=== PATIENT | female | born 1985 | race Hispanic/Latino ===

== ENCOUNTER 2018-11-02 03:57 | Emergency (ER) | payer MEDICAID | END 2018-11-02 04:38 | disposition home or self-care (01) | LOC: EDH 03:57 | DX: S90.511A Abrasion, right ankle, initial encounter (principal); F41.9 Anxiety disorder, unspecified; E11.9 Type 2 diabetes mellitus without complications; J45.909 Unspecified asthma, uncomplicated; I10 Essential (primary) hypertension; Z98.890 Other specified postprocedural states; W55.03XA Scratched by cat, initial encounter; Y93.89 Activity, other specified; Y92.098 Other place in other non-institutional residence as the place of occurrence of the external cause; Y99.8 Other external cause status ==

== ENCOUNTER 2019-08-01 19:34 | Emergency (ER) | payer MEDICAID ==
[2019-08-01 20:20] LABS: EOSINOPHILS % (AUTO) 2.3 % (0.0-8.0); HEMATOCRIT 38.3 % (36-48); MEAN CORPUSCULAR HGB CONC 34.4 g/dL (32.0-36.0); MEAN CORPUSCULAR VOLUME 84.5 fL (79-99); MONOCYTES % (AUTO) 5.3 % (3.0-13.0); NEUTROPHILS % (AUTO) 59.4 % (40.0-77.0); NUCLEATED RED BLOOD CELLS 0.1 % (0.0-0.19); PLATELET COUNT (AUTO) 239 K/uL (130-400); RED BLOOD CELL COUNT(AUTO) 4.53 MIL/uL (4.00-5.50); WHITE BLOOD COUNT (AUTO) 12.3 K/uL (4.8-10.8)
[2019-08-01 20:22] LABS: APPEARANCE,URINE Clear (CLEAR); BILIRUBIN,URINE Negative (NEGATIVE); COLOR,URINE Yellow (YELLOW); GLUCOSE, URINE (UA) Negative (NEGATIVE); KETONES,URINE Negative (NEGATIVE); LEUKOCYTE ESTERASE ,URINE Negative (NEGATIVE); NITRATE,URINE Negative (NEGATIVE); OCCULT BLOOD,URINE Negative (NEGATIVE); PH,URINE 5.5 (5.0-8.0); PROTEIN,URINE Negative (NEGATIVE)
[2019-08-01 20:25] LABS: CREATININE 0.8 mg/dL (0.5-1.5); POTASSIUM 3.8 mmol/L (3.5-5.1)
[2019-08-01 20:29] LABS: ALBUMIN 3.3 g/dL (3.5-5.0); BILIRUBIN,TOTAL 0.2 mg/dL (0.2-1.0); TOTAL PROTEIN, SERUM 7.5 g/dL (6.0-8.3)
[2019-08-01 20:29] LABS: AMPHET/METH SCREEN,URINE NEGATIVE (NEGATIVE); BARBITURATE SCREEN, URINE NEGATIVE (NEGATIVE); BENZODIAZEPINES SCREEN,URINE NEGATIVE (NEGATIVE); CANNABINOID SCREEN,URINE NEGATIVE (NEGATIVE); COCAINE SCREEN,URINE NEGATIVE (NEGATIVE); OPIATE SCREEN,URINE NEGATIVE (NEGATIVE); PHENCYCLIDINE SCREEN,URINE NEGATIVE (NEGATIVE)
[2019-08-01] MEDS ORDERED: AMOXICILLIN/POTASSIUM CLAV 875-125 TABLET PO ONE (21:31)
== END 2019-08-01 21:37 | disposition home or self-care (01) ==
LOC: EDH 19:34
DX: K57.32 Diverticulitis of large intestine without perforation or abscess without bleeding (principal); I10 Essential (primary) hypertension; E11.9 Type 2 diabetes mellitus without complications; J45.909 Unspecified asthma, uncomplicated; F41.9 Anxiety disorder, unspecified; Z90.89 Acquired absence of other organs
CPT/HCPCS: 36415; 74176; 80053; 80305; 81003; 81025; 83690; 85025

== ENCOUNTER 2019-11-14 14:31 | Emergency (ER) | payer MEDICAID ==
[2019-11-14 15:16] LABS: BASOPHILS % (AUTO) 0.6 % (0.0-5.0); EOSINOPHILS % (AUTO) 2.8 % (0.0-8.0); HEMATOCRIT 38.7 % (36-48); LYMPHOCYTES % (AUTO) 32.8 % (21.0-51.0); MEAN CORPUSCULAR HEMOGLOBIN 27.3 pg (27.0-33.0); MEAN CORPUSCULAR HGB CONC 32.6 g/dL (32.0-36.0); MEAN CORPUSCULAR VOLUME 83.9 fL (79-99); MONOCYTES % (AUTO) 7.1 % (3.0-13.0); NEUTROPHILS % (AUTO) 56.6 % (40.0-77.0); PLATELET COUNT (AUTO) 210 K/uL (130-400); RED BLOOD CELL COUNT(AUTO) 4.61 MIL/uL (4.00-5.50); RED CELL DISTRIBUTION WIDTH 13.7 % (11.0-15.5); WHITE BLOOD COUNT (AUTO) 8.6 K/uL (4.8-10.8)
[2019-11-14 15:25] LABS: PARTIAL THROMBOPLASTIN TIME 27.7 SEC (26.3-35.5); PROTHROMBIN TIME 10.5 SEC (9.6-11.6)
[2019-11-14 15:26] LABS: CARBON DIOXIDE 25 mmol/L (21-32); CHLORIDE 102 mmol/L (101-111); CREATININE 0.8 mg/dL (0.5-1.5); GLOMERULAR FILTR. RATE CALC 88 mL/min (>60); GLUCOSE,RANDOM 103 mg/dL (70-105); POTASSIUM 3.5 mmol/L (3.5-5.1); SODIUM SERUM 138 mmol/L (136-145); UREA NITROGEN, BLOOD 9 mg/dL (7-18)
[2019-11-14 15:30] LABS: ALANINE AMINOTRANSFERASE 31 U/L (12-78); ALBUMIN 3.3 g/dL (3.5-5.0); ASPARTATE AMINOTRANSFERASE 14 U/L (10-37); BILIRUBIN,TOTAL 0.3 mg/dL (0.2-1.0); CREATINE KINASE, TOTAL 91 U/L (21-232); TOTAL PROTEIN, SERUM 7.8 g/dL (6.0-8.3)
[2019-11-14 15:35] LABS: APPEARANCE,URINE Clear (CLEAR); BILIRUBIN,URINE Negative (NEGATIVE); COLOR,URINE Yellow (YELLOW); GLUCOSE, URINE (UA) Negative (NEGATIVE); KETONES,URINE Negative (NEGATIVE); LEUKOCYTE ESTERASE ,URINE Negative (NEGATIVE); NITRATE,URINE Negative (NEGATIVE); OCCULT BLOOD,URINE Negative (NEGATIVE); PH,URINE 5.5 (5.0-8.0); PROTEIN,URINE Negative (NEGATIVE); UROBILINOGEN,URINE 0.2 mg/dL (0.2-1.0)
[2019-11-14 15:38] LABS: ACETAMINOPHEN < 1 mcg/mL (10-30); ALCOHOL, BLOOD < 3 mg/dL (0-10); SALICYLATE < 2.8 mg/dL (2.8-20.0)
[2019-11-14 15:48] LABS: AMPHET/METH SCREEN,URINE NEGATIVE (NEGATIVE); BARBITURATE SCREEN, URINE NEGATIVE (NEGATIVE); BENZODIAZEPINES SCREEN,URINE NEGATIVE (NEGATIVE); CANNABINOID SCREEN,URINE NEGATIVE (NEGATIVE); COCAINE SCREEN,URINE NEGATIVE (NEGATIVE); HCG,QUAL RESULT NEGATIVE (NEGATIVE); OPIATE SCREEN,URINE NEGATIVE (NEGATIVE); PHENCYCLIDINE SCREEN,URINE NEGATIVE (NEGATIVE)
[2019-11-14] MEDS ORDERED: ACETAMINOPHEN 325 MG TAB ONE (15:57)
== END 2019-11-14 21:12 | disposition short-term general hospital (02) ==
LOC: EDH 14:31
DX: R45.851 Suicidal ideations (principal); F41.9 Anxiety disorder, unspecified; F32.9 Major depressive disorder, single episode, unspecified; J45.909 Unspecified asthma, uncomplicated; E11.9 Type 2 diabetes mellitus without complications; I10 Essential (primary) hypertension; Z72.0 Tobacco use
CPT/HCPCS: 36415; 80053; 80305; 81003; 81025; 82550; 84484; 85025; 85610; 85730; 93005; 99285; G0480 ×2; G0481

== ENCOUNTER 2020-02-11 20:20 | Emergency (ER) | payer MEDICAID ==
[2020-02-11 20:57] LABS: BASOPHILS % (AUTO) 0.5 % (0.0-5.0); EOSINOPHILS % (AUTO) 2.5 % (0.0-8.0); HEMATOCRIT 38.3 % (36-48); LYMPHOCYTES % (AUTO) 35.4 % (21.0-51.0); MEAN CORPUSCULAR HEMOGLOBIN 25.3 pg (27.0-33.0); MEAN CORPUSCULAR HGB CONC 31.9 g/dL (32.0-36.0); MEAN CORPUSCULAR VOLUME 79.5 fL (79-99); MONOCYTES % (AUTO) 5.8 % (3.0-13.0); NEUTROPHILS % (AUTO) 55.6 % (40.0-77.0); PLATELET COUNT (AUTO) 313 K/uL (130-400); RED BLOOD CELL COUNT(AUTO) 4.82 MIL/uL (4.00-5.50); RED CELL DISTRIBUTION WIDTH 14.7 % (11.0-15.5); WHITE BLOOD COUNT (AUTO) 9.5 K/uL (4.8-10.8)
[2020-02-11 21:14] LABS: APPEARANCE,URINE Cloudy (CLEAR); BILIRUBIN,URINE Negative (NEGATIVE); CARBON DIOXIDE 28 mmol/L (21-32); CHLORIDE 103 mmol/L (101-111); COLOR,URINE Yellow (YELLOW); GLOMERULAR FILTR. RATE CALC 68 mL/min (>60); GLUCOSE, URINE (UA) Negative (NEGATIVE); GLUCOSE,RANDOM 104 mg/dL (70-105); KETONES,URINE Negative (NEGATIVE); LEUKOCYTE ESTERASE ,URINE Negative (NEGATIVE); NITRATE,URINE Negative (NEGATIVE); OCCULT BLOOD,URINE Negative (NEGATIVE); PH,URINE 5.5 (5.0-8.0); POTASSIUM 3.4 mmol/L (3.5-5.1); PROTEIN,URINE Negative (NEGATIVE); SODIUM SERUM 139 mmol/L (136-145); UREA NITROGEN, BLOOD 18 mg/dL (7-18)
[2020-02-11 21:15] LABS: HCG,QUAL RESULT NEGATIVE (NEGATIVE)
[2020-02-11 21:18] LABS: ALANINE AMINOTRANSFERASE 29 U/L (12-78); ALBUMIN 3.5 g/dL (3.5-5.0); ALCOHOL, BLOOD < 3 mg/dL (0-10); ASPARTATE AMINOTRANSFERASE 14 U/L (10-37); BILIRUBIN,TOTAL 0.2 mg/dL (0.2-1.0); TOTAL PROTEIN, SERUM 7.7 g/dL (6.0-8.3)
[2020-02-11 21:19] LABS: AMPHET/METH SCREEN,URINE NEGATIVE (NEGATIVE); BARBITURATE SCREEN, URINE NEGATIVE (NEGATIVE); BENZODIAZEPINES SCREEN,URINE NEGATIVE (NEGATIVE); CANNABINOID SCREEN,URINE NEGATIVE (NEGATIVE); COCAINE SCREEN,URINE NEGATIVE (NEGATIVE); OPIATE SCREEN,URINE NEGATIVE (NEGATIVE); PHENCYCLIDINE SCREEN,URINE NEGATIVE (NEGATIVE)
[2020-02-11 21:21] LABS: ACETAMINOPHEN < 1 mcg/mL (10-30); SALICYLATE < 2.8 mg/dL (2.8-20.0)
[2020-02-11 21:31] LABS: BACTERIA,URINE Few /HPF (None Seen); RBC,URINE None Seen /HPF (0-1); SQUAMOUS EPITHELIAL CELL,UR 0-2 /HPF (0-2); WBC,URINE 0-1 /HPF (0-1)
== END 2020-02-11 21:46 | disposition home or self-care (01) ==
LOC: EDH 20:20
DX: F43.21 Adjustment disorder with depressed mood (principal); J45.909 Unspecified asthma, uncomplicated; E11.9 Type 2 diabetes mellitus without complications; F32.9 Major depressive disorder, single episode, unspecified; I10 Essential (primary) hypertension; F41.9 Anxiety disorder, unspecified; Z79.899 Other long term (current) drug therapy; Z72.0 Tobacco use
CPT/HCPCS: 36415; 80053; 80305; 81001; 81025; 85025; 99283; G0480 ×2; G0481

== ENCOUNTER 2020-03-03 21:02 | Emergency (ER) | payer MEDICAID ==
[2020-03-03] MEDS ORDERED: ONDANSETRON HCL 4 MG/2 ML VIAL IVP ONE (21:03)
[2020-03-03] MEDS ORDERED: SODIUM CHLORIDE 0.9% 1000ML 1,000 ML IV ONE (21:03)
[2020-03-03 21:27] LABS: BASOPHILS % (AUTO) 0.2 % (0.0-5.0); EOSINOPHILS % (AUTO) 1.9 % (0.0-8.0); HEMATOCRIT 41.7 % (36-48); LYMPHOCYTES % (AUTO) 23.6 % (21.0-51.0); MEAN CORPUSCULAR HEMOGLOBIN 25.7 pg (27.0-33.0); MEAN CORPUSCULAR HGB CONC 32.1 g/dL (32.0-36.0); MEAN CORPUSCULAR VOLUME 79.9 fL (79-99); MONOCYTES % (AUTO) 3.5 % (3.0-13.0); NEUTROPHILS % (AUTO) 70.5 % (40.0-77.0); PLATELET COUNT (AUTO) 317 K/uL (130-400); RED BLOOD CELL COUNT(AUTO) 5.22 MIL/uL (4.00-5.50); RED CELL DISTRIBUTION WIDTH 15.4 % (11.0-15.5); WHITE BLOOD COUNT (AUTO) 12.8 K/uL (4.8-10.8)
[2020-03-03 21:28] LABS: APPEARANCE,URINE Cloudy (CLEAR); BILIRUBIN,URINE Negative (NEGATIVE); COLOR,URINE Dark Yellow (YELLOW); GLUCOSE, URINE (UA) Negative (NEGATIVE); KETONES,URINE Trace mg/dL (NEGATIVE); LEUKOCYTE ESTERASE ,URINE Trace (NEGATIVE); NITRATE,URINE Negative (NEGATIVE); OCCULT BLOOD,URINE Trace (NEGATIVE); PH,URINE 5.5 (5.0-8.0); PROTEIN,URINE POS 1+ mg/dL (NEGATIVE)
[2020-03-03 21:31] LABS: HCG,QUAL RESULT NEGATIVE (NEGATIVE)
[2020-03-03 21:36] LABS: AMPHET/METH SCREEN,URINE NEGATIVE (NEGATIVE); BARBITURATE SCREEN, URINE NEGATIVE (NEGATIVE); BENZODIAZEPINES SCREEN,URINE NEGATIVE (NEGATIVE); CANNABINOID SCREEN,URINE NEGATIVE (NEGATIVE); COCAINE SCREEN,URINE NEGATIVE (NEGATIVE); OPIATE SCREEN,URINE NEGATIVE (NEGATIVE); PHENCYCLIDINE SCREEN,URINE NEGATIVE (NEGATIVE)
[2020-03-03 21:39] LABS: BACTERIA,URINE Moderate /HPF (None Seen); MUCUS,URINE Few LPF (None Seen); SQUAMOUS EPITHELIAL CELL,UR Moderate /HPF (0-2)
[2020-03-03 21:40] LABS: POTASSIUM 3.8 mmol/L (3.5-5.1)
[2020-03-03 21:44] LABS: ALBUMIN 3.7 g/dL (3.5-5.0); BILIRUBIN,DIRECT 0.1 mg/dL (0.0-0.3); BILIRUBIN,TOTAL 0.2 mg/dL (0.2-1.0); TOTAL PROTEIN, SERUM 8.2 g/dL (6.0-8.3)
== END 2020-03-03 22:58 | disposition home or self-care (01) ==
LOC: EDH 21:02
DX: K52.9 Noninfective gastroenteritis and colitis, unspecified (principal); J45.909 Unspecified asthma, uncomplicated; I10 Essential (primary) hypertension; F41.9 Anxiety disorder, unspecified; F31.9 Bipolar disorder, unspecified; Z79.899 Other long term (current) drug therapy; Z72.0 Tobacco use
CPT/HCPCS: 36415; 74176; 80048; 80076; 80305; 81001; 81025; 82550; 83690; 85025; 87077; 87088; 87186; 96361; 96374; 99284; J2405; J7030

== ENCOUNTER 2020-06-22 18:19 | Emergency (ER) | payer MEDICAID ==
[2020-06-22 19:03] LABS: BASOPHILS % (AUTO) 0.6 % (0.0-5.0); EOSINOPHILS % (AUTO) 3.3 % (0.0-8.0); HEMATOCRIT 39.3 % (36-48); LYMPHOCYTES % (AUTO) 41.6 % (21.0-51.0); MEAN CORPUSCULAR HEMOGLOBIN 26.8 pg (27.0-33.0); MEAN CORPUSCULAR HGB CONC 32.6 g/dL (32.0-36.0); MEAN CORPUSCULAR VOLUME 82.2 fL (79-99); MONOCYTES % (AUTO) 6.2 % (3.0-13.0); NEUTROPHILS % (AUTO) 48.1 % (40.0-77.0); PLATELET COUNT (AUTO) 304 K/uL (130-400); RED BLOOD CELL COUNT(AUTO) 4.78 MIL/uL (4.00-5.50); WHITE BLOOD COUNT (AUTO) 9.5 K/uL (4.8-10.8)
[2020-06-22 19:06] LABS: CARBON DIOXIDE 29 mmol/L (21-32); CHLORIDE 106 mmol/L (101-111); CREATININE 0.9 mg/dL (0.5-1.5); GLOMERULAR FILTR. RATE CALC 77 mL/min (>60); GLUCOSE,RANDOM 90 mg/dL (70-105); POTASSIUM 4.2 mmol/L (3.5-5.1); SODIUM SERUM 139 mmol/L (136-145); UREA NITROGEN, BLOOD 8 mg/dL (7-18)
[2020-06-22 19:10] LABS: ALANINE AMINOTRANSFERASE 36 U/L (12-78); ALBUMIN 3.8 g/dL (3.5-5.0); ALCOHOL, BLOOD < 3 mg/dL (0-10); ASPARTATE AMINOTRANSFERASE 19 U/L (10-37); BILIRUBIN,TOTAL 0.1 mg/dL (0.2-1.0); TOTAL PROTEIN, SERUM 8.5 g/dL (6.0-8.3)
[2020-06-22 19:11] LABS: ACETAMINOPHEN < 1 mcg/mL (10-30); SALICYLATE < 2.8 mg/dL (2.8-20.0)
[2020-06-22] MEDS ORDERED: ONDANSETRON HCL 4 MG/2 ML VIAL ONE (19:25)
[2020-06-22 19:34] LABS: APPEARANCE,URINE Clear (CLEAR); BILIRUBIN,URINE Negative (NEGATIVE); COLOR,URINE Yellow (YELLOW); GLUCOSE, URINE (UA) Negative (NEGATIVE); KETONES,URINE Negative (NEGATIVE); LEUKOCYTE ESTERASE ,URINE Negative (NEGATIVE); NITRATE,URINE Negative (NEGATIVE); OCCULT BLOOD,URINE Negative (NEGATIVE); PROTEIN,URINE Trace mg/dL (NEGATIVE)
[2020-06-22 19:35] LABS: HCG,QUAL RESULT NEGATIVE (NEGATIVE)
[2020-06-22 19:41] LABS: BACTERIA,URINE Rare /HPF (None Seen); MUCUS,URINE Few LPF (None Seen); SQUAMOUS EPITHELIAL CELL,UR Few /HPF (0-2)
[2020-06-22 19:42] LABS: AMPHET/METH SCREEN,URINE NEGATIVE (NEGATIVE); BARBITURATE SCREEN, URINE NEGATIVE (NEGATIVE); BENZODIAZEPINES SCREEN,URINE NEGATIVE (NEGATIVE); CANNABINOID SCREEN,URINE NEGATIVE (NEGATIVE); COCAINE SCREEN,URINE NEGATIVE (NEGATIVE); OPIATE SCREEN,URINE NEGATIVE (NEGATIVE); PHENCYCLIDINE SCREEN,URINE NEGATIVE (NEGATIVE)
== END 2020-06-22 20:21 | disposition home or self-care (01) ==
LOC: EDH 18:19
DX: Z02.89 Encounter for other administrative examinations (principal); F10.10 Alcohol abuse, uncomplicated; F19.10 Other psychoactive substance abuse, uncomplicated; F41.9 Anxiety disorder, unspecified; J45.909 Unspecified asthma, uncomplicated; F31.9 Bipolar disorder, unspecified; E11.9 Type 2 diabetes mellitus without complications; I10 Essential (primary) hypertension
CPT/HCPCS: 36415; 80053; 80305; 81001; 81025; 85025; 96374; 99283; G0481; J2405

== ENCOUNTER 2020-08-27 04:27 | Emergency (ER) | payer MEDICAID ==
[2020-08-27 05:08] LABS: BASOPHILS % (AUTO) 0.7 % (0.0-5.0); EOSINOPHILS % (AUTO) 3.9 % (0.0-8.0); HEMATOCRIT 40.3 % (36-48); LYMPHOCYTES % (AUTO) 36.7 % (21.0-51.0); MEAN CORPUSCULAR HEMOGLOBIN 26.9 pg (27.0-33.0); MEAN CORPUSCULAR HGB CONC 32.5 g/dL (32.0-36.0); MEAN CORPUSCULAR VOLUME 82.8 fL (79-99); MONOCYTES % (AUTO) 5.4 % (3.0-13.0); PLATELET COUNT (AUTO) 248 K/uL (130-400); RED BLOOD CELL COUNT(AUTO) 4.87 MIL/uL (4.00-5.50); RED CELL DISTRIBUTION WIDTH 14.7 % (11.0-15.5); WHITE BLOOD COUNT (AUTO) 7.5 K/uL (4.8-10.8)
[2020-08-27 05:12] LABS: APPEARANCE,URINE Clear (CLEAR); BILIRUBIN,URINE Negative (NEGATIVE); COLOR,URINE Yellow (YELLOW); GLUCOSE, URINE (UA) Negative (NEGATIVE); KETONES,URINE Negative (NEGATIVE); LEUKOCYTE ESTERASE ,URINE Negative (NEGATIVE); NITRATE,URINE Negative (NEGATIVE); OCCULT BLOOD,URINE Nonhemolyzed Trace (NEGATIVE); PROTEIN,URINE Negative (NEGATIVE)
[2020-08-27 05:16] LABS: HCG,QUAL RESULT NEGATIVE (NEGATIVE)
[2020-08-27 05:17] LABS: CREATININE 0.9 mg/dL (0.5-1.5); POTASSIUM 3.8 mmol/L (3.5-5.1)
[2020-08-27 05:18] LABS: BACTERIA,URINE None Seen /HPF (None Seen); RBC,URINE None Seen /HPF (0-1); WBC,URINE None Seen /HPF (0-1)
[2020-08-27 05:24] LABS: INR 0.93 (0.85-1.15); PROTHROMBIN TIME 10.1 SEC (9.6-11.6)
[2020-08-27 05:27] LABS: ALBUMIN 3.4 g/dL (3.5-5.0); BILIRUBIN,TOTAL 0.2 mg/dL (0.2-1.0)
[2020-08-27] MEDS ORDERED: METOCLOPRAMIDE 10 MG/2 ML VIAL ONE (05:56)
[2020-08-27] MEDS ORDERED: ONDANSETRON HCL 4 MG/2 ML VIAL ONE (05:57)
[2020-08-27] MEDS ORDERED: CEPHALEXIN 500 MG CAPSULE ONE (05:57)
[2020-08-27] MEDS ORDERED: KETOROLAC TROMETHAMINE 30MG/ML ONE (05:57)
== END 2020-08-27 06:17 | disposition home or self-care (01) ==
LOC: EDH 04:27
DX: R30.0 Dysuria (principal); R10.30 Lower abdominal pain, unspecified; R11.2 Nausea with vomiting, unspecified; J45.909 Unspecified asthma, uncomplicated; I10 Essential (primary) hypertension; F41.9 Anxiety disorder, unspecified; F31.9 Bipolar disorder, unspecified; E11.9 Type 2 diabetes mellitus without complications; E66.9 Obesity, unspecified; Z68.42 Body mass index [BMI] 45.0-49.9, adult
CPT/HCPCS: 36415; 80053; 81001; 81025; 83690; 85025; 85610; 85730; 96374; 96375; 99284; J1885; J2405; J2765

== ENCOUNTER 2020-08-29 19:26 | Emergency (ER) | payer MEDICAID ==
[2020-08-29] MEDS ORDERED: SULFAMETHOX-TMP DS 800/160 TAB ONE (19:53)
== END 2020-08-29 20:00 | disposition home or self-care (01) ==
LOC: EDH 19:26
DX: L03.115 Cellulitis of right lower limb (principal); J45.909 Unspecified asthma, uncomplicated; E11.9 Type 2 diabetes mellitus without complications; F31.9 Bipolar disorder, unspecified; F41.9 Anxiety disorder, unspecified; I10 Essential (primary) hypertension

== ENCOUNTER 2020-10-13 16:32 | Emergency (ER) | payer MEDICAID ==
[2020-10-13 18:01] LABS: APPEARANCE,URINE Clear (CLEAR); BILIRUBIN,URINE Negative (NEGATIVE); COLOR,URINE Yellow (YELLOW); GLUCOSE, URINE (UA) Negative (NEGATIVE); KETONES,URINE Trace mg/dL (NEGATIVE); LEUKOCYTE ESTERASE ,URINE Negative (NEGATIVE); NITRATE,URINE Negative (NEGATIVE); OCCULT BLOOD,URINE Negative (NEGATIVE); PH,URINE 5.5 (5.0-8.0); PROTEIN,URINE Negative (NEGATIVE); UROBILINOGEN,URINE 0.2 mg/dL (0.2-1.0)
[2020-10-13 18:05] LABS: BASOPHILS % (AUTO) 0.5 % (0.0-5.0); EOSINOPHILS % (AUTO) 3.2 % (0.0-8.0); HEMATOCRIT 34.6 % (36-48); MEAN CORPUSCULAR HEMOGLOBIN 27.6 pg (27.0-33.0); MEAN CORPUSCULAR HGB CONC 32.9 g/dL (32.0-36.0); MEAN CORPUSCULAR VOLUME 83.8 fL (79-99); MONOCYTES % (AUTO) 5.3 % (3.0-13.0); NEUTROPHILS % (AUTO) 54.8 % (40.0-77.0); PLATELET COUNT (AUTO) 265 K/uL (130-400); RED BLOOD CELL COUNT(AUTO) 4.13 MIL/uL (4.00-5.50); RED CELL DISTRIBUTION WIDTH 15.1 % (11.0-15.5); WHITE BLOOD COUNT (AUTO) 8.9 K/uL (4.8-10.8)
[2020-10-13 18:06] LABS: AMPHET/METH SCREEN,URINE NEGATIVE (NEGATIVE); BARBITURATE SCREEN, URINE NEGATIVE (NEGATIVE); BENZODIAZEPINES SCREEN,URINE NEGATIVE (NEGATIVE); CANNABINOID SCREEN,URINE NEGATIVE (NEGATIVE); COCAINE SCREEN,URINE NEGATIVE (NEGATIVE); OPIATE SCREEN,URINE NEGATIVE (NEGATIVE); PHENCYCLIDINE SCREEN,URINE NEGATIVE (NEGATIVE)
[2020-10-13 18:21] LABS: CARBON DIOXIDE 30 mmol/L (21-32); CHLORIDE 104 mmol/L (101-111); CREATININE 0.9 mg/dL (0.5-1.5); GLOMERULAR FILTR. RATE CALC 76 mL/min (>60); GLUCOSE,RANDOM 129 mg/dL (70-105); POTASSIUM 3.8 mmol/L (3.5-5.1); SODIUM SERUM 142 mmol/L (136-145); UREA NITROGEN, BLOOD 9 mg/dL (7-18)
[2020-10-13 18:31] LABS: ALANINE AMINOTRANSFERASE 33 U/L (12-78); ALBUMIN 3.3 g/dL (3.5-5.0); ALCOHOL, BLOOD < 3 mg/dL (0-10); ASPARTATE AMINOTRANSFERASE 19 U/L (10-37); BILIRUBIN,TOTAL 0.2 mg/dL (0.2-1.0); TOTAL PROTEIN, SERUM 7.4 g/dL (6.0-8.3)
[2020-10-13 18:33] LABS: ACETAMINOPHEN < 1 mcg/mL (10-30); SALICYLATE < 2.8 mg/dL (2.8-20.0)
== END 2020-10-14 00:11 | disposition home or self-care (01) ==
LOC: EDH 16:32
DX: R45.851 Suicidal ideations (principal); J45.909 Unspecified asthma, uncomplicated; F41.9 Anxiety disorder, unspecified; F31.9 Bipolar disorder, unspecified; E11.9 Type 2 diabetes mellitus without complications; I10 Essential (primary) hypertension
CPT/HCPCS: 36415; 80053; 80305; 81003; 81025; 85025; 99283; G0481

== ENCOUNTER 2020-11-04 11:25 | Emergency (ER) | payer MEDICAID ==
[2020-11-04 12:21] LABS: BASOPHILS % (AUTO) 0.6 % (0.0-5.0); HEMATOCRIT 38.8 % (36-48); LYMPHOCYTES % (AUTO) 34.8 % (21.0-51.0); MEAN CORPUSCULAR HEMOGLOBIN 27.5 pg (27.0-33.0); MEAN CORPUSCULAR VOLUME 83.4 fL (79-99); MONOCYTES % (AUTO) 5.2 % (3.0-13.0); NEUTROPHILS % (AUTO) 56.1 % (40.0-77.0); PLATELET COUNT (AUTO) 362 K/uL (130-400); RED BLOOD CELL COUNT(AUTO) 4.65 MIL/uL (4.00-5.50); RED CELL DISTRIBUTION WIDTH 14.6 % (11.0-15.5); WHITE BLOOD COUNT (AUTO) 11.1 K/uL (4.8-10.8)
[2020-11-04 12:31] LABS: ACETAMINOPHEN 4 mcg/mL (10-30); ALANINE AMINOTRANSFERASE 31 U/L (12-78); ALBUMIN 3.7 g/dL (3.5-5.0); ALCOHOL, BLOOD < 3 mg/dL (0-10); ASPARTATE AMINOTRANSFERASE 17 U/L (10-37); BILIRUBIN,TOTAL 0.2 mg/dL (0.2-1.0); CHLORIDE 103 mmol/L (101-111); CREATININE 0.8 mg/dL (0.5-1.5); GLOMERULAR FILTR. RATE CALC 87 mL/min (>60); GLUCOSE,RANDOM 112 mg/dL (70-105); POTASSIUM 4.1 mmol/L (3.5-5.1); SODIUM SERUM 140 mmol/L (136-145); TOTAL PROTEIN, SERUM 8.6 g/dL (6.0-8.3); UREA NITROGEN, BLOOD 13 mg/dL (7-18)
[2020-11-04 12:32] LABS: CARBON DIOXIDE 26 mmol/L (21-32)
[2020-11-04 12:48] LABS: SALICYLATE < 2.8 mg/dL (2.8-20.0)
[2020-11-04 13:01] LABS: HCG,QUAL RESULT NEGATIVE (NEGATIVE)
[2020-11-04 13:02] LABS: APPEARANCE,URINE Turbid (CLEAR); BILIRUBIN,URINE Negative (NEGATIVE); COLOR,URINE Yellow (YELLOW); GLUCOSE, URINE (UA) Negative (NEGATIVE); KETONES,URINE Trace mg/dL (NEGATIVE); LEUKOCYTE ESTERASE ,URINE Small (NEGATIVE); NITRATE,URINE Negative (NEGATIVE); OCCULT BLOOD,URINE Large (NEGATIVE); PH,URINE 5.5 (5.0-8.0); PROTEIN,URINE POS 1+ mg/dL (NEGATIVE)
[2020-11-04 13:09] LABS: AMPHET/METH SCREEN,URINE NEGATIVE (NEGATIVE); BARBITURATE SCREEN, URINE NEGATIVE (NEGATIVE); BENZODIAZEPINES SCREEN,URINE NEGATIVE (NEGATIVE); CANNABINOID SCREEN,URINE NEGATIVE (NEGATIVE); COCAINE SCREEN,URINE NEGATIVE (NEGATIVE); OPIATE SCREEN,URINE NEGATIVE (NEGATIVE); PHENCYCLIDINE SCREEN,URINE NEGATIVE (NEGATIVE)
[2020-11-04 13:23] LABS: BACTERIA,URINE Few /HPF (None Seen); MUCUS,URINE Few LPF (None Seen); RBC,URINE >100 /HPF (0-1)
== END 2020-11-04 19:31 | disposition home or self-care (01) ==
LOC: EDH 11:25
DX: R45.851 Suicidal ideations (principal); Z20.822 Contact with and (suspected) exposure to COVID-19; F31.9 Bipolar disorder, unspecified; E11.9 Type 2 diabetes mellitus without complications; J45.909 Unspecified asthma, uncomplicated; I10 Essential (primary) hypertension; F41.9 Anxiety disorder, unspecified; F10.10 Alcohol abuse, uncomplicated; Z90.49 Acquired absence of other specified parts of digestive tract
CPT/HCPCS: 36415; 80053; 80305; 81001; 81025; 85025; 87426; 93005; 99285; G0481; U0003

== ENCOUNTER 2020-11-08 17:57 | Emergency (ER) | payer MEDICAID ==
[2020-11-08 18:32] LABS: BASOPHILS % (AUTO) 0.6 % (0.0-5.0); EOSINOPHILS % (AUTO) 3.3 % (0.0-8.0); HEMATOCRIT 36.9 % (36-48); LYMPHOCYTES % (AUTO) 38.9 % (21.0-51.0); MEAN CORPUSCULAR HEMOGLOBIN 27.3 pg (27.0-33.0); MEAN CORPUSCULAR HGB CONC 32.5 g/dL (32.0-36.0); MEAN CORPUSCULAR VOLUME 83.9 fL (79-99); MONOCYTES % (AUTO) 4.4 % (3.0-13.0); NEUTROPHILS % (AUTO) 52.6 % (40.0-77.0); PLATELET COUNT (AUTO) 282 K/uL (130-400); RED CELL DISTRIBUTION WIDTH 14.1 % (11.0-15.5); WHITE BLOOD COUNT (AUTO) 8.8 K/uL (4.8-10.8)
[2020-11-08] MEDS ORDERED: ALPRAZOLAM 0.25 MG TABLET ONE (18:43)
[2020-11-08 18:44] LABS: CARBON DIOXIDE 28 mmol/L (21-32); CHLORIDE 102 mmol/L (101-111); GLOMERULAR FILTR. RATE CALC 67 mL/min (>60); GLUCOSE,RANDOM 122 mg/dL (70-105); SODIUM SERUM 138 mmol/L (136-145); UREA NITROGEN, BLOOD 17 mg/dL (7-18)
[2020-11-08 18:48] LABS: ALANINE AMINOTRANSFERASE 38 U/L (12-78); ALBUMIN 3.7 g/dL (3.5-5.0); ALCOHOL, BLOOD < 3 mg/dL (0-10); ASPARTATE AMINOTRANSFERASE 25 U/L (10-37); BILIRUBIN,TOTAL 0.2 mg/dL (0.2-1.0); TOTAL PROTEIN, SERUM 8.6 g/dL (6.0-8.3)
[2020-11-08 18:48] LABS: HCG,QUAL RESULT NEGATIVE (NEGATIVE)
[2020-11-08 18:53] LABS: APPEARANCE,URINE SL CLOUDY (CLEAR); BILIRUBIN,URINE NEGATIVE (NEGATIVE); COLOR,URINE OTHER (YELLOW); GLUCOSE, URINE (UA) NEGATIVE (NEGATIVE); KETONES,URINE NEGATIVE (NEGATIVE); LEUKOCYTE ESTERASE ,URINE TRACE (NEGATIVE); NITRATE,URINE NEGATIVE (NEGATIVE); OCCULT BLOOD,URINE LARGE (NEGATIVE); PROTEIN,URINE NEGATIVE (NEGATIVE); UROBILINOGEN,URINE 0.2 mg/dL (0.2-1.0)
[2020-11-08 18:54] LABS: ACETAMINOPHEN < 1 mcg/mL (10-30); SALICYLATE < 2.8 mg/dL (2.8-20.0)
[2020-11-08 18:58] LABS: AMPHET/METH SCREEN,URINE NEGATIVE (NEGATIVE); BARBITURATE SCREEN, URINE NEGATIVE (NEGATIVE); BENZODIAZEPINES SCREEN,URINE NEGATIVE (NEGATIVE); CANNABINOID SCREEN,URINE NEGATIVE (NEGATIVE); COCAINE SCREEN,URINE NEGATIVE (NEGATIVE); OPIATE SCREEN,URINE NEGATIVE (NEGATIVE); PHENCYCLIDINE SCREEN,URINE NEGATIVE (NEGATIVE)
[2020-11-08 19:23] LABS: AMORPHOUS SEDIMENT,UR Moderate /LPF (None Seen); BACTERIA,URINE Few /HPF (None Seen); MUCUS,URINE Moderate LPF (None Seen); SQUAMOUS EPITHELIAL CELL,UR Moderate /HPF (0-2)
== END 2020-11-08 22:02 | disposition home or self-care (01) ==
LOC: EDH 17:57
DX: R45.851 Suicidal ideations (principal); F41.8 Other specified anxiety disorders; F32.89 Other specified depressive episodes; I10 Essential (primary) hypertension; J45.909 Unspecified asthma, uncomplicated; Z98.890 Other specified postprocedural states; Z72.0 Tobacco use
CPT/HCPCS: 36415; 80053; 80305; 81001; 81025; 85025; 99285; G0481

== ENCOUNTER 2020-12-09 01:02 | Emergency (ER) | payer MEDICAID ==
[2020-12-09 01:43] LABS: BASOPHILS % (AUTO) 0.6 % (0.0-5.0); EOSINOPHILS % (AUTO) 2.5 % (0.0-8.0); HEMATOCRIT 36.3 % (36-48); LYMPHOCYTES % (AUTO) 38.4 % (21.0-51.0); MEAN CORPUSCULAR HEMOGLOBIN 26.5 pg (27.0-33.0); MEAN CORPUSCULAR HGB CONC 32.2 g/dL (32.0-36.0); MEAN CORPUSCULAR VOLUME 82.1 fL (79-99); MONOCYTES % (AUTO) 5.9 % (3.0-13.0); NEUTROPHILS % (AUTO) 52.4 % (40.0-77.0); PLATELET COUNT (AUTO) 299 K/uL (130-400); RED BLOOD CELL COUNT(AUTO) 4.42 MIL/uL (4.00-5.50); RED CELL DISTRIBUTION WIDTH 14.1 % (11.0-15.5); WHITE BLOOD COUNT (AUTO) 8.6 K/uL (4.8-10.8)
[2020-12-09 01:46] LABS: APPEARANCE,URINE Clear (CLEAR); BILIRUBIN,URINE Negative (NEGATIVE); COLOR,URINE Yellow (YELLOW); GLUCOSE, URINE (UA) Negative (NEGATIVE); KETONES,URINE Negative (NEGATIVE); LEUKOCYTE ESTERASE ,URINE Negative (NEGATIVE); NITRATE,URINE Negative (NEGATIVE); OCCULT BLOOD,URINE Negative (NEGATIVE); PH,URINE 5.5 (5.0-8.0); PROTEIN,URINE Negative (NEGATIVE); UROBILINOGEN,URINE 0.2 mg/dL (0.2-1.0)
[2020-12-09 01:47] LABS: HCG,QUAL RESULT NEGATIVE (NEGATIVE)
[2020-12-09 01:54] LABS: CARBON DIOXIDE 26 mmol/L (21-32); CHLORIDE 103 mmol/L (101-111); CREATININE 1.1 mg/dL (0.5-1.5); GLOMERULAR FILTR. RATE CALC 60 mL/min (>60); GLUCOSE,RANDOM 121 mg/dL (70-105); POTASSIUM 3.6 mmol/L (3.5-5.1); SODIUM SERUM 140 mmol/L (136-145); UREA NITROGEN, BLOOD 17 mg/dL (7-18)
[2020-12-09 01:58] LABS: ACETAMINOPHEN 4 mcg/mL (10-30); ALANINE AMINOTRANSFERASE 22 U/L (12-78); ALBUMIN 3.6 g/dL (3.5-5.0); ALCOHOL, BLOOD 8 mg/dL (0-10); ASPARTATE AMINOTRANSFERASE 18 U/L (10-37); BILIRUBIN,TOTAL 0.2 mg/dL (0.2-1.0)
[2020-12-09 01:59] LABS: SALICYLATE < 2.8 mg/dL (2.8-20.0)
[2020-12-09 02:18] LABS: AMPHET/METH SCREEN,URINE NEGATIVE (NEGATIVE); BARBITURATE SCREEN, URINE NEGATIVE (NEGATIVE); BENZODIAZEPINES SCREEN,URINE NEGATIVE (NEGATIVE); CANNABINOID SCREEN,URINE NEGATIVE (NEGATIVE); COCAINE SCREEN,URINE NEGATIVE (NEGATIVE); OPIATE SCREEN,URINE NEGATIVE (NEGATIVE); PHENCYCLIDINE SCREEN,URINE NEGATIVE (NEGATIVE)
== END 2020-12-09 09:48 | disposition home or self-care (01) ==
LOC: EDH 01:02
DX: F33.2 Major depressive disorder, recurrent severe without psychotic features (principal); Z20.822 Contact with and (suspected) exposure to COVID-19; J45.909 Unspecified asthma, uncomplicated; I10 Essential (primary) hypertension; F41.9 Anxiety disorder, unspecified; F10.10 Alcohol abuse, uncomplicated; Z72.0 Tobacco use
CPT/HCPCS: 36415; 71046; 80053; 80305; 81003; 81025; 85025; 87426; 99284; G0481; U0003

== ENCOUNTER 2020-12-16 06:20 | Emergency (ER) | payer MEDICAID | END 2020-12-16 06:44 | disposition home or self-care (01) | LOC: EDH 06:20 | DX: F41.1 Generalized anxiety disorder (principal); F51.05 Insomnia due to other mental disorder; J45.909 Unspecified asthma, uncomplicated; F31.9 Bipolar disorder, unspecified; I10 Essential (primary) hypertension; Z79.899 Other long term (current) drug therapy; Z72.0 Tobacco use | CPT/HCPCS: 99281 ==

== ENCOUNTER 2021-02-18 08:22 | Emergency (ER) | payer MEDICAID ==
[2021-02-18] MEDS ORDERED: HYDROXYZINE HCL 25 MG TABLET ONE (08:37)
== END 2021-02-18 09:41 | disposition home or self-care (01) ==
LOC: EDH 08:22
DX: F41.1 Generalized anxiety disorder (principal); E11.9 Type 2 diabetes mellitus without complications; I10 Essential (primary) hypertension; F31.9 Bipolar disorder, unspecified; J45.909 Unspecified asthma, uncomplicated

== ENCOUNTER 2021-03-05 03:31 | Emergency (ER) | payer MEDICAID ==
[2021-03-05] MEDS ORDERED: KETOROLAC TROMETHAMINE 30MG/ML ONE (04:13)
[2021-03-05 04:21] LABS: BASOPHILS % (AUTO) 0.6 % (0.0-5.0); EOSINOPHILS % (AUTO) 2.3 % (0.0-8.0); HEMATOCRIT 38.8 % (36-48); MEAN CORPUSCULAR HEMOGLOBIN 27.3 pg (27.0-33.0); MEAN CORPUSCULAR HGB CONC 33.5 g/dL (32.0-36.0); MEAN CORPUSCULAR VOLUME 81.3 fL (79-99); MONOCYTES % (AUTO) 5.1 % (3.0-13.0); NEUTROPHILS % (AUTO) 66.7 % (40.0-77.0); PLATELET COUNT (AUTO) 231 K/uL (130-400); RED BLOOD CELL COUNT(AUTO) 4.77 MIL/uL (4.00-5.50); RED CELL DISTRIBUTION WIDTH 16.1 % (11.0-15.5); WHITE BLOOD COUNT (AUTO) 10.8 K/uL (4.8-10.8)
[2021-03-05 04:28] LABS: CREATININE 0.9 mg/dL (0.5-1.5); POTASSIUM 4.1 mmol/L (3.5-5.1)
[2021-03-05 04:32] LABS: ALBUMIN 3.2 g/dL (3.5-5.0); BILIRUBIN,TOTAL 0.5 mg/dL (0.2-1.0); TOTAL PROTEIN, SERUM 7.8 g/dL (6.0-8.3)
[2021-03-05 04:33] LABS: APPEARANCE,URINE Clear (CLEAR); BILIRUBIN,URINE Negative (NEGATIVE); COLOR,URINE Dark Yellow (YELLOW); GLUCOSE, URINE (UA) Negative (NEGATIVE); KETONES,URINE Trace mg/dL (NEGATIVE); LEUKOCYTE ESTERASE ,URINE Trace (NEGATIVE); NITRATE,URINE Negative (NEGATIVE); OCCULT BLOOD,URINE Negative (NEGATIVE); PROTEIN,URINE POS 1+ mg/dL (NEGATIVE)
[2021-03-05 04:35] LABS: HCG,QUAL RESULT NEGATIVE (NEGATIVE)
[2021-03-05 04:45] LABS: BACTERIA,URINE Rare /HPF (None Seen); RBC,URINE None Seen /HPF (0-1); WBC,URINE 0-1 /HPF (0-1)
[2021-03-05 04:46] LABS: SQUAMOUS EPITHELIAL CELL,UR Few /HPF (0-2)
== END 2021-03-05 06:06 | disposition home or self-care (01) ==
LOC: EDH 03:31
DX: R10.31 Right lower quadrant pain (principal); J45.909 Unspecified asthma, uncomplicated; F41.9 Anxiety disorder, unspecified; E11.9 Type 2 diabetes mellitus without complications; I10 Essential (primary) hypertension; F31.9 Bipolar disorder, unspecified
CPT/HCPCS: 36415; 74176; 80053; 81001; 81025; 83690; 85025; 96374; 99284; J1885

== ENCOUNTER 2021-03-06 08:43 | Emergency (ER) | payer MEDICAID ==
[2021-03-06] MEDS ORDERED: CEFTRIAXONE 1G VIAL ONE (09:39)
[2021-03-06] MEDS ORDERED: 0.9% NACL 500ML IV.SOLN 500 ML IV ONE (09:40)
[2021-03-06 09:43] LABS: BASOPHILS % (AUTO) 0.4 % (0.0-5.0); EOSINOPHILS % (AUTO) 1.3 % (0.0-8.0); HEMATOCRIT 37.6 % (36-48); LYMPHOCYTES % (AUTO) 17.9 % (21.0-51.0); MEAN CORPUSCULAR HEMOGLOBIN 25.9 pg (27.0-33.0); MEAN CORPUSCULAR HGB CONC 31.9 g/dL (32.0-36.0); MONOCYTES % (AUTO) 4.7 % (3.0-13.0); NEUTROPHILS % (AUTO) 75.3 % (40.0-77.0); PLATELET COUNT (AUTO) 230 K/uL (130-400); RED BLOOD CELL COUNT(AUTO) 4.64 MIL/uL (4.00-5.50); RED CELL DISTRIBUTION WIDTH 16.2 % (11.0-15.5); WHITE BLOOD COUNT (AUTO) 12.2 K/uL (4.8-10.8)
[2021-03-06 10:01] LABS: ALBUMIN 3.2 g/dL (3.5-5.0); CREATININE 0.8 mg/dL (0.5-1.5); POTASSIUM 3.8 mmol/L (3.5-5.1); TOTAL PROTEIN, SERUM 7.9 g/dL (6.0-8.3)
[2021-03-06 10:08] LABS: APPEARANCE,URINE Clear (CLEAR); BILIRUBIN,URINE Negative (NEGATIVE); COLOR,URINE Yellow (YELLOW); GLUCOSE, URINE (UA) Negative (NEGATIVE); KETONES,URINE 15 mg/dL (NEGATIVE); LEUKOCYTE ESTERASE ,URINE Trace (NEGATIVE); NITRATE,URINE Negative (NEGATIVE); OCCULT BLOOD,URINE Negative (NEGATIVE); PROTEIN,URINE Trace mg/dL (NEGATIVE)
[2021-03-06 10:14] LABS: AMPHET/METH SCREEN,URINE NEGATIVE (NEGATIVE); BARBITURATE SCREEN, URINE NEGATIVE (NEGATIVE); BENZODIAZEPINES SCREEN,URINE NEGATIVE (NEGATIVE); CANNABINOID SCREEN,URINE POSITIVE (NEGATIVE); COCAINE SCREEN,URINE NEGATIVE (NEGATIVE); OPIATE SCREEN,URINE NEGATIVE (NEGATIVE); PHENCYCLIDINE SCREEN,URINE NEGATIVE (NEGATIVE)
[2021-03-06 10:15] LABS: BACTERIA,URINE Few /HPF (None Seen); RBC,URINE 0-1 /HPF (0-1); SQUAMOUS EPITHELIAL CELL,UR 0-2 /HPF (0-2); WBC,URINE 0-1 /HPF (0-1)
== END 2021-03-06 11:33 | disposition home or self-care (01) ==
LOC: EDH 08:43
DX: N39.0 Urinary tract infection, site not specified (principal); E11.9 Type 2 diabetes mellitus without complications; I10 Essential (primary) hypertension; J45.909 Unspecified asthma, uncomplicated; F31.9 Bipolar disorder, unspecified; F41.9 Anxiety disorder, unspecified; Z98.890 Other specified postprocedural states
CPT/HCPCS: 36415; 80053; 80305; 81001; 85025; 96365; 99283; J0696; J7040; 96374

== ENCOUNTER 2021-03-17 14:57 | Emergency (ER) | payer MEDICAID ==
[~2021-03-17] VITALS: Ht 180.3 cm; Wt 174.6 kg
[2021-03-17 15:08] VITALS: BP 148/82
[2021-03-17 15:10] VITALS: BP 148/82
[2021-03-17 15:16] LABS: APPEARANCE,URINE CLOUDY (CLEAR); BILIRUBIN,URINE SMALL (NEGATIVE); COLOR,URINE YELLOW (YELLOW); GLUCOSE, URINE (UA) NEGATIVE (NEGATIVE); KETONES,URINE NEGATIVE (NEGATIVE); LEUKOCYTE ESTERASE ,URINE NEGATIVE (NEGATIVE); NITRATE,URINE NEGATIVE (NEGATIVE); OCCULT BLOOD,URINE LARGE (NEGATIVE); PH,URINE 5.5 (5.0-8.0); PROTEIN,URINE 30 mg/dL (NEGATIVE); UROBILINOGEN,URINE 0.2 mg/dL (0.2-1.0)
[2021-03-17 15:25] LABS: AMPHET/METH SCREEN,URINE NEGATIVE (NEGATIVE); BARBITURATE SCREEN, URINE NEGATIVE (NEGATIVE); BENZODIAZEPINES SCREEN,URINE NEGATIVE (NEGATIVE); CANNABINOID SCREEN,URINE POSITIVE (NEGATIVE); COCAINE SCREEN,URINE NEGATIVE (NEGATIVE); OPIATE SCREEN,URINE NEGATIVE (NEGATIVE); PHENCYCLIDINE SCREEN,URINE NEGATIVE (NEGATIVE)
[2021-03-17 15:28] LABS: BACTERIA,URINE Rare /HPF (None Seen); RBC,URINE TNTC /HPF (0-1); WBC,URINE 0-1 /HPF (0-1)
[2021-03-17 15:29] LABS: SQUAMOUS EPITHELIAL CELL,UR Rare /HPF (0-2)
[2021-03-17 15:53] LABS: BASOPHILS % (AUTO) 0.4 % (0.0-5.0); EOSINOPHILS % (AUTO) 1.8 % (0.0-8.0); HEMATOCRIT 36.8 % (36-48); LYMPHOCYTES % (AUTO) 27.8 % (21.0-51.0); MEAN CORPUSCULAR HEMOGLOBIN 26.3 pg (27.0-33.0); MEAN CORPUSCULAR HGB CONC 32.1 g/dL (32.0-36.0); MONOCYTES % (AUTO) 3.3 % (3.0-13.0); NEUTROPHILS % (AUTO) 66.4 % (40.0-77.0); PLATELET COUNT (AUTO) 291 K/uL (130-400); RED BLOOD CELL COUNT(AUTO) 4.49 MIL/uL (4.00-5.50); RED CELL DISTRIBUTION WIDTH 15.9 % (11.0-15.5); WHITE BLOOD COUNT (AUTO) 9.9 K/uL (4.8-10.8)
[2021-03-17 16:06] LABS: CARBON DIOXIDE 30 mmol/L (21-32); CHLORIDE 106 mmol/L (101-111); CREATININE 0.9 mg/dL (0.5-1.5); GLOMERULAR FILTR. RATE CALC 76 mL/min (>60); GLUCOSE,RANDOM 123 mg/dL (70-105); POTASSIUM 3.7 mmol/L (3.5-5.1); SODIUM SERUM 142 mmol/L (136-145); UREA NITROGEN, BLOOD 16 mg/dL (7-18)
[2021-03-17 16:10] LABS: ALANINE AMINOTRANSFERASE 32 U/L (12-78); ALBUMIN 3.2 g/dL (3.5-5.0); ASPARTATE AMINOTRANSFERASE 16 U/L (10-37); BILIRUBIN,TOTAL 0.2 mg/dL (0.2-1.0); TOTAL PROTEIN, SERUM 7.8 g/dL (6.0-8.3)
[2021-03-17 16:11] LABS: SALICYLATE < 2.8 mg/dL (2.8-20.0)
[2021-03-17 16:16] VITALS: BP 135/80
[2021-03-17 16:16] LABS: ACETAMINOPHEN < 1 mcg/mL (10-30)
[2021-03-17] MEDS ORDERED: LORAZEPAM 1 MG TABLET PO SCH (16:30)
[2021-03-17 19:16] VITALS: BP 129/76
== END 2021-03-17 19:52 | disposition home or self-care (01) ==
LOC: EDH 14:57 → MERGE 14:57 → EDH 19:52
DX: F41.9 Anxiety disorder, unspecified (principal); R45.851 Suicidal ideations; Z20.822 Contact with and (suspected) exposure to COVID-19; E66.9 Obesity, unspecified; Z79.899 Other long term (current) drug therapy
CPT/HCPCS: 36415; 80053; 80305; 81001; 81025; 85025; 87426; 87635; 93005 ×2; 99284; C9803; G0481

== ENCOUNTER 2021-09-23 06:30 | Emergency (ER) | payer MEDICAID ==
[~2021-09-23] VITALS: Ht 177.8 cm; Wt 158.8 kg
[2021-09-23] MEDS ORDERED: ONDANSETRON ODT 4MG TAB SL SCH (09:00)
[2021-09-23] MEDS ORDERED: ONDANSETRON 4MG TABLET ONE (09:01)
[2021-09-23] MEDS ORDERED: ONDA4TAB10 PO (10:01)
[2021-09-23 10:10] VITALS: BP 112/60
== END 2021-09-23 10:11 | disposition home or self-care (01) ==
LOC: EDH 06:30
DX: R11.10 Vomiting, unspecified (principal); E11.9 Type 2 diabetes mellitus without complications; F41.9 Anxiety disorder, unspecified; I10 Essential (primary) hypertension; Z79.899 Other long term (current) drug therapy; F17.210 Nicotine dependence, cigarettes, uncomplicated
CPT/HCPCS: 99283; Q0162

== ENCOUNTER 2021-10-20 02:22 | Emergency (ER) | payer MEDICAID ==
[~2021-10-20] VITALS: Ht 180.3 cm; Wt 179.2 kg
[~2021-10-20 02:22] MED LIST: ONDA4TAB10 PO
[2021-10-20 02:33] VITALS: BP 116/78
[2021-10-20 02:55] LABS: BASOPHILS % (AUTO) 0.5 % (0.0-5.0); EOSINOPHILS % (AUTO) 3.2 % (0.0-8.0); HEMATOCRIT 40.2 % (36-48); LYMPHOCYTES % (AUTO) 33.5 % (21.0-51.0); MEAN CORPUSCULAR HEMOGLOBIN 28.4 pg (27.0-33.0); MEAN CORPUSCULAR HGB CONC 33.3 g/dL (32.0-36.0); MEAN CORPUSCULAR VOLUME 85.2 fL (79-99); NEUTROPHILS % (AUTO) 57.6 % (40.0-77.0); PLATELET COUNT (AUTO) 256 K/uL (130-400); RED BLOOD CELL COUNT(AUTO) 4.72 MIL/uL (4.00-5.50); RED CELL DISTRIBUTION WIDTH 13.7 % (11.0-15.5); WHITE BLOOD COUNT (AUTO) 9.8 K/uL (4.8-10.8)
[2021-10-20 03:14] LABS: CARBON DIOXIDE 29 mmol/L (21-32); CHLORIDE 100 mmol/L (101-111); CREATININE 0.9 mg/dL (0.5-1.5); GLOMERULAR FILTR. RATE CALC 76 mL/min (>60); GLUCOSE,RANDOM 131 mg/dL (70-105); POTASSIUM 3.8 mmol/L (3.5-5.1); SODIUM SERUM 137 mmol/L (136-145); UREA NITROGEN, BLOOD 18 mg/dL (7-18)
[2021-10-20 03:18] LABS: ACETAMINOPHEN < 1 mcg/mL (10-30); ALCOHOL, BLOOD 9 mg/dL (0-10); SALICYLATE < 2.8 mg/dL (2.8-20.0)
[2021-10-20 05:36] LABS: AMPHET/METH SCREEN,URINE NEGATIVE (NEGATIVE); BARBITURATE SCREEN, URINE NEGATIVE (NEGATIVE); BENZODIAZEPINES SCREEN,URINE NEGATIVE (NEGATIVE); CANNABINOID SCREEN,URINE NEGATIVE (NEGATIVE); COCAINE SCREEN,URINE NEGATIVE (NEGATIVE); OPIATE SCREEN,URINE NEGATIVE (NEGATIVE); PHENCYCLIDINE SCREEN,URINE NEGATIVE (NEGATIVE)
== END 2021-10-20 07:29 | disposition home or self-care (01) ==
LOC: EDH 02:22
DX: R45.851 Suicidal ideations (principal); Z20.822 Contact with and (suspected) exposure to COVID-19; J45.909 Unspecified asthma, uncomplicated; I10 Essential (primary) hypertension; E11.9 Type 2 diabetes mellitus without complications; Z79.899 Other long term (current) drug therapy
CPT/HCPCS: 36415; 80048; 80305; 82550; 85025; 87635; 99283; C9803; G0481

== ENCOUNTER 2021-10-22 07:41 | Emergency (ER) | payer MEDICAID | END 2021-10-22 09:20 | disposition left against medical advice (07) | LOC: EDH 07:41 | DX: Z53.21 Procedure and treatment not carried out due to patient leaving prior to being seen by health care provider (principal) ==

== ENCOUNTER 2021-12-09 16:38 | Emergency (ER) | payer MEDICAID ==
[~2021-12-09] VITALS: Ht 180.3 cm; Wt 175.1 kg
[2021-12-09] MEDS ORDERED: 0.9%NACL 1000ML 1,000 ML IV SCH (17:00)
[2021-12-09] MEDS ORDERED: PROMETHAZINE HCL 25 MG/ML 1ML AMPULE IM ONE (17:00)
[2021-12-09] MEDS ORDERED: MORPHINE 2 MG SYG IVP ONE (17:00)
[2021-12-09] MEDS ORDERED: MORPHINE 2 MG SYG ONE (17:03)
[2021-12-09] MEDS ORDERED: 0.9%NACL 1000ML 1,000 ML IV ONE (17:04)
[2021-12-09 17:05] LABS: BASOPHILS % (AUTO) 0.5 % (0.0-5.0); EOSINOPHILS % (AUTO) 2.8 % (0.0-8.0); HEMATOCRIT 42.4 % (36-48); LYMPHOCYTES % (AUTO) 36.3 % (21.0-51.0); MEAN CORPUSCULAR HGB CONC 32.1 g/dL (32.0-36.0); MEAN CORPUSCULAR VOLUME 87.2 fL (79-99); MONOCYTES % (AUTO) 4.7 % (3.0-13.0); NEUTROPHILS % (AUTO) 55.6 % (40.0-77.0); PLATELET COUNT (AUTO) 243 K/uL (130-400); RED BLOOD CELL COUNT(AUTO) 4.86 MIL/uL (4.00-5.50); RED CELL DISTRIBUTION WIDTH 14.1 % (11.0-15.5); WHITE BLOOD COUNT (AUTO) 7.5 K/uL (4.8-10.8)
[2021-12-09 17:07] LABS: APPEARANCE,URINE Cloudy (CLEAR); BILIRUBIN,URINE Negative (NEGATIVE); COLOR,URINE Yellow (YELLOW); GLUCOSE, URINE (UA) Negative (NEGATIVE); KETONES,URINE Negative (NEGATIVE); LEUKOCYTE ESTERASE ,URINE Trace (NEGATIVE); NITRATE,URINE Negative (NEGATIVE); OCCULT BLOOD,URINE Small (NEGATIVE); PROTEIN,URINE Negative (NEGATIVE)
[2021-12-09 17:11] LABS: HCG,QUAL RESULT NEGATIVE (NEGATIVE)
[2021-12-09 17:15] LABS: RBC,URINE 0-1 /HPF (0-1); SQUAMOUS EPITHELIAL CELL,UR Few /HPF (0-2)
[2021-12-09 17:16] LABS: CREATININE 0.8 mg/dL (0.5-1.5); POTASSIUM 3.7 mmol/L (3.5-5.1)
[2021-12-09 17:17] LABS: BACTERIA,URINE Moderate /HPF (None Seen)
[2021-12-09 17:26] LABS: ALBUMIN 3.3 g/dL (3.5-5.0); BILIRUBIN,TOTAL 0.1 mg/dL (0.2-1.0); TOTAL PROTEIN, SERUM 7.6 g/dL (6.0-8.3)
[2021-12-09] MEDS ORDERED: CEFTRIAXONE 1G VIAL IVP ONE (18:00)
[2021-12-09 18:08] VITALS: BP 113/55
[2021-12-09] MEDS ORDERED: MAGNESIUM CITRATE 296 ML SOLUTION ONE (18:44)
[2021-12-09] MEDS ORDERED: LACTULOSE 20 GM/30 ML UDCUP ONE (18:44)
[2021-12-09] MEDS ORDERED: CEPH500B PO (18:54)
[2021-12-09] MEDS ORDERED: PHEN-847 PO (18:54)
[2021-12-09] MEDS ORDERED: LACT10PA5 PO (18:54)
[2021-12-09] MEDS ORDERED: MAGNESIUM CITRATE 296 ML SOLUTION PO ONE (19:00)
[2021-12-09] MEDS ORDERED: LACTULOSE 20 GM/30 ML UDCUP PO ONE (19:00)
== END 2021-12-09 19:01 | disposition home or self-care (01) ==
LOC: EDH 16:38
DX: N39.0 Urinary tract infection, site not specified (principal); K59.00 Constipation, unspecified; I10 Essential (primary) hypertension; J45.909 Unspecified asthma, uncomplicated; E66.01 Morbid (severe) obesity due to excess calories; Z68.43 Body mass index [BMI] 50.0-59.9, adult
CPT/HCPCS: 36415; 74176; 80053; 81001; 81025; 83690; 84484; 85025; 87088; 96361; 96372; 96374; 96375; 99285; J0696; J2550; J7030

== ENCOUNTER 2022-01-21 18:54 | Emergency (ER) | payer MEDICAID ==
[~2022-01-21 18:54] MED LIST changes: +CEPH500B PO; +LACT10PA5 PO; +PHEN-847 PO
[2022-01-21 19:00] VITALS: BP 160/91
[2022-01-21 19:24] LABS: APPEARANCE,URINE Clear (CLEAR); BILIRUBIN,URINE Negative (NEGATIVE); COLOR,URINE Yellow (YELLOW); GLUCOSE, URINE (UA) Negative (NEGATIVE); KETONES,URINE Trace mg/dL (NEGATIVE); LEUKOCYTE ESTERASE ,URINE Negative (NEGATIVE); NITRATE,URINE Negative (NEGATIVE); OCCULT BLOOD,URINE Negative (NEGATIVE); PH,URINE 5.5 (5.0-8.0); PROTEIN,URINE POS 1+ mg/dL (NEGATIVE)
[2022-01-21 19:25] LABS: HCG,QUAL RESULT NEGATIVE (NEGATIVE)
[2022-01-21 19:32] LABS: AMPHET/METH SCREEN,URINE NEGATIVE (NEGATIVE); BARBITURATE SCREEN, URINE NEGATIVE (NEGATIVE); BENZODIAZEPINES SCREEN,URINE NEGATIVE (NEGATIVE); CANNABINOID SCREEN,URINE NEGATIVE (NEGATIVE); COCAINE SCREEN,URINE NEGATIVE (NEGATIVE); OPIATE SCREEN,URINE NEGATIVE (NEGATIVE); PHENCYCLIDINE SCREEN,URINE NEGATIVE (NEGATIVE)
[2022-01-21 19:33] LABS: BACTERIA,URINE Rare /HPF (None Seen); MUCUS,URINE Few LPF (None Seen); SQUAMOUS EPITHELIAL CELL,UR Few /HPF (0-2); WBC,URINE 0-1 /HPF (0-1)
[2022-01-21 19:48] LABS: BASOPHILS % (AUTO) 0.7 % (0.0-5.0); EOSINOPHILS % (AUTO) 2.4 % (0.0-8.0); HEMATOCRIT 41.1 % (36-48); LYMPHOCYTES % (AUTO) 39.5 % (21.0-51.0); MEAN CORPUSCULAR HEMOGLOBIN 28.3 pg (27.0-33.0); MEAN CORPUSCULAR HGB CONC 33.8 g/dL (32.0-36.0); MEAN CORPUSCULAR VOLUME 83.5 fL (79-99); MONOCYTES % (AUTO) 6.2 % (3.0-13.0); PLATELET COUNT (AUTO) 300 K/uL (130-400); RED BLOOD CELL COUNT(AUTO) 4.92 MIL/uL (4.00-5.50); RED CELL DISTRIBUTION WIDTH 14.4 % (11.0-15.5)
[2022-01-21 19:59] LABS: CARBON DIOXIDE 26 mmol/L (21-32); CHLORIDE 106 mmol/L (101-111); CREATININE 0.9 mg/dL (0.5-1.5); GLOMERULAR FILTR. RATE CALC 76 mL/min (>60); GLUCOSE,RANDOM 112 mg/dL (70-105); POTASSIUM 3.7 mmol/L (3.5-5.1); SODIUM SERUM 142 mmol/L (136-145); UREA NITROGEN, BLOOD 14 mg/dL (7-18)
[2022-01-21 20:04] LABS: ALANINE AMINOTRANSFERASE 40 U/L (12-78); ALBUMIN 3.7 g/dL (3.5-5.0); ALCOHOL, BLOOD 4 mg/dL (0-10); ASPARTATE AMINOTRANSFERASE 19 U/L (10-37); BILIRUBIN,TOTAL 0.3 mg/dL (0.2-1.0); TOTAL PROTEIN, SERUM 8.2 g/dL (6.0-8.3)
[2022-01-21 20:06] LABS: ACETAMINOPHEN < 1 mcg/mL (10-30); SALICYLATE < 2.8 mg/dL (2.8-20.0)
[2022-02-09] MEDS ORDERED: OMEP20CA12 PO (11:18)
== END 2022-01-21 23:01 | disposition home or self-care (01) ==
LOC: EDH 18:54
DX: R45.851 Suicidal ideations (principal); Z20.822 Contact with and (suspected) exposure to COVID-19; E66.01 Morbid (severe) obesity due to excess calories; Z68.24 Body mass index [BMI] 24.0-24.9, adult
CPT/HCPCS: 36415; 80053; 80305; 81001; 81025; 85025; 87635; 99283; C9803; G0481

== ENCOUNTER 2022-01-22 20:09 | Emergency (ER) | payer MEDICAID ==
[~2022-01-22] VITALS: Ht 180.3 cm; Wt 176.9 kg
[2022-01-22 20:53] LABS: APPEARANCE,URINE Clear (CLEAR); BILIRUBIN,URINE Negative (NEGATIVE); COLOR,URINE Yellow (YELLOW); GLUCOSE, URINE (UA) Negative (NEGATIVE); KETONES,URINE Negative (NEGATIVE); LEUKOCYTE ESTERASE ,URINE Negative (NEGATIVE); NITRATE,URINE Negative (NEGATIVE); OCCULT BLOOD,URINE Negative (NEGATIVE); PH,URINE 5.5 (5.0-8.0); PROTEIN,URINE Negative (NEGATIVE)
[2022-01-22 21:01] LABS: AMPHET/METH SCREEN,URINE NEGATIVE (NEGATIVE); BARBITURATE SCREEN, URINE NEGATIVE (NEGATIVE); BENZODIAZEPINES SCREEN,URINE NEGATIVE (NEGATIVE); CANNABINOID SCREEN,URINE NEGATIVE (NEGATIVE); COCAINE SCREEN,URINE NEGATIVE (NEGATIVE); OPIATE SCREEN,URINE NEGATIVE (NEGATIVE); PHENCYCLIDINE SCREEN,URINE NEGATIVE (NEGATIVE)
[2022-01-22 21:09] LABS: BASOPHILS % (AUTO) 0.5 % (0.0-5.0); EOSINOPHILS % (AUTO) 3.5 % (0.0-8.0); HEMATOCRIT 40.4 % (36-48); MEAN CORPUSCULAR HEMOGLOBIN 28.5 pg (27.0-33.0); MEAN CORPUSCULAR HGB CONC 33.9 g/dL (32.0-36.0); NEUTROPHILS % (AUTO) 49.9 % (40.0-77.0); PLATELET COUNT (AUTO) 274 K/uL (130-400); RED BLOOD CELL COUNT(AUTO) 4.81 MIL/uL (4.00-5.50); RED CELL DISTRIBUTION WIDTH 14.3 % (11.0-15.5); WHITE BLOOD COUNT (AUTO) 7.8 K/uL (4.8-10.8)
[2022-01-22 21:15] LABS: BACTERIA,URINE Few /HPF (None Seen); MUCUS,URINE Few LPF (None Seen); RBC,URINE 0-1 /HPF (0-1); SQUAMOUS EPITHELIAL CELL,UR Few /HPF (0-2); WBC,URINE 0-1 /HPF (0-1)
[2022-01-22 21:20] LABS: CARBON DIOXIDE 29 mmol/L (21-32); CHLORIDE 104 mmol/L (101-111); CREATININE 0.9 mg/dL (0.5-1.5); GLOMERULAR FILTR. RATE CALC 76 mL/min (>60); GLUCOSE,RANDOM 155 mg/dL (70-105); POTASSIUM 3.6 mmol/L (3.5-5.1); SODIUM SERUM 140 mmol/L (136-145); UREA NITROGEN, BLOOD 14 mg/dL (7-18)
[2022-01-22 21:27] LABS: ALANINE AMINOTRANSFERASE 45 U/L (12-78); ALBUMIN 3.5 g/dL (3.5-5.0); ASPARTATE AMINOTRANSFERASE 22 U/L (10-37); BILIRUBIN,TOTAL 0.2 mg/dL (0.2-1.0); TOTAL PROTEIN, SERUM 7.7 g/dL (6.0-8.3)
[2022-01-22 21:32] LABS: ACETAMINOPHEN < 1 mcg/mL (10-30); SALICYLATE < 2.8 mg/dL (2.8-20.0)
[2022-01-23] VITALS: BP 110/65
== END 2022-01-23 03:09 ==
LOC: EDH 20:09
DX: R45.851 Suicidal ideations (principal); Z20.822 Contact with and (suspected) exposure to COVID-19; E11.9 Type 2 diabetes mellitus without complications; F20.9 Schizophrenia, unspecified; F31.9 Bipolar disorder, unspecified; I10 Essential (primary) hypertension; E66.01 Morbid (severe) obesity due to excess calories; Z68.43 Body mass index [BMI] 50.0-59.9, adult
CPT/HCPCS: 36415; 80053; 80305; 81001; 85025; 87635; 99283; G0481

== ENCOUNTER 2022-01-29 20:26 | Emergency (ER) | payer MEDICAID ==
[~2022-01-29] VITALS: Ht 180.3 cm; Wt 180.5 kg
[2022-01-29 23:29] LABS: BASOPHILS % (AUTO) 0.6 % (0.0-5.0); EOSINOPHILS % (AUTO) 2.3 % (0.0-8.0); HEMATOCRIT 38.7 % (36-48); LYMPHOCYTES % (AUTO) 32.6 % (21.0-51.0); MEAN CORPUSCULAR HEMOGLOBIN 27.5 pg (27.0-33.0); MEAN CORPUSCULAR HGB CONC 32.6 g/dL (32.0-36.0); MEAN CORPUSCULAR VOLUME 84.5 fL (79-99); MONOCYTES % (AUTO) 5.7 % (3.0-13.0); NEUTROPHILS % (AUTO) 58.6 % (40.0-77.0); PLATELET COUNT (AUTO) 264 K/uL (130-400); RED BLOOD CELL COUNT(AUTO) 4.58 MIL/uL (4.00-5.50); RED CELL DISTRIBUTION WIDTH 14.3 % (11.0-15.5); WHITE BLOOD COUNT (AUTO) 8.7 K/uL (4.8-10.8)
[2022-01-30 01:31] VITALS: BP 134/75
== END 2022-01-30 01:51 | disposition home or self-care (01) ==
LOC: EDH 20:26
DX: K52.1 Toxic gastroenteritis and colitis (principal); T36.8X5A Adverse effect of other systemic antibiotics, initial encounter; E11.9 Type 2 diabetes mellitus without complications; I10 Essential (primary) hypertension; J45.909 Unspecified asthma, uncomplicated; F31.9 Bipolar disorder, unspecified; Y92.89 Other specified places as the place of occurrence of the external cause
CPT/HCPCS: 36415; 74176; 84703; 85025

== ENCOUNTER 2022-04-13 11:47 | Emergency (ER) | payer MEDICAID ==
[~2022-04-13] VITALS: Ht 185.4 cm; Wt 186.4 kg
[~2022-04-13 11:47] MED LIST changes: +OMEP20CA12 PO
[2022-04-13 11:49] VITALS: BP 136/83
[2022-04-13 12:12] LABS: BASOPHILS % (AUTO) 0.6 % (0.0-5.0); EOSINOPHILS % (AUTO) 3.2 % (0.0-8.0); LYMPHOCYTES % (AUTO) 31.6 % (21.0-51.0); MEAN CORPUSCULAR VOLUME 84.9 fL (79-99); NEUTROPHILS % (AUTO) 59.3 % (40.0-77.0); PLATELET COUNT (AUTO) 225 K/uL (130-400); RED BLOOD CELL COUNT(AUTO) 4.36 MIL/uL (4.00-5.50); RED CELL DISTRIBUTION WIDTH 14.5 % (11.0-15.5); WHITE BLOOD COUNT (AUTO) 7.2 K/uL (4.8-10.8)
[2022-04-13 12:28] LABS: ALBUMIN 3.3 g/dL (3.5-5.0); BILIRUBIN,TOTAL 0.3 mg/dL (0.2-1.0); CREATININE 0.7 mg/dL (0.5-1.5); POTASSIUM 3.7 mmol/L (3.5-5.1); TOTAL PROTEIN, SERUM 7.5 g/dL (6.0-8.3)
[2022-04-13 12:31] LABS: APPEARANCE,URINE CLEAR (CLEAR); BILIRUBIN,URINE NEGATIVE (NEGATIVE); COLOR,URINE YELLOW (YELLOW); GLUCOSE, URINE (UA) NEGATIVE (NEGATIVE); KETONES,URINE NEGATIVE (NEGATIVE); LEUKOCYTE ESTERASE ,URINE NEGATIVE (NEGATIVE); NITRATE,URINE NEGATIVE (NEGATIVE); OCCULT BLOOD,URINE SMALL (NEGATIVE); PROTEIN,URINE NEGATIVE (NEGATIVE); UROBILINOGEN,URINE 0.2 mg/dL (0.2-1.0)
[2022-04-13 12:39] LABS: HCG,QUAL RESULT NEGATIVE (NEGATIVE)
[2022-04-13 13:27] LABS: B-TYPE NATRIURETIC PEPTIDE 6 pg/mL (0-100)
[2022-04-13] MEDS: FUROSEMIDE 20 MG TABLET PO SCH (13:39)
[2022-04-13] MEDS ORDERED: FURO-152 PO (13:56)
== END 2022-04-13 14:02 | disposition home or self-care (01) ==
LOC: EDH 11:47
DX: R60.0 Localized edema (principal); E66.01 Morbid (severe) obesity due to excess calories; Z68.43 Body mass index [BMI] 50.0-59.9, adult; J45.909 Unspecified asthma, uncomplicated; F32.A Depression, unspecified; E11.9 Type 2 diabetes mellitus without complications; I10 Essential (primary) hypertension; Z90.89 Acquired absence of other organs; Z98.890 Other specified postprocedural states; Z79.899 Other long term (current) drug therapy
CPT/HCPCS: 36415; 71045; 80053; 81003; 81025; 83880; 84484; 85025; 93970

== ENCOUNTER 2022-04-22 22:16 | Emergency (ER) | payer MEDICAID ==
[~2022-04-22 22:16] MED LIST changes: +FURO-152 PO
[2022-04-22 22:30] VITALS: BP 121/85
[2022-04-22] MEDS ORDERED: ASPIRIN 325MG TAB PO ONE (22:30)
[2022-04-22] MEDS ORDERED: NITROGLYCERIN 1GM OINT 1 INCH/1GM TD ONE (22:30)
[2022-04-22 22:44] LABS: BASOPHILS % (AUTO) 0.5 % (0.0-5.0); EOSINOPHILS % (AUTO) 2.8 % (0.0-8.0); HEMATOCRIT 37.5 % (36-48); LYMPHOCYTES % (AUTO) 34.1 % (21.0-51.0); MEAN CORPUSCULAR HEMOGLOBIN 28.5 pg (27.0-33.0); MEAN CORPUSCULAR HGB CONC 33.3 g/dL (32.0-36.0); MEAN CORPUSCULAR VOLUME 85.6 fL (79-99); MONOCYTES % (AUTO) 5.7 % (3.0-13.0); NEUTROPHILS % (AUTO) 56.5 % (40.0-77.0); PLATELET COUNT (AUTO) 267 K/uL (130-400); RED BLOOD CELL COUNT(AUTO) 4.38 MIL/uL (4.00-5.50); RED CELL DISTRIBUTION WIDTH 14.1 % (11.0-15.5); WHITE BLOOD COUNT (AUTO) 8.5 K/uL (4.8-10.8)
[2022-04-22 22:54] LABS: CREATININE 0.9 mg/dL (0.5-1.5); POTASSIUM 3.5 mmol/L (3.5-5.1)
[2022-04-22 22:56] LABS: APPEARANCE,URINE CLEAR (CLEAR); BILIRUBIN,URINE NEGATIVE (NEGATIVE); COLOR,URINE YELLOW (YELLOW); GLUCOSE, URINE (UA) NEGATIVE (NEGATIVE); KETONES,URINE NEGATIVE (NEGATIVE); LEUKOCYTE ESTERASE ,URINE NEGATIVE (NEGATIVE); NITRATE,URINE NEGATIVE (NEGATIVE); OCCULT BLOOD,URINE NEGATIVE (NEGATIVE); PROTEIN,URINE NEGATIVE (NEGATIVE)
[2022-04-22 23:01] LABS: ALBUMIN 3.4 g/dL (3.5-5.0); BILIRUBIN,TOTAL 0.2 mg/dL (0.2-1.0); TOTAL PROTEIN, SERUM 7.7 g/dL (6.0-8.3)
[2022-04-22 23:16] LABS: B-TYPE NATRIURETIC PEPTIDE < 5 pg/mL (0-100)
== END 2022-04-22 23:37 | disposition home or self-care (01) ==
LOC: EDH 22:16
DX: R07.89 Other chest pain (principal); F41.9 Anxiety disorder, unspecified; J45.909 Unspecified asthma, uncomplicated; F32.A Depression, unspecified; E11.9 Type 2 diabetes mellitus without complications; I10 Essential (primary) hypertension; Z79.899 Other long term (current) drug therapy; Z90.89 Acquired absence of other organs; Z98.890 Other specified postprocedural states
CPT/HCPCS: 36415; 71045; 80053; 81003; 82550; 83880; 84484; 85025; 93005

== ENCOUNTER 2022-06-12 21:21 | Emergency (ER) | payer MEDICAID ==
[2022-06-12 21:23] VITALS: BP 155/86
[2022-06-12 21:53] LABS: APPEARANCE,URINE CLEAR (CLEAR); BILIRUBIN,URINE NEGATIVE (NEGATIVE); COLOR,URINE YELLOW (YELLOW); GLUCOSE, URINE (UA) NEGATIVE (NEGATIVE); KETONES,URINE 5 mg/dL (NEGATIVE); LEUKOCYTE ESTERASE ,URINE NEGATIVE (NEGATIVE); NITRATE,URINE NEGATIVE (NEGATIVE); OCCULT BLOOD,URINE TRACE-INTACT (NEGATIVE); PROTEIN,URINE NEGATIVE (NEGATIVE)
[2022-06-12 21:56] LABS: HCG,QUALITATIVE URINE NEGATIVE (NEGATIVE)
[2022-06-12] MEDS ORDERED: PHENAZOPYRIDINE HCL 200 MG TABLET PO ONE (22:00)
[2022-06-12] MEDS ORDERED: CEFTRIAXONE 1G VIAL IM ONE (22:00)
[2022-06-12 22:06] LABS: BACTERIA,URINE Few /HPF (None Seen); MUCUS,URINE Rare LPF (None Seen); SQUAMOUS EPITHELIAL CELL,UR Few /HPF (0-2); WBC,URINE 0-1 /HPF (0-1)
[2022-06-12] MEDS ORDERED: PHEN-847 PO (22:10)
[2022-06-13] MEDS ORDERED: AMOX1TAB16 PO (04:12)
== END 2022-06-12 22:32 | disposition home or self-care (01) ==
LOC: EDH 21:21
DX: R30.0 Dysuria (principal); I10 Essential (primary) hypertension; E66.01 Morbid (severe) obesity due to excess calories; E11.9 Type 2 diabetes mellitus without complications; F20.9 Schizophrenia, unspecified; F41.9 Anxiety disorder, unspecified; J45.909 Unspecified asthma, uncomplicated; Z79.899 Other long term (current) drug therapy; Z87.440 Personal history of urinary (tract) infections
CPT/HCPCS: 99283; 81001; 81025; 96372; J0696

== ENCOUNTER 2022-06-13 03:00 | Emergency (ER) | payer MEDICAID ==
[~2022-06-13] VITALS: Ht 180.3 cm; Wt 175.1 kg
[2022-06-13 03:02] VITALS: BP 127/86
[2022-06-13] MEDS ORDERED: AMOX/CLAV 875/125MG TAB PO ONE (03:30)
[2022-06-13] MEDS ORDERED: KETOROLAC 60 MG VIAL (30MG/ML) IM ONE (03:30)
[2022-06-13] MEDS ORDERED: AMOX1TAB16 PO (04:12)
== END 2022-06-13 04:21 | disposition home or self-care (01) ==
LOC: EDH 03:00
DX: K57.92 Diverticulitis of intestine, part unspecified, without perforation or abscess without bleeding (principal); E11.9 Type 2 diabetes mellitus without complications; F20.9 Schizophrenia, unspecified; I10 Essential (primary) hypertension; J45.909 Unspecified asthma, uncomplicated; Z79.1 Long term (current) use of non-steroidal anti-inflammatories (NSAID); Z79.899 Other long term (current) drug therapy; Z87.440 Personal history of urinary (tract) infections
CPT/HCPCS: 99283; 96372; J1885

== ENCOUNTER 2022-06-24 15:24 | Emergency (ER) | payer MEDICAID ==
[~2022-06-24] VITALS: Ht 180.3 cm; Wt 166.9 kg
[~2022-06-24 15:24] MED LIST changes: +AMOX1TAB16 PO
[2022-06-24 16:23] LABS: BASOPHILS % (AUTO) 0.4 % (0.0-5.0); EOSINOPHILS % (AUTO) 1.3 % (0.0-8.0); HEMATOCRIT 37.6 % (36-48); LYMPHOCYTES % (AUTO) 11.3 % (21.0-51.0); MEAN CORPUSCULAR HGB CONC 33.8 g/dL (32.0-36.0); MEAN CORPUSCULAR VOLUME 82.8 fL (79-99); MONOCYTES % (AUTO) 5.6 % (3.0-13.0); NEUTROPHILS % (AUTO) 81.1 % (40.0-77.0); PLATELET COUNT (AUTO) 223 K/uL (130-400); RED BLOOD CELL COUNT(AUTO) 4.54 MIL/uL (4.00-5.50); RED CELL DISTRIBUTION WIDTH 14.1 % (11.0-15.5)
[2022-06-24 16:27] LABS: CREATININE 1.2 mg/dL (0.5-1.5); POTASSIUM 3.7 mmol/L (3.5-5.1)
[2022-06-24 16:32] VITALS: BP 117/65
[2022-06-24 16:32] LABS: ALBUMIN 3.7 g/dL (3.5-5.0); TOTAL PROTEIN, SERUM 8.1 g/dL (6.0-8.3)
[2022-06-24 16:36] LABS: APPEARANCE,URINE CLEAR (CLEAR); BILIRUBIN,URINE NEGATIVE (NEGATIVE); COLOR,URINE LIGHT-YELLOW (YELLOW); GLUCOSE, URINE (UA) NEGATIVE (NEGATIVE); KETONES,URINE NEGATIVE (NEGATIVE); LEUKOCYTE ESTERASE ,URINE NEGATIVE Leu/uL (NEGATIVE); NITRATE,URINE NEGATIVE (NEGATIVE); PROTEIN,URINE NEGATIVE (NEGATIVE); UROBILINOGEN,URINE 0.2 mg/dL (0.2-1.0)
[2022-06-24 16:40] LABS: BACTERIA,URINE RARE /HPF (None Seen); MUCUS,URINE RARE LPF (None Seen); SQUAMOUS EPITHELIAL CELL,UR FEW /HPF (0-2); WBC,URINE 0-1 /HPF (0-1)
[2022-06-24] MEDS ORDERED: ONDANSETRON 4MG INJ IVP ONE (17:30)
[2022-06-24] MEDS ORDERED: 0.9%NACL 1000ML 1,000 ML IV ONE (17:30)
[2022-06-24] MEDS ORDERED: FAMOTIDINE 20MG VIAL IV ONE (17:30)
[2022-06-24] MEDS ORDERED: KETOROLAC 15MG/ML VIAL (15MG/ML) IV ONE (18:00)
[2022-06-24] MEDS: MORPHINE 2 MG SYG IVP ONE ×2 (18:02→18:08)
[2022-06-24] MEDS ORDERED: FAMO-136 PO (18:25)
[2022-06-24] MEDS ORDERED: BACI1CAP6 PO (18:25)
[2022-06-24] MEDS ORDERED: ONDA4TAB10 PO (18:25)
== END 2022-06-24 19:53 | disposition home or self-care (01) ==
LOC: EDH 15:24
DX: K52.9 Noninfective gastroenteritis and colitis, unspecified (principal); Z20.822 Contact with and (suspected) exposure to COVID-19; J45.909 Unspecified asthma, uncomplicated; E11.9 Type 2 diabetes mellitus without complications; I10 Essential (primary) hypertension; Z90.89 Acquired absence of other organs; Z79.899 Other long term (current) drug therapy; Z98.890 Other specified postprocedural states
CPT/HCPCS: 99284; 96374; 96375; 87635; 96361; 80053; 85025; 87040 ×2; 87880; 81001; 36415; C9803; J7030; J2405; J1885; S0028; J3490

== ENCOUNTER 2022-07-20 20:45 | Emergency (ER) | payer MEDICAID ==
[~2022-07-20] VITALS: Ht 180.3 cm; Wt 167.8 kg
[~2022-07-20 20:45] MED LIST changes: +BACI1CAP6 PO; +FAMO-136 PO
[2022-07-20] MEDS: ONDANSETRON 4MG INJ IVP ONE (21:00)
[2022-07-20] MEDS: 0.9%NACL 1000ML 1,000 ML IV ONE (21:00)
[2022-07-20 21:11] LABS: BASOPHILS % (AUTO) 0.8 % (0.0-5.0); EOSINOPHILS % (AUTO) 2.6 % (0.0-8.0); HEMATOCRIT 41.8 % (36-48); LYMPHOCYTES % (AUTO) 38.8 % (21.0-51.0); MEAN CORPUSCULAR HEMOGLOBIN 27.7 pg (27.0-33.0); MEAN CORPUSCULAR HGB CONC 33.3 g/dL (32.0-36.0); MEAN CORPUSCULAR VOLUME 83.4 fL (79-99); MONOCYTES % (AUTO) 6.4 % (3.0-13.0); NEUTROPHILS % (AUTO) 51.1 % (40.0-77.0); PLATELET COUNT (AUTO) 289 K/uL (130-400); RED BLOOD CELL COUNT(AUTO) 5.01 MIL/uL (4.00-5.50); RED CELL DISTRIBUTION WIDTH 14.6 % (11.0-15.5); WHITE BLOOD COUNT (AUTO) 9.1 K/uL (4.8-10.8)
[2022-07-20 21:15] LABS: APPEARANCE,URINE CLEAR (CLEAR); BILIRUBIN,URINE NEGATIVE (NEGATIVE); COLOR,URINE LIGHT-YELLOW (YELLOW); GLUCOSE, URINE (UA) NEGATIVE (NEGATIVE); KETONES,URINE 5 mg/dL (NEGATIVE); LEUKOCYTE ESTERASE ,URINE 25 Leu/uL (NEGATIVE); NITRATE,URINE NEGATIVE (NEGATIVE); OCCULT BLOOD,URINE NEGATIVE (NEGATIVE); PROTEIN,URINE 20 mg/dL (NEGATIVE); UROBILINOGEN,URINE 0.2 mg/dL (0.2-1.0)
[2022-07-20] MEDS: MORPHINE 4 MG SYG IVP ONE (21:17)
[2022-07-20 21:18] LABS: HCG,QUALITATIVE URINE NEGATIVE (NEGATIVE)
[2022-07-20 21:24] LABS: CREATININE 1.5 mg/dL (0.5-1.5); MUCUS,URINE RARE LPF (None Seen); POTASSIUM 4.1 mmol/L (3.5-5.1); RBC,URINE 0-1 /HPF (0-1); SQUAMOUS EPITHELIAL CELL,UR FEW /HPF (0-2)
[2022-07-20 21:26] LABS: ALBUMIN 3.7 g/dL (3.5-5.0); TOTAL PROTEIN, SERUM 8.8 g/dL (6.0-8.3)
[2022-07-20] MEDS ORDERED: CEPH500B PO (22:03)
[2022-07-20 22:08] VITALS: BP 135/69
== END 2022-07-20 22:17 | disposition home or self-care (01) ==
LOC: EDH 20:45
DX: N39.0 Urinary tract infection, site not specified (principal); J45.909 Unspecified asthma, uncomplicated; F32.A Depression, unspecified; E11.9 Type 2 diabetes mellitus without complications; I11.0 Hypertensive heart disease with heart failure; I50.9 Heart failure, unspecified; F20.9 Schizophrenia, unspecified; Z79.899 Other long term (current) drug therapy; Z90.89 Acquired absence of other organs; Z98.890 Other specified postprocedural states
CPT/HCPCS: 99284; 74176; 96374; 96361; 80053; 83690; 85025; 87077; 87088; 87186; 81001; 81025; 36415; J7030; J2405

== ENCOUNTER 2022-08-29 03:33 | Emergency (ER) | payer MEDICAID ==
[2022-08-29 03:51] VITALS: BP 115/63
[2022-08-29] MEDS ORDERED: BENZ-39 PO (04:30)
[2022-08-29] MEDS ORDERED: DOXY-469 PO (04:30)
== END 2022-08-29 04:41 | disposition home or self-care (01) ==
LOC: EDH 03:33
DX: J20.8 Acute bronchitis due to other specified organisms (principal); Z20.822 Contact with and (suspected) exposure to COVID-19; F32.A Depression, unspecified; Z79.899 Other long term (current) drug therapy; Z98.890 Other specified postprocedural states
CPT/HCPCS: 99283; 87635; 87804 ×2; C9803

== ENCOUNTER 2022-09-14 19:32 | Emergency (ER) | payer MEDICAID ==
[~2022-09-14] VITALS: Ht 180.3 cm; Wt 172.4 kg
[~2022-09-14 19:32] MED LIST changes: +BENZ-39 PO; +DICY20TA2 PO; +DOXY-469 PO; +OMEP40CA21 PO
[2022-09-14 19:55] LABS: APPEARANCE,URINE CLEAR (CLEAR); BILIRUBIN,URINE NEGATIVE (NEGATIVE); COLOR,URINE LIGHT-YELLOW (YELLOW); GLUCOSE, URINE (UA) NEGATIVE (NEGATIVE); KETONES,URINE NEGATIVE (NEGATIVE); LEUKOCYTE ESTERASE ,URINE NEGATIVE Leu/uL (NEGATIVE); NITRATE,URINE NEGATIVE (NEGATIVE); OCCULT BLOOD,URINE NEGATIVE (NEGATIVE); PH,URINE 6.5 (5.0-8.0); PROTEIN,URINE NEGATIVE (NEGATIVE); UROBILINOGEN,URINE 0.2 mg/dL (0.2-1.0)
[2022-09-14 20:00] LABS: BACTERIA,URINE RARE /HPF (None Seen); MUCUS,URINE RARE LPF (None Seen); RBC,URINE 0-1 /HPF (0-1); SQUAMOUS EPITHELIAL CELL,UR FEW /HPF (0-2)
[2022-09-14 20:01] LABS: HCG,QUALITATIVE URINE NEGATIVE (NEGATIVE)
[2022-09-14 20:03] LABS: BASOPHILS % (AUTO) 0.5 % (0.0-5.0); EOSINOPHILS % (AUTO) 3.2 % (0.0-8.0); HEMATOCRIT 40.8 % (36-48); LYMPHOCYTES % (AUTO) 41.1 % (21.0-51.0); MEAN CORPUSCULAR HEMOGLOBIN 28.5 pg (27.0-33.0); MEAN CORPUSCULAR HGB CONC 33.1 g/dL (32.0-36.0); MEAN CORPUSCULAR VOLUME 86.3 fL (79-99); MONOCYTES % (AUTO) 4.6 % (3.0-13.0); NEUTROPHILS % (AUTO) 50.4 % (40.0-77.0); PLATELET COUNT (AUTO) 262 K/uL (130-400); RED BLOOD CELL COUNT(AUTO) 4.73 MIL/uL (4.00-5.50); RED CELL DISTRIBUTION WIDTH 14.1 % (11.0-15.5); WHITE BLOOD COUNT (AUTO) 9.5 K/uL (4.8-10.8)
[2022-09-14 20:03] LABS: AMPHET/METH SCREEN,URINE NEGATIVE (NEGATIVE); BARBITURATE SCREEN, URINE NEGATIVE (NEGATIVE); BENZODIAZEPINES SCREEN,URINE NEGATIVE (NEGATIVE); CANNABINOID SCREEN,URINE NEGATIVE (NEGATIVE); COCAINE SCREEN,URINE NEGATIVE (NEGATIVE); OPIATE SCREEN,URINE NEGATIVE (NEGATIVE); PHENCYCLIDINE SCREEN,URINE NEGATIVE (NEGATIVE)
[2022-09-14 20:16] LABS: CARBON DIOXIDE 32 mmol/L (21-32); CHLORIDE 100 mmol/L (101-111); CREATININE 0.9 mg/dL (0.5-1.5); GLOMERULAR FILTR. RATE CALC 75 mL/min (>60); GLUCOSE,RANDOM 102 mg/dL (70-105); POTASSIUM 3.9 mmol/L (3.5-5.1); SODIUM SERUM 139 mmol/L (136-145); UREA NITROGEN, BLOOD 16 mg/dL (7-18)
[2022-09-14 20:21] LABS: ALANINE AMINOTRANSFERASE 43 U/L (12-78); ALBUMIN 3.6 g/dL (3.5-5.0); ASPARTATE AMINOTRANSFERASE 22 U/L (10-37); TOTAL PROTEIN, SERUM 8.4 g/dL (6.0-8.3)
[2022-09-14 20:25] LABS: ACETAMINOPHEN < 1 mcg/mL (10-30); ALCOHOL, BLOOD < 3 mg/dL (0-10); SALICYLATE < 2.8 mg/dL (2.8-20.0)
[2022-09-15 03:49] VITALS: BP 134/87
== END 2022-09-15 04:00 ==
LOC: EDH 19:32
DX: R45.851 Suicidal ideations (principal); Z20.822 Contact with and (suspected) exposure to COVID-19; I10 Essential (primary) hypertension; E11.9 Type 2 diabetes mellitus without complications; F32.A Depression, unspecified; F41.9 Anxiety disorder, unspecified
CPT/HCPCS: 99283; 87635; 80053; 80305; 85025; 81025; 36415; 81001; G0481; C9803

== ENCOUNTER 2022-09-17 18:23 | Emergency (ER) | payer MEDICAID ==
[~2022-09-17] VITALS: Ht 180.3 cm; Wt 172.4 kg
[2022-09-17 19:38] LABS: BASOPHILS % (AUTO) 0.3 % (0.0-5.0); EOSINOPHILS % (AUTO) 1.5 % (0.0-8.0); HEMATOCRIT 38.8 % (36-48); LYMPHOCYTES % (AUTO) 24.3 % (21.0-51.0); MEAN CORPUSCULAR HEMOGLOBIN 28.8 pg (27.0-33.0); MEAN CORPUSCULAR VOLUME 84.5 fL (79-99); MONOCYTES % (AUTO) 6.1 % (3.0-13.0); NEUTROPHILS % (AUTO) 67.6 % (40.0-77.0); PLATELET COUNT (AUTO) 235 K/uL (130-400); RED BLOOD CELL COUNT(AUTO) 4.59 MIL/uL (4.00-5.50); RED CELL DISTRIBUTION WIDTH 14.6 % (11.0-15.5); WHITE BLOOD COUNT (AUTO) 10.7 K/uL (4.8-10.8)
[2022-09-17 19:48] LABS: CREATININE 0.9 mg/dL (0.5-1.5); POTASSIUM 3.3 mmol/L (3.5-5.1)
[2022-09-17 19:52] LABS: ALBUMIN 3.5 g/dL (3.5-5.0); TOTAL PROTEIN, SERUM 8.4 g/dL (6.0-8.3)
[2022-09-17] MEDS ORDERED: 0.9%NACL 1000ML 1,000 ML IV ONE (21:30)
[2022-09-17 21:38] LABS: APPEARANCE,URINE CLEAR (CLEAR); BILIRUBIN,URINE NEGATIVE (NEGATIVE); COLOR,URINE YELLOW (YELLOW); GLUCOSE, URINE (UA) NEGATIVE (NEGATIVE); KETONES,URINE NEGATIVE (NEGATIVE); LEUKOCYTE ESTERASE ,URINE NEGATIVE Leu/uL (NEGATIVE); NITRATE,URINE NEGATIVE (NEGATIVE); OCCULT BLOOD,URINE NEGATIVE (NEGATIVE); PH,URINE 5.5 (5.0-8.0); PROTEIN,URINE 20 mg/dL (NEGATIVE)
[2022-09-17 21:40] LABS: HCG,QUALITATIVE URINE NEGATIVE (NEGATIVE)
[2022-09-17 21:43] LABS: MUCUS,URINE RARE LPF (None Seen); SQUAMOUS EPITHELIAL CELL,UR RARE /HPF (0-2)
[2022-09-17] MEDS ORDERED: MORPHINE 4 MG SYG IVP ONE (22:00)
[2022-09-17] MEDS ORDERED: ONDANSETRON 4MG INJ IVP ONE (22:00)
[2022-09-17] MEDS ORDERED: CIPR-278 PO (23:40)
[2022-09-17] MEDS ORDERED: ACET-66 PO (23:40)
[2022-09-17] MEDS ORDERED: METR-172 PO (23:40)
[2022-09-17 23:47] VITALS: BP 134/77
== END 2022-09-17 23:50 | disposition home or self-care (01) ==
LOC: EDH 18:23
DX: K57.92 Diverticulitis of intestine, part unspecified, without perforation or abscess without bleeding (principal); F41.9 Anxiety disorder, unspecified; E11.9 Type 2 diabetes mellitus without complications; I11.0 Hypertensive heart disease with heart failure; I50.9 Heart failure, unspecified
CPT/HCPCS: 99284; 74176; 96374; 96375; 80053; 83690; 85025; 83605; 81001; 81025; 36415; J7030; J2405; J2270

== ENCOUNTER 2022-09-29 21:11 | Emergency (ER) | payer MEDICAID ==
[~2022-09-29] VITALS: Ht 180.3 cm; Wt 175.5 kg
[~2022-09-29 21:11] MED LIST changes: +ACET-66 PO; +CIPR-278 PO; +METR-172 PO
[2022-09-29 23:45] LABS: APPEARANCE,URINE CLEAR (CLEAR); BILIRUBIN,URINE NEGATIVE (NEGATIVE); COLOR,URINE LIGHT-YELLOW (YELLOW); GLUCOSE, URINE (UA) NEGATIVE (NEGATIVE); KETONES,URINE NEGATIVE (NEGATIVE); LEUKOCYTE ESTERASE ,URINE NEGATIVE Leu/uL (NEGATIVE); NITRATE,URINE NEGATIVE (NEGATIVE); OCCULT BLOOD,URINE SMALL (NEGATIVE); PH,URINE 5.5 (5.0-8.0); PROTEIN,URINE NEGATIVE (NEGATIVE); UROBILINOGEN,URINE 0.2 mg/dL (0.2-1.0)
[2022-09-29 23:51] LABS: SQUAMOUS EPITHELIAL CELL,UR RARE /HPF (0-2)
[2022-09-29 23:59] LABS: BASOPHILS % (AUTO) 0.8 % (0.0-5.0); EOSINOPHILS % (AUTO) 2.7 % (0.0-8.0); HEMATOCRIT 41.8 % (36-48); MEAN CORPUSCULAR HEMOGLOBIN 28.7 pg (27.0-33.0); MEAN CORPUSCULAR HGB CONC 32.8 g/dL (32.0-36.0); MEAN CORPUSCULAR VOLUME 87.6 fL (79-99); MONOCYTES % (AUTO) 5.2 % (3.0-13.0); NEUTROPHILS % (AUTO) 52.1 % (40.0-77.0); PLATELET COUNT (AUTO) 349 K/uL (130-400); RED BLOOD CELL COUNT(AUTO) 4.77 MIL/uL (4.00-5.50); RED CELL DISTRIBUTION WIDTH 14.2 % (11.0-15.5); WHITE BLOOD COUNT (AUTO) 9.2 K/uL (4.8-10.8)
[2022-09-30 00:10] LABS: CARBON DIOXIDE 31 mmol/L (21-32); CHLORIDE 102 mmol/L (101-111); CREATININE 0.9 mg/dL (0.5-1.5); GLOMERULAR FILTR. RATE CALC 75 mL/min (>60); GLUCOSE,RANDOM 141 mg/dL (70-105); POTASSIUM 3.5 mmol/L (3.5-5.1); SODIUM SERUM 140 mmol/L (136-145); UREA NITROGEN, BLOOD 18 mg/dL (7-18)
[2022-09-30 00:14] LABS: ACETAMINOPHEN < 1 mcg/mL (10-30); ALANINE AMINOTRANSFERASE 33 U/L (12-78); ALBUMIN 3.5 g/dL (3.5-5.0); ALCOHOL, BLOOD < 3 mg/dL (0-10); ASPARTATE AMINOTRANSFERASE 18 U/L (10-37); CREATINE KINASE, TOTAL 68 U/L (21-232); SALICYLATE < 2.8 mg/dL (2.8-20.0); TOTAL PROTEIN, SERUM 8.4 g/dL (6.0-8.3)
[2022-09-30 01:10] LABS: AMPHET/METH SCREEN,URINE NEGATIVE (NEGATIVE); BARBITURATE SCREEN, URINE NEGATIVE (NEGATIVE); BENZODIAZEPINES SCREEN,URINE NEGATIVE (NEGATIVE); CANNABINOID SCREEN,URINE POSITIVE (NEGATIVE); COCAINE SCREEN,URINE NEGATIVE (NEGATIVE); OPIATE SCREEN,URINE NEGATIVE (NEGATIVE); PHENCYCLIDINE SCREEN,URINE NEGATIVE (NEGATIVE)
[2022-09-30 01:35] VITALS: BP 144/85
== END 2022-09-30 01:36 | disposition home or self-care (01) ==
LOC: EDH 21:11
DX: F19.10 Other psychoactive substance abuse, uncomplicated (principal); I11.0 Hypertensive heart disease with heart failure; I50.9 Heart failure, unspecified; E11.9 Type 2 diabetes mellitus without complications; E78.00 Pure hypercholesterolemia, unspecified; F31.9 Bipolar disorder, unspecified; Z79.899 Other long term (current) drug therapy
CPT/HCPCS: 99284; 82550; 80053; 80305; 84703; 85025; 36415; 93005; 81001; G0481

== ENCOUNTER 2022-11-19 10:43 | Emergency (ER) | payer MEDICAID ==
[~2022-11-19] VITALS: Ht 180.3 cm; Wt 172.4 kg
[2022-11-19 10:47] VITALS: BP 124/80
[2022-11-19 12:00] LABS: BASOPHILS % (AUTO) 0.6 % (0.0-5.0); EOSINOPHILS % (AUTO) 1.8 % (0.0-8.0); HEMATOCRIT 42.1 % (36-48); LYMPHOCYTES % (AUTO) 28.3 % (21.0-51.0); MEAN CORPUSCULAR HEMOGLOBIN 28.7 pg (27.0-33.0); MEAN CORPUSCULAR HGB CONC 34.4 g/dL (32.0-36.0); MEAN CORPUSCULAR VOLUME 83.2 fL (79-99); MONOCYTES % (AUTO) 5.6 % (3.0-13.0); NEUTROPHILS % (AUTO) 63.4 % (40.0-77.0); PLATELET COUNT (AUTO) 277 K/uL (130-400); RED BLOOD CELL COUNT(AUTO) 5.06 MIL/uL (4.00-5.50); RED CELL DISTRIBUTION WIDTH 13.6 % (11.0-15.5); WHITE BLOOD COUNT (AUTO) 9.1 K/uL (4.8-10.8)
[2022-11-19 12:16] LABS: ALBUMIN 3.7 g/dL (3.5-5.0); TOTAL PROTEIN, SERUM 8.4 g/dL (6.0-8.3)
[2022-11-20] MEDS ORDERED: CIPR-278 PO (01:32)
[2022-11-20] MEDS ORDERED: ONDA-104 PO (01:32)
[2022-11-20] MEDS ORDERED: DIPH1TAB PO (01:32)
== END 2022-11-19 13:04 | disposition left against medical advice (07) ==
LOC: EDH 10:43
DX: R11.2 Nausea with vomiting, unspecified (principal); R19.7 Diarrhea, unspecified; Z53.21 Procedure and treatment not carried out due to patient leaving prior to being seen by health care provider
CPT/HCPCS: 36415; 80053; 83690; 85025

== ENCOUNTER 2022-11-19 21:12 | Emergency (ER) | payer MEDICAID ==
[2022-11-20] MEDS ORDERED: DIPHENOXYLATE HCL/ATROPINE 2.5/0.025 MG TAB PO ONE
[2022-11-20] MEDS ORDERED: ONDANSETRON ODT 4MG TAB SL ONE
[2022-11-20] MEDS ORDERED: DIPH1TAB PO (01:32)
[2022-11-20] MEDS ORDERED: ONDA-104 PO (01:32)
[2022-11-20] MEDS ORDERED: CIPR-278 PO (01:32)
[2022-11-20 01:42] VITALS: BP 145/78
== END 2022-11-20 01:51 | disposition home or self-care (01) ==
LOC: EDH 21:12
DX: K52.9 Noninfective gastroenteritis and colitis, unspecified (principal); J45.909 Unspecified asthma, uncomplicated; E11.9 Type 2 diabetes mellitus without complications; I10 Essential (primary) hypertension; Z79.899 Other long term (current) drug therapy; Z20.822 Contact with and (suspected) exposure to COVID-19
CPT/HCPCS: 99284; 71045; 87635; 80053; 83690; 85025; 87880; 87804 ×2; 36415; C9803

== ENCOUNTER 2023-01-29 19:53 | Emergency (ER) | payer MEDICAID ==
[~2023-01-29] VITALS: Ht 180.3 cm; Wt 174.6 kg
[~2023-01-29 19:53] MED LIST changes: -ACET-66 PO; -AMOX1TAB16 PO; -BENZ-39 PO; -CEPH500B PO; +DIPH1TAB PO; -DOXY-469 PO; -METR-172 PO; +ONDA-104 PO; -PHEN-847 PO
[2023-01-30 00:03] LABS: BASOPHILS % (AUTO) 0.4 % (0.0-5.0); HEMATOCRIT 39.5 % (36-48); LYMPHOCYTES % (AUTO) 17.6 % (21.0-51.0); MEAN CORPUSCULAR HEMOGLOBIN 29.3 pg (27.0-33.0); MEAN CORPUSCULAR HGB CONC 33.7 g/dL (32.0-36.0); MONOCYTES % (AUTO) 2.9 % (3.0-13.0); NEUTROPHILS % (AUTO) 77.9 % (40.0-77.0); PLATELET COUNT (AUTO) 248 K/uL (130-400); RED BLOOD CELL COUNT(AUTO) 4.54 MIL/uL (4.00-5.50); RED CELL DISTRIBUTION WIDTH 14.1 % (11.0-15.5); WHITE BLOOD COUNT (AUTO) 9.1 K/uL (4.8-10.8)
[2023-01-30 00:35] LABS: ALBUMIN 3.6 g/dL (3.5-5.0); CREATININE 1.1 mg/dL (0.5-1.5); POTASSIUM 3.9 mmol/L (3.5-5.1); TOTAL PROTEIN, SERUM 8.4 g/dL (6.0-8.3)
[2023-01-30 01:12] VITALS: BP 129/68
[2023-01-30] MEDS ORDERED: OMEP40CA21 PO (01:18)
[2023-01-30] MEDS ORDERED: ONDA-104 PO (01:18)
== END 2023-01-30 01:48 | disposition home or self-care (01) ==
LOC: EDH 19:53
DX: K52.9 Noninfective gastroenteritis and colitis, unspecified (principal); F41.9 Anxiety disorder, unspecified; J45.909 Unspecified asthma, uncomplicated; E11.9 Type 2 diabetes mellitus without complications; E66.9 Obesity, unspecified; I10 Essential (primary) hypertension; Z79.899 Other long term (current) drug therapy
CPT/HCPCS: 36415; 80053; 83690; 85025

== ENCOUNTER 2023-02-03 17:52 | Emergency (ER) | payer BC, MEDICAID ==
[~2023-02-03] VITALS: Ht 177.8 cm; Wt 136.1 kg
[2023-02-03 18:21] VITALS: BP 148/88
[2023-02-03 19:30] LABS: APPEARANCE,URINE CLEAR (CLEAR); BILIRUBIN,URINE NEGATIVE (NEGATIVE); COLOR,URINE YELLOW (YELLOW); GLUCOSE, URINE (UA) NEGATIVE (NEGATIVE); KETONES,URINE NEGATIVE (NEGATIVE); LEUKOCYTE ESTERASE ,URINE NEGATIVE Leu/uL (NEGATIVE); NITRATE,URINE NEGATIVE (NEGATIVE); PH,URINE 5.5 (5.0-8.0); PROTEIN,URINE 10 mg/dL (NEGATIVE)
[2023-02-03] MEDS ORDERED: ONDANSETRON ODT 4MG TAB SL ONE (19:30)
[2023-02-03 19:33] LABS: MUCUS,URINE RARE LPF (None Seen); RBC,URINE 0-1 /HPF (0-1); SQUAMOUS EPITHELIAL CELL,UR RARE /HPF (0-2); WBC,URINE 0-1 /HPF (0-1)
[2023-02-03 19:36] LABS: HCG,QUALITATIVE URINE NEGATIVE (NEGATIVE)
[2023-02-03] MEDS ORDERED: FAMO40TA75 PO (19:55)
[2023-02-03] MEDS ORDERED: ONDA-104 PO (19:55)
[2023-02-03] MEDS ORDERED: DICY20TA2 PO (19:55)
[2023-02-03] MEDS ORDERED: PROMETHAZINE HCL 25 MG/ML 1ML AMPULE IM ONE (20:00)
[2023-02-03] MEDS ORDERED: FAMOTIDINE 20MG TAB PO ONE (20:00)
== END 2023-02-03 20:08 | disposition home or self-care (01) ==
LOC: EDH 17:52
DX: K52.9 Noninfective gastroenteritis and colitis, unspecified (principal); F41.9 Anxiety disorder, unspecified; J45.909 Unspecified asthma, uncomplicated; F32.A Depression, unspecified; E11.9 Type 2 diabetes mellitus without complications; I11.0 Hypertensive heart disease with heart failure; I50.9 Heart failure, unspecified; Z98.890 Other specified postprocedural states; Z79.899 Other long term (current) drug therapy
CPT/HCPCS: 99284; 81001; 81025; 96372; J2550

== ENCOUNTER 2023-02-06 17:25 | Emergency (ER) | payer BC, MEDICAID ==
[~2023-02-06] VITALS: Ht 180.3 cm; Wt 170.1 kg
[~2023-02-06 17:25] MED LIST changes: +FAMO40TA75 PO
[2023-02-06 17:28] VITALS: BP 173/91
[2023-02-06 18:08] LABS: BASOPHILS % (AUTO) 0.3 % (0.0-5.0); EOSINOPHILS % (AUTO) 2.5 % (0.0-8.0); HEMATOCRIT 44.7 % (36-48); LYMPHOCYTES % (AUTO) 27.5 % (21.0-51.0); MEAN CORPUSCULAR HEMOGLOBIN 28.8 pg (27.0-33.0); MEAN CORPUSCULAR HGB CONC 33.8 g/dL (32.0-36.0); MEAN CORPUSCULAR VOLUME 85.1 fL (79-99); MONOCYTES % (AUTO) 4.9 % (3.0-13.0); NEUTROPHILS % (AUTO) 64.5 % (40.0-77.0); PLATELET COUNT (AUTO) 291 K/uL (130-400); RED BLOOD CELL COUNT(AUTO) 5.25 MIL/uL (4.00-5.50); RED CELL DISTRIBUTION WIDTH 13.7 % (11.0-15.5); WHITE BLOOD COUNT (AUTO) 11.5 K/uL (4.8-10.8)
[2023-02-06 18:22] LABS: ALANINE AMINOTRANSFERASE 30 U/L (12-78); ALBUMIN 3.8 g/dL (3.5-5.0); ASPARTATE AMINOTRANSFERASE 13 U/L (10-37); CARBON DIOXIDE 28 mmol/L (21-32); CHLORIDE 101 mmol/L (101-111); CREATININE 0.8 mg/dL (0.5-1.5); GLOMERULAR FILTR. RATE CALC 98 mL/min (>90); GLUCOSE,RANDOM 117 mg/dL (70-105); POTASSIUM 3.8 mmol/L (3.5-5.1); SODIUM SERUM 138 mmol/L (136-145); TOTAL PROTEIN, SERUM 8.5 g/dL (6.0-8.3); UREA NITROGEN, BLOOD 11 mg/dL (7-18)
[2023-02-06 18:27] LABS: LIPASE < 50 U/L (114-286)
== END 2023-02-06 18:14 | disposition home or self-care (01) ==
LOC: EDH 17:25
DX: K29.70 Gastritis, unspecified, without bleeding (principal); F41.9 Anxiety disorder, unspecified; J45.909 Unspecified asthma, uncomplicated; E11.9 Type 2 diabetes mellitus without complications; I10 Essential (primary) hypertension; F32.A Depression, unspecified
CPT/HCPCS: 36415; 80053; 83690; 85025

== ENCOUNTER → 2023-08-19 | Emergency (ER) | payer BC, MEDICAID ==
[~2023-08-19] VITALS: Ht 177.8 cm; Wt 145.1 kg
[2023-08-19 20:15] VITALS: BP 95/40; PULSE 53; RESP 18; O2SAT 100
== END ==
LOC: EDH 20:02
DX: R53.1 Weakness (principal); Z53.21 Procedure and treatment not carried out due to patient leaving prior to being seen by health care provider

== ENCOUNTER 2023-09-02 02:25 | Emergency (ER) | payer BC, MEDICAID ==
[2023-09-02 03:16] LABS: APPEARANCE,URINE CLEAR (CLEAR); BILIRUBIN,URINE NEGATIVE (NEGATIVE); COLOR,URINE YELLOW (YELLOW); GLUCOSE, URINE (UA) 30 mg/dL (NEGATIVE); KETONES,URINE NEGATIVE (NEGATIVE); LEUKOCYTE ESTERASE ,URINE NEGATIVE Leu/uL (NEGATIVE); NITRATE,URINE NEGATIVE (NEGATIVE); OCCULT BLOOD,URINE NEGATIVE (NEGATIVE); PH,URINE 5.5 (5.0-8.0); PROTEIN,URINE NEGATIVE (NEGATIVE)
[2023-09-02 03:18] LABS: ADD UA MICROSCOPIC YES
[2023-09-02 03:25] LABS: BACTERIA,URINE RARE /HPF (None Seen); MUCUS,URINE RARE LPF (None Seen); SQUAMOUS EPITHELIAL CELL,UR RARE /HPF (0-2)
[2023-09-02 03:29] LABS: HCG,QUALITATIVE URINE NEGATIVE (NEGATIVE)
[2023-09-02 03:52] LABS: BASOPHILS # (AUTO) 0.04 K/uL (0.00-0.20); BASOPHILS % (AUTO) 0.4 % (0.0-5.0); EOSINOPHILS # (AUTO) 0.23 K/uL (0.00-0.70); EOSINOPHILS % (AUTO) 2.3 % (0.0-8.0); HEMATOCRIT 40.7 % (36-48); IMMATURE GRANULOCYTE ABSOLUTE 0.04 K/uL (0-1); LYMPHOCYTES # (AUTO) 2.6 K/uL (1.0-4.8); MEAN CORPUSCULAR HEMOGLOBIN 29.5 pg (27.0-33.0); MEAN CORPUSCULAR HGB CONC 34.2 g/dL (32.0-36.0); MEAN CORPUSCULAR VOLUME 86.4 fL (79-99); MONOCYTES # (AUTO) 0.5 K/uL (0.1-1.0); MONOCYTES % (AUTO) 5.1 % (3.0-13.0); NEUTROPHILS # (AUTO) 6.6 K/uL (1.8-7.7); NEUTROPHILS % (AUTO) 65.8 % (40.0-77.0); PLATELET COUNT (AUTO) 228 K/uL (130-400); RED BLOOD CELL COUNT(AUTO) 4.71 MIL/uL (4.00-5.50); RED CELL DISTRIBUTION WIDTH 13.3 % (11.0-15.5)
[2023-09-02] MEDS ORDERED: ACETAMINOPHEN 325 MG TAB PO ONE (04:00)
[2023-09-02 04:01] LABS: CREATININE 0.8 mg/dL (0.5-1.5); POTASSIUM 3.6 mmol/L (3.5-5.1)
[2023-09-02 04:05] LABS: ALBUMIN 3.2 g/dL (3.5-5.0); BILIRUBIN,TOTAL 0.2 mg/dL (0.2-1.0); TOTAL PROTEIN, SERUM 7.8 g/dL (6.0-8.3)
[2023-09-02] MEDS ORDERED: DICY20TA2 PO (04:25)
[2023-09-02] MEDS ORDERED: OMEP40CA21 PO (04:25)
[2023-09-02] MEDS ORDERED: DOCU-116 PO (04:26)
[2023-09-02 04:28] VITALS: BP 131/70; PULSE 80; RESP 16; O2SAT 97
== END 2023-09-02 04:56 | disposition home or self-care (01) ==
LOC: EDH 02:25
DX: R10.9 Unspecified abdominal pain (principal); I10 Essential (primary) hypertension; F41.9 Anxiety disorder, unspecified; J45.909 Unspecified asthma, uncomplicated; F20.9 Schizophrenia, unspecified; F32.A Depression, unspecified; E11.9 Type 2 diabetes mellitus without complications; Z79.899 Other long term (current) drug therapy
CPT/HCPCS: 36415; 74021; 80053; 81001; 81025; 82150; 83690; 85025

== ENCOUNTER 2023-09-07 17:35 | Emergency (ER) | payer BC, MEDICAID ==
[~2023-09-07] VITALS: Ht 180.3 cm; Wt 172.4 kg
[~2023-09-07 17:35] MED LIST changes: -BACI1CAP6 PO; -CIPR-278 PO; -DIPH1TAB PO; +DOCU-116 PO; -FAMO-136 PO; -FAMO40TA75 PO; -FURO-152 PO; -LACT10PA5 PO; -OMEP20CA12 PO; -ONDA-104 PO; -ONDA4TAB10 PO
[2023-09-07 18:34] LABS: CREATININE 0.9 mg/dL (0.5-1.5); POTASSIUM 3.3 mmol/L (3.5-5.1)
[2023-09-07 18:39] LABS: ALBUMIN 3.5 g/dL (3.5-5.0); BILIRUBIN,TOTAL 0.3 mg/dL (0.2-1.0); TOTAL PROTEIN, SERUM 7.9 g/dL (6.0-8.3)
[2023-09-07 19:51] LABS: APPEARANCE,URINE CLEAR (CLEAR); BILIRUBIN,URINE NEGATIVE (NEGATIVE); COLOR,URINE COLORLESS (YELLOW); GLUCOSE, URINE (UA) NEGATIVE (NEGATIVE); KETONES,URINE NEGATIVE (NEGATIVE); LEUKOCYTE ESTERASE ,URINE NEGATIVE Leu/uL (NEGATIVE); NITRATE,URINE NEGATIVE (NEGATIVE); OCCULT BLOOD,URINE NEGATIVE (NEGATIVE); PROTEIN,URINE NEGATIVE (NEGATIVE); UROBILINOGEN,URINE 0.2 mg/dL (0.2-1.0)
[2023-09-07 19:53] LABS: ADD UA MICROSCOPIC NO
[2023-09-07 19:54] LABS: HCG,QUALITATIVE URINE NEGATIVE (NEGATIVE)
[2023-09-07 21:31] VITALS: BP 125/76; PULSE 75; RESP 18; O2SAT 97
[2023-09-07 21:36] LABS: BASOPHILS # (AUTO) 0.04 K/uL (0.00-0.20); BASOPHILS % (AUTO) 0.3 % (0.0-5.0); EOSINOPHILS # (AUTO) 0.22 K/uL (0.00-0.70); EOSINOPHILS % (AUTO) 1.9 % (0.0-8.0); HEMATOCRIT 41.2 % (36-48); IMMATURE GRANULOCYTE ABSOLUTE 0.04 K/uL (0-1); LYMPHOCYTES # (AUTO) 2.4 K/uL (1.0-4.8); LYMPHOCYTES % (AUTO) 20.7 % (21.0-51.0); MEAN CORPUSCULAR HEMOGLOBIN 29.7 pg (27.0-33.0); MEAN CORPUSCULAR VOLUME 87.5 fL (79-99); MONOCYTES # (AUTO) 0.4 K/uL (0.1-1.0); MONOCYTES % (AUTO) 3.5 % (3.0-13.0); NEUTROPHILS # (AUTO) 8.6 K/uL (1.8-7.7); NEUTROPHILS % (AUTO) 73.3 % (40.0-77.0); PLATELET COUNT (AUTO) 268 K/uL (130-400); RED BLOOD CELL COUNT(AUTO) 4.71 MIL/uL (4.00-5.50); RED CELL DISTRIBUTION WIDTH 13.4 % (11.0-15.5); WHITE BLOOD COUNT (AUTO) 11.8 K/uL (4.8-10.8)
== END 2023-09-07 21:32 | disposition home or self-care (01) ==
LOC: EDH 17:35
DX: R10.9 Unspecified abdominal pain (principal); F41.9 Anxiety disorder, unspecified; F32.A Depression, unspecified; E11.9 Type 2 diabetes mellitus without complications; I10 Essential (primary) hypertension; Z79.899 Other long term (current) drug therapy
CPT/HCPCS: 36415; 80053; 81003; 81025; 83690; 85025

== ENCOUNTER 2023-11-09 03:16 | Emergency (ER) | payer BC, MEDICAID ==
[~2023-11-09] VITALS: Ht 180.3 cm; Wt 175.5 kg
[2023-11-09] MEDS ORDERED: IBUP-1493 PO (05:56)
[2023-11-09] MEDS ORDERED: CYCL-309 PO (05:56)
[2023-11-09 06:45] VITALS: BP 113/58; PULSE 79; RESP 18; O2SAT 95
== END 2023-11-09 07:05 | disposition home or self-care (01) ==
LOC: EDH 03:16
DX: M54.50 Low back pain, unspecified (principal); F41.9 Anxiety disorder, unspecified; J45.909 Unspecified asthma, uncomplicated; F31.9 Bipolar disorder, unspecified; E11.9 Type 2 diabetes mellitus without complications; I11.0 Hypertensive heart disease with heart failure; I50.9 Heart failure, unspecified; Z79.899 Other long term (current) drug therapy

== ENCOUNTER 2023-11-29 18:12 | Emergency (ER) | payer BC, MEDICAID ==
[~2023-11-29] VITALS: Ht 180.3 cm; Wt 175.5 kg
[~2023-11-29 18:12] MED LIST changes: +CYCL-309 PO; +IBUP-1493 PO
[2023-11-29 18:21] VITALS: BP 139/85; PULSE 91; RESP 18; O2SAT 98
[2023-11-29] MEDS ORDERED: HYDR100C2 PO (18:48)
== END 2023-11-29 19:16 | disposition home or self-care (01) ==
LOC: EDH 18:12
DX: F06.4 Anxiety disorder due to known physiological condition (principal); G47.00 Insomnia, unspecified; I11.0 Hypertensive heart disease with heart failure; I50.9 Heart failure, unspecified; E11.9 Type 2 diabetes mellitus without complications; F32.A Depression, unspecified; Z79.899 Other long term (current) drug therapy; Z90.89 Acquired absence of other organs; Z98.890 Other specified postprocedural states

== ENCOUNTER 2024-01-11 20:23 | Emergency (ER) | payer MEDICAID ==
[~2024-01-11] VITALS: Ht 180.3 cm; Wt 172.4 kg
[~2024-01-11 20:23] MED LIST changes: +HYDR100C2 PO
[2024-01-11] MEDS: PREDNISONE 20 MG TABLET PO ONE (20:45)
[2024-01-11] MEDS ORDERED: PRED10TA3 PO (21:07)
[2024-01-11 21:11] VITALS: BP 126/66; PULSE 92; RESP 18; O2SAT 94
== END 2024-01-11 21:16 | disposition home or self-care (01) ==
LOC: EDH 20:23
DX: T63.441A Toxic effect of venom of bees, accidental (unintentional), initial encounter (principal); I11.0 Hypertensive heart disease with heart failure; I50.9 Heart failure, unspecified; E11.9 Type 2 diabetes mellitus without complications; F41.9 Anxiety disorder, unspecified; J45.909 Unspecified asthma, uncomplicated; Z79.899 Other long term (current) drug therapy; Z90.89 Acquired absence of other organs; Z98.890 Other specified postprocedural states; Y92.89 Other specified places as the place of occurrence of the external cause

== ENCOUNTER 2024-01-25 20:35 | Emergency (ER) | payer BC, MEDICAID ==
[~2024-01-25] VITALS: Ht 172.7 cm; Wt 183.7 kg
[~2024-01-25 20:35] MED LIST changes: +PRED10TA3 PO
[2024-01-25 22:20] LABS: APPEARANCE,URINE CLEAR (CLEAR); BILIRUBIN,URINE NEGATIVE (NEGATIVE); COLOR,URINE YELLOW (YELLOW); GLUCOSE, URINE (UA) NEGATIVE (NEGATIVE); KETONES,URINE NEGATIVE (NEGATIVE); LEUKOCYTE ESTERASE ,URINE NEGATIVE Leu/uL (NEGATIVE); NITRATE,URINE NEGATIVE (NEGATIVE); OCCULT BLOOD,URINE LARGE (NEGATIVE); PROTEIN,URINE 10 mg/dL (NEGATIVE); UROBILINOGEN,URINE 3 mg/dL (0.2-1.0)
[2024-01-25 22:24] LABS: BASOPHILS # (AUTO) 0.05 K/uL (0.00-0.20); BASOPHILS % (AUTO) 0.5 % (0.0-5.0); EOSINOPHILS # (AUTO) 0.32 K/uL (0.00-0.70); EOSINOPHILS % (AUTO) 3.3 % (0.0-8.0); HEMATOCRIT 42.7 % (36-48); IMMATURE GRANULOCYTE ABSOLUTE 0.02 K/uL (0-1); LYMPHOCYTES # (AUTO) 3.5 K/uL (1.0-4.8); LYMPHOCYTES % (AUTO) 35.3 % (21.0-51.0); MEAN CORPUSCULAR HEMOGLOBIN 29.3 pg (27.0-33.0); MEAN CORPUSCULAR HGB CONC 34.9 g/dL (32.0-36.0); MEAN CORPUSCULAR VOLUME 84.1 fL (79-99); MONOCYTES # (AUTO) 0.5 K/uL (0.1-1.0); MONOCYTES % (AUTO) 5.5 % (3.0-13.0); NEUTROPHILS # (AUTO) 5.4 K/uL (1.8-7.7); NEUTROPHILS % (AUTO) 55.2 % (40.0-77.0); PLATELET COUNT (AUTO) 260 K/uL (130-400); RED BLOOD CELL COUNT(AUTO) 5.08 MIL/uL (4.00-5.50); RED CELL DISTRIBUTION WIDTH 13.8 % (11.0-15.5); WHITE BLOOD COUNT (AUTO) 9.8 K/uL (4.8-10.8)
[2024-01-25 22:26] LABS: HCG,QUALITATIVE URINE NEGATIVE (NEGATIVE)
[2024-01-25 22:27] LABS: ADD UA MICROSCOPIC YES
[2024-01-25 22:29] LABS: AMPHET/METH SCREEN,URINE NEGATIVE (NEGATIVE); BACTERIA,URINE FEW /HPF (None Seen); BARBITURATE SCREEN, URINE NEGATIVE (NEGATIVE); BENZODIAZEPINES SCREEN,URINE NEGATIVE (NEGATIVE); CANNABINOID SCREEN,URINE NEGATIVE (NEGATIVE); COCAINE SCREEN,URINE NEGATIVE (NEGATIVE); MUCUS,URINE RARE LPF (None Seen); OPIATE SCREEN,URINE NEGATIVE (NEGATIVE); PHENCYCLIDINE SCREEN,URINE NEGATIVE (NEGATIVE); RBC,URINE 26-50 /HPF (0-1); SQUAMOUS EPITHELIAL CELL,UR RARE /HPF (0-2)
[2024-01-25 22:33] LABS: CARBON DIOXIDE 27 mmol/L (21-32); CHLORIDE 101 mmol/L (101-111); GLOMERULAR FILTR. RATE CALC 74 mL/min (>90); GLUCOSE,RANDOM 169 mg/dL (70-105); POTASSIUM 3.2 mmol/L (3.5-5.1); SODIUM SERUM 137 mmol/L (136-145); UREA NITROGEN, BLOOD 12 mg/dL (7-18)
[2024-01-25 22:37] LABS: ALANINE AMINOTRANSFERASE 41 U/L (12-78); ALBUMIN 3.4 g/dL (3.5-5.0); ALCOHOL, BLOOD < 3 mg/dL (0-10); ASPARTATE AMINOTRANSFERASE 19 U/L (10-37); BILIRUBIN,TOTAL 0.3 mg/dL (0.2-1.0); CREATINE KINASE, TOTAL 85 U/L (21-232)
[2024-01-25 22:46] LABS: ACETAMINOPHEN < 1 mcg/mL (10-30); SALICYLATE < 2.8 mg/dL (2.8-20.0)
[2024-01-25] MEDS: POTASSIUM BICARB/CIT AC 25 MEQ TABLET.EFF PO ONE (23:49)
[2024-01-26 03:17] VITALS: BP 108/56; PULSE 90; RESP 17; O2SAT 97
== END 2024-01-26 03:23 | disposition home or self-care (01) ==
LOC: EDH 20:35
DX: R45.851 Suicidal ideations (principal); F32.A Depression, unspecified; E87.6 Hypokalemia; E11.65 Type 2 diabetes mellitus with hyperglycemia; F41.9 Anxiety disorder, unspecified; I11.0 Hypertensive heart disease with heart failure; I50.9 Heart failure, unspecified; J45.909 Unspecified asthma, uncomplicated; Z79.1 Long term (current) use of non-steroidal anti-inflammatories (NSAID); Z79.899 Other long term (current) drug therapy
CPT/HCPCS: 99283; 82550; 80053; 80305; 85025; 81025; 36415; 81001; G0481

== ENCOUNTER 2024-02-02 06:20 | Emergency (ER) | payer BC, MEDICAID ==
[~2024-02-02] VITALS: Ht 180.3 cm; Wt 176.9 kg
[2024-02-02 07:11] VITALS: BP 92/56; PULSE 80; RESP 17; O2SAT 96
[2024-02-02 08:07] LABS: BASOPHILS # (AUTO) 0.05 K/uL (0.00-0.20); BASOPHILS % (AUTO) 0.7 % (0.0-5.0); EOSINOPHILS # (AUTO) 0.24 K/uL (0.00-0.70); EOSINOPHILS % (AUTO) 3.3 % (0.0-8.0); HEMATOCRIT 45.1 % (36-48); IMMATURE GRANULOCYTE ABSOLUTE 0.02 K/uL (0-1); LYMPHOCYTES # (AUTO) 2.8 K/uL (1.0-4.8); LYMPHOCYTES % (AUTO) 37.9 % (21.0-51.0); MEAN CORPUSCULAR HEMOGLOBIN 29.5 pg (27.0-33.0); MEAN CORPUSCULAR HGB CONC 34.4 g/dL (32.0-36.0); MEAN CORPUSCULAR VOLUME 85.7 fL (79-99); MONOCYTES # (AUTO) 0.4 K/uL (0.1-1.0); MONOCYTES % (AUTO) 5.6 % (3.0-13.0); NEUTROPHILS # (AUTO) 3.8 K/uL (1.8-7.7); NEUTROPHILS % (AUTO) 52.2 % (40.0-77.0); PLATELET COUNT (AUTO) 254 K/uL (130-400); RED BLOOD CELL COUNT(AUTO) 5.26 MIL/uL (4.00-5.50); RED CELL DISTRIBUTION WIDTH 13.6 % (11.0-15.5); WHITE BLOOD COUNT (AUTO) 7.3 K/uL (4.8-10.8)
[2024-02-02] MEDS: CEFTRIAXONE 2GM VIAL IVPB ONE (08:11)
[2024-02-02] MEDS: TETANUS/DIPHTHERIA TOXOID [ADULT] 0.5 ML VIAL IM ONE (08:13)
[2024-02-02] MEDS: 0.9%NACL 1000ML 1,000 ML IV ONE (08:13)
[2024-02-02 08:18] LABS: CREATININE 0.9 mg/dL (0.5-1.0); POTASSIUM 3.8 mmol/L (3.5-5.1)
[2024-02-02] MEDS ORDERED: CEPH500T PO (08:50)
== END 2024-02-02 09:03 | disposition home or self-care (01) ==
LOC: EDH 06:20
DX: L03.116 Cellulitis of left lower limb (principal); E86.0 Dehydration; E66.01 Morbid (severe) obesity due to excess calories; Z68.43 Body mass index [BMI] 50.0-59.9, adult; I11.0 Hypertensive heart disease with heart failure; I50.9 Heart failure, unspecified; E11.9 Type 2 diabetes mellitus without complications; E78.00 Pure hypercholesterolemia, unspecified; F41.9 Anxiety disorder, unspecified; J45.909 Unspecified asthma, uncomplicated; Z79.899 Other long term (current) drug therapy; Z90.89 Acquired absence of other organs; Z98.890 Other specified postprocedural states
CPT/HCPCS: 99284; 96365; 80048; 85025; 87040 ×2; 87077; 87186; 83605; 36415; 90714; 90471; J0696

== ENCOUNTER 2024-02-06 03:37 | Emergency (ER) | payer BC, MEDICAID ==
[~2024-02-06] VITALS: Ht 180.3 cm; Wt 149.7 kg
[~2024-02-06 03:37] MED LIST changes: +CEPH500T PO
[2024-02-06 04:04] LABS: APPEARANCE,URINE CLEAR (CLEAR); BILIRUBIN,URINE NEGATIVE (NEGATIVE); COLOR,URINE LIGHT-YELLOW (YELLOW); GLUCOSE, URINE (UA) 50 mg/dL (NEGATIVE); KETONES,URINE NEGATIVE (NEGATIVE); LEUKOCYTE ESTERASE ,URINE NEGATIVE Leu/uL (NEGATIVE); NITRATE,URINE NEGATIVE (NEGATIVE); OCCULT BLOOD,URINE LARGE (NEGATIVE); PH,URINE 5.5 (5.0-8.0); PROTEIN,URINE 20 mg/dL (NEGATIVE); UROBILINOGEN,URINE 0.2 mg/dL (0.2-1.0)
[2024-02-06 04:05] LABS: ADD UA MICROSCOPIC YES
[2024-02-06 04:08] LABS: HCG,QUALITATIVE URINE NEGATIVE (NEGATIVE)
[2024-02-06 04:11] LABS: BACTERIA,URINE RARE /HPF (None Seen); MUCUS,URINE RARE LPF (None Seen); RBC,URINE 26-50 /HPF (0-1); SQUAMOUS EPITHELIAL CELL,UR FEW /HPF (0-2)
[2024-02-06 04:16] LABS: AMPHET/METH SCREEN,URINE NEGATIVE (NEGATIVE); BARBITURATE SCREEN, URINE NEGATIVE (NEGATIVE); BENZODIAZEPINES SCREEN,URINE NEGATIVE (NEGATIVE); CANNABINOID SCREEN,URINE POSITIVE (NEGATIVE); COCAINE SCREEN,URINE POSITIVE (NEGATIVE); OPIATE SCREEN,URINE NEGATIVE (NEGATIVE); PHENCYCLIDINE SCREEN,URINE NEGATIVE (NEGATIVE)
[2024-02-06 04:17] LABS: BASOPHILS # (AUTO) 0.04 K/uL (0.00-0.20); BASOPHILS % (AUTO) 0.6 % (0.0-5.0); EOSINOPHILS # (AUTO) 0.15 K/uL (0.00-0.70); EOSINOPHILS % (AUTO) 2.2 % (0.0-8.0); HEMATOCRIT 43.9 % (36-48); IMMATURE GRANULOCYTE ABSOLUTE 0.01 K/uL (0-1); LYMPHOCYTES # (AUTO) 2.2 K/uL (1.0-4.8); LYMPHOCYTES % (AUTO) 31.4 % (21.0-51.0); MEAN CORPUSCULAR HEMOGLOBIN 29.5 pg (27.0-33.0); MEAN CORPUSCULAR HGB CONC 34.6 g/dL (32.0-36.0); MEAN CORPUSCULAR VOLUME 85.2 fL (79-99); MONOCYTES # (AUTO) 0.6 K/uL (0.1-1.0); NEUTROPHILS % (AUTO) 57.7 % (40.0-77.0); PLATELET COUNT (AUTO) 250 K/uL (130-400); RED BLOOD CELL COUNT(AUTO) 5.15 MIL/uL (4.00-5.50); RED CELL DISTRIBUTION WIDTH 13.7 % (11.0-15.5); WHITE BLOOD COUNT (AUTO) 6.9 K/uL (4.8-10.8)
[2024-02-06 04:47] LABS: CARBON DIOXIDE 25 mmol/L (21-32); CHLORIDE 101 mmol/L (101-111); GLOMERULAR FILTR. RATE CALC 74 mL/min (>90); GLUCOSE,RANDOM 179 mg/dL (70-105); SODIUM SERUM 136 mmol/L (136-145); UREA NITROGEN, BLOOD 24 mg/dL (7-18)
[2024-02-06 04:54] LABS: ACETAMINOPHEN < 1 mcg/mL (10-30); ALANINE AMINOTRANSFERASE 65 U/L (12-78); ALBUMIN 3.9 g/dL (3.5-5.0); ALCOHOL, BLOOD 5 mg/dL (0-10); ASPARTATE AMINOTRANSFERASE 26 U/L (10-37); BILIRUBIN,TOTAL 0.3 mg/dL (0.2-1.0); SALICYLATE < 2.8 mg/dL (2.8-20.0); TOTAL PROTEIN, SERUM 8.7 g/dL (6.0-8.3)
[2024-02-06] MEDS: ONDANSETRON 4MG INJ IVP ONE (06:56)
[2024-02-06 10:40] VITALS: BP 126/74; PULSE 68; RESP 18; O2SAT 98
[2024-03-06] MEDS ORDERED: ONDA-243 PO (14:11)
[2024-03-12] MEDS ORDERED: ZIPR40CA24 PO (18:29)
[2024-03-12] MEDS ORDERED: LISI10TA24 PO (18:29)
[2024-03-12] MEDS ORDERED: VENL-63 PO (18:29)
[2024-03-12] MEDS ORDERED: SEMA1PEN3 SQ (18:29)
[2024-03-12] MEDS ORDERED: METF-444 PO (18:29)
== END 2024-02-06 10:50 | disposition home or self-care (01) ==
LOC: EDH 03:37
DX: R41.0 Disorientation, unspecified (principal); J45.909 Unspecified asthma, uncomplicated; E11.9 Type 2 diabetes mellitus without complications; I10 Essential (primary) hypertension; Z79.1 Long term (current) use of non-steroidal anti-inflammatories (NSAID); Z79.899 Other long term (current) drug therapy
CPT/HCPCS: 99284; 96374; 80053; 80305; 85025; 81025; 36415; 81001; G0481; J2405

== ENCOUNTER 2024-02-28 11:26 | Emergency (ER) | payer BC, MEDICAID ==
[~2024-02-28] VITALS: Ht 180.3 cm; Wt 174.6 kg
[2024-02-28] MEDS ORDERED: MORPHINE 2 MG SYG IVP ONE (12:00)
[2024-02-28] MEDS: ONDANSETRON 4MG INJ IVP ONE (12:27)
[2024-02-28] MEDS: KETOROLAC 15MG/ML VIAL (15MG/ML) IV STA (12:28)
[2024-02-28 12:34] LABS: BASOPHILS # (AUTO) 0.04 K/uL (0.00-0.20); BASOPHILS % (AUTO) 0.5 % (0.0-5.0); EOSINOPHILS % (AUTO) 2.7 % (0.0-8.0); HEMATOCRIT 45.6 % (36-48); IMMATURE GRANULOCYTE ABSOLUTE 0.02 K/uL (0-1); LYMPHOCYTES # (AUTO) 2.5 K/uL (1.0-4.8); MEAN CORPUSCULAR HEMOGLOBIN 29.8 pg (27.0-33.0); MEAN CORPUSCULAR HGB CONC 34.2 g/dL (32.0-36.0); MEAN CORPUSCULAR VOLUME 87.2 fL (79-99); MONOCYTES # (AUTO) 0.4 K/uL (0.1-1.0); MONOCYTES % (AUTO) 5.2 % (3.0-13.0); NEUTROPHILS # (AUTO) 4.2 K/uL (1.8-7.7); NEUTROPHILS % (AUTO) 57.3 % (40.0-77.0); PLATELET COUNT (AUTO) 256 K/uL (130-400); RED BLOOD CELL COUNT(AUTO) 5.23 MIL/uL (4.00-5.50); WHITE BLOOD COUNT (AUTO) 7.3 K/uL (4.8-10.8)
[2024-02-28 12:40] LABS: APPEARANCE,URINE CLOUDY (CLEAR); BILIRUBIN,URINE NEGATIVE (NEGATIVE); COLOR,URINE YELLOW (YELLOW); GLUCOSE, URINE (UA) NEGATIVE (NEGATIVE); KETONES,URINE NEGATIVE (NEGATIVE); LEUKOCYTE ESTERASE ,URINE NEGATIVE Leu/uL (NEGATIVE); NITRATE,URINE NEGATIVE (NEGATIVE); OCCULT BLOOD,URINE LARGE (NEGATIVE); PH,URINE 5.5 (5.0-8.0); PROTEIN,URINE 20 mg/dL (NEGATIVE); UROBILINOGEN,URINE 0.2 mg/dL (0.2-1.0)
[2024-02-28 12:49] LABS: ADD UA MICROSCOPIC YES
[2024-02-28 12:51] LABS: CREATININE 0.9 mg/dL (0.5-1.0); POTASSIUM 4.1 mmol/L (3.5-5.1)
[2024-02-28 13:01] LABS: ALBUMIN 3.9 g/dL (3.5-5.0); BILIRUBIN,TOTAL 0.4 mg/dL (0.2-1.0); TOTAL PROTEIN, SERUM 8.7 g/dL (6.0-8.3)
[2024-02-28 13:06] LABS: BACTERIA,URINE Moderate /HPF (None Seen)
[2024-02-28] MEDS: 0.9%NACL 1000ML 1,000 ML IV STA (13:19)
[2024-02-28] MEDS ORDERED: IOHEXOL-350 75 ML VIAL IV ONE (13:38)
[2024-02-28 14:56] VITALS: BP 147/77; PULSE 88; RESP 20; O2SAT 99
[2024-02-28] MEDS ORDERED: KETOROLAC 30MG VIAL (30MG/ML) IVP ONE (18:30)
[2024-02-28] MEDS ORDERED: ONDANSETRON 4MG INJ IVP ONE (18:30)
[2024-02-28] MEDS ORDERED: 0.9%NACL 1000ML 1,000 ML IV ONE (18:30)
== END 2024-02-28 14:58 | disposition home or self-care (01) ==
LOC: EDH 11:26
DX: R10.30 Lower abdominal pain, unspecified (principal); R30.0 Dysuria; R31.9 Hematuria, unspecified; I10 Essential (primary) hypertension; E11.9 Type 2 diabetes mellitus without complications; D69.6 Thrombocytopenia, unspecified; J45.909 Unspecified asthma, uncomplicated; Z79.899 Other long term (current) drug therapy; Z98.890 Other specified postprocedural states
CPT/HCPCS: 99284; 74177; 96374; 71045; 96375; 84484; 80053; 84702; 83690; 85025; 87088; 86140; 81001; 36415; 93005; J7030; J2405; J1885; Q9967

== ENCOUNTER 2024-02-28 17:50 | Emergency (ER) | payer BC, MEDICAID ==
[~2024-02-28] VITALS: Ht 180.3 cm; Wt 174.6 kg
[2024-02-28 18:02] VITALS: BP 164/82; PULSE 83; RESP 18
[2024-02-28] MEDS: ONDANSETRON 4MG INJ IVP ONE (19:49)
[2024-02-28] MEDS: KETOROLAC 30MG VIAL (30MG/ML) IVP ONE (19:49)
[2024-02-28] MEDS: SOLU-MEDROL 125MG VIAL IVP ONE (19:50)
[2024-02-28] MEDS: 0.9%NACL 1000ML 1,000 ML IV ONE (19:50)
[2024-02-28 19:52] LABS: BASOPHILS # (AUTO) 0.04 K/uL (0.00-0.20); BASOPHILS % (AUTO) 0.4 % (0.0-5.0); EOSINOPHILS # (AUTO) 0.12 K/uL (0.00-0.70); EOSINOPHILS % (AUTO) 1.1 % (0.0-8.0); HEMATOCRIT 44.3 % (36-48); IMMATURE GRANULOCYTE ABSOLUTE 0.03 K/uL (0-1); LYMPHOCYTES # (AUTO) 1.4 K/uL (1.0-4.8); LYMPHOCYTES % (AUTO) 12.8 % (21.0-51.0); MEAN CORPUSCULAR HEMOGLOBIN 29.6 pg (27.0-33.0); MEAN CORPUSCULAR HGB CONC 34.1 g/dL (32.0-36.0); MEAN CORPUSCULAR VOLUME 86.9 fL (79-99); MONOCYTES # (AUTO) 0.5 K/uL (0.1-1.0); MONOCYTES % (AUTO) 4.4 % (3.0-13.0); NEUTROPHILS # (AUTO) 9.1 K/uL (1.8-7.7); PLATELET COUNT (AUTO) 229 K/uL (130-400); RED CELL DISTRIBUTION WIDTH 13.9 % (11.0-15.5); WHITE BLOOD COUNT (AUTO) 11.3 K/uL (4.8-10.8)
[2024-02-28 20:08] LABS: CREATININE 0.9 mg/dL (0.5-1.0); POTASSIUM 3.8 mmol/L (3.5-5.1)
[2024-02-28 20:12] LABS: ALBUMIN 3.9 g/dL (3.5-5.0); BILIRUBIN,TOTAL 0.6 mg/dL (0.2-1.0); TOTAL PROTEIN, SERUM 8.6 g/dL (6.0-8.3)
== END 2024-02-28 21:07 | disposition home or self-care (01) ==
LOC: EDH 17:50
DX: R10.2 Pelvic and perineal pain (principal); E11.65 Type 2 diabetes mellitus with hyperglycemia; E66.9 Obesity, unspecified; I10 Essential (primary) hypertension; J45.909 Unspecified asthma, uncomplicated; Z79.899 Other long term (current) drug therapy; Z98.890 Other specified postprocedural states
CPT/HCPCS: 99284; 96374; 76857; 96375; 80053; 85025; 36415; J7030; J2919; J2405; J1885

== ENCOUNTER 2024-03-06 06:39 | Emergency (ER) | payer BC, MEDICAID ==
[~2024-03-06] VITALS: Ht 180.3 cm; Wt 172.8 kg
[2024-03-06 07:42] LABS: BASOPHILS # (AUTO) 0.04 K/uL (0.00-0.20); BASOPHILS % (AUTO) 0.3 % (0.0-5.0); EOSINOPHILS # (AUTO) 0.11 K/uL (0.00-0.70); EOSINOPHILS % (AUTO) 0.8 % (0.0-8.0); HEMATOCRIT 40.1 % (36-48); IMMATURE GRANULOCYTE ABSOLUTE 0.05 K/uL (0-1); LYMPHOCYTES # (AUTO) 1.2 K/uL (1.0-4.8); LYMPHOCYTES % (AUTO) 8.8 % (21.0-51.0); MEAN CORPUSCULAR HEMOGLOBIN 28.8 pg (27.0-33.0); MEAN CORPUSCULAR HGB CONC 33.9 g/dL (32.0-36.0); MEAN CORPUSCULAR VOLUME 84.8 fL (79-99); MONOCYTES # (AUTO) 0.9 K/uL (0.1-1.0); MONOCYTES % (AUTO) 6.1 % (3.0-13.0); NEUTROPHILS # (AUTO) 11.6 K/uL (1.8-7.7); NEUTROPHILS % (AUTO) 83.6 % (40.0-77.0); PLATELET COUNT (AUTO) 258 K/uL (130-400); RED BLOOD CELL COUNT(AUTO) 4.73 MIL/uL (4.00-5.50); RED CELL DISTRIBUTION WIDTH 13.6 % (11.0-15.5); WHITE BLOOD COUNT (AUTO) 13.8 K/uL (4.8-10.8)
[2024-03-06 07:51] LABS: CREATININE 0.9 mg/dL (0.5-1.0); POTASSIUM 3.5 mmol/L (3.5-5.1)
[2024-03-06] MEDS: ONDANSETRON 4MG INJ IVP ONE (07:55)
[2024-03-06] MEDS: 0.9%NACL 1000ML 1,000 ML IV SCH (07:55)
[2024-03-06 08:26] LABS: ALBUMIN 2.5 g/dL (3.5-5.0); BILIRUBIN,DIRECT 0.3 mg/dL (0.0-0.3); BILIRUBIN,TOTAL 0.8 mg/dL (0.2-1.0); TOTAL PROTEIN, SERUM 7.8 g/dL (6.0-8.3)
[2024-03-06 08:44] LABS: APPEARANCE,URINE TURBID (CLEAR); BILIRUBIN,URINE MODERATE mg/dL (NEGATIVE); COLOR,URINE ORANGE (YELLOW); GLUCOSE, URINE (UA) NEGATIVE (NEGATIVE); KETONES,URINE >=80 mg/dL (NEGATIVE); LEUKOCYTE ESTERASE ,URINE MODERATE Leu/uL (NEGATIVE); NITRATE,URINE POSITIVE (NEGATIVE); OCCULT BLOOD,URINE LARGE (NEGATIVE); PROTEIN,URINE 100 mg/dL (NEGATIVE)
[2024-03-06 08:46] LABS: ADD UA MICROSCOPIC YES
[2024-03-06 09:00] LABS: BACTERIA,URINE Few /HPF (None Seen); RBC,URINE >100 /HPF (0-1)
[2024-03-06] MEDS: KETOROLAC 30MG VIAL (30MG/ML) IVP ONE (09:28)
[2024-03-06] MEDS: CEFTRIAXONE 1G VIAL IVPB ONE (09:28)
[2024-03-06] MEDS ORDERED: METR375C2 PO (14:04)
[2024-03-06] MEDS ORDERED: CEPH500T PO (14:04)
[2024-03-06] MEDS ORDERED: ONDA4TAB10 PO (14:11)
[2024-03-06] MEDS: METRONIDAZOLE 500 MG TABLET PO ONE (14:20)
[2024-03-06 14:34] VITALS: BP 124/76; PULSE 80; RESP 16; O2SAT 97
== END 2024-03-06 14:37 | disposition home or self-care (01) ==
LOC: EDH 06:39
DX: N12 Tubulo-interstitial nephritis, not specified as acute or chronic (principal); K57.92 Diverticulitis of intestine, part unspecified, without perforation or abscess without bleeding; I10 Essential (primary) hypertension; E11.9 Type 2 diabetes mellitus without complications; E78.00 Pure hypercholesterolemia, unspecified; J45.909 Unspecified asthma, uncomplicated; Z79.899 Other long term (current) drug therapy; Z98.890 Other specified postprocedural states
CPT/HCPCS: 99284; 74176; 96374; 76857; 96375; 96361; 80076; 80048; 84703; 83690; 85025; 87088; 81001; 81025; 36415; J7030; J0696; J2405; J1885

== ENCOUNTER 2024-03-10 15:09 | Emergency (ER) | payer BC, MEDICAID ==
[~2024-03-10] VITALS: Ht 180.3 cm; Wt 169.6 kg
[~2024-03-10 15:09] MED LIST changes: +METR375C2 PO; +ONDA-243 PO
[2024-03-10 15:47] LABS: BASOPHILS # (AUTO) 0.05 K/uL (0.00-0.20); BASOPHILS % (AUTO) 0.3 % (0.0-5.0); EOSINOPHILS # (AUTO) 0.07 K/uL (0.00-0.70); EOSINOPHILS % (AUTO) 0.5 % (0.0-8.0); HEMATOCRIT 36.8 % (36-48); IMMATURE GRANULOCYTE ABSOLUTE 0.08 K/uL (0-1); LYMPHOCYTES # (AUTO) 2.3 K/uL (1.0-4.8); LYMPHOCYTES % (AUTO) 15.9 % (21.0-51.0); MEAN CORPUSCULAR HEMOGLOBIN 28.6 pg (27.0-33.0); MEAN CORPUSCULAR HGB CONC 33.7 g/dL (32.0-36.0); MONOCYTES # (AUTO) 0.6 K/uL (0.1-1.0); MONOCYTES % (AUTO) 4.2 % (3.0-13.0); NEUTROPHILS # (AUTO) 11.4 K/uL (1.8-7.7); NEUTROPHILS % (AUTO) 78.5 % (40.0-77.0); PLATELET COUNT (AUTO) 345 K/uL (130-400); RED BLOOD CELL COUNT(AUTO) 4.33 MIL/uL (4.00-5.50); RED CELL DISTRIBUTION WIDTH 13.8 % (11.0-15.5); WHITE BLOOD COUNT (AUTO) 14.5 K/uL (4.8-10.8)
[2024-03-10 15:55] LABS: CREATININE 0.8 mg/dL (0.5-1.0); POTASSIUM 3.2 mmol/L (3.5-5.1)
[2024-03-10] MEDS: 0.9%NACL 1000ML 1,000 ML IV ONE (16:04)
[2024-03-10 16:51] LABS: BAND NEUTROPHILS % (MANUAL) 9 % (0-2); LYMPHOCYTES % (MANUAL) 10 % (22-44); MONOCYTES % (MANUAL) 8 % (2-9); SEGMENTED NEUTROPHILS % 73 % (40-70); TOTAL CELLS COUNTED 100
[2024-03-10 16:52] LABS: MAN.DIFF COMMENT-IMPRESSION MANUAL DIFFERENTIAL; PLATELET MORPHOLOGY COMMENT ADEQUATE; WBC MORPHOLOGY CONSISTENT W/DIFF
[2024-03-10 16:56] LABS: APPEARANCE,URINE CLEAR (CLEAR); BILIRUBIN,URINE NEGATIVE (NEGATIVE); COLOR,URINE YELLOW (YELLOW); GLUCOSE, URINE (UA) NEGATIVE (NEGATIVE); KETONES,URINE 60 mg/dL (NEGATIVE); LEUKOCYTE ESTERASE ,URINE 25 Leu/uL (NEGATIVE); NITRATE,URINE NEGATIVE (NEGATIVE); OCCULT BLOOD,URINE LARGE (NEGATIVE); PH,URINE 6.5 (5.0-8.0); PROTEIN,URINE 30 mg/dL (NEGATIVE); UROBILINOGEN,URINE 3 mg/dL (0.2-1.0)
[2024-03-10 17:06] LABS: MUCUS,URINE RARE LPF (None Seen); RBC,URINE TNTC /HPF (0-1); SQUAMOUS EPITHELIAL CELL,UR FEW /HPF (0-2); WBC,URINE 26-50 /HPF (0-1)
[2024-03-10] MEDS: CEFTRIAXONE 1G VIAL IVPB ONE (17:17)
[2024-03-10 17:19] LABS: AMPHET/METH SCREEN,URINE NEGATIVE (NEGATIVE); BARBITURATE SCREEN, URINE NEGATIVE (NEGATIVE); BENZODIAZEPINES SCREEN,URINE NEGATIVE (NEGATIVE); CANNABINOID SCREEN,URINE NEGATIVE (NEGATIVE); COCAINE SCREEN,URINE NEGATIVE (NEGATIVE); OPIATE SCREEN,URINE NEGATIVE (NEGATIVE); PHENCYCLIDINE SCREEN,URINE NEGATIVE (NEGATIVE)
[2024-03-10] MEDS: LEVOFLOXACIN 500 MG/D5W 100 ML 100 ML IV STA (17:43)
[2024-03-10] MEDS ORDERED: LEVO750T68 PO (17:50)
[2024-03-10 17:52] VITALS: BP 145/81; PULSE 92; RESP 18; O2SAT 99
[2024-03-12] MEDS ORDERED: VENL-63 PO (18:29)
[2024-03-12] MEDS ORDERED: ZIPR40CA24 PO (18:29)
[2024-03-12] MEDS ORDERED: METF-444 PO (18:29)
[2024-03-12] MEDS ORDERED: LISI10TA24 PO (18:29)
[2024-03-12] MEDS ORDERED: SEMA1PEN3 SQ (18:29)
== END 2024-03-10 18:10 | disposition home or self-care (01) ==
LOC: EDH 15:09
DX: N39.0 Urinary tract infection, site not specified (principal); J45.909 Unspecified asthma, uncomplicated; E11.9 Type 2 diabetes mellitus without complications; I10 Essential (primary) hypertension; Z79.1 Long term (current) use of non-steroidal anti-inflammatories (NSAID); Z79.899 Other long term (current) drug therapy
CPT/HCPCS: 99284; 96365; 96361; 80048; 80305; 83690; 85025; 87077; 87088; 87186; 36415; 96368; 81001 ×2; J1956; J7030; J0696

== ENCOUNTER 2024-04-07 12:27 | Emergency (ER) | payer BC, MEDICAID ==
[~2024-04-07] VITALS: Ht 180.3 cm; Wt 163.3 kg
[~2024-04-07 12:27] MED LIST changes: -CEPH500T PO; -CYCL-309 PO; -DICY20TA2 PO; -DOCU-116 PO; -HYDR100C2 PO; -IBUP-1493 PO; +LISI10TA24 PO; +METF-444 PO; -METR375C2 PO; -OMEP40CA21 PO; -ONDA-243 PO; -PRED10TA3 PO; +SEMA1PEN3 SQ; +VENL-63 PO; +ZIPR40CA24 PO
[2024-04-07 14:09] VITALS: BP 137/79; PULSE 80; RESP 18; O2SAT 98
== END 2024-04-07 14:19 | disposition home or self-care (01) ==
LOC: EDH 12:27
DX: Z87.440 Personal history of urinary (tract) infections (principal); I10 Essential (primary) hypertension; E11.9 Type 2 diabetes mellitus without complications; J45.909 Unspecified asthma, uncomplicated; Z79.84 Long term (current) use of oral hypoglycemic drugs; Z79.899 Other long term (current) drug therapy; Z98.890 Other specified postprocedural states; Z88.1 Allergy status to other antibiotic agents
CPT/HCPCS: 99282

== ENCOUNTER 2024-04-20 19:34 | Emergency (ER) | payer BC, MEDICAID ==
[2024-04-20 20:20] LABS: BASOPHILS # (AUTO) 0.05 K/uL (0.00-0.20); BASOPHILS % (AUTO) 0.7 % (0.0-5.0); EOSINOPHILS # (AUTO) 0.19 K/uL (0.00-0.70); EOSINOPHILS % (AUTO) 2.5 % (0.0-8.0); HEMATOCRIT 39.4 % (36-48); IMMATURE GRANULOCYTE ABSOLUTE 0.01 K/uL (0-1); LYMPHOCYTES # (AUTO) 3.3 K/uL (1.0-4.8); LYMPHOCYTES % (AUTO) 42.3 % (21.0-51.0); MEAN CORPUSCULAR HEMOGLOBIN 29.1 pg (27.0-33.0); MEAN CORPUSCULAR HGB CONC 34.8 g/dL (32.0-36.0); MEAN CORPUSCULAR VOLUME 83.7 fL (79-99); MONOCYTES # (AUTO) 0.4 K/uL (0.1-1.0); MONOCYTES % (AUTO) 5.7 % (3.0-13.0); NEUTROPHILS # (AUTO) 3.8 K/uL (1.8-7.7); NEUTROPHILS % (AUTO) 48.7 % (40.0-77.0); PLATELET COUNT (AUTO) 244 K/uL (130-400); RED BLOOD CELL COUNT(AUTO) 4.71 MIL/uL (4.00-5.50); RED CELL DISTRIBUTION WIDTH 14.6 % (11.0-15.5); WHITE BLOOD COUNT (AUTO) 7.7 K/uL (4.8-10.8)
[2024-04-20 20:31] LABS: CARBON DIOXIDE 27 mmol/L (21-32); CHLORIDE 105 mmol/L (101-111); CREATININE 0.8 mg/dL (0.5-1.0); GLOMERULAR FILTR. RATE CALC 97 mL/min (>90); GLUCOSE,RANDOM 109 mg/dL (70-105); POTASSIUM 3.9 mmol/L (3.5-5.1); SODIUM SERUM 143 mmol/L (136-145); UREA NITROGEN, BLOOD 12 mg/dL (7-18)
[2024-04-20 20:34] LABS: ALANINE AMINOTRANSFERASE 41 U/L (12-78); ALBUMIN 3.5 g/dL (3.5-5.0); ALCOHOL, BLOOD < 3 mg/dL (0-10); ASPARTATE AMINOTRANSFERASE 19 U/L (10-37); BILIRUBIN,TOTAL 0.4 mg/dL (0.2-1.0); CREATINE KINASE, TOTAL 65 U/L (21-232); TOTAL PROTEIN, SERUM 8.1 g/dL (6.0-8.3)
[2024-04-20 20:36] LABS: ACETAMINOPHEN < 1 mcg/mL (10-30); SALICYLATE < 2.8 mg/dL (2.8-20.0)
[2024-04-20 22:10] LABS: APPEARANCE,URINE CLEAR (CLEAR); BILIRUBIN,URINE NEGATIVE (NEGATIVE); COLOR,URINE LIGHT-YELLOW (YELLOW); GLUCOSE, URINE (UA) NEGATIVE (NEGATIVE); KETONES,URINE NEGATIVE (NEGATIVE); LEUKOCYTE ESTERASE ,URINE NEGATIVE Leu/uL (NEGATIVE); NITRATE,URINE NEGATIVE (NEGATIVE); OCCULT BLOOD,URINE NEGATIVE (NEGATIVE); PH,URINE 5.5 (5.0-8.0); PROTEIN,URINE NEGATIVE (NEGATIVE); UROBILINOGEN,URINE 0.2 mg/dL (0.2-1.0)
[2024-04-20 22:15] LABS: ADD UA MICROSCOPIC NO
[2024-04-20 22:17] LABS: AMPHET/METH SCREEN,URINE NEGATIVE (NEGATIVE); BARBITURATE SCREEN, URINE NEGATIVE (NEGATIVE); BENZODIAZEPINES SCREEN,URINE NEGATIVE (NEGATIVE); CANNABINOID SCREEN,URINE NEGATIVE (NEGATIVE); COCAINE SCREEN,URINE NEGATIVE (NEGATIVE); OPIATE SCREEN,URINE NEGATIVE (NEGATIVE); PHENCYCLIDINE SCREEN,URINE NEGATIVE (NEGATIVE)
[2024-04-21 03:40] VITALS: BP 128/74; PULSE 87; RESP 16; O2SAT 99
== END 2024-04-21 03:45 | disposition home or self-care (01) ==
LOC: EDH 19:34
DX: F99 Mental disorder, not otherwise specified (principal); F06.4 Anxiety disorder due to known physiological condition; E11.9 Type 2 diabetes mellitus without complications; I10 Essential (primary) hypertension; J45.909 Unspecified asthma, uncomplicated; Z79.84 Long term (current) use of oral hypoglycemic drugs; Z79.899 Other long term (current) drug therapy; Z88.1 Allergy status to other antibiotic agents
CPT/HCPCS: 99284; 71045; 82550; 80053; 80305; 85025; 36415; 93005; 81003; G0481

== ENCOUNTER 2024-04-28 19:28 | Emergency (ER) | payer BC, MEDICAID ==
[~2024-04-28] VITALS: Ht 172.7 cm; Wt 136.1 kg
[2024-04-28 19:43] VITALS: O2SAT 98
[2024-04-28 19:48] VITALS: BP 138/84; PULSE 87; RESP 18
[2024-04-28] MEDS ORDERED: KETOROLAC 15MG/ML VIAL (15MG/ML) IV ONE (20:00)
[2024-04-28] MEDS ORDERED: MORPHINE 4 MG SYG IVP ONE (20:00)
[2024-04-28] MEDS ORDERED: 0.9%NACL 1000ML 1,000 ML IV ONE (20:00)
[2024-04-28] MEDS ORDERED: ONDANSETRON 4MG INJ IVP ONE (20:00)
[2024-04-28 20:14] LABS: BASOPHILS # (AUTO) 0.04 K/uL (0.00-0.20); BASOPHILS % (AUTO) 0.3 % (0.0-5.0); EOSINOPHILS # (AUTO) 0.06 K/uL (0.00-0.70); EOSINOPHILS % (AUTO) 0.5 % (0.0-8.0); HEMATOCRIT 37.8 % (36-48); IMMATURE GRANULOCYTE ABSOLUTE 0.06 K/uL (0-1); LYMPHOCYTES % (AUTO) 15.4 % (21.0-51.0); MEAN CORPUSCULAR HGB CONC 33.6 g/dL (32.0-36.0); MEAN CORPUSCULAR VOLUME 86.3 fL (79-99); MONOCYTES # (AUTO) 0.7 K/uL (0.1-1.0); MONOCYTES % (AUTO) 5.6 % (3.0-13.0); NEUTROPHILS # (AUTO) 10.2 K/uL (1.8-7.7); NEUTROPHILS % (AUTO) 77.7 % (40.0-77.0); PLATELET COUNT (AUTO) 196 K/uL (130-400); RED BLOOD CELL COUNT(AUTO) 4.38 MIL/uL (4.00-5.50); WHITE BLOOD COUNT (AUTO) 13.1 K/uL (4.8-10.8)
[2024-04-28 20:31] LABS: CREATININE 0.7 mg/dL (0.5-1.0); POTASSIUM 4.2 mmol/L (3.5-5.1)
[2024-04-28 20:35] LABS: ALBUMIN 3.1 g/dL (3.5-5.0); BILIRUBIN,TOTAL 1.2 mg/dL (0.2-1.0); TOTAL PROTEIN, SERUM 7.9 g/dL (6.0-8.3)
[2024-04-28] MEDS: MORPHINE 4 MG SYG IM ONE (21:30)
[2024-04-28] MEDS: ONDANSETRON ODT 4MG TAB SL ONE (21:30)
== END 2024-04-29 01:16 | disposition left against medical advice (07) ==
LOC: EDH 19:28
DX: R10.32 Left lower quadrant pain (principal); J45.909 Unspecified asthma, uncomplicated; I10 Essential (primary) hypertension; E11.9 Type 2 diabetes mellitus without complications; R10.2 Pelvic and perineal pain
CPT/HCPCS: 99285; 74176; 76857; 80053; 84702; 85025; 83605; 36415; 96372; 84145; J2270

== ENCOUNTER 2024-05-15 17:53 | Emergency (ER) | payer BC, MEDICAID ==
[~2024-05-15] VITALS: Ht 175.3 cm; Wt 149.7 kg
[2024-05-15 18:18] LABS: BASOPHILS # (AUTO) 0.08 K/uL (0.00-0.20); BASOPHILS % (AUTO) 0.9 % (0.0-5.0); EOSINOPHILS # (AUTO) 0.17 K/uL (0.00-0.70); HEMATOCRIT 44.5 % (36-48); IMMATURE GRANULOCYTE ABSOLUTE 0.01 K/uL (0-1); LYMPHOCYTES # (AUTO) 3.5 K/uL (1.0-4.8); LYMPHOCYTES % (AUTO) 41.4 % (21.0-51.0); MEAN CORPUSCULAR HEMOGLOBIN 28.8 pg (27.0-33.0); MEAN CORPUSCULAR HGB CONC 33.7 g/dL (32.0-36.0); MEAN CORPUSCULAR VOLUME 85.6 fL (79-99); MONOCYTES # (AUTO) 0.6 K/uL (0.1-1.0); MONOCYTES % (AUTO) 6.5 % (3.0-13.0); NEUTROPHILS # (AUTO) 4.2 K/uL (1.8-7.7); NEUTROPHILS % (AUTO) 49.1 % (40.0-77.0); PLATELET COUNT (AUTO) 407 K/uL (130-400); RED CELL DISTRIBUTION WIDTH 14.6 % (11.0-15.5); WHITE BLOOD COUNT (AUTO) 8.5 K/uL (4.8-10.8)
[2024-05-15 18:20] LABS: ADD UA MICROSCOPIC YES; APPEARANCE,URINE CLEAR (CLEAR); BILIRUBIN,URINE NEGATIVE (NEGATIVE); COLOR,URINE YELLOW (YELLOW); GLUCOSE, URINE (UA) NEGATIVE (NEGATIVE); KETONES,URINE NEGATIVE (NEGATIVE); LEUKOCYTE ESTERASE ,URINE NEGATIVE Leu/uL (NEGATIVE); NITRATE,URINE NEGATIVE (NEGATIVE); OCCULT BLOOD,URINE SMALL (NEGATIVE); PH,URINE 5.5 (5.0-8.0); PROTEIN,URINE 10 mg/dL (NEGATIVE); UROBILINOGEN,URINE 0.2 mg/dL (0.2-1.0)
[2024-05-15 18:22] LABS: BACTERIA,URINE RARE /HPF (None Seen); MUCUS,URINE RARE LPF (None Seen); SQUAMOUS EPITHELIAL CELL,UR RARE /HPF (0-2)
[2024-05-15 18:28] LABS: AMPHET/METH SCREEN,URINE NEGATIVE (NEGATIVE); BARBITURATE SCREEN, URINE NEGATIVE (NEGATIVE); BENZODIAZEPINES SCREEN,URINE NEGATIVE (NEGATIVE); CANNABINOID SCREEN,URINE NEGATIVE (NEGATIVE); CARBON DIOXIDE 28 mmol/L (21-32); CHLORIDE 102 mmol/L (101-111); COCAINE SCREEN,URINE NEGATIVE (NEGATIVE); GLOMERULAR FILTR. RATE CALC 74 mL/min (>90); GLUCOSE,RANDOM 128 mg/dL (70-105); OPIATE SCREEN,URINE NEGATIVE (NEGATIVE); PHENCYCLIDINE SCREEN,URINE NEGATIVE (NEGATIVE); POTASSIUM 3.8 mmol/L (3.5-5.1); SODIUM SERUM 140 mmol/L (136-145); UREA NITROGEN, BLOOD 17 mg/dL (7-18)
[2024-05-15 18:32] LABS: ALANINE AMINOTRANSFERASE 35 U/L (12-78); ALBUMIN 3.6 g/dL (3.5-5.0); ALCOHOL, BLOOD < 3 mg/dL (0-10); ASPARTATE AMINOTRANSFERASE 20 U/L (10-37); BILIRUBIN,TOTAL 0.4 mg/dL (0.2-1.0)
[2024-05-15 18:43] LABS: ACETAMINOPHEN < 1 mcg/mL (10-30); SALICYLATE < 2.8 mg/dL (2.8-20.0)
[2024-05-15 23:59] VITALS: BP 128/76; PULSE 74; RESP 20; O2SAT 96
== END 2024-05-15 23:59 ==
LOC: EDH 17:53
DX: R45.851 Suicidal ideations (principal); F41.9 Anxiety disorder, unspecified; F31.9 Bipolar disorder, unspecified; E11.9 Type 2 diabetes mellitus without complications; E78.00 Pure hypercholesterolemia, unspecified; I10 Essential (primary) hypertension; Z98.890 Other specified postprocedural states; Z79.84 Long term (current) use of oral hypoglycemic drugs; Z79.899 Other long term (current) drug therapy; Z88.1 Allergy status to other antibiotic agents
CPT/HCPCS: 99285; 80053; 80305; 85025; 36415; 81001; G0481

== ENCOUNTER 2024-06-08 19:25 | Emergency (ER) | payer BC, MEDICAID ==
[~2024-06-08] VITALS: Ht 177.8 cm; Wt 127.0 kg
[2024-06-08 20:52] LABS: BASOPHILS # (AUTO) 0.05 K/uL (0.00-0.20); BASOPHILS % (AUTO) 0.5 % (0.0-5.0); EOSINOPHILS # (AUTO) 0.14 K/uL (0.00-0.70); EOSINOPHILS % (AUTO) 1.3 % (0.0-8.0); HEMATOCRIT 40.9 % (36-48); IMMATURE GRANULOCYTE ABSOLUTE 0.03 K/uL (0-1); LYMPHOCYTES % (AUTO) 28.3 % (21.0-51.0); MEAN CORPUSCULAR HEMOGLOBIN 28.7 pg (27.0-33.0); MEAN CORPUSCULAR HGB CONC 34.5 g/dL (32.0-36.0); MEAN CORPUSCULAR VOLUME 83.1 fL (79-99); MONOCYTES # (AUTO) 0.5 K/uL (0.1-1.0); MONOCYTES % (AUTO) 4.5 % (3.0-13.0); NEUTROPHILS # (AUTO) 6.8 K/uL (1.8-7.7); NEUTROPHILS % (AUTO) 65.1 % (40.0-77.0); PLATELET COUNT (AUTO) 294 K/uL (130-400); RED BLOOD CELL COUNT(AUTO) 4.92 MIL/uL (4.00-5.50); RED CELL DISTRIBUTION WIDTH 14.4 % (11.0-15.5); WHITE BLOOD COUNT (AUTO) 10.4 K/uL (4.8-10.8)
[2024-06-08 21:16] LABS: CREATININE 1.5 mg/dL (0.5-1.0); POTASSIUM 3.5 mmol/L (3.5-5.1)
[2024-06-08 21:20] LABS: ALBUMIN 3.9 g/dL (3.5-5.0); BILIRUBIN,TOTAL 0.8 mg/dL (0.2-1.0); TOTAL PROTEIN, SERUM 8.7 g/dL (6.0-8.3)
[2024-06-08 21:30] LABS: ADD UA MICROSCOPIC YES; APPEARANCE,URINE TURBID (CLEAR); BILIRUBIN,URINE 0.5 mg/dL (NEGATIVE); COLOR,URINE YELLOW (YELLOW); GLUCOSE, URINE (UA) 50 mg/dL (NEGATIVE); KETONES,URINE 5 mg/dL (NEGATIVE); LEUKOCYTE ESTERASE ,URINE 25 Leu/uL (NEGATIVE); NITRATE,URINE NEGATIVE (NEGATIVE); OCCULT BLOOD,URINE SMALL (NEGATIVE); PH,URINE 5.5 (5.0-8.0); PROTEIN,URINE 300 mg/dL (NEGATIVE); UROBILINOGEN,URINE 3 mg/dL (0.2-1.0)
[2024-06-08 21:33] LABS: BACTERIA,URINE RARE /HPF (None Seen); MUCUS,URINE FEW LPF (None Seen); SQUAMOUS EPITHELIAL CELL,UR MANY /HPF (0-2); WBC CLUMP FEW /HPF (0-1); YEAST,URINE BUDDING RARE /HPF (None Seen)
[2024-06-08] MEDS: LACTATED RINGERS 1000ML 1,000 ML IV ONE (21:48)
[2024-06-08] MEDS: ONDANSETRON 4MG TABLET PO ONE (21:48)
[2024-06-08] MEDS: acetaMINOPHEN 325 MG TAB PO ONE (21:48)
[2024-06-08] MEDS: [UNRECOGNIZED DRUG - OTHER] IV ONE (22:03)
[2024-06-08 23:06] VITALS: BP 133/71; PULSE 80; RESP 17; O2SAT 99
== END 2024-06-08 23:06 | disposition home or self-care (01) ==
LOC: EDH 19:25
DX: T67.01XA Heatstroke and sunstroke, initial encounter (principal); E86.0 Dehydration; I10 Essential (primary) hypertension; E11.9 Type 2 diabetes mellitus without complications; E78.00 Pure hypercholesterolemia, unspecified; F31.9 Bipolar disorder, unspecified; F41.9 Anxiety disorder, unspecified; K76.0 Fatty (change of) liver, not elsewhere classified; Z79.84 Long term (current) use of oral hypoglycemic drugs; Z79.899 Other long term (current) drug therapy; Z88.1 Allergy status to other antibiotic agents
CPT/HCPCS: 99283; 96360; 82150; 82550; 80053; 83690; 85025; 87086; 81001; 36415; Q0162; J7120; J7030

== ENCOUNTER 2024-07-03 11:38 | Emergency (ER) | payer BC, MEDICAID ==
[~2024-07-03] VITALS: Ht 180.3 cm; Wt 160.6 kg
[~2024-07-03 11:38] MED LIST changes: +ZIPR40CA13 PO; -ZIPR40CA24 PO
--- NOTE | 2024-07-03 11:50 | ERN ---
ED Note History of Present Illness Stated Complaint: SUICIDAL IDEATIONS Chief Complaint: Suicidal Ideation Time Seen by MD: 11:41 Dictation: PATIENT IS A 38-YEAR-OLD FEMALE WELL KNOWN TO [facility] WITH COMPLAINTS OF BEING TEARFUL THIS MORNING WITH HER CAREGIVER AND STATED THAT SHE WAS FEELING VERY DEPRESSED AND WANTED TO COMMIT SUICIDE BY TAKING AN OVERDOSE OF HER PILLS. SHE SAID HER CAREGIVER GAVE HER HER ONLY HER SCHEDULED PILLS AND TOOK THE REST OF A MOM CAN SHE WAS CONCERNED ABOUT HER SAFETY AND CALLED EMS FOR HER. SHE STATES SHE HAS NOT TAKEN ANYTHING ELSE BESIDES HER SCHEDULED PILLS THIS MORNING BY HER CAREGIVER Allergies: Coded Allergies: No Known Drug Allergies (Unverified Allergy, Unknown, 08/01/19) ceftriaxone (Verified Adverse Reaction, Mild, Nausea, vomiting , 03/12/24) Home Meds Reported Medications Semaglutide (Ozempic) 1 Mg/0.75 Ml (4 Mg/3 Ml) Pen.injctr, 1 MG SQ QWEEK 03/12/24 Metformin HCl (Metformin HCl) 500 Mg Tablet, 1 TAB PO BID 03/12/24 Lisinopril (Lisinopril) 10 Mg Tablet, 1 TAB PO DAILY for blood pressure 03/12/24 Ziprasidone HCl (Ziprasidone HCl) 40 Mg Capsule, 1 CAP PO BID 03/12/24 Venlafaxine HCl (Venlafaxine HCl ER) 150 Mg Cap.er.24h, 1 CAP PO DAILY 03/12/24 Past Medical History Past Medical History: Anxiety, Bipolar, Depression Additional Past Medical Hx: FATTY LIVER, SUICIDAL IDEATION Surgical History: Other Surgical History Other: ANKLE AND TONSIL SURGERY PSYCH History: no pertinent psych hx Family History: Negative Social History: Negative, Lives with family, Other History: Not Applicable RN Note Reviewed/Agreed w/PFSH: Yes Review of System Dictation CONSTITUTIONAL: NEGATIVE EXCEPT FOR HPI HEAD/FACE: NEGATIVE EXCEPT FOR HPI EENT: NEGATIVE EXCEPT FOR HPI RESPIRATORY: NEGATIVE EXCEPT FOR HPI GASTROINTESTINAL/ABDOMINAL: NEGATIVE EXCEPT FOR HPI GENITOURINARY: NEGATIVE EXCEPT FOR HPI MUSCULOSKELETAL: NEGATIVE EXCEPT FOR HPI INTEGUMENTARY: NEGATIVE EXCEPT FOR HPI NEUROLOGICAL/PSYCH: NEGATIVE EXCEPT FOR HPI DEPRESSED/SUICIDAL HEMATOLOGIC/LYMPHATIC: NEGATIVE EXCEPT FOR HPI ALL SYSTEMS NEGATIVE, EXCEPT NOTED ABOVE. 13 POINT REVIEW OF SYSTEMS ASSESSED AND ALL NEGATIVE EXCEPT FOR ABOVE. Initial Vital Sign VS Vital Signs Date Time Temp Pulse Resp B/P (MAP) Pulse Ox O2 Delivery O2 Flow Rate FiO2 07/03/24 11:41 98.8 78 20 132/56 97 Room Air 0 07/03/24 11:58 21 Physical Exam Dictation VITAL SIGNS REVIEWED GENERAL APPEARANCE: ALERT, ORIENTED X 3, NO ACUTE DISTRESS, WELL DEVELOPED, NOURISHED. HEAD AND FACE: NON-TRAUMATIC. EYES: PERRL, PINK CONJUNCTIVAS, EYELID NO TRAUMA, ANTERIOR CHAMBER WITH ARCUS SENILIS. EARS: PINNAS INTACT AND NO SIGNS OF TRAUMA OR ERYTHEMA EAR CANALS CLEAR AND NO DISCHARGE TM NO ERYTHEMA NOSE: NO DISCHARGE, NO BLEEDING. OROPHARYNX: MOUTH NORMAL, TONGUE PINK, PHARYNX CLEAR,NO ERYTHEMA, TONSILS NO EXUDATES, NO ABSCESSES NOTED, MUCOUS MEMBRANE MOIST NECK: SUPPLE, NON-TENDER, NO THYROMEGALY, NO MASSES, NO JVD, NO BRUITS BREAST:DEFERRED CHEST:NO TENDERNESS, NO CREPITUS, NO PARADOXICAL MOVEMENT, NO RETRACTIONS LUNGS:CLEAR, WELL-VENTILATED, SYMMETRIC, NO RALES, NO WHEEZING, NO RHONCHI, NO STRIDOR, GOOD BREATH SOUNDS BILATERALLY HEART: REGULAR RATE, REGULAR RHYTHM, NO MURMUR, NO GALLOPS VASCULAR: NO PERIPHERAL EDEMA, ABDOMEN: SOFT, POSITIVE BOWEL SOUNDS, NONDISTENDED, NO GUARDING, NONTENDER, NO REBOUND, NO MASSES NO HEPATOMEGALY, NO SPLENOMEGALY, NO STERN'S SIGN, NO HERNIAS. RECTAL: DEFERRED GENITAL: DEFERRED NEUROLOGICAL: NORMAL SPEECH, MOTOR FUNCTION INTACT, SENSORY FUNCTION INTACT DEPRESSED AFFECT, POOR EYE CONTACT STATES SHE WANTS TO OVERDOSE TO . MUSCULOSKELETAL: NECK NONTENDER, FULL RANGE OF MOTION, BACK NONTENDER, FULL RANGE OF MOTION, EXTREMITIES: NONTENDER, FULL RANGE OF MOTION SKIN: COLOR PINK, DRY, NO TURGOR, NO RASH, NO LACERATIONS, NO ABRASIONS, NO CONTUSIONS. LYMPHATIC: DEFERRED Results (Laboratory/Radiology) Laboratory/Radiology Laboratory Tests Test 07/03/24 11:48 07/03/24 11:57 Urine Color LIGHT-YELLOW (YELLOW) Urine Appearance CLEAR (CLEAR) Urine pH 5.5 (5.0-8.0) Urine Specific [place] 1.015 (1.001-1.031) Urine Protein NEGATIVE mg/dL (NEGATIVE) Urine Glucose (UA) NEGATIVE mg/dL (NEGATIVE) Urine Ketones NEGATIVE mg/dL (NEGATIVE) Urine Occult Blood +- (TRACE) (NEGATIVE) H Urine Nitrate NEGATIVE (NEGATIVE) Urine Bilirubin NEGATIVE mg/dL (NEGATIVE) Urine Urobilinogen 0.2 mg/dL (0.2-1.0) Urine Leukocyte Esterase NEGATIVE Eliecer/uL Urine RBC 2-5 /HPF (0-1) H Urine WBC 0-1 /HPF (0-1) Urine Squamous Epithelial Cells RARE /HPF (0-2) Urine Bacteria RARE /HPF (None Seen) Urine Opiates Screen NEGATIVE (NEGATIVE) Urine Barbiturates Screen NEGATIVE (NEGATIVE) Urine Phencyclidine Screen NEGATIVE (NEGATIVE) Urine Amphetamines Screen NEGATIVE (NEGATIVE) Urine Benzodiazepines Screen NEGATIVE (NEGATIVE) Urine Cocaine Screen NEGATIVE (NEGATIVE) Urine Marijuana (THC) Screen POSITIVE (NEGATIVE) H White Blood Count 7.3 K/uL (4.8-10.8) Red Blood Count 4.36 MIL/uL (4.00-5.50) Hemoglobin 12.7 g/dL (12.0-16.0) Hematocrit 37.2 % (36-48) Mean Corpuscular Volume 85.3 fL (79-99) Mean Corpuscular Hemoglobin 29.1 pg (27.0-33.0) Mean Corpuscular Hemoglobin Concent 34.1 g/dL (32.0-36.0) Red Cell Distribution Width 13.7 % (11.0-15.5) Platelet Count 221 K/uL (130-400) Mean Platelet Volume 10.7 fL (7.5-10.5) H Immature Granulocyte % (Auto) 0.4 % (0-1) Neutrophils (%) (Auto) 59.6 % (40.0-77.0) Lymphocytes (%) (Auto) 33.2 % (21.0-51.0) Monocytes (%) (Auto) 3.7 % (3.0-13.0) Eosinophils (%) (Auto) 2.6 % (0.0-8.0) Basophils (%) (Auto) 0.5 % (0.0-5.0) Neutrophils # (Auto) 4.3 K/uL (1.8-7.7) Lymphocytes # (Auto) 2.4 K/uL (1.0-4.8) Monocytes # (Auto) 0.3 K/uL (0.1-1.0) Eosinophils # (Auto) 0.19 K/uL (0.00-0.70) Basophils # (Auto) 0.04 K/uL (0.00-0.20) Absolute Immature Granulocyte (auto 0.03 K/uL (0-1) Nucleated Red Blood Cells 0.0 % (0.0-0.19) Sodium Level 138 mmol/L (136-145) Potassium Level 3.3 mmol/L (3.5-5.1) L Chloride Level 103 mmol/L (101-111) Carbon Dioxide Level 30 mmol/L (21-32) Blood Urea Nitrogen 13 mg/dL (7-18) Creatinine 0.8 mg/dL (0.5-1.0) Glomerular Filtration Rate Calc 97 mL/min (>90) Random Glucose 195 mg/dL (70-105) H Total Calcium 9.0 mg/dL (8.5-10.1) Total Creatine Kinase 77 U/L (21-232) # Serum Test, Qualitative NEGATIVE (NEGATIVE) Salicylates Level < 2.8 mg/dL (2.8-20.0) L Acetaminophen Level < 1 mcg/mL (10-30) L Serum Alcohol < 3 mg/dL (0-10) Labs Reviewed?: Yes ED Course ED Course Orders Procedure Category Date Status Time Drug Screen Urine LAB 07/03/24 Complete 11:47 Suicide Precautions CPOE 07/03/24 Transmitted 11:47 Cbc With Differential LAB 07/03/24 Complete 11:47 Alcohol, Blood LAB 07/03/24 Complete 11:47 Salicylate LAB 07/03/24 Complete 11:47 Acetaminophen LAB 07/03/24 Complete 11:47 Testing, LAB 07/03/24 Complete Serum Hcg 11:47 Urinalysis Profile LAB 07/03/24 Complete 11:47 Creatine Kinase, Total LAB 07/03/24 Complete 11:47 Basic Metabolic Panel LAB 07/03/24 Complete 11:47 Vital Signs Date Time Temp Pulse Resp B/P (MAP) Pulse Ox O2 Delivery O2 Flow Rate FiO2 07/03/24 11:58 98.2 78 12 132/56 97 Room Air* 0 21 07/03/24 11:41 98.8 78 20 132/56 97 Room Air 0 Medical Decision Making MDM MEDICAL DECISION-MAKING WAS BASED OFF FOR DEPRESSION AND SUICIDALITY PATIENT LEFT THE EMERGENCY ROOM AGAINST MEDICAL ADVICE POLICE WERE NOTIFIED BY CHARGE NURSE DX & DISP Disposition: AMA Departure Impression: Primary Impression: Suicidal ideation Additional Impression: Depression Condition: Stable Referrals: SELF,REFERRAL (PCP) Time of Disposition: 13:20 I have reviewed the case, and I agree with, Diagnosis and Plan VERÓNICA TOBIAS NP Jul 03, 2024 11:50
[2024-07-03 11:58] VITALS: BP 132/56; PULSE 78; RESP 12; TEMP 98.3; O2SAT 97
[2024-07-03 12:07] LABS: BASOPHILS # (AUTO) 0.04 K/uL (0.00-0.20); BASOPHILS % (AUTO) 0.5 % (0.0-5.0); EOSINOPHILS # (AUTO) 0.19 K/uL (0.00-0.70); EOSINOPHILS % (AUTO) 2.6 % (0.0-8.0); HEMATOCRIT 37.2 % (36-48); IMMATURE GRANULOCYTE ABSOLUTE 0.03 K/uL (0-1); LYMPHOCYTES # (AUTO) 2.4 K/uL (1.0-4.8); LYMPHOCYTES % (AUTO) 33.2 % (21.0-51.0); MEAN CORPUSCULAR HEMOGLOBIN 29.1 pg (27.0-33.0); MEAN CORPUSCULAR HGB CONC 34.1 g/dL (32.0-36.0); MEAN CORPUSCULAR VOLUME 85.3 fL (79-99); MONOCYTES # (AUTO) 0.3 K/uL (0.1-1.0); MONOCYTES % (AUTO) 3.7 % (3.0-13.0); NEUTROPHILS # (AUTO) 4.3 K/uL (1.8-7.7); NEUTROPHILS % (AUTO) 59.6 % (40.0-77.0); PLATELET COUNT (AUTO) 221 K/uL (130-400); RED BLOOD CELL COUNT(AUTO) 4.36 MIL/uL (4.00-5.50); RED CELL DISTRIBUTION WIDTH 13.7 % (11.0-15.5); WHITE BLOOD COUNT (AUTO) 7.3 K/uL (4.8-10.8)
[2024-07-03 12:13] LABS: CARBON DIOXIDE 30 mmol/L (21-32); CHLORIDE 103 mmol/L (101-111); CREATININE 0.8 mg/dL (0.5-1.0); GLOMERULAR FILTR. RATE CALC 97 mL/min (>90); GLUCOSE,RANDOM 195 mg/dL (70-105); POTASSIUM 3.3 mmol/L (3.5-5.1); SODIUM SERUM 138 mmol/L (136-145); UREA NITROGEN, BLOOD 13 mg/dL (7-18)
[2024-07-03 12:18] LABS: ALCOHOL, BLOOD < 3 mg/dL (0-10); CREATINE KINASE, TOTAL 77 U/L (21-232)
[2024-07-03 12:32] LABS: APPEARANCE,URINE CLEAR (CLEAR); BILIRUBIN,URINE NEGATIVE (NEGATIVE); COLOR,URINE LIGHT-YELLOW (YELLOW); GLUCOSE, URINE (UA) NEGATIVE (NEGATIVE); KETONES,URINE NEGATIVE (NEGATIVE); LEUKOCYTE ESTERASE ,URINE NEGATIVE Leu/uL (NEGATIVE); NITRATE,URINE NEGATIVE (NEGATIVE); PH,URINE 5.5 (5.0-8.0); PROTEIN,URINE NEGATIVE (NEGATIVE); UROBILINOGEN,URINE 0.2 mg/dL (0.2-1.0)
[2024-07-03 12:33] LABS: ADD UA MICROSCOPIC YES
[2024-07-03 12:40] LABS: AMPHET/METH SCREEN,URINE NEGATIVE (NEGATIVE); BARBITURATE SCREEN, URINE NEGATIVE (NEGATIVE); BENZODIAZEPINES SCREEN,URINE NEGATIVE (NEGATIVE); CANNABINOID SCREEN,URINE POSITIVE (NEGATIVE); COCAINE SCREEN,URINE NEGATIVE (NEGATIVE); OPIATE SCREEN,URINE NEGATIVE (NEGATIVE); PHENCYCLIDINE SCREEN,URINE NEGATIVE (NEGATIVE)
[2024-07-03 12:41] LABS: ACETAMINOPHEN < 1 mcg/mL (10-30); SALICYLATE < 2.8 mg/dL (2.8-20.0)
[2024-07-03 12:46] LABS: BACTERIA,URINE RARE /HPF (None Seen); MUCUS,URINE RARE LPF (None Seen); SQUAMOUS EPITHELIAL CELL,UR RARE /HPF (0-2); WBC,URINE 0-1 /HPF (0-1)
--- NOTE | 2024-07-03 12:46 | NUR ---
PATIENT BECAME ANGRY DUE TO ISSUES AT HOME. PATIENT STATES SHE IS LEAVING AMA. PATIENT REFUSING TO SIGN PAPERWORK. PATIENT IS NOT UNDER CUSTODY OF LAW ENFORCEMENT. [facility] CALLED TO INFORM THEM THAT PATIENT CAME IN FOR EVALUATION OF SUCIDIAL IDEATIONS AND HAS LEFT HOSPTIAL AGAINST MEDICAL ADVISE PRIOR TO BEING SCREENED.
[2024-09-19] MEDS ORDERED: SULF1TAB42 PO (20:59)
== END 2024-07-03 13:01 | disposition left against medical advice (07) ==
LOC: EDH 11:38
DX: R45.851 Suicidal ideations (principal); F31.9 Bipolar disorder, unspecified; F41.9 Anxiety disorder, unspecified; Z79.84 Long term (current) use of oral hypoglycemic drugs; Z79.899 Other long term (current) drug therapy; Z88.1 Allergy status to other antibiotic agents; Z98.890 Other specified postprocedural states
CPT/HCPCS: 99285; 82550; 80048; 80305; 84703; 85025; 36415; 81001; G0481

== ENCOUNTER 2024-07-19 05:11 | Inpatient (IN) | payer BC, MEDICAID ==
[~2024-07-19] VITALS: Ht 180.3 cm; Wt 163.4 kg
[~2024-07-19 05:11] MED LIST changes: -ZIPR40CA13 PO; +ZIPR40CA24 PO
[2024-07-19 05:38] LABS: BASOPHILS # (AUTO) 0.05 K/uL (0.00-0.20); BASOPHILS % (AUTO) 0.7 % (0.0-5.0); EOSINOPHILS # (AUTO) 0.16 K/uL (0.00-0.70); EOSINOPHILS % (AUTO) 2.2 % (0.0-8.0); HEMATOCRIT 40.3 % (36-48); IMMATURE GRANULOCYTE ABSOLUTE 0.01 K/uL (0-1); LYMPHOCYTES # (AUTO) 2.7 K/uL (1.0-4.8); LYMPHOCYTES % (AUTO) 38.1 % (21.0-51.0); MEAN CORPUSCULAR HEMOGLOBIN 29.6 pg (27.0-33.0); MEAN CORPUSCULAR HGB CONC 34.5 g/dL (32.0-36.0); MEAN CORPUSCULAR VOLUME 85.7 fL (79-99); MONOCYTES # (AUTO) 0.3 K/uL (0.1-1.0); MONOCYTES % (AUTO) 4.2 % (3.0-13.0); NEUTROPHILS # (AUTO) 3.9 K/uL (1.8-7.7); NEUTROPHILS % (AUTO) 54.7 % (40.0-77.0); PLATELET COUNT (AUTO) 243 K/uL (130-400); RED CELL DISTRIBUTION WIDTH 13.8 % (11.0-15.5); WHITE BLOOD COUNT (AUTO) 7.2 K/uL (4.8-10.8)
[2024-07-19 05:46] LABS: CREATININE 0.8 mg/dL (0.5-1.0); POTASSIUM 4.4 mmol/L (3.5-5.1)
[2024-07-19 06:14] LABS: ALANINE AMINOTRANSFERASE 36 U/L (12-78); ALBUMIN 3.2 g/dL (3.5-5.0); ASPARTATE AMINOTRANSFERASE 40 U/L (10-37); BILIRUBIN,DIRECT < 0.1 mg/dL (0.0-0.3); BILIRUBIN,TOTAL 0.5 mg/dL (0.2-1.0); TOTAL PROTEIN, SERUM 7.7 g/dL (6.0-8.3)
[2024-07-19] MEDS: 0.9%NACL 1000ML 1,000 ML IV ONE (06:22)
[2024-07-19] MEDS: ketOROlac 15MG/ML VIAL (15MG/ML) IV ONE (06:22)
[2024-07-19 06:38] LABS: APPEARANCE,URINE CLEAR (CLEAR); BILIRUBIN,URINE NEGATIVE (NEGATIVE); COLOR,URINE LIGHT-YELLOW (YELLOW); GLUCOSE, URINE (UA) NEGATIVE (NEGATIVE); KETONES,URINE NEGATIVE (NEGATIVE); LEUKOCYTE ESTERASE ,URINE NEGATIVE Leu/uL (NEGATIVE); NITRATE,URINE NEGATIVE (NEGATIVE); OCCULT BLOOD,URINE MODERATE (NEGATIVE); PH,URINE 5.5 (5.0-8.0); PROTEIN,URINE NEGATIVE (NEGATIVE); UROBILINOGEN,URINE 0.2 mg/dL (0.2-1.0)
[2024-07-19 06:48] LABS: ADD UA MICROSCOPIC YES
[2024-07-19 06:51] LABS: BACTERIA,URINE RARE /HPF (None Seen); MUCUS,URINE RARE LPF (None Seen); RBC,URINE 0-1 /HPF (0-1); SQUAMOUS EPITHELIAL CELL,UR FEW /HPF (0-2)
[2024-07-19] MEDS ORDERED: cefTRIAXone 1G VIAL IVPB ONE (09:00)
[2024-07-19] MEDS: ondanSETRON 4MG INJ IVP ONE (09:12)
[2024-07-19] MEDS: FAMOTIDINE 20MG VIAL IV ONE (09:12)
[2024-07-19] MEDS: metRONIDazole 500MG/100ML BAG 100 ML IVPB SCH (09:28)
[2024-07-19] MEDS ORDERED: ondanSETRON 4MG INJ IVP PRN (09:30)
[2024-07-19] MEDS ORDERED: acetaMINOPHEN 325 MG TAB PO PRN ×2 (09:30)
[2024-07-19] MEDS: 0.9%NACL 1000ML 1,000 ML IV SCH (10:34)
[2024-07-19] MEDS ORDERED: morPHINE 4 MG SYG IV PRN (15:00)
[2024-07-19 18:06] VITALS: BP 137/79; PULSE 65; RESP 20; TEMP 98.5
[2024-07-19] MEDS: morPHINE 2 MG SYG IV PRN (19:25)
[2024-07-19 20:00] VITALS: O2SAT 99
[2024-07-19 20:13] VITALS: BP 134/74; PULSE 72; RESP 20; TEMP 98.4
[2024-07-19] MEDS ORDERED: ZIPRASIDONE HCL 20 MG CAPSULE PO SCH (21:00)
[2024-07-20] VITALS (17 sets, daily range): BP systolic 94–153; BP diastolic 62–91; PULSE 66–86; RESP 16–19; TEMP 97.6–98.5; O2SAT 98
[2024-07-20 05:40] LABS: HEMATOCRIT 39.6 % (36-48); MEAN CORPUSCULAR HEMOGLOBIN 28.9 pg (27.0-33.0); MEAN CORPUSCULAR HGB CONC 33.1 g/dL (32.0-36.0); MEAN CORPUSCULAR VOLUME 87.2 fL (79-99); RED BLOOD CELL COUNT(AUTO) 4.54 MIL/uL (4.00-5.50); RED CELL DISTRIBUTION WIDTH 13.7 % (11.0-15.5); WHITE BLOOD COUNT (AUTO) 6.7 K/uL (4.8-10.8)
[2024-07-20 05:52] LABS: CREATININE 0.8 mg/dL (0.5-1.0); POTASSIUM 3.9 mmol/L (3.5-5.1)
[2024-07-20] MEDS ORDERED: GABA-529 PO (07:46)
[2024-07-20] MEDS ORDERED: CARI3CAP PO (07:46)
[2024-07-20] MEDS: PANTOPrazole 40 MG/VIAL IVP SCH (08:45)
[2024-07-20] MEDS: LISINOPRIL 10 MG TABLET PO SCH (08:45)
[2024-07-20] MEDS ORDERED: venLAFAXine HCL XR 37.5 MG CAP 37.5 MG CAP.ER.24H PO SCH (09:00)
[2024-07-20] MEDS ORDERED: proPOFol 10 MG/ML 20ML VIAL IV ONE ×2 (11:51→11:52)
[2024-07-20] MEDS: CEFTRIAXONE 2GM VIAL IVPB SCH (13:30)
[2024-07-20] MEDS: GABApentin 100 MG CAPSULE PO SCH (13:30)
[2024-07-20] MEDS: levoFLOXacin 500 MG TABLET PO SCH (14:28)
[2024-07-20] MEDS ORDERED: LEVO-70 PO (17:38)
[2024-07-20] MEDS ORDERED: PANT40TA PO (17:38)
[2024-07-21] MEDS ORDERED: CARIPRAZINE HYDROCHLORIDE PO SCH (09:00)
== END 2024-07-20 18:50 | disposition home or self-care (01) | DRG 392 ==
LOC: EDH 05:11 → OBSVTOIN 09:29 → EDHIP 09:29 → 4BH 11:30
PROVIDERS: ADMIT Internal Medicine; ATTEND Internal Medicine
PROC: 0DB68ZX Excision of Stomach, Via Natural or Artificial Opening Endoscopic, Diagnostic (ICD-10-PCS; principal; 2024-07-20)
DX: K29.60 Other gastritis without bleeding (principal); Z16.24 Resistance to multiple antibiotics; Z68.43 Body mass index [BMI] 50.0-59.9, adult; E11.9 Type 2 diabetes mellitus without complications; E66.9 Obesity, unspecified; E86.0 Dehydration; F31.9 Bipolar disorder, unspecified; F41.9 Anxiety disorder, unspecified; I10 Essential (primary) hypertension; J45.909 Unspecified asthma, uncomplicated; K64.9 Unspecified hemorrhoids; K76.0 Fatty (change of) liver, not elsewhere classified; Z79.2 Long term (current) use of antibiotics; Z79.899 Other long term (current) drug therapy; Z87.440 Personal history of urinary (tract) infections; Z87.891 Personal history of nicotine dependence; Z90.710 Acquired absence of both cervix and uterus
CPT/HCPCS: 36415; 43239; 71045; 74176; 76770; 80048; 80076; 81001; 81025; 83690; 84703; 85025; 85027; 96365; 96375; G0378; J0696; J1885; J2270; J2405; J2470; J2704; J3490; J7030; A4615; A7002

== ENCOUNTER 2024-07-25 08:01 | Emergency (ER) | payer BC, MEDICAID ==
[~2024-07-25] VITALS: Ht 180.3 cm; Wt 163.3 kg
[~2024-07-25 08:01] MED LIST changes: +CARI3CAP PO; +GABA-529 PO; +LEVO-70 PO; -METF-444 PO; +PANT40TA PO
[2024-07-25 09:00] LABS: BASOPHILS # (AUTO) 0.03 K/uL (0.00-0.20); BASOPHILS % (AUTO) 0.5 % (0.0-5.0); EOSINOPHILS # (AUTO) 0.16 K/uL (0.00-0.70); EOSINOPHILS % (AUTO) 2.4 % (0.0-8.0); HEMATOCRIT 41.1 % (36-48); IMMATURE GRANULOCYTE ABSOLUTE 0.02 K/uL (0-1); LYMPHOCYTES # (AUTO) 2.1 K/uL (1.0-4.8); LYMPHOCYTES % (AUTO) 32.4 % (21.0-51.0); MEAN CORPUSCULAR HEMOGLOBIN 29.1 pg (27.0-33.0); MEAN CORPUSCULAR HGB CONC 33.6 g/dL (32.0-36.0); MEAN CORPUSCULAR VOLUME 86.7 fL (79-99); MONOCYTES # (AUTO) 0.2 K/uL (0.1-1.0); MONOCYTES % (AUTO) 2.9 % (3.0-13.0); NEUTROPHILS # (AUTO) 4.1 K/uL (1.8-7.7); NEUTROPHILS % (AUTO) 61.5 % (40.0-77.0); PLATELET COUNT (AUTO) 237 K/uL (130-400); RED BLOOD CELL COUNT(AUTO) 4.74 MIL/uL (4.00-5.50); RED CELL DISTRIBUTION WIDTH 13.4 % (11.0-15.5); WHITE BLOOD COUNT (AUTO) 6.6 K/uL (4.8-10.8)
[2024-07-25 09:15] LABS: ADD UA MICROSCOPIC NO; APPEARANCE,URINE CLEAR (CLEAR); BILIRUBIN,URINE NEGATIVE (NEGATIVE); COLOR,URINE LIGHT-YELLOW (YELLOW); GLUCOSE, URINE (UA) NEGATIVE (NEGATIVE); KETONES,URINE NEGATIVE (NEGATIVE); LEUKOCYTE ESTERASE ,URINE NEGATIVE Leu/uL (NEGATIVE); NITRATE,URINE NEGATIVE (NEGATIVE); OCCULT BLOOD,URINE NEGATIVE (NEGATIVE); PH,URINE 5.5 (5.0-8.0); PROTEIN,URINE NEGATIVE (NEGATIVE); UROBILINOGEN,URINE 0.2 mg/dL (0.2-1.0)
[2024-07-25 09:17] LABS: CREATININE 0.9 mg/dL (0.5-1.0); POTASSIUM 3.4 mmol/L (3.5-5.1)
[2024-07-25] MEDS: acetaMINOPHEN 500 MG TABLET PO SCH (10:26)
[2024-07-25 12:10] VITALS: BP 135/87; PULSE 80; RESP 16; TEMP 98.2; O2SAT 98
== END 2024-07-25 12:11 | disposition home or self-care (01) ==
LOC: EDH 08:01
DX: R60.9 Edema, unspecified (principal); F41.9 Anxiety disorder, unspecified; F31.9 Bipolar disorder, unspecified; Z79.84 Long term (current) use of oral hypoglycemic drugs; Z79.899 Other long term (current) drug therapy; Z88.1 Allergy status to other antibiotic agents
CPT/HCPCS: 36415; 80048; 81003; 85025

== ENCOUNTER 2024-09-04 12:17 | Emergency (ER) | payer BC, MEDICAID ==
[~2024-09-04] VITALS: Ht 180.3 cm; Wt 167.8 kg
[~2024-09-04 12:17] MED LIST changes: +ZIPR40CA13 PO; -ZIPR40CA24 PO
--- NOTE | 2024-09-04 12:33 | ERN ---
ED Note History of Present Illness Stated Complaint: SI Chief Complaint: Suicidal Ideation Time Seen by MD: 12:21 Dictation: PATIENT IS A 39-YEAR-OLD FEMALE VERY WELL KNOWN TO [facility] EM[facility]ENC[facility] RO[facility] COMPLAINING TODAY OF WANTING TO KILL HERSELF BY OVERDOSING ONSET WAS SEVERAL DAYS PRIOR TO ARRIVAL. SHE STATES HER FATHER JUST LAST WEEK AND IT IT IS SEND HER TO A DEPRESSION. Allergies: Coded Allergies: ceftriaxone (Verified Adverse Reaction, Mild, Nausea, vomiting , 03/12/24) Home Meds Active Scripts Pantoprazole Sodium (Protonix) 40 Mg Tablet.dr, 1 TAB PO DAILY for 30 Days, #30 TAB 0 Refills Prov:SONYA RODRÍGUEZ AGPCNP 07/20/24 Levofloxacin (Levofloxacin) 500 Mg Tablet, 1 TAB PO DAILY for 7 Days, #7 TAB 0 Refills Prov:[facility] 07/20/24 Reported Medications Gabapentin (Gabapentin) 100 Mg Capsule, 3 CAP PO TID for 30 Days, #90 CAP 0 Refills 07/20/24 Cariprazine Hydrochloride (Vraylar) 3 Mg Capsule, 1 CAP PO DAILY for 30 Days, #30 CAP 0 Refills 07/20/24 Semaglutide (Ozempic) 1 Mg/0.75 Ml (4 Mg/3 Ml) Pen.injctr, 1 MG SQ QWEEK 03/12/24 Lisinopril (Lisinopril) 10 Mg Tablet, 1 TAB PO DAILY for blood pressure 03/12/24 Ziprasidone HCl (Ziprasidone HCl) 40 Mg Capsule, 1 CAP PO BID 03/12/24 Venlafaxine HCl (Venlafaxine HCl ER) 150 Mg Cap.er.24h, 1 CAP PO DAILY 03/12/24 Past Medical History Past Medical History: Anxiety, Bipolar, Depression Additional Past Medical Hx: FATTY LIVER, SUICIDAL IDEATION Surgical History: Other Surgical History Other: ANKLE AND TONSIL SURGERY PSYCH History: depression Family History: Negative Social History: Negative, Lives with family, Other History: Not Applicable RN Note Reviewed/Agreed w/PFSH: Yes Review of System Dictation CONSTITUTIONAL: NEGATIVE EXCEPT FOR HPI HEAD/FACE: NEGATIVE EXCEPT FOR HPI EENT: NEGATIVE EXCEPT FOR HPI RESPIRATORY: NEGATIVE EXCEPT FOR HPI GASTROINTESTINAL/ABDOMINAL: NEGATIVE EXCEPT FOR HPI GENITOURINARY: NEGATIVE EXCEPT FOR HPI MUSCULOSKELETAL: NEGATIVE EXCEPT FOR HPI INTEGUMENTARY: NEGATIVE EXCEPT FOR HPI NEUROLOGICAL/PSYCH: NEGATIVE EXCEPT FOR HPI SUICIDAL IDEATION/ANXIETY HEMATOLOGIC/LYMPHATIC: NEGATIVE EXCEPT FOR HPI ALL SYSTEMS NEGATIVE, EXCEPT NOTED ABOVE. 13 POINT REVIEW OF SYSTEMS ASSESSED AND ALL NEGATIVE EXCEPT FOR ABOVE. Initial Vital Sign VS Vital Signs Date Time Temp Pulse Resp B/P (MAP) Pulse Ox O2 Delivery O2 Flow Rate FiO2 09/04/24 12:20 97.3 105 18 138/85 97 Room Air Physical Exam Dictation VITAL SIGNS REVIEWED GENERAL APPEARANCE: ALERT, ORIENTED X 3, NO ACUTE DISTRESS, WELL DEVELOPED, NOUR ISHED. OBESE HEAD AND FACE: NON-TRAUMATIC. EYES: PERRL, PINK CONJUNCTIVAS, EYELID NO TRAUMA, ANTERIOR CHAMBER WITH ARCUS SENILIS. EARS: PINNAS INTACT AND NO SIGNS OF TRAUMA OR ERYTHEMA EAR CANALS CLEAR AND NO DISCHARGE TM NO ERYTHEMA NOSE: NO DISCHARGE, NO BLEEDING. OROPHARYNX: MOUTH NORMAL, TONGUE PINK, PHARYNX CLEAR,NO ERYTHEMA, TONSILS NO EXUDATES, NO ABSCESSES NOTED, MUCOUS MEMBRANE MOIST NECK: SUPPLE, NON-TENDER, NO THYROMEGALY, NO MASSES, NO JVD, NO BRUITS BREAST:DEFERRED CHEST:NO TENDERNESS, NO CREPITUS, NO PARADOXICAL MOVEMENT, NO RETRACTIONS LUNGS:CLEAR, WELL-VENTILATED, SYMMETRIC, NO RALES, NO WHEEZING, NO RHONCHI, NO STRIDOR, GOOD BREATH SOUNDS BILATERALLY HEART: REGULAR RATE, REGULAR RHYTHM, NO MURMUR, NO GALLOPS VASCULAR: NO PERIPHERAL EDEMA, ABDOMEN: SOFT, POSITIVE BOWEL SOUNDS, NONDISTENDED, NO GUARDING, NONTENDER, NO REBOUND, NO MASSES NO HEPATOMEGALY, NO SPLENOMEGALY, NO STERN'S SIGN, NO HERNIAS. RECTAL: DEFERRED GENITAL: DEFERRED NEUROLOGICAL: NORMAL SPEECH, MOTOR FUNCTION INTACT, SENSORY FUNCTION INTACT PATIENT VOICES SUICIDAL IDEATION WITH THE INTENT TO OVERDOSE ON HER MEDICATIONS. MUSCULOSKELETAL: NECK NONTENDER, FULL RANGE OF MOTION, BACK NONTENDER, FULL RANGE OF MOTION, EXTREMITIES: NONTENDER, FULL RANGE OF MOTION SKIN: COLOR PINK, DRY, NO TURGOR, NO RASH, NO LACERATIONS, NO ABRASIONS, NO CONTUSIONS. LYMPHATIC: DEFERRED Results (Laboratory/Radiology) Laboratory/Radiology Laboratory Tests Test 09/04/24 12:39 09/04/24 12:43 White Blood Count 9.0 K/uL (4.8-10.8) Red Blood Count 4.84 MIL/uL (4.00-5.50) Hemoglobin 14.0 g/dL (12.0-16.0) Hematocrit 40.5 % (36-48) Mean Corpuscular Volume 83.7 fL (79-99) Mean Corpuscular Hemoglobin 28.9 pg (27.0-33.0) Mean Corpuscular Hemoglobin Concent 34.6 g/dL (32.0-36.0) Red Cell Distribution Width 13.8 % (11.0-15.5) Platelet Count 282 K/uL (130-400) Mean Platelet Volume 10.7 fL (7.5-10.5) H Immature Granulocyte % (Auto) 0.2 % (0-1) Neutrophils (%) (Auto) 57.7 % (40.0-77.0) Lymphocytes (%) (Auto) 34.3 % (21.0-51.0) Monocytes (%) (Auto) 4.6 % (3.0-13.0) Eosinophils (%) (Auto) 2.8 % (0.0-8.0) Basophils (%) (Auto) 0.4 % (0.0-5.0) Neutrophils # (Auto) 5.2 K/uL (1.8-7.7) Lymphocytes # (Auto) 3.1 K/uL (1.0-4.8) Monocytes # (Auto) 0.4 K/uL (0.1-1.0) Eosinophils # (Auto) 0.25 K/uL (0.00-0.70) Basophils # (Auto) 0.04 K/uL (0.00-0.20) Absolute Immature Granulocyte (auto 0.02 K/uL (0-1) Nucleated Red Blood Cells 0.0 % (0.0-0.19) Sodium Level 139 mmol/L (136-145) Potassium Level 3.5 mmol/L (3.5-5.1) Chloride Level 103 mmol/L (101-111) Carbon Dioxide Level 30 mmol/L (21-32) Blood Urea Nitrogen 12 mg/dL (7-18) Creatinine 0.7 mg/dL (0.5-1.0) Glomerular Filtration Rate Calc 113 mL/min (>90) Random Glucose 113 mg/dL (70-105) H Total Calcium 9.5 mg/dL (8.5-10.1) Total Creatine Kinase 141 U/L (21-232) # Serum Test, Qualitative NEGATIVE (NEGATIVE) Salicylates Level < 2.8 mg/dL (2.8-20.0) L Serum Alcohol < 3 mg/dL (0-10) Urine Color YELLOW (YELLOW) Urine Appearance CLOUDY (CLEAR) H Urine pH 5.5 (5.0-8.0) Urine Specific [place] 1.025 (1.001-1.031) Urine Protein 10 mg/dL (NEGATIVE) H Urine Glucose (UA) NEGATIVE mg/dL (NEGATIVE) Urine Ketones NEGATIVE mg/dL (NEGATIVE) Urine Occult Blood +- (TRACE) (NEGATIVE) H Urine Nitrate NEGATIVE (NEGATIVE) Urine Bilirubin NEGATIVE mg/dL (NEGATIVE) Urine Urobilinogen 0.2 mg/dL (0.2-1.0) Urine Leukocyte Esterase 75 Eliecer/uL (NEGATIVE) H Urine RBC 2-5 /HPF (0-1) H Urine WBC 2-5 /HPF (0-1) H Urine Squamous Epithelial Cells MANY /HPF (0-2) Urine Bacteria None /HPF (None Seen) Urine Opiates Screen NEGATIVE (NEGATIVE) Urine Barbiturates Screen NEGATIVE (NEGATIVE) Urine Phencyclidine Screen NEGATIVE (NEGATIVE) Urine Amphetamines Screen NEGATIVE (NEGATIVE) Urine Benzodiazepines Screen NEGATIVE (NEGATIVE) Urine Cocaine Screen NEGATIVE (NEGATIVE) Urine Marijuana (THC) Screen NEGATIVE (NEGATIVE) Labs Reviewed?: Yes ED Course ED Course Orders Procedure Category Date Status Time Drug Screen Urine LAB 09/04/24 Complete 12:26 Suicide Precautions CPOE 09/04/24 Transmitted 12:26 Cbc With Differential LAB 09/04/24 Complete 12:26 Alcohol, Blood LAB 09/04/24 Complete 12:26 Salicylate LAB 09/04/24 Complete 12:26 Testing, LAB 09/04/24 Complete Serum Hcg 12:26 Urinalysis Profile LAB 09/04/24 Complete 12:26 Creatine Kinase, Total LAB 09/04/24 Complete 12:26 Basic Metabolic Panel LAB 09/04/24 Complete 12:57 Culture Urine ANGELITA 09/04/24 In Process 13:12 Vital Signs Date Time Temp Pulse Resp B/P (MAP) Pulse Ox O2 Delivery O2 Flow Rate FiO2 09/04/24 12:20 97.3 105 18 138/85 97 Room Air 1655, [facility] REP. HERE PATIENT WAS SCREEN, DOES NOT MEET CRITERIA FOR INPATIENT TREATMENT. SHE WILL BE DISCHARGED HOME TO FOLLOW UP OUTPATIENT. Medical Decision Making MDM MDM: DIFFERENTIAL DIAGNOSIS: DEPRESSION/SUICIDAL IDEATION/SUICIDAL THOUGHTS/ELECTROLYTE IMBALANCE/DEHYDRATION/UTI/DRUG ABUSE RATIONALE: TESTS CONSIDERED AND ORDERED SECONDARY TO SHARED DECISION MAKING INCLUDE: LABS/UA, TROPICAL ROBBIE SCREEN PREVIOUS OUTSIDE RECORDS REVIEWED: OLD ER VISITS. REVIEWED RISK OF COMPLICATION AND/OR MORBIDITY OR MORTALITY OF PATIENT MANAGEMENT: NONE MEDICATIONS-PER MEDICATION RECONCILIATION NEED FOR HOSPITALIZATION: PATIENT DOES NOT MEET CRITERIA FOR HOSPITALIZATION. NO, DOES NOT MEET CRITERIA FOR PSYCHIATRIC ADMISSION NEED FOR EMERGENCY MAJOR/MINOR SURGERY: NO THERE ARE NO SOCIAL CONCERNS WITH THIS PATIENT. PRESCRIPTION DRUG MANAGEMENT NONE PRESCRIPTIONS WILL INCLUDE SYMPTOMATIC CARE PATIENT'S PRIOR EXTERNAL MEDICAL RECORDS FROM OTHER ER VISITS WERE REVIEWED BY ME INDICATED. PRIOR TESTING AND RESULTS FROM PREVIOUS VISITS WERE REVIEWED. PRIOR TESTS WERE TAKEN INTO ACCOUNT WITH MEDICAL DECISION MAKING AND RESOURCE UTILIZATION, INDEPENDENT HISTORIAN/HISTORIANS WERE USED TO OBTAIN COMPLETE MEDICAL HISTORY. I INDEPENDENTLY INTERPRETED THE TEST THAT WERE PERFORMED, RESULTS WERE REVIEWED BY ME AND CONSIDERED FINDINGS ON RADIOLOGY IF ORDERED. MEDICAL MANAGEMENT AND EXAMINATION INTERPRETATION DISCUSSIONS WERE HAD BY ME WITH OTHER QUALIFIED HEALTHCARE PROFESSIONALS INDICATED FOR THE PATIENT'S CARE. DX & DISP Disposition: Discharge Departure Impression: Primary Impression: Depression with suicidal ideation Additional Impression: Anxiety Condition: Stable Additional Instructions: FOLLOW-UP WITH PRIMARY CARE PROVIDER IN 1 TO 2 DAYS. TAKE MEDICATIONS DIRECTED HERE IN THE EMERGENCY ROOM. OKAY TO CONTINUE HOME MEDICATIONS UNLESS OTHERWISE DISCUSSED DURING YOUR VISIT IN THE EMERGENCY ROOM TODAY. RETURN TO YOUR NEAREST EMERGENCY ROOM IF SYMPTOMS WORSEN OR IF THERE IS NO IMPROVEMENT. CALL 911 IF YOU NEED IMMEDIATE ASSISTANCE. TAKE TYLENOL OR MOTRIN [id number] NEEDED AND IF NO CONTRAINDICATIONS ARE PRESENT. INCREASE ORAL HYDRATION. A WOUND CULTURE OR URINE CULTURE WAS ORDERED HERE IN THE EMERGENCY ROOM DEPARTMENT PLEASE FOLLOW-UP WITH PRIMARY CARE PROVIDER AND ADVISE THEM TO GET REPEAT PORTS FROM OUR FACILITY. IF YOU HAD ANY ALEKSANDR WRAP/SPLINTS THAT WERE APPLIED HERE, PLEASE DO NOT REMOVE THEM UNTIL YOU SEE YOUR PRIMARY CARE OR SPECIALTY. FOLLOW UP WITH ROBBIE ECHOLS DIRECTED Referrals: SELF,REFERRAL (PCP) VERÓNICA TOBIAS NP Sep 04, 2024 12:33
[2024-09-04 12:49] LABS: BASOPHILS # (AUTO) 0.04 K/uL (0.00-0.20); BASOPHILS % (AUTO) 0.4 % (0.0-5.0); EOSINOPHILS # (AUTO) 0.25 K/uL (0.00-0.70); EOSINOPHILS % (AUTO) 2.8 % (0.0-8.0); HEMATOCRIT 40.5 % (36-48); IMMATURE GRANULOCYTE ABSOLUTE 0.02 K/uL (0-1); LYMPHOCYTES # (AUTO) 3.1 K/uL (1.0-4.8); LYMPHOCYTES % (AUTO) 34.3 % (21.0-51.0); MEAN CORPUSCULAR HEMOGLOBIN 28.9 pg (27.0-33.0); MEAN CORPUSCULAR HGB CONC 34.6 g/dL (32.0-36.0); MEAN CORPUSCULAR VOLUME 83.7 fL (79-99); MONOCYTES # (AUTO) 0.4 K/uL (0.1-1.0); MONOCYTES % (AUTO) 4.6 % (3.0-13.0); NEUTROPHILS # (AUTO) 5.2 K/uL (1.8-7.7); NEUTROPHILS % (AUTO) 57.7 % (40.0-77.0); PLATELET COUNT (AUTO) 282 K/uL (130-400); RED BLOOD CELL COUNT(AUTO) 4.84 MIL/uL (4.00-5.50); RED CELL DISTRIBUTION WIDTH 13.8 % (11.0-15.5)
[2024-09-04 12:50] LABS: APPEARANCE,URINE CLOUDY (CLEAR); BILIRUBIN,URINE NEGATIVE (NEGATIVE); COLOR,URINE YELLOW (YELLOW); GLUCOSE, URINE (UA) NEGATIVE (NEGATIVE); KETONES,URINE NEGATIVE (NEGATIVE); LEUKOCYTE ESTERASE ,URINE 75 Leu/uL (NEGATIVE); NITRATE,URINE NEGATIVE (NEGATIVE); PH,URINE 5.5 (5.0-8.0); PROTEIN,URINE 10 mg/dL (NEGATIVE); UROBILINOGEN,URINE 0.2 mg/dL (0.2-1.0)
[2024-09-04 12:58] LABS: AMPHET/METH SCREEN,URINE NEGATIVE (NEGATIVE); BARBITURATE SCREEN, URINE NEGATIVE (NEGATIVE); BENZODIAZEPINES SCREEN,URINE NEGATIVE (NEGATIVE); CANNABINOID SCREEN,URINE NEGATIVE (NEGATIVE); COCAINE SCREEN,URINE NEGATIVE (NEGATIVE); OPIATE SCREEN,URINE NEGATIVE (NEGATIVE); PHENCYCLIDINE SCREEN,URINE NEGATIVE (NEGATIVE)
[2024-09-04 13:04] LABS: CREATINE KINASE, TOTAL 141 U/L (21-232)
[2024-09-04 13:12] LABS: ADD UA MICROSCOPIC YES
[2024-09-04 13:17] LABS: CREATININE 0.7 mg/dL (0.5-1.0); POTASSIUM 3.5 mmol/L (3.5-5.1)
[2024-09-04 13:17] LABS: MUCUS,URINE RARE LPF (None Seen); SQUAMOUS EPITHELIAL CELL,UR MANY /HPF (0-2)
[2024-09-04 13:57] LABS: ALCOHOL, BLOOD < 3 mg/dL (0-10); SALICYLATE < 2.8 mg/dL (2.8-20.0)
--- NOTE | 2024-09-04 14:12 | NUR ---
[facility] was called for screening.\
--- NOTE | 2024-09-04 15:30 | NUR ---
ON[place] SCREENER IN TO SEE PT.
[2024-09-04 17:30] VITALS: BP 147/78; PULSE 98; RESP 20; TEMP 98; O2SAT 98
== END 2024-09-04 17:32 | disposition home or self-care (01) ==
LOC: EDH 12:17
DX: R45.851 Suicidal ideations (principal); F41.9 Anxiety disorder, unspecified; F31.9 Bipolar disorder, unspecified; Z79.899 Other long term (current) drug therapy; Z88.1 Allergy status to other antibiotic agents
CPT/HCPCS: 99283; 82550; 80048; 80305; 84703; 85025; 87086; 36415; 81001; G0481

== ENCOUNTER 2024-09-06 04:11 | Emergency (ER) | payer BC, MEDICAID ==
[~2024-09-06] VITALS: Ht 180.3 cm; Wt 163.3 kg
[2024-09-06] MEDS: CIPROFLOXACIN HCL 0.2%/HYDROCORT 1% 10 ML OTIC SUSP OTIC ONE (04:38)
[2024-09-06 05:16] LABS: RAPID GROUP A STREP negative (NEGATIVE)
[2024-09-06 05:18] LABS: SARS-CoV-2, RNA, NAAT NEGATIVE SARS CoV-2 (NEGATIVE)
[2024-09-06 05:24] LABS: INFLUENZA TYPE A Negative For Type A (NEGATIVE); INFLUENZA TYPE B Negative For Type B (NEGATIVE)
[2024-09-06] MEDS ORDERED: AMOX1TAB16 PO (05:45)
--- NOTE | 2024-09-06 05:47 | ERN ---
General Chief Complaint: Earache Stated Complaint: L EAR PAIN, SORE THROAT ONSET 2199 Time Seen by MD: 04:13 History of Present Illness Initial Comments Mrs Pablo is a 39-year-old female who presents today with a chief complaint of left ear pain. Patient reports that she has been having pain since Friday. Patient reports the pain is throbbing. She also reports a sore throat. Allergies: Coded Allergies: ceftriaxone (Verified Adverse Reaction, Mild, Nausea, vomiting , 03/12/24) Home Meds Active Scripts Pantoprazole Sodium (Protonix) 40 Mg Tablet.dr, 1 TAB PO DAILY for 30 Days, #30 TAB 0 Refills Prov:SONYA RODRÍGUEZ AGPCNP 07/20/24 Levofloxacin (Levofloxacin) 500 Mg Tablet, 1 TAB PO DAILY for 7 Days, #7 TAB 0 Refills Prov:MARCOSABDOULAEYSONYA B [facility] 07/20/24 Reported Medications Gabapentin (Gabapentin) 100 Mg Capsule, 3 CAP PO TID for 30 Days, #90 CAP 0 Refills 07/20/24 Cariprazine Hydrochloride (Vraylar) 3 Mg Capsule, 1 CAP PO DAILY for 30 Days, #30 CAP 0 Refills 07/20/24 Semaglutide (Ozempic) 1 Mg/0.75 Ml (4 Mg/3 Ml) Pen.injctr, 1 MG SQ QWEEK 03/12/24 Lisinopril (Lisinopril) 10 Mg Tablet, 1 TAB PO DAILY for blood pressure 03/12/24 Ziprasidone HCl (Ziprasidone HCl) 40 Mg Capsule, 1 CAP PO BID 03/12/24 Venlafaxine HCl (Venlafaxine HCl ER) 150 Mg Cap.er.24h, 1 CAP PO DAILY 03/12/24 Past Medical History Past Medical History: Anxiety, Asthma, Bipolar, Depression, Diabetes-Type II, Hypertension Medical History Other: FATTY LIVER Past Surgical History: Other Surgical History Other: R ANKLE SX Family History Family History: Negative Social History Social History: Negative, Lives with family, Other Female( History) History: Not Applicable ROS Dictation Constitutional: Negative for fever,chills, and weight loss Eyes: Negative for injury, pain,redness, and discharge ENT: Left ear pain Cardiovascular: Negative for chest pain, palpitations, and edema Respiratory: Negative for shortness of breath, cough, and wheezing, Abdomen/GI: Negative for abdominal pain, nausea, vomiting, diarrhea, and constipation Back: Negative for injury and pain : Negative for injury, bleeding and discharge MS/Extremity: Negative for injury and deformity Skin: Negative for rash, and discoloration Neuro: Negative for headache, weakness, numbness, tingling, and seizure Psych: Negative for suicide ideation, homicidal ideation, and hallucinations Physical Exam Physical Exam Dictation General: awake, alert, NAD Head/Face: Normocephalic, atraumatic Eyes: PERRL, EOMI, ENT: Left TM is dull with canal redness Neck: Trachea midline, supple Cardiovascular: RRR, normal S1/S2, No MRGs, no JVD Respiratory: CTAB, no respiratory distress, No rales or wheezes Abdomen: Soft, non-tender, non-distended, normal bowel sounds, no guarding or rebound. Skin: Warm, dry, normal turgor, no rash MS/Extremity: Pulses equal, no cyanosis Neuro: COAx4, GCS 15, strength 5/5, CN 2-12 intact Results Laboratory and Microbiology Lab and Micro Result Laboratory Tests Test 09/06/24 04:42 Influenza Type A Antigen Negative For Type A Influenza Type B Antigen Negative For Type B SARS-CoV-2, RNA, NAAT NEGATIVE SARS CoV-2 Group A Streptococcus Rapid negative (NEGATIVE) MDM Patient appears to have left-sided otitis externa and media. Patient will be discharged on antibiotics MDM: Differential diagnosis: Otitis media Rationale: Tests considered and ordered secondary to shared decision making include: Previous outside records reviewed: Old ER visits. Risk of complication and/or morbidity or mortality of patient management: None Medications-Per medication reconciliation Need for hospitalization: Patient does not meet criteria for hospitalization. Need for emergency major/minor surgery: No There are no social concerns with this patient. Prescription drug management Prescriptions will include symptomatic care Patient's prior external medical records from other ER visits were reviewed by me as indicated. Prior testing and results from previous visits were reviewed. Prior tests were taken into account with medical decision making and resource utilization, independent historian/historians were used to obtain complete medical history. I independently interpreted the test that were performed, results were reviewed by me and considered findings on radiology if ordered. Medical management and examination interpretation discussions were had by me with other qualified healthcare professionals as indicated for the patient's care. ED Course Orders Procedure Category Date Status Time Ciprofloxacin Hcl/Hc PHA 09/06/24 Complete (Cipro Hc Otic Susp 04:30 Rapid (Group A Strep) LAB 09/06/24 Complete 04:27 Covid Rna Naat LAB 09/06/24 Complete 04:27 Influenza Type A & B, LAB 09/06/24 Complete Rapid 04:27 Current Medications Medications (Trade) Dose Ordered Sig/Radha Route PRN Reason Start Time Stop Time Status Last Admin Dose Admin Ciprofloxacin/ Hydrocortisone (Cipro Hc Otic Susp) 4 drop ONCE ONCE OTIC 09/06/24 04:30 09/06/24 04:31 DC 09/06/24 04:38 Vital Signs Date Time Temp Pulse Resp B/P (MAP) Pulse Ox O2 Delivery O2 Flow Rate FiO2 09/06/24 04:17 97.9 92 17 157/86 96 Room Air 0 09/06/24 04:13 97.9 92 17 157/86 96 Room Air* 0 21 DX & DISP Disposition: Discharge Departure Impression: Primary Impression: Otitis media Condition: Stable Scripts Amoxicillin/Potassium Clav (Amox Tr-K Clv 875-125 mg Tab) 875 Mg-125 Mg Tablet 1 TAB PO BID for 10 Days, #20 TAB 0 Refills Prov: GERALDINE MARK MD 09/06/24 Additional Instructions: Please follow up with your primary care physician for continuance of care. Please take your antibiotics as prescribed. Referrals: SELF,REFERRAL (PCP) GERALDINE MARK MD Sep 06, 2024 05:47
[2024-09-06] MEDS: AMOX/CLAV 875/125MG TAB PO ONE (05:55)
[2024-09-06] MEDS: ketOROlac 30MG VIAL (30MG/ML) IM ONE (05:58)
[2024-09-06 06:09] VITALS: BP 154/82; PULSE 89; RESP 17; TEMP 98; O2SAT 96
[2024-09-19] MEDS ORDERED: SULF1TAB42 PO (20:59)
== END 2024-09-06 06:10 | disposition home or self-care (01) ==
LOC: EDH 04:11
DX: H66.92 Otitis media, unspecified, left ear (principal); E11.9 Type 2 diabetes mellitus without complications; F41.9 Anxiety disorder, unspecified; I10 Essential (primary) hypertension; J45.909 Unspecified asthma, uncomplicated; Z79.85 Long-term (current) use of injectable non-insulin antidiabetic drugs; Z79.899 Other long term (current) drug therapy; Z88.1 Allergy status to other antibiotic agents; Z20.822 Contact with and (suspected) exposure to COVID-19
CPT/HCPCS: 99284; 87635; 87880; 87804 ×2; 96372; J1885

== ENCOUNTER 2024-09-15 20:42 | Emergency (ER) | payer BC, MEDICAID ==
[~2024-09-15] VITALS: Ht 180.3 cm; Wt 163.3 kg
[~2024-09-15 20:42] MED LIST changes: +AMOX1TAB16 PO
[2024-09-15] MEDS ORDERED: DIPH50 PO (20:57)
[2024-09-15] MEDS ORDERED: IVER3TAB PO (20:57)
--- NOTE | 2024-09-15 20:58 | ERN ---
ED Note History of Present Illness Stated Complaint: C/O ITHING TO BODY Chief Complaint: Itching Time Seen by MD: 20:44 Dictation: PATIENT IS A 39-YEAR-OLD FEMALE WHO WAS DISCHARGED FROM [facility] WITH A PRURITIC RASH TO HER UPPER BODY ONSET YESTERDAY. SHE STATES SHE HAD LOANED HER JACKET TO A GIRL WHO HAD SCABIES. Allergies: Coded Allergies: ceftriaxone (Verified Adverse Reaction, Mild, Nausea, vomiting , 03/12/24) Home Meds Active Scripts Amoxicillin/Potassium Clav (Amox Tr-K Clv 875-125 mg Tab) 875 Mg-125 Mg Tablet, 1 TAB PO BID for 10 Days, #20 TAB 0 Refills Prov:GERALDINE MARK MD 09/06/24 Pantoprazole Sodium (Protonix) 40 Mg Tablet.dr, 1 TAB PO DAILY for 30 Days, #30 TAB 0 Refills Prov:SONYA RODRÍGUEZ 07/20/24 Levofloxacin (Levofloxacin) 500 Mg Tablet, 1 TAB PO DAILY for 7 Days, #7 TAB 0 Refills Prov:SONYA RODRÍGUEZ 07/20/24 Reported Medications Gabapentin (Gabapentin) 100 Mg Capsule, 3 CAP PO TID for 30 Days, #90 CAP 0 Refills 07/20/24 Cariprazine Hydrochloride (Vraylar) 3 Mg Capsule, 1 CAP PO DAILY for 30 Days, #30 CAP 0 Refills 07/20/24 Semaglutide (Ozempic) 1 Mg/0.75 Ml (4 Mg/3 Ml) Pen.injctr, 1 MG SQ QWEEK 03/12/24 Lisinopril (Lisinopril) 10 Mg Tablet, 1 TAB PO DAILY for blood pressure 03/12/24 Ziprasidone HCl (Ziprasidone HCl) 40 Mg Capsule, 1 CAP PO BID 03/12/24 Venlafaxine HCl (Venlafaxine HCl ER) 150 Mg Cap.er.24h, 1 CAP PO DAILY 03/12/24 Past Medical History Past Medical History: Anxiety, Asthma, Bipolar, Depression, Diabetes-Type II, Hypertension Additional Past Medical Hx: FATTY LIVER Surgical History: Other Surgical History Other: R ANKLE SX Family History: Negative Social History: Negative, Lives with family, Other History: Not Applicable RN Note Reviewed/Agreed w/PFSH: Yes Review of System Dictation CONSTITUTIONAL: NEGATIVE EXCEPT FOR HPI HEAD/FACE: NEGATIVE EXCEPT FOR HPI EENT: NEGATIVE EXCEPT FOR HPI RESPIRATORY: NEGATIVE EXCEPT FOR HPI GASTROINTESTINAL/ABDOMINAL: NEGATIVE EXCEPT FOR HPI GENITOURINARY: NEGATIVE EXCEPT FOR HPI MUSCULOSKELETAL: NEGATIVE EXCEPT FOR HPI INTEGUMENTARY: NEGATIVE EXCEPT FOR HPI PRURITIC RASH NEUROLOGICAL/PSYCH: NEGATIVE EXCEPT FOR HPI HEMATOLOGIC/LYMPHATIC: NEGATIVE EXCEPT FOR HPI ALL SYSTEMS NEGATIVE, EXCEPT NOTED ABOVE. 13 POINT REVIEW OF SYSTEMS ASSESSED AND ALL NEGATIVE EXCEPT FOR ABOVE. Physical Exam Dictation VITAL SIGNS REVIEWED GENERAL APPEARANCE: ALERT, ORIENTED X 3, NO ACUTE DISTRESS, WELL DEVELOPED, NOURISHED. OBESE HEAD AND FACE: NON-TRAUMATIC. EYES: PERRL, PINK CONJUNCTIVAS, EYELID NO TRAUMA, ANTERIOR CHAMBER WITH ARCUS SENILIS. EARS: PINNAS INTACT AND NO SIGNS OF TRAUMA OR ERYTHEMA EAR CANALS CLEAR AND NO DISCHARGE TM NO ERYTHEMA NOSE: NO DISCHARGE, NO BLEEDING. OROPHARYNX: MOUTH NORMAL, TONGUE PINK, PHARYNX CLEAR,NO ERYTHEMA, TONSILS NO EXUDATES, NO ABSCESSES NOTED, MUCOUS MEMBRANE MOIST NECK: SUPPLE, NON-TENDER, NO THYROMEGALY, NO MASSES, NO JVD, NO BRUITS BREAST:DEFERRED CHEST:NO TENDERNESS, NO CREPITUS, NO PARADOXICAL MOVEMENT, NO RETRACTIONS LUNGS:CLEAR, WELL-VENTILATED, SYMMETRIC, NO RALES, NO WHEEZING, NO RHONCHI, NO STRIDOR, GOOD BREATH SOUNDS BILATERALLY HEART: REGULAR RATE, REGULAR RHYTHM, NO MURMUR, NO GALLOPS VASCULAR: NO PERIPHERAL EDEMA, ABDOMEN: SOFT, POSITIVE BOWEL SOUNDS, NONDISTENDED, NO GUARDING, NONTENDER, NO REBOUND, NO MASSES NO HEPATOMEGALY, NO SPLENOMEGALY, NO STERN'S SIGN, NO HERNIAS. RECTAL: DEFERRED GENITAL: DEFERRED NEUROLOGICAL: NORMAL SPEECH, MOTOR FUNCTION INTACT, SENSORY FUNCTION INTACT MUSCULOSKELETAL: NECK NONTENDER, FULL RANGE OF MOTION, BACK NONTENDER, FULL RANGE OF MOTION, EXTREMITIES: NONTENDER, FULL RANGE OF MOTION SKIN: COLOR PINK, DRY, FLAT DISCRETE MACULAR RASH TO BACK AND ANTERIOR CHEST. LYMPHATIC: DEFERRED Results (Laboratory/Radiology) Labs Reviewed?: Yes ED Course ED Course NO LABS OR IMAGING INDICATED. PATIENT WILL BE TREATED EMPIRICALLY OF THE SCABIES Medical Decision Making MDM MEDICAL DECISION-MAKING BASED ON EMPIRIC TREATMENT FOR SCABIES INFESTATION PATIENT WILL BE GIVEN BENADRYL ACUTELY FOR ITCHING SENT HOME WITH IVERMECTIN FIVE TABLETS TO TAKE X1 DOSE. DX & DISP Disposition: Discharge Departure Impression: Primary Impression: Scabies infestation Condition: Stable Scripts Diphenhydramine HCl (Benadryl) 50 Mg Cap 50 MG PO Q6H for itching/rash, #20 CAP 0 Refills Prov: VERÓNICA TOBIAS NP 09/15/24 Ivermectin (Ivermectin) 3 Mg Tablet 5 TAB PO ONCE for 1 Day, #5 TAB 0 Refills Prov: VERÓNICA TOBIAS NP 09/15/24 Additional Instructions: FOLLOW-UP WITH PRIMARY CARE PROVIDER IN 1 TO 2 DAYS. TAKE MEDICATIONS DIRECTED HERE IN THE EMERGENCY ROOM. OKAY TO CONTINUE HOME MEDICATIONS UNLESS OTHERWISE DISCUSSED DURING YOUR VISIT IN THE EMERGENCY ROOM TODAY. RETURN TO YOUR NEAREST EMERGENCY ROOM IF SYMPTOMS WORSEN OR IF THERE IS NO IMPROVEMENT. CALL 911 IF YOU NEED IMMEDIATE ASSISTANCE. TAKE TYLENOL OR MOTRIN [id number] NEEDED AND IF NO CONTRAINDICATIONS ARE PRESENT. INCREASE ORAL HYDRATION. A WOUND CULTURE OR URINE CULTURE WAS ORDERED HERE IN THE EMERGENCY ROOM DEPARTMENT PLEASE FOLLOW-UP WITH PRIMARY CARE PROVIDER AND ADVISE THEM TO GET REPEAT PORTS FROM OUR FACILITY. IF YOU HAD ANY ALEKSANDR WRAP/SPLINTS THAT WERE APPLIED HERE, PLEASE DO NOT REMOVE THEM UNTIL YOU SEE YOUR PRIMARY CARE OR SPECIALTY. TAKE IVERMECTIN DIRECTED. TAKE BENADRYL DIRECTED. SEE YOUR PRIMARY CARE DOCTOR FOR FOLLOW UP Referrals: RUBY ROWLAND MD (PCP) Time of Disposition: 20:56 I have reviewed the case, and I agree with, Diagnosis and Plan VERÓNICA TOBIAS NP Sep 15, 2024 20:58
[2024-09-15 21:15] VITALS: BP 114/56; PULSE 86; RESP 18; TEMP 98.3; O2SAT 98
[2024-09-15] MEDS: DiphenhydrAMINE HCL 25 MG CAPSULE PO ONE (21:19)
[2024-09-19] MEDS ORDERED: SULF1TAB42 PO (20:59)
== END 2024-09-15 21:27 | disposition home or self-care (01) ==
LOC: EDH 20:42
DX: B86 Scabies (principal); E11.9 Type 2 diabetes mellitus without complications; F41.9 Anxiety disorder, unspecified; I10 Essential (primary) hypertension; J45.909 Unspecified asthma, uncomplicated; Z79.85 Long-term (current) use of injectable non-insulin antidiabetic drugs; Z79.899 Other long term (current) drug therapy; Z88.1 Allergy status to other antibiotic agents
CPT/HCPCS: 99283; Q0163

== ENCOUNTER 2024-09-21 23:14 | Emergency (ER) | payer BC, MEDICAID ==
[~2024-09-21] VITALS: Ht 180.3 cm; Wt 163.3 kg
[~2024-09-21 23:14] MED LIST changes: +DIPH50 PO; +IVER3TAB PO; +SULF1TAB42 PO
[2024-09-21 23:54] LABS: BASOPHILS # (AUTO) 0.05 K/uL (0.00-0.20); BASOPHILS % (AUTO) 0.4 % (0.0-5.0); EOSINOPHILS # (AUTO) 0.18 K/uL (0.00-0.70); EOSINOPHILS % (AUTO) 1.4 % (0.0-8.0); HEMATOCRIT 38.3 % (36-48); IMMATURE GRANULOCYTE ABSOLUTE 0.04 K/uL (0-1); LYMPHOCYTES # (AUTO) 2.9 K/uL (1.0-4.8); LYMPHOCYTES % (AUTO) 23.1 % (21.0-51.0); MEAN CORPUSCULAR HEMOGLOBIN 29.3 pg (27.0-33.0); MEAN CORPUSCULAR HGB CONC 34.2 g/dL (32.0-36.0); MEAN CORPUSCULAR VOLUME 85.7 fL (79-99); MONOCYTES # (AUTO) 0.6 K/uL (0.1-1.0); MONOCYTES % (AUTO) 4.3 % (3.0-13.0); NEUTROPHILS # (AUTO) 8.9 K/uL (1.8-7.7); NEUTROPHILS % (AUTO) 70.5 % (40.0-77.0); PLATELET COUNT (AUTO) 232 K/uL (130-400); RED BLOOD CELL COUNT(AUTO) 4.47 MIL/uL (4.00-5.50); RED CELL DISTRIBUTION WIDTH 13.8 % (11.0-15.5); WHITE BLOOD COUNT (AUTO) 12.7 K/uL (4.8-10.8)
[2024-09-21 23:58] LABS: POTASSIUM 3.5 mmol/L (3.5-5.1)
[2024-09-22 00:10] LABS: ADD UA MICROSCOPIC NO; APPEARANCE,URINE CLEAR (CLEAR); BILIRUBIN,URINE NEGATIVE (NEGATIVE); COLOR,URINE LIGHT-YELLOW (YELLOW); GLUCOSE, URINE (UA) NEGATIVE (NEGATIVE); KETONES,URINE NEGATIVE (NEGATIVE); LEUKOCYTE ESTERASE ,URINE NEGATIVE Leu/uL (NEGATIVE); NITRATE,URINE NEGATIVE (NEGATIVE); OCCULT BLOOD,URINE NEGATIVE (NEGATIVE); PROTEIN,URINE NEGATIVE (NEGATIVE); UROBILINOGEN,URINE 0.2 mg/dL (0.2-1.0)
[2024-09-22 00:11] LABS: HCG,QUALITATIVE URINE NEGATIVE (NEGATIVE)
[2024-09-22 00:15] VITALS: TEMP 98.8
[2024-09-22] MEDS: 0.9%NACL 1000ML 1,000 ML IV ONE (00:19)
[2024-09-22] MEDS: acetaMINOPHEN 500 MG TABLET PO ONE (00:20)
--- NOTE | 2024-09-22 00:44 | ERN ---
ED Note History of Present Illness Stated Complaint: LEFT ABD/FLANK PAIN X3-4 DAYS Chief Complaint: Abdominal Pain Time Seen by MD: 23:23 Time Seen by Midlevel: 23:23 Dictation: The patient is a 39 year old female with a history of asthma, diabetes, hy pertension, diverticulitis who presents to the emergency department with complaints of lower abdominal pain and bilateral flank pain onset three days ago. Patient was seen here on 09/19/2024 and was diagnosed with a UTI and placed on Bactrim. Patient reports no improvement with medication. Patient denies any nausea, vomiting, diarrhea, constipation, fevers. Denies any hematuria but reports dark urine. Allergies: Coded Allergies: ceftriaxone (Verified Adverse Reaction, Mild, Nausea, vomiting , 03/12/24) Home Meds Active Scripts Sulfamethoxazole/Trimethoprim (Bactrim Ds Tablet) 800 Mg-160 Mg Tablet, 1 TAB PO BID for 7 Days, #14 TAB 0 Refills Prov:CHRISTIANO PURCELL 09/19/24 Diphenhydramine HCl (Benadryl) 50 Mg Cap, 50 MG PO Q6H for itching/rash, #20 CAP 0 Refills Prov:VERÓNICA TOBIAS NP 09/15/24 Ivermectin (Ivermectin) 3 Mg Tablet, 5 TAB PO ONCE for 1 Day, #5 TAB 0 Refills Prov:VERÓNICA TOBIAS NP 09/15/24 Amoxicillin/Potassium Clav (Amox Tr-K Clv 875-125 mg Tab) 875 Mg-125 Mg Tablet, 1 TAB PO BID for 10 Days, #20 TAB 0 Refills Prov:GERALDINE MARK MD 09/06/24 Pantoprazole Sodium (Protonix) 40 Mg Tablet.dr, 1 TAB PO DAILY for 30 Days, #30 TAB 0 Refills Prov:SONYA RODRÍGUEZ 07/20/24 Levofloxacin (Levofloxacin) 500 Mg Tablet, 1 TAB PO DAILY for 7 Days, #7 TAB 0 Refills Prov:SONYA RODRÍGUEZ 07/20/24 Reported Medications Gabapentin (Gabapentin) 100 Mg Capsule, 3 CAP PO TID for 30 Days, #90 CAP 0 Refills 07/20/24 Cariprazine Hydrochloride (Vraylar) 3 Mg Capsule, 1 CAP PO DAILY for 30 Days, #30 CAP 0 Refills 07/20/24 Semaglutide (Ozempic) 1 Mg/0.75 Ml (4 Mg/3 Ml) Pen.injctr, 1 MG SQ QWEEK 03/12/24 Lisinopril (Lisinopril) 10 Mg Tablet, 1 TAB PO DAILY for blood pressure 03/12/24 Ziprasidone HCl (Ziprasidone HCl) 40 Mg Capsule, 1 CAP PO BID 03/12/24 Venlafaxine HCl (Venlafaxine HCl ER) 150 Mg Cap.er.24h, 1 CAP PO DAILY 03/12/24 Past Medical History Past Medical History: Diabetes-Type II, Diverticulitis, Hypertension Additional Past Medical Hx: FATTY LIVER Surgical History: Unknown Surgical History Other: R ANKLE SX Family History: Negative Social History: Negative, Lives with family, Other History: Not Applicable RN Note Reviewed/Agreed w/PFSH: Yes Review of System Dictation Constitutional: Negative for fever,chills, and weight loss Eyes: Negative for injury, pain,redness, and discharge ENT: Negative for injury,pain or swelling Cardiovascular: Negative for chest pain, palpitations, and edema Respiratory: Negative for shortness of breath, cough, and wheezing, Abdomen/GI: Negative for nausea, vomiting, diarrhea, and constipation positive for abdominal pain Back: Negative for injury and pain : Negative for injury, bleeding and discharge positive for flank pain MS/Extremity: Negative for injury and deformity Skin: Negative for rash, and discoloration Neuro: Negative for headache, weakness, numbness, tingling, and seizure Psych: Negative for suicide ideation, homicidal ideation, and hallucinations Initial Vital Sign VS Vital Signs Date Time Temp Pulse Resp B/P (MAP) Pulse Ox O2 Delivery O2 Flow Rate FiO2 09/21/24 23:16 97.9 100 16 148/78 94 Room Air 0 09/21/24 23:19 21 Physical Exam Dictation Vital Signs reviewed General Appearance: Alert, oriented x 3, no acute distress, well developed, nourished. Head and Face: non-traumatic. Eyes: PERRL, pink conjunctivas, eyelid no trauma, anterior chamber with arcus senilis. Ears: Pinnas intact and no signs of trauma or erythema ear canals clear and no discharge TM no erythema Nose: No discharge, no bleeding. Oropharynx: Mouth normal, tongue pink. pharynx clear,no erythema, tonsils no exudates, no abscesses noted, mucous membrane moist Neck: Supple, non-tender, no thyromegaly, no masses, no JVD, no bruits Breast:Deferred Chest:No tenderness, no crepitus, no paradoxical movement, no retractions Lungs:Clear, well-ventilated, symmetric, no rales, no wheezing, no rhonchi, no stridor, good breath sounds bilaterally Heart: Regular rate, regular rhythm, no murmur, no gallops Vascular: no peripheral edema, Abdomen: Soft, positive bowel sounds, nondistended, no guarding, nontender, no rebound, no masses no hepatomegaly, no splenomegaly, no Dixon's sign, no hernias. Rectal: Deferred Genital: Deferred Neurological: Normal speech, motor function intact, sensory function intact Musculoskeletal: Neck nontender, full range of motion, back nontender, full range of motion, Extremities: nontender, full range of motion Skin: Color pink, dry, no turgor, no rash, no lacerations, no abrasions, no contusions. Lymphatic: Deferred Results (Laboratory/Radiology) Laboratory/Radiology Laboratory Tests Test 09/21/24 23:22 09/21/24 23:28 White Blood Count 12.7 K/uL (4.8-10.8) H Red Blood Count 4.47 MIL/uL (4.00-5.50) Hemoglobin 13.1 g/dL (12.0-16.0) Hematocrit 38.3 % (36-48) Mean Corpuscular Volume 85.7 fL (79-99) Mean Corpuscular Hemoglobin 29.3 pg (27.0-33.0) Mean Corpuscular Hemoglobin Concent 34.2 g/dL (32.0-36.0) Red Cell Distribution Width 13.8 % (11.0-15.5) Platelet Count 232 K/uL (130-400) Mean Platelet Volume 11.1 fL (7.5-10.5) H Immature Granulocyte % (Auto) 0.3 % (0-1) Neutrophils (%) (Auto) 70.5 % (40.0-77.0) Lymphocytes (%) (Auto) 23.1 % (21.0-51.0) Monocytes (%) (Auto) 4.3 % (3.0-13.0) Eosinophils (%) (Auto) 1.4 % (0.0-8.0) Basophils (%) (Auto) 0.4 % (0.0-5.0) Neutrophils # (Auto) 8.9 K/uL (1.8-7.7) H Lymphocytes # (Auto) 2.9 K/uL (1.0-4.8) Monocytes # (Auto) 0.6 K/uL (0.1-1.0) Eosinophils # (Auto) 0.18 K/uL (0.00-0.70) Basophils # (Auto) 0.05 K/uL (0.00-0.20) Absolute Immature Granulocyte (auto 0.04 K/uL (0-1) Nucleated Red Blood Cells 0.0 % (0.0-0.19) Urine Color LIGHT-YELLOW (YELLOW) Urine Appearance CLEAR (CLEAR) Urine pH 6.0 (5.0-8.0) Urine Specific [place] 1.016 (1.001-1.031) Urine Protein NEGATIVE mg/dL (NEGATIVE) Urine Glucose (UA) NEGATIVE mg/dL (NEGATIVE) Urine Ketones NEGATIVE mg/dL (NEGATIVE) Urine Occult Blood NEGATIVE (NEGATIVE) Urine Nitrate NEGATIVE (NEGATIVE) Urine Bilirubin NEGATIVE mg/dL (NEGATIVE) Urine Urobilinogen 0.2 mg/dL (0.2-1.0) Urine Leukocyte Esterase NEGATIVE Eliecer/uL Urine HCG, Qualitative NEGATIVE (NEGATIVE) Sodium Level 139 mmol/L (136-145) Potassium Level 3.5 mmol/L (3.5-5.1) Chloride Level 104 mmol/L (101-111) Carbon Dioxide Level 30 mmol/L (21-32) Blood Urea Nitrogen 13 mg/dL (7-18) Creatinine 1.0 mg/dL (0.5-1.0) Glomerular Filtration Rate Calc 74 mL/min (>90) Random Glucose 189 mg/dL (70-105) H Total Calcium 9.2 mg/dL (8.5-10.1) Urine Opiates Screen NEGATIVE (NEGATIVE) Urine Barbiturates Screen NEGATIVE (NEGATIVE) Urine Phencyclidine Screen NEGATIVE (NEGATIVE) Urine Amphetamines Screen NEGATIVE (NEGATIVE) Urine Benzodiazepines Screen NEGATIVE (NEGATIVE) Urine Cocaine Screen NEGATIVE (NEGATIVE) Urine Marijuana (THC) Screen NEGATIVE (NEGATIVE) Labs Reviewed?: Yes ED Course ED Course Orders Procedure Category Date Status Time Cbc With Differential LAB 09/21/24 Complete 23:34 ,Urine Test LAB 09/21/24 Complete 23:34 Urinalysis Profile LAB 09/21/24 Complete 23:34 0.9%Nacl 1000ml (Ns PHA 09/22/24 Complete 1000ml) 00:00 Basic Metabolic Panel LAB 09/21/24 Complete 23:34 Acetaminophen 500mg PHA 09/22/24 Complete Tab (Tylenol 500mg T 00:00 Ct Abdomen/Pelvis W/O CT 09/22/24 Resulted Contrast 00:13 Drug Screen Urine LAB 09/22/24 Complete 00:13 Us Pelvic Non-Ob Comp US 09/22/24 Taken 01:25 Current Medications Medications (Trade) Dose Ordered Sig/Radha Route PRN Reason Start Time Stop Time Status Last Admin Dose Admin Acetaminophen (TYLenol 500MG TAB) 1,000 mg ONCE ONCE PO 09/22/24 00:00 09/22/24 00:01 DC 09/22/24 00:20 Sodium Chloride 1,000 ml @ 0 mls/hr ONCE ONCE IV 09/22/24 00:00 09/22/24 00:01 DC 09/22/24 00:19 Vital Signs Date Time Temp Pulse Resp B/P (MAP) Pulse Ox O2 Delivery O2 Flow Rate FiO2 09/22/24 04:28 85 18 104/57 95 Room Air* 0 09/22/24 00:15 98.8 93 20 106/73 94 Room Air* 0 21 09/21/24 23:19 98.8 93 20 148/78 96 Room Air* 0 21 09/21/24 23:16 97.9 100 16 148/78 94 Room Air 0 Medical Decision Making MDM The patient is a 39 year old female with a history of asthma, diabetes, hypertension, diverticulitis who presents to the emergency department with com plaints of lower abdominal pain and bilateral flank pain onset three days ago. Patient was seen here on 09/19/2024 and was diagnosed with a UTI and placed on Bactrim. Patient reports no improvement with medication. Patient denies any nausea, vomiting, diarrhea, constipation, fevers. Denies any hematuria but reports dark urine. Patient was medicated for pain in the emergency department by nurse practitioner under my supervision. CT imaging was negative for acute findings, ultrasound of ovary was ordered, preliminary result was negative for acute worrisome findings. FINDINGS: No pleural effusion is seen bilaterally. There is no evidence of parenchymal disease or pulmonary nodule of the visualized lower lungs. Degenerative changes of the thoracolumbar spine are present. The heart is not enlarged. Liver measured 23 cm. Fatty changes of the liver are noted. Gallbladder is contracted. Spleen measures 14.4 cm. The liver, spleen, adrenal glands and pancreas are unremarkable. There is no evidence of hydronephrosis bilaterally. No evidence of renal stone is seen. Fecal material is seen in the colon. There are normal size retroperitoneal and mesenteric lymph nodes. No ascites is seen. No CT evidence of acute appendicitis is seen. Clinical correlation is recommended. There are bilateral ovarian cysts and ultrasound correlation may be helpful. Pelvic sidewalls are symmetric bilaterally. Bladder is poorly distended. IMPRESSION: 1. No hydronephrosis is seen. No CT evidence of renal stone is. Clinical correlation is recommended. Plan is to discharge the patient home with recommended to follow up with the primary care physician in the next 24-48 hours. DX & DISP Disposition: Discharge Departure Impression: Primary Impression: Lower abdominal pain, unspecified Critical Time: 60 minutes Condition: Improved Scripts Acetaminophen (Tylenol) 500 Mg Tab 1 TAB PO Q6HPRN PRN for pain or fever for 5 Days, #20 TAB 0 Refills Prov: WALTER CHERY MD 09/22/24 Ibuprofen (Ibuprofen) 400 Mg Tablet 1 TAB PO Q6HPRN PRN for pain or fever for 5 Days, #20 TAB 0 Refills Prov: WALTER CHERY MD 09/22/24 Additional Instructions: RETURN TO ER FOR ANY ACUTE OR WORSENING SYMPTOMS. FOLLOW-UP IN 1-2 DAYS WITH PRIMARY PROVIDER FOR RECHECK OF TODAY'S SYMPTOMS. Referrals: RUBY ROWLAND MD (PCP) [facility] Sep 22, 2024 00:44 WALTER CHERY MD Sep 22, 2024 04:40
[2024-09-22 00:47] LABS: AMPHET/METH SCREEN,URINE NEGATIVE (NEGATIVE); BARBITURATE SCREEN, URINE NEGATIVE (NEGATIVE); BENZODIAZEPINES SCREEN,URINE NEGATIVE (NEGATIVE); CANNABINOID SCREEN,URINE NEGATIVE (NEGATIVE); COCAINE SCREEN,URINE NEGATIVE (NEGATIVE); OPIATE SCREEN,URINE NEGATIVE (NEGATIVE); PHENCYCLIDINE SCREEN,URINE NEGATIVE (NEGATIVE)
--- NOTE | 2024-09-22 01:20 | HMCIMG ---
CT ABDOMEN/PELVIS W/O CONTRAST HISTORY: Renal stones, right flank pain COMPARISON: TECHNIQUE: Multiple sequential axial images of the abdomen and pelvis were obtained from the dome of the diaphragm through symphysis pubis. Patient was not given contrast through intravenous route. Oral contrast was not given. FINDINGS: No pleural effusion is seen bilaterally. There is no evidence of parenchymal disease or pulmonary nodule of the visualized lower lungs. Degenerative changes of the thoracolumbar spine are present. The heart is not enlarged. Liver measured 23 cm. Fatty changes of the liver are noted. Gallbladder is contracted. Spleen measures 14.4 cm. The liver, spleen, adrenal glands and pancreas are unremarkable. There is no evidence of hydronephrosis bilaterally. No evidence of renal stone is seen. Fecal material is seen in the colon. There are normal size retroperitoneal and mesenteric lymph nodes. No ascites is seen. No CT evidence of acute appendicitis is seen. Clinical correlation is recommended. There are bilateral ovarian cysts and ultrasound correlation may be helpful. Pelvic sidewalls are symmetric bilaterally. Bladder is poorly distended. IMPRESSION: 1. No hydronephrosis is seen. No CT evidence of renal stone is. Clinical correlation is recommended. CT was performed with one or more following dose reduction techniques: automated exposure control, adjustment of the mA and kv according to patient's size, or use of a iterative reconstruction technique.
[2024-09-22 04:28] VITALS: BP 104/57; PULSE 85; RESP 18; O2SAT 95
[2024-09-22] MEDS ORDERED: ACET-66 PO (04:43)
[2024-09-22] MEDS ORDERED: IBUP-2076 PO (04:43)
--- NOTE | 2024-09-22 08:49 | HMCIMG ---
US PELVIC NON-OB COMP REASON: right and left lower abd pain, COMPARISON: None TECHNIQUE: Routine pelvic sonogram was performed. FINDINGS: Uterus is 10 x 4 x 5 cm. Endometrium is 4 mm. There are no endometrial or myometrial masses. Right ovary was not separately identified. There is normal-appearing 2 x 3 cm left ovary. There is positive blood flow. There is no free fluid in the cul-de-sac. There are no solid adnexal masses. IMPRESSION: 1. Normal pelvic sonogram although the right ovary was not separately identified.
== END 2024-09-22 04:52 | disposition home or self-care (01) ==
LOC: EDH 23:14
DX: R10.30 Lower abdominal pain, unspecified (principal); E11.9 Type 2 diabetes mellitus without complications; I10 Essential (primary) hypertension; Z79.85 Long-term (current) use of injectable non-insulin antidiabetic drugs; Z79.899 Other long term (current) drug therapy; Z88.1 Allergy status to other antibiotic agents
CPT/HCPCS: 99285; 80048; 80305; 85025; 81025; 36415; 81003; 74176; 96360; 76856; J7030

== ENCOUNTER 2024-10-30 19:56 | Emergency (ER) | payer BC, MEDICAID ==
[~2024-10-30] VITALS: Ht 177.8 cm; Wt 136.1 kg
[~2024-10-30 19:56] MED LIST changes: +ACET-66 PO; +IBUP-2076 PO
[2024-10-30 20:05] VITALS: TEMP 98.9
--- NOTE | 2024-10-30 20:33 | ERN ---
ED Note History of Present Illness Stated Complaint: OVERDOSE Chief Complaint: Overdose Time Seen by MD: 20:26 Dictation: This is a 39-year-old female with multiple medical problems came to the emergency room via EMS with a history of intentional overdose on trazodone. Apparently patient found out that her cell phone was disconnected she got very angry and took 10 or 15 trazodone pills unknown dose. Upon arrival she denied being suicidal stated that she just got angry and that moment Temperature 98.8 pulse 84 respirations 20 blood pressure 132/74 with a pulse oximetry of 98% on room air Her chronic medical problems include anxiety, bipolar disorder, depression, diabetes mellitus, hypertension, asthma and history of diverticulosis Patient was no longer suicidal and stated that she just got angry momentarily with her cell phone issue Allergies: Coded Allergies: ceftriaxone (Verified Adverse Reaction, Mild, Nausea, vomiting , 03/12/24) Home Meds Active Scripts Acetaminophen (Tylenol) 500 Mg Tab, 1 TAB PO Q6HPRN PRN for pain or fever for 5 Days, #20 TAB 0 Refills Prov:WALTER CHERY MD 09/22/24 Ibuprofen (Ibuprofen) 400 Mg Tablet, 1 TAB PO Q6HPRN PRN for pain or fever for 5 Days, #20 TAB 0 Refills Prov:WALTER CHERY MD 09/22/24 Sulfamethoxazole/Trimethoprim (Bactrim Ds Tablet) 800 Mg-160 Mg Tablet, 1 TAB PO BID for 7 Days, #14 TAB 0 Refills Prov:CHRISTIANO PURCELL 09/19/24 Diphenhydramine HCl (Benadryl) 50 Mg Cap, 50 MG PO Q6H for itching/rash, #20 CAP 0 Refills Prov:VERÓNICA TOBIAS NP 09/15/24 Ivermectin (Ivermectin) 3 Mg Tablet, 5 TAB PO ONCE for 1 Day, #5 TAB 0 Refills Prov:VERÓNICA TOBIAS NP 09/15/24 Amoxicillin/Potassium Clav (Amox Tr-K Clv 875-125 mg Tab) 875 Mg-125 Mg Tablet, 1 TAB PO BID for 10 Days, #20 TAB 0 Refills Prov:GERALDINE MARK MD 09/06/24 Pantoprazole Sodium (Protonix) 40 Mg Tablet.dr, 1 TAB PO DAILY for 30 Days, #30 TAB 0 Refills Prov:SONYA RODRÍGUEZ AGPCNP 07/20/24 Levofloxacin (Levofloxacin) 500 Mg Tablet, 1 TAB PO DAILY for 7 Days, #7 TAB 0 Refills Prov:SONYA RODRÍGUEZ AGPCNP 07/20/24 Reported Medications Gabapentin (Gabapentin) 100 Mg Capsule, 3 CAP PO TID for 30 Days, #90 CAP 0 Refills 07/20/24 Cariprazine Hydrochloride (Vraylar) 3 Mg Capsule, 1 CAP PO DAILY for 30 Days, #30 CAP 0 Refills 07/20/24 Semaglutide (Ozempic) 1 Mg/0.75 Ml (4 Mg/3 Ml) Pen.injctr, 1 MG SQ QWEEK 03/12/24 Lisinopril (Lisinopril) 10 Mg Tablet, 1 TAB PO DAILY for blood pressure 03/12/24 Ziprasidone HCl (Ziprasidone HCl) 40 Mg Capsule, 1 CAP PO BID 03/12/24 Venlafaxine HCl (Venlafaxine HCl ER) 150 Mg Cap.er.24h, 1 CAP PO DAILY 03/12/24 Past Medical History Past Medical History: Anxiety, Bipolar, Depression Additional Past Medical Hx: FATTY LIVER Surgical History: None Surgical History Other: R ANKLE SX Family History: Negative Social History: Drugs, Negative, Lives with family, Other History: Not Applicable RN Note Reviewed/Agreed w/PFSH: Yes Review of System Dictation Constitutional: Negative for fever,chills, and weight loss Eyes: Negative for injury, pain,redness, and discharge ENT: Negative for injury,pain or swelling Cardiovascular: Negative for chest pain, palpitations, and edema Respiratory: Negative for shortness of breath, cough, and wheezing, Abdomen/GI: Negative for abdominal pain, nausea, vomiting, diarrhea, and constipation Back: Negative for injury and pain : Negative for injury, bleeding and discharge MS/Extremity: Negative for injury and deformity Skin: Negative for rash, and discoloration Neuro: Negative for headache, weakness, numbness, tingling, and seizure Psych: Negative for suicide ideation, homicidal ideation, and hallucinations Initial Vital Sign VS Vital Signs Date Time Temp Pulse Resp B/P (MAP) Pulse Ox O2 Delivery O2 Flow Rate FiO2 10/30/24 19:57 98.8 84 20 132/74 98 Room Air 0 10/30/24 20:05 21 Physical Exam Dictation General: awake, alert, NAD Head/Face: Normocephalic, atraumatic Eyes: PERRL, EOMI, vision at baseline ENT: oral cavity clear, TMs clear, no signs of infection Neck: Trachea midline, supple, no nuchal rigidity Cardiovascular: RRR, normal S1/S2, No MRGs, no JVD Respiratory: CTAB, no respiratory distress, No rales or wheezes Abdomen: Soft, non-tender, non-distended, normal bowel sounds, no guarding or rebound. Skin: Warm, dry, normal turgor, no rash MS/Extremity: Pulses equal, no cyanosis, neurovascular intact, FROM Neuro: COAx4, GCS 15, strength 5/5, CN 2-12 intact, normal cerebellar exam, normal gait, Psych: Normal behavior, mood, and affect normal Extremities-trace edema without any palpable cords, Homans sign is negative Results (Laboratory/Radiology) Laboratory/Radiology Laboratory Tests Test 10/30/24 20:23 Urine Color LIGHT-YELLOW (YELLOW) Urine Appearance CLEAR (CLEAR) Urine pH 5.5 (5.0-8.0) Urine Specific [place] 1.019 (1.001-1.031) Urine Protein 10 mg/dL (NEGATIVE) H Urine Glucose (UA) NEGATIVE mg/dL (NEGATIVE) Urine Ketones NEGATIVE mg/dL (NEGATIVE) Urine Occult Blood NEGATIVE (NEGATIVE) Urine Nitrate NEGATIVE (NEGATIVE) Urine Bilirubin NEGATIVE mg/dL (NEGATIVE) Urine Urobilinogen 0.2 mg/dL (0.2-1.0) Urine Leukocyte Esterase NEGATIVE Eliecer/uL Urine RBC 0-1 /HPF (0-1) Urine WBC 2-5 /HPF (0-1) H Urine Squamous Epithelial Cells RARE /HPF (0-2) Urine Bacteria None /HPF (None Seen) Urine Opiates Screen NEGATIVE (NEGATIVE) Urine Barbiturates Screen NEGATIVE (NEGATIVE) Urine Phencyclidine Screen NEGATIVE (NEGATIVE) Urine Amphetamines Screen NEGATIVE (NEGATIVE) Urine Benzodiazepines Screen NEGATIVE (NEGATIVE) Urine Cocaine Screen NEGATIVE (NEGATIVE) Urine Marijuana (THC) Screen NEGATIVE (NEGATIVE) Labs Reviewed?: Yes EKG Comment: 12 lead EKG done on 10/30/2024 at 9:14 p.m. showed a heart rate of 73, UT interval 159, QRS 92, QT/QTC 495/547 Impression normal sinus rhythm with a prolonged QT interval no acute ST elevations noted. Interpreted by ER MD Dr. Evans ED Course ED Course Orders Procedure Category Date Status Time Alcohol, Blood LAB 10/30/24 Logged 20:36 Cbc With Differential LAB 10/30/24 Logged 20:36 Basic Metabolic Panel LAB 10/30/24 Logged 20:36 Testing, LAB 10/30/24 Logged Serum Hcg 20:36 Acetaminophen LAB 10/30/24 Logged 20:36 Urinalysis Profile LAB 10/30/24 Complete 20:36 Drug Screen Urine LAB 10/30/24 Complete 20:36 Arterial Blood Gas RT 10/30/24 Transmitted 20:47 12 Lead Ekg Tracing- EKG 10/30/24 Complete Technical 21:05 Salicylate LAB 10/30/24 Logged 20:36 Vital Signs Date Time Temp Pulse Resp B/P (MAP) Pulse Ox O2 Delivery O2 Flow Rate FiO2 10/30/24 23:10 79 17 105/52 98 Room Air* 0 21 10/30/24 22:36 82 15 92/33 93 Room Air* 0 10/30/24 20:51 76 19 94/46 92 Room Air* 0 10/30/24 20:05 99.0 84 18 124/65 98 Room Air* 0 21 10/30/24 19:57 98.8 84 20 132/74 98 Room Air 0 We will perform diagnostic labs, and administer medications according to the patient's complaint. Once the results are available, will review and personally interpreted the labs to rule out any acute life-threatening emergency the trach require immediate intervention and treatment. I will then re-evaluate the patient after treatment and diagnostic exams have return to determine whether the patient requires any further testing, can safely be discharged home or need further admission to hospital for additional treatment and evaluation. Labs reviewed. Poison control was also consulted and all measures have already been instituted including placing her on telemetry, EKG reviewed, gentle hydration initiated. Patient was observed in the emergency room for more than 4 hours and she was getting very ansy wanted the IV to be taken off and she did not want any repeat labs done. She was alert awake oriented x3 ambulating without any problems and she left against medical advice Medical Decision Making MDM MDM: Differential diagnosis: Impulsive behavior, depression, suicidal ideations. Rationale: Tests considered and ordered secondary to shared decision making include: labs, ECG and radiology Previous outside records reviewed: Old ER visits. Risk of complication and/or morbidity or mortality of patient management: None Medications-Per medication reconciliation Need for hospitalization: Patient does meet criteria for hospitalization. Need for emergency major/minor surgery: No There are no social concerns with this patient. Prescription drug management Prescriptions will include symptomatic care Patient's prior external medical records from other ER visits were reviewed by me as indicated. Prior testing and results from previous visits were reviewed. Prior tests were taken into account with medical decision making and resource utilization, independent historian/historians were used to obtain complete medical history. I independently interpreted the test that were performed, results were reviewed by me and considered findings on radiology if ordered. Medical management and examination interpretation discussions were had by me with other qualified healthcare professionals as indicated for the patient's care. Behavioral health consultation was planned after medically clearing the patient however the patient did not want to wait and left AMA Problem List Problem List: (1) Intentional overdose of trazodone (2) Anxiety and depression (3) Diabetes mellitus (4) Hypertension (5) Polysubstance abuse (6) History of bipolar disorder DX & DISP Disposition: AMA Departure Impression: Primary Impression: Intentional overdose of trazodone Additional Impressions: Polysubstance abuse, Morbid obesity, History of bipolar disorder, Hypertension, Diabetes mellitus, Anxiety and depression Condition: Stable Additional Instructions: Patient signed out against medical advice from the emergency room. As per the primary nurse patient does not wish to continue any treatment at this time and is refusing to stay and complete the evaluation and disposition. The patient is fully aware of all the risks and benefits of leaving against medical advice. Possible benefits include correction of the current medical condition and improvement of symptoms. However the patient was advised the possible risks of leaving against medical advice include worsening of the current medical condition, including or causing . The patient and caregiver verbalized understanding of the risks and benefits discussed and despite this, the patient has signed out against medical advice. Please refer to the nursing documentation for further details. Patient has was advised to follow up at least with their primary care physician as soon as possible or return to the emergency department if symptoms worsen Referrals: RUBY ROWLAND MD (PCP) KATIE EVANS MD Oct 30, 2024 20:33
--- NOTE | 2024-10-30 20:47 | NUR ---
RT CALLED AT THIS TIME REGAURDING ABG GAS DRAW.
--- NOTE | 2024-10-30 20:47 | NUR ---
POSION CONTROL CALLED AT THIS TIME. GUIDANCE PROVIDED. ED MD DIMAS AWARE AT THIS TIME. .
--- NOTE | 2024-10-30 21:17 | EKG ---
[facility] Test Date: 2024-10-30 Test Time: 21:14:37 Pat Name: BRENDEN ESTRADA Department: [facility] Room: Gender: F [employer] Chief: [id number] : 1985 Requested By: KATIE VAZQUEZ Order Number: [id number] Reading MD: Hany Kelley Measurements Intervals [place] Rate: 73 P: 18 [place]: 149 QRS: 29 QRSD: 92 T: 53 QT: 495 QTc: 547 Interpretive Statements Sinus rhythm Prolonged QT interval Compared to ECG 04/20/2024 21:00:23 Prolonged QT interval now present Electronically Signed On 10-31-2024 19:19:39 OPERATIONS LIAISON by Hany Kelley Please click the below link to view image of tracing.
[2024-10-30 21:18] LABS: APPEARANCE,URINE CLEAR (CLEAR); BILIRUBIN,URINE NEGATIVE (NEGATIVE); COLOR,URINE LIGHT-YELLOW (YELLOW); GLUCOSE, URINE (UA) NEGATIVE (NEGATIVE); KETONES,URINE NEGATIVE (NEGATIVE); LEUKOCYTE ESTERASE ,URINE NEGATIVE Leu/uL (NEGATIVE); NITRATE,URINE NEGATIVE (NEGATIVE); OCCULT BLOOD,URINE NEGATIVE (NEGATIVE); PH,URINE 5.5 (5.0-8.0); PROTEIN,URINE 10 mg/dL (NEGATIVE); UROBILINOGEN,URINE 0.2 mg/dL (0.2-1.0)
[2024-10-30 21:26] LABS: ADD UA MICROSCOPIC YES; AMPHET/METH SCREEN,URINE NEGATIVE (NEGATIVE); BARBITURATE SCREEN, URINE NEGATIVE (NEGATIVE); BENZODIAZEPINES SCREEN,URINE NEGATIVE (NEGATIVE); CANNABINOID SCREEN,URINE NEGATIVE (NEGATIVE); COCAINE SCREEN,URINE NEGATIVE (NEGATIVE); OPIATE SCREEN,URINE NEGATIVE (NEGATIVE); PHENCYCLIDINE SCREEN,URINE NEGATIVE (NEGATIVE)
[2024-10-30 21:30] LABS: RBC,URINE 0-1 /HPF (0-1); SQUAMOUS EPITHELIAL CELL,UR RARE /HPF (0-2)
[2024-10-30 23:10] VITALS: BP 105/52; PULSE 79; RESP 17; O2SAT 98
--- NOTE | 2024-10-30 23:23 | NUR ---
[facility] CALLED AT THIS TIME TO ATTEMPT TO DRAW LABS AFTER ED RN ATTEMPTED.
--- NOTE | 2024-10-30 23:30 | NUR ---
PT REFUSING BLOOD DRAW AT THIS TIME. EDUCATION WAS PROVIDED ON THE IMPORTANCE OF LABS. PT VERBILIZED UDERSTANDING OF EDUCATION OF BLOOD DRAW. PT STILL REFUSING AT THIS TIME.
--- NOTE | 2024-10-31 00:05 | NUR ---
PT PT REQUESTS TO LEAVE AMA AT THIS TIME. PT IS A&OX4 WILL FULL DECISIONAL CAPACITY. PATENT REPORTS STHAT SHE UNDERSTANDS HER CONDITION AND THE RISKS ASSOICATED WITH LEAVING AMA, INCLUDING BUT NOT LIMITED TO PERAMANENT DISABILITY OR AND HAD THE OPPORTUNITY TO ASK QUESTIONS ABOUT THE MEDICAL CONDITION. THE PATIENT HAS BEEN INFOMRED TO SEEK MEDICAL SERVICES IN EVENT OF AN EMERGENCY. PT VERBILIZED UNDERSTANDING OF THE ABOVE STATEMENTS. PATIENT LEFT BEFORE AMA FORM COULD BE SIGNED BY PATIENT. LAST VS BP-105/68 HR - 79 RR - 17 SaO2 - 98% RA
== END 2024-10-31 00:05 | disposition left against medical advice (07) ==
LOC: EDH 19:56
DX: T43.212A Poisoning by selective serotonin and norepinephrine reuptake inhibitors, intentional self-harm, initial encounter (principal); F31.9 Bipolar disorder, unspecified; F19.10 Other psychoactive substance abuse, uncomplicated; E66.01 Morbid (severe) obesity due to excess calories; E11.9 Type 2 diabetes mellitus without complications; F41.9 Anxiety disorder, unspecified; I10 Essential (primary) hypertension; Z79.85 Long-term (current) use of injectable non-insulin antidiabetic drugs; Z79.899 Other long term (current) drug therapy; Z88.1 Allergy status to other antibiotic agents; Y92.89 Other specified places as the place of occurrence of the external cause
CPT/HCPCS: 36600; 80305; 81001; 93005; 99284

== ENCOUNTER 2024-11-26 13:27 | Emergency (ER) | payer BC, MEDICAID ==
[~2024-11-26] VITALS: Ht 180.3 cm; Wt 174.6 kg
[2024-11-26 13:44] LABS: ADD UA MICROSCOPIC YES; APPEARANCE,URINE HAZY (CLEAR); BILIRUBIN,URINE NEGATIVE (NEGATIVE); COLOR,URINE YELLOW (YELLOW); GLUCOSE, URINE (UA) NEGATIVE (NEGATIVE); KETONES,URINE NEGATIVE (NEGATIVE); LEUKOCYTE ESTERASE ,URINE 25 Leu/uL (NEGATIVE); NITRATE,URINE NEGATIVE (NEGATIVE); OCCULT BLOOD,URINE SMALL (NEGATIVE); PH,URINE 5.5 (5.0-8.0); PROTEIN,URINE NEGATIVE (NEGATIVE); UROBILINOGEN,URINE 0.2 mg/dL (0.2-1.0)
[2024-11-26 13:46] LABS: BACTERIA,URINE FEW /HPF (None Seen); MUCUS,URINE RARE LPF (None Seen); SQUAMOUS EPITHELIAL CELL,UR MANY /HPF (0-2)
[2024-11-26 13:54] LABS: AMPHET/METH SCREEN,URINE NEGATIVE (NEGATIVE); BARBITURATE SCREEN, URINE NEGATIVE (NEGATIVE); BENZODIAZEPINES SCREEN,URINE NEGATIVE (NEGATIVE); CANNABINOID SCREEN,URINE POSITIVE (NEGATIVE); COCAINE SCREEN,URINE NEGATIVE (NEGATIVE); OPIATE SCREEN,URINE NEGATIVE (NEGATIVE); PHENCYCLIDINE SCREEN,URINE NEGATIVE (NEGATIVE)
[2024-11-26 14:09] LABS: BASOPHILS # (AUTO) 0.02 K/uL (0.00-0.20); BASOPHILS % (AUTO) 0.5 % (0.0-5.0); EOSINOPHILS # (AUTO) 0.18 K/uL (0.00-0.70); EOSINOPHILS % (AUTO) 4.1 % (0.0-8.0); HEMATOCRIT 38.9 % (36-48); IMMATURE GRANULOCYTE ABSOLUTE 0.01 K/uL (0-1); LYMPHOCYTES # (AUTO) 1.3 K/uL (1.0-4.8); LYMPHOCYTES % (AUTO) 29.6 % (21.0-51.0); MEAN CORPUSCULAR HEMOGLOBIN 28.3 pg (27.0-33.0); MEAN CORPUSCULAR HGB CONC 32.9 g/dL (32.0-36.0); MEAN CORPUSCULAR VOLUME 85.9 fL (79-99); MONOCYTES # (AUTO) 0.4 K/uL (0.1-1.0); MONOCYTES % (AUTO) 9.3 % (3.0-13.0); NEUTROPHILS # (AUTO) 2.5 K/uL (1.8-7.7); NEUTROPHILS % (AUTO) 56.3 % (40.0-77.0); PLATELET COUNT (AUTO) 217 K/uL (130-400); RED BLOOD CELL COUNT(AUTO) 4.53 MIL/uL (4.00-5.50); RED CELL DISTRIBUTION WIDTH 14.4 % (11.0-15.5); WHITE BLOOD COUNT (AUTO) 4.4 K/uL (4.8-10.8)
--- NOTE | 2024-11-26 14:10 | ERN ---
ED Note History of Present Illness Stated Complaint: SI Chief Complaint: Suicidal Ideation Time Seen by MD: 13:29 Time Seen by Midlevel: 13:33 Dictation: 39-year-old female with a history of hypertension, diabetes, depression schizophrenia coming in with complaints of suicidal ideation, states she will take some pills and overdose. Patient states he has been feeling depressed for the last two months because she lost her father. Allergies: Coded Allergies: ceftriaxone (Verified Adverse Reaction, Mild, Nausea, vomiting , 03/12/24) Home Meds Active Scripts Acetaminophen (Tylenol) 500 Mg Tab, 1 TAB PO Q6HPRN PRN for pain or fever for 5 Days, #20 TAB 0 Refills Prov:WALTER CHERY MD 09/22/24 Ibuprofen (Ibuprofen) 400 Mg Tablet, 1 TAB PO Q6HPRN PRN for pain or fever for 5 Days, #20 TAB 0 Refills Prov:WALTER CHERY MD 09/22/24 Sulfamethoxazole/Trimethoprim (Bactrim Ds Tablet) 800 Mg-160 Mg Tablet, 1 TAB PO BID for 7 Days, #14 TAB 0 Refills Prov:CHRISTIANO PURCELL 09/19/24 Diphenhydramine HCl (Benadryl) 50 Mg Cap, 50 MG PO Q6H for itching/rash, #20 CAP 0 Refills Prov:VERÓNICA TOBIAS NP 09/15/24 Ivermectin (Ivermectin) 3 Mg Tablet, 5 TAB PO ONCE for 1 Day, #5 TAB 0 Refills Prov:VERÓNICA TOBIAS NP 09/15/24 Amoxicillin/Potassium Clav (Amox Tr-K Clv 875-125 mg Tab) 875 Mg-125 Mg Tablet, 1 TAB PO BID for 10 Days, #20 TAB 0 Refills Prov:GERALDINE MARK MD 09/06/24 Pantoprazole Sodium (Protonix) 40 Mg Tablet.dr, 1 TAB PO DAILY for 30 Days, #30 TAB 0 Refills Prov:SONYA RODRÍGUEZ 07/20/24 Levofloxacin (Levofloxacin) 500 Mg Tablet, 1 TAB PO DAILY for 7 Days, #7 TAB 0 Refills Prov:SONYA RODRÍGUEZ 07/20/24 Reported Medications Gabapentin (Gabapentin) 100 Mg Capsule, 3 CAP PO TID for 30 Days, #90 CAP 0 Refills 07/20/24 Cariprazine Hydrochloride (Vraylar) 3 Mg Capsule, 1 CAP PO DAILY for 30 Days, #30 CAP 0 Refills 07/20/24 Semaglutide (Ozempic) 1 Mg/0.75 Ml (4 Mg/3 Ml) Pen.injctr, 1 MG SQ QWEEK 03/12/24 Lisinopril (Lisinopril) 10 Mg Tablet, 1 TAB PO DAILY for blood pressure 03/12/24 Ziprasidone HCl (Ziprasidone HCl) 40 Mg Capsule, 1 CAP PO BID 03/12/24 Venlafaxine HCl (Venlafaxine HCl ER) 150 Mg Cap.er.24h, 1 CAP PO DAILY 03/12/24 Past Medical History Past Medical History: Anxiety, Bipolar, Diabetes-Type II, Hypertension, Schizophrenia Additional Past Medical Hx: FATTY LIVER Surgical History: None Surgical History Other: R ANKLE SX Family History: Negative Social History: Drugs, Negative, Lives with family, Other History: Not Applicable Review of System Dictation Constitutional: Negative for fever,chills, and weight loss Eyes: Negative for injury, pain,redness, and discharge ENT: Negative for injury,pain or swelling Cardiovascular: Negative for chest pain, palpitations, and edema Respiratory: Negative for shortness of breath, cough, and wheezing, Abdomen/GI: Negative for abdominal pain, nausea, vomiting, diarrhea, and constipation Back: Negative for injury and pain : Negative for injury, bleeding and discharge MS/Extremity: Negative for injury and deformity Skin: Negative for rash, and discoloration Neuro: Negative for headache, weakness, numbness, tingling, and seizure Psych: Positive for suicide ideation, no homicidal ideation, and no hallucinations Review of Systems: was completed Initial Vital Sign VS Vital Signs Date Time Temp Pulse Resp B/P (MAP) Pulse Ox O2 Delivery O2 Flow Rate FiO2 11/26/24 13:28 98.8 82 20 123/67 97 Room Air* 0 21 Physical Exam Dictation General: awake, alert, NAD Head/Face: Normocephalic, atraumatic Eyes: PERRL, EOMI, vision at baseline ENT: oral cavity clear, TMs clear, no signs of infection Neck: Trachea midline, supple, no nuchal rigidity Cardiovascular: RRR, normal S1/S2, No MRGs, no JVD Respiratory: CTAB, no respiratory distress, No rales or wheezes Abdomen: Soft, non-tender, non-distended, normal bowel sounds, no guarding or rebound. Skin: Warm, dry, normal turgor, no rash MS/Extremity: Pulses equal, no cyanosis, neurovascular intact, FROM Neuro: COAx4, GCS 15, strength 5/5, CN 2-12 intact, normal cerebellar exam, normal gait, Psych: Normal behavior, mood, and affect normal Results (Laboratory/Radiology) Laboratory/Radiology Laboratory Tests Test 11/26/24 13:35 11/26/24 13:54 Urine Color YELLOW (YELLOW) Urine Appearance HAZY (CLEAR) Urine pH 5.5 (5.0-8.0) Urine Specific [place] 1.015 (1.001-1.031) Urine Protein NEGATIVE mg/dL (NEGATIVE) Urine Glucose (UA) NEGATIVE mg/dL (NEGATIVE) Urine Ketones NEGATIVE mg/dL (NEGATIVE) Urine Occult Blood SMALL (NEGATIVE) H Urine Nitrate NEGATIVE (NEGATIVE) Urine Bilirubin NEGATIVE mg/dL (NEGATIVE) Urine Urobilinogen 0.2 mg/dL (0.2-1.0) Urine Leukocyte Esterase 25 Eliecer/uL (NEGATIVE) H Urine RBC 2-5 /HPF (0-1) H Urine WBC 6-10 /HPF (0-1) H Urine Squamous Epithelial Cells MANY /HPF (0-2) Urine Bacteria FEW /HPF (None Seen) Urine Opiates Screen NEGATIVE (NEGATIVE) Urine Barbiturates Screen NEGATIVE (NEGATIVE) Urine Phencyclidine Screen NEGATIVE (NEGATIVE) Urine Amphetamines Screen NEGATIVE (NEGATIVE) Urine Benzodiazepines Screen NEGATIVE (NEGATIVE) Urine Cocaine Screen NEGATIVE (NEGATIVE) Urine Marijuana (THC) Screen POSITIVE (NEGATIVE) H White Blood Count 4.4 K/uL (4.8-10.8) L Red Blood Count 4.53 MIL/uL (4.00-5.50) Hemoglobin 12.8 g/dL (12.0-16.0) Hematocrit 38.9 % (36-48) Mean Corpuscular Volume 85.9 fL (79-99) Mean Corpuscular Hemoglobin 28.3 pg (27.0-33.0) Mean Corpuscular Hemoglobin Concent 32.9 g/dL (32.0-36.0) Red Cell Distribution Width 14.4 % (11.0-15.5) Platelet Count 217 K/uL (130-400) Mean Platelet Volume 10.8 fL (7.5-10.5) H Immature Granulocyte % (Auto) 0.2 % (0-1) Neutrophils (%) (Auto) 56.3 % (40.0-77.0) Lymphocytes (%) (Auto) 29.6 % (21.0-51.0) Monocytes (%) (Auto) 9.3 % (3.0-13.0) Eosinophils (%) (Auto) 4.1 % (0.0-8.0) Basophils (%) (Auto) 0.5 % (0.0-5.0) Neutrophils # (Auto) 2.5 K/uL (1.8-7.7) Lymphocytes # (Auto) 1.3 K/uL (1.0-4.8) Monocytes # (Auto) 0.4 K/uL (0.1-1.0) Eosinophils # (Auto) 0.18 K/uL (0.00-0.70) Basophils # (Auto) 0.02 K/uL (0.00-0.20) Absolute Immature Granulocyte (auto 0.01 K/uL (0-1) Nucleated Red Blood Cells 0.0 % (0.0-0.19) Sodium Level 142 mmol/L (136-145) Potassium Level 3.6 mmol/L (3.5-5.1) Chloride Level 103 mmol/L (101-111) Carbon Dioxide Level 31 mmol/L (21-32) Blood Urea Nitrogen 12 mg/dL (7-18) Creatinine 0.8 mg/dL (0.5-1.0) Glomerular Filtration Rate Calc 97 mL/min (>90) Random Glucose 109 mg/dL (70-105) H Total Calcium 8.9 mg/dL (8.5-10.1) Human Chorionic Gonadotropin, Quant 0 mIU/mL (0-5) Serum Test, Qualitative NEGATIVE (NEGATIVE) Salicylates Level < 2.8 mg/dL (2.8-20.0) L Acetaminophen Level < 1 mcg/mL (10-30) L Serum Alcohol < 3 mg/dL (0-10) Labs Reviewed?: Yes ED Course ED Course Orders Procedure Category Date Status Time Cbc With Differential LAB 11/26/24 Complete 13:31 Basic Metabolic Panel LAB 11/26/24 Complete 13:31 Acetaminophen LAB 11/26/24 Complete 13:31 Salicylate LAB 11/26/24 Complete 13:31 Hcg,Quantitative LAB 11/26/24 Complete 13:31 Drug Screen Urine LAB 11/26/24 Complete 13:31 Testing, LAB 11/26/24 Complete Serum Hcg 13:31 Alcohol, Blood LAB 11/26/24 Complete 13:31 Urinalysis Profile LAB 11/26/24 Complete 13:31 Culture Urine ANGELITA 11/26/24 In Process 13:47 Vital Signs Date Time Temp Pulse Resp B/P (MAP) Pulse Ox O2 Delivery O2 Flow Rate FiO2 11/26/24 13:28 98.8 82 20 123/67 97 Room Air 0 11/26/24 13:28 98.8 82 20 123/67 97 Room Air* 0 21 Medical Decision Making MDM MDM: 39-year-old female with a history of hypertension, diabetes, depression schizophrenia coming in with complaints of suicidal ideation, states she will take some pills and overdose. Patient states he has been feeling depressed for the last two months bCBC shows no leukocytosis, no anemia, no thrombocytopenia. Chemistry unremarkable. Patient's negative toxicology positive for marijuana. Patient was screened but did not meet criteria. We will follow up with topical outpatient. Patient called mother to come and pick her up. Vital signs have remained stable. Educated patient to return to the ER if she has recurrent symptoms. Differential diagnosis: Suicidal ideations, depression, truck intoxication Rationale: Tests considered and ordered secondary to shared decision making include: Previous outside records reviewed: Old ER visits. Risk of complication and/or morbidity or mortality of patient management: None Medications-Per medication reconciliation Need for hospitalization: Patient does not meet criteria for hospitalization. Need for emergency major/minor surgery: No There are no social concerns with this patient. Prescription drug management Prescriptions will include symptomatic care Patient's prior external medical records from other ER visits were reviewed by me as indicated. Prior testing and results from previous visits were reviewed. Prior tests were taken into account with medical decision making and resource utilization, independent historian/historians were used to obtain complete medical history. I independently interpreted the test that were performed, results were reviewed by me and considered findings on radiology if ordered. Medical management and examination interpretation discussions were had by me with other qualified healthcare professionals as indicated for the patient's care. DX & DISP Disposition: Discharge Departure Impression: Primary Impression: Depression with suicidal ideation Condition: Stable Additional Instructions: Follow up with topical as scheduled by screener. Return to the ER you have recurrent symptoms. Referrals: RUBY ROWLAND MD (PCP) Time of Disposition: 17:20 I have reviewed the case, and I agree with, Diagnosis and Plan VELVET ROSALES NP Nov 26, 2024 14:10
[2024-11-26 14:13] LABS: CARBON DIOXIDE 31 mmol/L (21-32); CHLORIDE 103 mmol/L (101-111); CREATININE 0.8 mg/dL (0.5-1.0); GLOMERULAR FILTR. RATE CALC 97 mL/min (>90); GLUCOSE,RANDOM 109 mg/dL (70-105); POTASSIUM 3.6 mmol/L (3.5-5.1); SODIUM SERUM 142 mmol/L (136-145); UREA NITROGEN, BLOOD 12 mg/dL (7-18)
[2024-11-26 14:23] LABS: ALCOHOL, BLOOD < 3 mg/dL (0-10); HCG,QUANTITATIVE 0 mIU/mL (0-5)
[2024-11-26 14:33] LABS: SALICYLATE < 2.8 mg/dL (2.8-20.0)
[2024-11-26 14:34] LABS: ACETAMINOPHEN < 1 mcg/mL (10-30)
--- NOTE | 2024-11-26 15:00 | NUR ---
CALLED [employer]OOFSHE[employer] CORRECT[employer], WILL CONTACT TRADING ASSISTANT TO COME MARICARMEN JOHNSON.
--- NOTE | 2024-11-26 15:31 | NUR ---
SCREENER AT BEDSIDE WITH PT.
[2024-11-26 16:30] VITALS: BP 122/62; PULSE 74; RESP 18; TEMP 98.7; O2SAT 96
--- NOTE | 2024-11-26 17:34 | NUR ---
patient left without her dc paperwork
== END 2024-11-26 17:36 | disposition home or self-care (01) ==
LOC: EDH 13:27
DX: R45.851 Suicidal ideations (principal); F32.A Depression, unspecified; E11.9 Type 2 diabetes mellitus without complications; F20.9 Schizophrenia, unspecified; F41.9 Anxiety disorder, unspecified; I10 Essential (primary) hypertension; R10.2 Pelvic and perineal pain; Z79.85 Long-term (current) use of injectable non-insulin antidiabetic drugs; Z79.899 Other long term (current) drug therapy; Z88.1 Allergy status to other antibiotic agents
CPT/HCPCS: 99283; 80048; 80305; 84703; 84702; 85025; 87086; 36415; 81001; G0481

== ENCOUNTER 2025-01-04 00:55 | Emergency (ER) | payer BC, MEDICAID ==
[~2025-01-04] VITALS: Ht 180.3 cm; Wt 177.4 kg
[2025-01-04 01:57] LABS: APPEARANCE,URINE CLEAR (CLEAR); BILIRUBIN,URINE NEGATIVE (NEGATIVE); COLOR,URINE LIGHT-YELLOW (YELLOW); GLUCOSE, URINE (UA) NEGATIVE (NEGATIVE); KETONES,URINE NEGATIVE (NEGATIVE); LEUKOCYTE ESTERASE ,URINE NEGATIVE Leu/uL (NEGATIVE); NITRATE,URINE NEGATIVE (NEGATIVE); OCCULT BLOOD,URINE NEGATIVE (NEGATIVE); PH,URINE 5.5 (5.0-8.0); PROTEIN,URINE NEGATIVE (NEGATIVE); UROBILINOGEN,URINE 0.2 mg/dL (0.2-1.0)
[2025-01-04 02:00] LABS: ADD UA MICROSCOPIC NO
[2025-01-04 02:06] LABS: RAPID GROUP A STREP negative (NEGATIVE)
[2025-01-04 02:08] LABS: SARS-CoV-2, RNA, NAAT NEGATIVE SARS CoV-2 (NEGATIVE)
[2025-01-04 02:15] LABS: INFLUENZA TYPE A Negative For Type A (NEGATIVE); INFLUENZA TYPE B Negative For Type B (NEGATIVE)
[2025-01-04] MEDS ORDERED: IpraTROPium/alBUTERol SULFATE 3 ML SOLUTION IH ONE (03:00)
[2025-01-04 03:10] VITALS: PULSE 92; RESP 18
--- NOTE | 2025-01-04 03:34 | ERN ---
General Chief Complaint: Cough Stated Complaint: C/O COUGH,SOB, SORE THROAT Time Seen by MD: 01:56 Source: patient History of Present Illness Initial Comments 9-year-old female who has past medical history of obesity diabetes type 2 and hypertension he also has a history of asthma that infrequently flares. He feels like he is having one of those flares now. He would like to have a nebulizer therapy. He does not carry a inhaler with him as he feels like they never work. Patient does not feel like he is coming down with a cold he does not have a cough nor does he has have any sneezing or rhinorrhea. Timing/Duration: 24 hours Allergies: Coded Allergies: ceftriaxone (Verified Adverse Reaction, Mild, Nausea, vomiting , 03/12/24) Home Meds Active Scripts Acetaminophen (Tylenol) 500 Mg Tab, 1 TAB PO Q6HPRN PRN for pain or fever for 5 Days, #20 TAB 0 Refills Prov:WALTER CHERY MD 09/22/24 Ibuprofen (Ibuprofen) 400 Mg Tablet, 1 TAB PO Q6HPRN PRN for pain or fever for 5 Days, #20 TAB 0 Refills Prov:WALTER CHERY MD 09/22/24 Sulfamethoxazole/Trimethoprim (Bactrim Ds Tablet) 800 Mg-160 Mg Tablet, 1 TAB PO BID for 7 Days, #14 TAB 0 Refills Prov:CHRISTIANO PURCELL 09/19/24 Diphenhydramine HCl (Benadryl) 50 Mg Cap, 50 MG PO Q6H for itching/rash, #20 CAP 0 Refills Prov:VERÓNICA TOBIAS NP 09/15/24 Ivermectin (Ivermectin) 3 Mg Tablet, 5 TAB PO ONCE for 1 Day, #5 TAB 0 Refills Prov:VERÓNICA TOBIAS NP 09/15/24 Amoxicillin/Potassium Clav (Amox Tr-K Clv 875-125 mg Tab) 875 Mg-125 Mg Tablet, 1 TAB PO BID for 10 Days, #20 TAB 0 Refills Prov:GERALDINE MARK MD 09/06/24 Pantoprazole Sodium (Protonix) 40 Mg Tablet.dr, 1 TAB PO DAILY for 30 Days, #30 TAB 0 Refills Prov:SONYA RODRÍGUEZ AGPCNP 07/20/24 Levofloxacin (Levofloxacin) 500 Mg Tablet, 1 TAB PO DAILY for 7 Days, #7 TAB 0 Refills Prov:SONYA RODRÍGUEZ AGPCNP 07/20/24 Reported Medications Gabapentin (Gabapentin) 100 Mg Capsule, 3 CAP PO TID for 30 Days, #90 CAP 0 Refills 07/20/24 Cariprazine Hydrochloride (Vraylar) 3 Mg Capsule, 1 CAP PO DAILY for 30 Days, #30 CAP 0 Refills 07/20/24 Semaglutide (Ozempic) 1 Mg/0.75 Ml (4 Mg/3 Ml) Pen.injctr, 1 MG SQ QWEEK 03/12/24 Lisinopril (Lisinopril) 10 Mg Tablet, 1 TAB PO DAILY for blood pressure 03/12/24 Ziprasidone HCl (Ziprasidone HCl) 40 Mg Capsule, 1 CAP PO BID 03/12/24 Venlafaxine HCl (Venlafaxine HCl ER) 150 Mg Cap.er.24h, 1 CAP PO DAILY 03/12/24 Past Medical History Past Medical History: Anxiety, Asthma, Bipolar, Depression, Diabetes-Type II, Hypertension, Other Medical History Other: PCOS Past Surgical History: Unknown Surgical History Other: R ANKLE SX Family History Family History: Negative Social History Social History: Drugs, Negative, Lives with family, Other Female( History) History: Not Applicable ROS Dictation Review of systems is negative the patient has no chest pain no abdominal pain no fevers or chills his symptomology really is restricted just to his asthma flare. Review of Systems: was completed, & the rest were negative. Physical Exam General Appearance: (+) no apparent distress Orientation: (+) oriented x 3 Eye: bilateral eye normal inspection, bilateral eye PERRL, bilateral eye EOMI Ear, Nose, Throat: (+) hearing grossly normal, (+) normal ENT inspection, (+) moist mucous membraine Neck: (+) normal inspection, (+) supple, (+) full range of motion, (+) no JVD Respiratory: (+) chest non-tender, (+) lungs clear, (+) decreased breath sounds Respiratory Comment The breath sounds are decreased in the sense that I since a lack of movement of air through all of his lung peralta. Heart tones are normal. Heart: (+) regular Vascular: (+) no edema, (+) normal peripheral pulse Results Laboratory and Microbiology Lab and Micro Result Laboratory Tests Test 01/04/25 01:07 Urine Color LIGHT-YELLOW (YELLOW) Urine Appearance CLEAR (CLEAR) Urine pH 5.5 (5.0-8.0) Urine Specific [place] 1.017 (1.001-1.031) Urine Protein NEGATIVE mg/dL (NEGATIVE) Urine Glucose (UA) NEGATIVE mg/dL (NEGATIVE) Urine Ketones NEGATIVE mg/dL (NEGATIVE) Urine Occult Blood NEGATIVE (NEGATIVE) Urine Nitrate NEGATIVE (NEGATIVE) Urine Bilirubin NEGATIVE mg/dL (NEGATIVE) Urine Urobilinogen 0.2 mg/dL (0.2-1.0) Urine Leukocyte Esterase NEGATIVE Eliecer/uL Urine HCG, Qualitative NEGATIVE (NEGATIVE) Influenza Type A Antigen Negative For Type A Influenza Type B Antigen Negative For Type B SARS-CoV-2, RNA, NAAT NEGATIVE SARS CoV-2 Group A Streptococcus Rapid negative (NEGATIVE) MDM I trust patient that he is correctly diagnosed himself with an asthma exacerbation. I will do a swabs for COVID and influenza. I will get a chest x- ray. And I will do a nebulizer therapy for him. ED Course Orders Procedure Category Date Status Time Covid Rna Naat LAB 01/04/25 Complete 01:07 Influenza Type A & B, LAB 01/04/25 Complete Rapid 01:07 Rapid (Group A Strep) LAB 01/04/25 Complete 01:07 Urinalysis Profile LAB 01/04/25 Complete 01:07 Ipratropium/Albuterol PHA 01/04/25 Logged Neb (Duoneb) 03:00 Chest 1vw RAD 01/04/25 Logged 02:47 ,Urine Test LAB 01/04/25 Complete 02:53 Current Medications Medications (Trade) Dose Ordered Sig/Radha Route PRN Reason Start Time Stop Time Status Last Admin Dose Admin Albuterol (DUOneb) 1 UDVIAL ONCE ONCE IH 01/04/25 03:00 01/04/25 03:01 UNV Vital Signs Date Time Temp Pulse Resp B/P (MAP) Pulse Ox O2 Delivery O2 Flow Rate FiO2 01/04/25 03:10 92 18 01/04/25 00:57 97.7 82 20 148/85 96 Room Air Patient's chest x-ray is negative for effusions pneumonia or pneumothorax. Patient's his swabs are negative for COVID. Patient did undergo nebulization. Follow-up exam shows good improvement in air entry into all his lung peralta. DX & DISP Disposition: Discharge Departure Impression: Primary Impression: Asthma attack Condition: Stable Referrals: RUBY ROWLAND MD (PCP) OCTAVIO GUERRERO MD Jan 04, 2025 03:34
[2025-01-04 05:00] VITALS: BP 132/78; PULSE 76; RESP 16; TEMP 97.8; O2SAT 97
--- NOTE | 2025-01-04 08:56 | HMCIMG ---
CHEST 1VW HISTORY: Asthma COMPARISON: 07/20/2024 FINDINGS: A frontal projection of the chest was obtained. No acute pulmonary infiltrates is seen. The heart is normal in size. Prominent interstitial markings are seen. Degenerative changes are seen. No evidence of aortic calcification is seen. IMPRESSION: 1. No acute pulmonary infiltrate is seen.
== END 2025-01-04 05:09 | disposition home or self-care (01) ==
LOC: EDH 00:55
DX: J45.909 Unspecified asthma, uncomplicated (principal); E11.9 Type 2 diabetes mellitus without complications; F41.9 Anxiety disorder, unspecified; I10 Essential (primary) hypertension; Z79.85 Long-term (current) use of injectable non-insulin antidiabetic drugs; Z79.899 Other long term (current) drug therapy; Z88.1 Allergy status to other antibiotic agents; Z20.822 Contact with and (suspected) exposure to COVID-19
CPT/HCPCS: 71045; 81003; 81025; 87635; 87804; 87880; 94640; 99283

== ENCOUNTER 2025-01-13 00:49 | Emergency (ER) | payer BC, MEDICAID ==
[~2025-01-13] VITALS: Ht 172.7 cm; Wt 90.7 kg
--- NOTE | 2025-01-13 02:04 | ERN ---
General Chief Complaint: Abdominal Pain Stated Complaint: LOWER ABDOMINAL PAIN Time Seen by MD: 01:11 Source: patient History of Present Illness Initial Comments Patient is a 39-year-old female with a history of diverticulitis comes in with lower abdominal pain and diarrhea that is nonbloody. She is concerned it is diverticulitis. Timing/Duration: 24 hours Allergies: Coded Allergies: ceftriaxone (Verified Adverse Reaction, Mild, Nausea, vomiting , 03/12/24) Home Meds Active Scripts Acetaminophen (Tylenol) 500 Mg Tab, 1 TAB PO Q6HPRN PRN for pain or fever for 5 Days, #20 TAB 0 Refills Prov:WALTER CHERY MD 09/22/24 Ibuprofen (Ibuprofen) 400 Mg Tablet, 1 TAB PO Q6HPRN PRN for pain or fever for 5 Days, #20 TAB 0 Refills Prov:WALTER CHERY MD 09/22/24 Sulfamethoxazole/Trimethoprim (Bactrim Ds Tablet) 800 Mg-160 Mg Tablet, 1 TAB PO BID for 7 Days, #14 TAB 0 Refills Prov:CHRISTIANO PURCELL 09/19/24 Diphenhydramine HCl (Benadryl) 50 Mg Cap, 50 MG PO Q6H for itching/rash, #20 CAP 0 Refills Prov:VERÓNICA TOBIAS NP 09/15/24 Ivermectin (Ivermectin) 3 Mg Tablet, 5 TAB PO ONCE for 1 Day, #5 TAB 0 Refills Prov:VERÓNICA TOBIAS NP 09/15/24 Amoxicillin/Potassium Clav (Amox Tr-K Clv 875-125 mg Tab) 875 Mg-125 Mg Tablet, 1 TAB PO BID for 10 Days, #20 TAB 0 Refills Prov:GERALDINE MARK MD 09/06/24 Pantoprazole Sodium (Protonix) 40 Mg Tablet.dr, 1 TAB PO DAILY for 30 Days, #30 TAB 0 Refills Prov:SONYA RODRÍGUEZ 07/20/24 Levofloxacin (Levofloxacin) 500 Mg Tablet, 1 TAB PO DAILY for 7 Days, #7 TAB 0 Refills Prov:SONYA RDORÍGUEZ 07/20/24 Reported Medications Gabapentin (Gabapentin) 100 Mg Capsule, 3 CAP PO TID for 30 Days, #90 CAP 0 Refills 07/20/24 Cariprazine Hydrochloride (Vraylar) 3 Mg Capsule, 1 CAP PO DAILY for 30 Days, #30 CAP 0 Refills 07/20/24 Semaglutide (Ozempic) 1 Mg/0.75 Ml (4 Mg/3 Ml) Pen.injctr, 1 MG SQ QWEEK 03/12/24 Lisinopril (Lisinopril) 10 Mg Tablet, 1 TAB PO DAILY for blood pressure 03/12/24 Ziprasidone HCl (Ziprasidone HCl) 40 Mg Capsule, 1 CAP PO BID 03/12/24 Venlafaxine HCl (Venlafaxine HCl ER) 150 Mg Cap.er.24h, 1 CAP PO DAILY 03/12/24 Past Medical History Past Medical History: Anxiety, Asthma, Bipolar, Depression, Diabetes-Type II, Diverticulitis, Hypertension, Other Medical History Other: PCOS Past Surgical History: Unknown Surgical History Other: R ANKLE SX Family History Family History: Negative Social History Social History: Drugs, Negative, Lives with family, Other Female( History) History: Not Applicable Constitutional: (-) chills, (-) diaphoresis, (-) fever, (-) malaise, (-) weakness, (-) other documentation EENTM: (-) eye pain, (-) blurred vision, (-) tearing, (-) double vision, (-) ear pain, (-) ear discharge, (-) nose pain, (-) nose congestion, (-) throat pain, (-) Throat swelling, (-) mouth pain, (-) tooth pain, (-) mouth swelling, (-) other documentation Respiratory: (-) cough, (-) orthopnea, (-) short of breath, (-) stridor, (-) wheezing, (-) other documentation Cardiovascular: (-) chest pain, (-) edema, (-) palpitations, (-) syncope, (-) dyspnea on exertion, (-) other documentation Gastrointestinal/Abdominal: (+) diarrhea Musculoskeletal: (-) Neck pain, (-) back pain, (-) Flank Pain, (-) joint pain, (-) joint swelling, (-) muscle pain, (-) muscle stiffness, (-) gout, (-) other documentation Skin: (-) laceration, (-) contusion, (-) abrasion, (-) abscess, (-) rash, (-) change in color, (-) change in hair, (-) change in nails, (-) diaphoresis, (-) dryness, (-) other documentation Neuro: (-) altered mental status, (-) headache, (-) syncope, (-) paralysis, (-) numbness, (-) seizure, (-) pre-existing deficit, (-) tremors, (-) weakness, (-) dizziness, (-) slurred speech, (-) vertigo, (-) other documentation Psych: (-) depression, (-) suicidal ideation, (-) anxiety, (-) emotional problems, (-) auditory hallucinations, (-) visual hallucinations Physical Exam General Appearance: (+) no apparent distress Orientation: (+) oriented x 3 Head/Face Trauma: No Eye: bilateral eye normal inspection, bilateral eye PERRL, bilateral eye EOMI Ear, Nose, Throat: (+) hearing grossly normal, (+) normal ENT inspection, (+) moist mucous membraine Neck: (+) normal inspection, (+) supple, (+) full range of motion Respiratory: (+) chest non-tender, (+) lungs clear, (+) well ventilated Heart: (+) regular, (+) no gallop Vascular: (+) no edema, (+) normal peripheral pulse Gastrointestinal: (+) soft, (+) non-tender, (+) no organomegaly, (+) bowel sound present Results Laboratory and Microbiology Lab and Micro Result Laboratory Tests Test 01/13/25 03:08 White Blood Count 10.8 K/uL (4.8-10.8) Red Blood Count 4.73 MIL/uL (4.00-5.50) Hemoglobin 13.7 g/dL (12.0-16.0) Hematocrit 40.4 % (36-48) Mean Corpuscular Volume 85.4 fL (79-99) Mean Corpuscular Hemoglobin 29.0 pg (27.0-33.0) Mean Corpuscular Hemoglobin Concent 33.9 g/dL (32.0-36.0) Red Cell Distribution Width 13.9 % (11.0-15.5) Platelet Count 210 K/uL (130-400) Mean Platelet Volume 11.2 fL (7.5-10.5) H Immature Granulocyte % (Auto) 1.4 % (0-1) H Neutrophils (%) (Auto) 70.8 % (40.0-77.0) Lymphocytes (%) (Auto) 21.1 % (21.0-51.0) Monocytes (%) (Auto) 4.7 % (3.0-13.0) Eosinophils (%) (Auto) 1.7 % (0.0-8.0) Basophils (%) (Auto) 0.3 % (0.0-5.0) Neutrophils # (Auto) 7.7 K/uL (1.8-7.7) Lymphocytes # (Auto) 2.3 K/uL (1.0-4.8) Monocytes # (Auto) 0.5 K/uL (0.1-1.0) Eosinophils # (Auto) 0.18 K/uL (0.00-0.70) Basophils # (Auto) 0.03 K/uL (0.00-0.20) Absolute Immature Granulocyte (auto 0.15 K/uL (0-1) Nucleated Red Blood Cells 0.0 % (0.0-0.19) Urine Color YELLOW (YELLOW) Urine Appearance CLEAR (CLEAR) Urine pH 5.5 (5.0-8.0) Urine Specific [place] 1.025 (1.001-1.031) Urine Protein 10 mg/dL (NEGATIVE) H Urine Glucose (UA) NEGATIVE mg/dL (NEGATIVE) Urine Ketones NEGATIVE mg/dL (NEGATIVE) Urine Occult Blood SMALL (NEGATIVE) H Urine Nitrate NEGATIVE (NEGATIVE) Urine Bilirubin NEGATIVE mg/dL (NEGATIVE) Urine Urobilinogen 0.2 mg/dL (0.2-1.0) Urine Leukocyte Esterase NEGATIVE Eliecer/uL Urine RBC 11-25 /HPF (0-1) H Urine WBC 2-5 /HPF (0-1) H Urine Squamous Epithelial Cells RARE /HPF (0-2) Urine Bacteria FEW /HPF (None Seen) Urine HCG, Qualitative NEGATIVE (NEGATIVE) Sodium Level 144 mmol/L (136-145) Potassium Level 3.6 mmol/L (3.5-5.1) Chloride Level 103 mmol/L (101-111) Carbon Dioxide Level 31 mmol/L (21-32) Blood Urea Nitrogen 14 mg/dL (7-18) Creatinine 0.9 mg/dL (0.5-1.0) Glomerular Filtration Rate Calc 84 mL/min (>90) Random Glucose 102 mg/dL (70-105) Total Calcium 9.7 mg/dL (8.5-10.1) Total Bilirubin 0.4 mg/dL (0.2-1.0) Direct Bilirubin 0.1 mg/dL (0.0-0.3) Aspartate Amino Transf (AST/SGOT) 19 U/L (10-37) Alanine Aminotransferase (ALT/SGPT) 37 U/L (12-78) Alkaline Phosphatase 73 U/L (50-136) Total Protein 7.7 g/dL (6.0-8.3) Albumin 3.5 g/dL (3.5-5.0) Lipase 27 U/L (16-77) MDM Patient has lower abdominal pain with diarrhea that is nonbloody and states she has a history of diverticulitis. I will start by getting a CBC and a CMP. A UA. I will give Zofran, and CT Abd pelvis with IV contrast. Pt had bloody diarrhea since coming to ED. I will try to manage without admitting pt. DR LOPEZ @ 0700 CC: diarrhea lower abdominal pain and cramping Historian: Patient Comorbidities: Anxiety, bipolar, depression, diabetes type 2, diverticulitis, hypertension Limitations by social determinants of health: None Differential diagnosis: Enteritis, infectious diarrhea, diverticulitis, other. Vital signs: Stable, remained stable in the ED Labs (independently ordered and interpreted by me): Normal CBC, electrolytes are stable. Liver Enzymes normal. Lipase normal. Urinalysis unremarkable. CT abdomen and pelvis without contrast: Unremarkable Provider prior to my arrival ordered and oral contrast study CT scan with IV and oral contrast shows no acute abnormalities Patient was symptoms consistent with diarrhea. She was no signs of dehydration or toxicity. The surgical pathology. We will DC. ED Course Orders Procedure Category Date Status Time Cbc With Differential LAB 01/13/25 Complete 02:20 Basic Metabolic Panel LAB 01/13/25 Complete 02:20 Hepatic Function Panel LAB 01/13/25 Complete 02:20 Lipase LAB 01/13/25 Complete 02:20 Ondansetron 4mg Inj PHA 01/13/25 Complete (Zofran 4mg Inj) 03:00 Urinalysis Profile LAB 01/13/25 Complete 03:05 ,Urine Test LAB 01/13/25 Complete 03:11 Iohexol (Omnipaque) PHA 01/13/25 Complete 05:01 Ct Abdomen/Pelvis W/O CT 01/13/25 Resulted Contrast 02:48 Ct Abdomen/Pelvis CT 01/13/25 Resulted W/Contrast 05:44 Diatr PHA 01/13/25 Complete Meglu/Diatrizoate 06:05 Iohexol (Omnipaque) PHA 01/13/25 Complete 10:12 Current Medications Medications (Trade) Dose Ordered Sig/Radha Route PRN Reason Start Time Stop Time Status Last Admin Dose Admin Diatrizoate Meglum/ Diatrizoate Sod (Gastrografin 66-10 Solution) 30 ml STK-MED ONCE .ROUTE 01/13/25 06:05 01/13/25 06:05 DC Iohexol (Omnipaque) 35,000 mg STK-MED ONCE IV 01/13/25 05:01 01/13/25 05:04 DC Iohexol (Omnipaque) 35,000 mg STK-MED ONCE IV 01/13/25 10:12 01/13/25 10:12 DC Ondansetron HCl (zoFRAN 4MG INJ) 4 mg ONCE ONCE IVP 01/13/25 03:00 01/13/25 03:33 DC 01/13/25 03:35 Vital Signs Date Time Temp Pulse Resp B/P (MAP) Pulse Ox O2 Delivery O2 Flow Rate FiO2 01/13/25 11:06 81 16 118/56 98 Room Air* 0 21 01/13/25 07:26 98.1 84 16 113/56 97 Room Air* 0 21 01/13/25 02:15 90 18 125/67 96 Room Air* 0 21 01/13/25 00:51 98.1 90 16 147/78 97 Room Air 0 DX & DISP Disposition: Discharge Departure Impression: Primary Impression: DIARRHEA, UNSPECIFIED Condition: Stable Scripts Dicyclomine HCl (Bentyl) 20 Mg Tab 1 TAB PO BID for irritable bowel symptoms for 10 Days, #20 TAB 0 Refills Prov: ANALISA LOPEZ DO 01/13/25 Loperamide HCl (Imodium) 2 Mg Cap 2 CAP PO Q6H for loose stool for 5 Days, #40 CAP 0 Refills Prov: ANALISA LOPEZ DO 4/3/25 Additional Instructions: Your symptoms are consistent with a diarrheal illness. These generally resolve on their own. You did not have diverticulitis currently. Your blood work (CBC, BMP, lipase, liver enzymes, urinalysis) is unremarkable. The CT scan of the abdomen and pelvis with oral contrast and IV contrast is unremarkable. I have prescribed Imodium to use for diarrhea. Use as needed. I have prescribed Bentyl abuse for abdominal cramping. Use as needed. Be sure to drink plenty of liquids. An electrolyte solution such as Gatorade as good choice. Start with the BRAT (bananas, rice, applesauce, toast) diet. Advance her diet slowly as tolerated after that. Please follow up with your primary doctor if you have any concerns. Referrals: RUBY ROWLAND MD (PCP) OCTAVIO GUERRERO MD Jan 13, 2025 02:04 ANALISA LOPEZ DO Jan 13, 2025 11:14
[2025-01-13 03:19] LABS: BASOPHILS # (AUTO) 0.03 K/uL (0.00-0.20); BASOPHILS % (AUTO) 0.3 % (0.0-5.0); EOSINOPHILS # (AUTO) 0.18 K/uL (0.00-0.70); EOSINOPHILS % (AUTO) 1.7 % (0.0-8.0); HEMATOCRIT 40.4 % (36-48); IMMATURE GRANULOCYTE ABSOLUTE 0.15 K/uL (0-1); LYMPHOCYTES # (AUTO) 2.3 K/uL (1.0-4.8); LYMPHOCYTES % (AUTO) 21.1 % (21.0-51.0); MEAN CORPUSCULAR HGB CONC 33.9 g/dL (32.0-36.0); MEAN CORPUSCULAR VOLUME 85.4 fL (79-99); MONOCYTES # (AUTO) 0.5 K/uL (0.1-1.0); MONOCYTES % (AUTO) 4.7 % (3.0-13.0); NEUTROPHILS # (AUTO) 7.7 K/uL (1.8-7.7); NEUTROPHILS % (AUTO) 70.8 % (40.0-77.0); PLATELET COUNT (AUTO) 210 K/uL (130-400); RED BLOOD CELL COUNT(AUTO) 4.73 MIL/uL (4.00-5.50); RED CELL DISTRIBUTION WIDTH 13.9 % (11.0-15.5); WHITE BLOOD COUNT (AUTO) 10.8 K/uL (4.8-10.8)
[2025-01-13 03:23] LABS: CREATININE 0.9 mg/dL (0.5-1.0); POTASSIUM 3.6 mmol/L (3.5-5.1)
[2025-01-13 03:27] LABS: ALBUMIN 3.5 g/dL (3.5-5.0); BILIRUBIN,DIRECT 0.1 mg/dL (0.0-0.3); BILIRUBIN,TOTAL 0.4 mg/dL (0.2-1.0); TOTAL PROTEIN, SERUM 7.7 g/dL (6.0-8.3)
[2025-01-13 03:28] LABS: APPEARANCE,URINE CLEAR (CLEAR); BILIRUBIN,URINE NEGATIVE (NEGATIVE); COLOR,URINE YELLOW (YELLOW); GLUCOSE, URINE (UA) NEGATIVE (NEGATIVE); KETONES,URINE NEGATIVE (NEGATIVE); LEUKOCYTE ESTERASE ,URINE NEGATIVE Leu/uL (NEGATIVE); NITRATE,URINE NEGATIVE (NEGATIVE); OCCULT BLOOD,URINE SMALL (NEGATIVE); PH,URINE 5.5 (5.0-8.0); PROTEIN,URINE 10 mg/dL (NEGATIVE); UROBILINOGEN,URINE 0.2 mg/dL (0.2-1.0)
[2025-01-13 03:29] LABS: ADD UA MICROSCOPIC YES
[2025-01-13 03:31] LABS: BACTERIA,URINE FEW /HPF (None Seen); MUCUS,URINE RARE LPF (None Seen); SQUAMOUS EPITHELIAL CELL,UR RARE /HPF (0-2)
[2025-01-13] MEDS: ondanSETRON 4MG INJ IVP ONE (03:35)
[2025-01-13] MEDS ORDERED: IOHEXOL 350 MG/ML 100ML INFUS..BTL IV ONE ×2 (05:01→10:12)
[2025-01-13] MEDS ORDERED: DIATR MEGLU/DIATRIZOATE SODIUM 30 ML BOTTLE ONE (06:05)
[2025-01-13 07:26] VITALS: TEMP 98
--- NOTE | 2025-01-13 08:41 | HMCIMG ---
CT ABDOMEN/PELVIS W/O CONTRAST HISTORY: Bloody diarrhea COMPARISON: 09/22/2024 TECHNIQUE: Multiple sequential axial images of the abdomen and pelvis were obtained from the dome of the diaphragm through symphysis pubis. Patient was not given contrast through intravenous route. Oral contrast was not given. FINDINGS: No pleural effusion is seen bilaterally. There is no evidence of parenchymal disease or pulmonary nodule of the visualized lower lungs. Degenerative changes of the thoracolumbar spine are present. The heart is not enlarged. Liver is enlarged with fatty changes measuring 21 cm. A small hiatal hernia is seen. Gallbladder is distended. The liver, spleen, adrenal glands and pancreas are unremarkable. There is no evidence of hydronephrosis bilaterally. No evidence of renal stone is seen. Fecal material is seen in the colon. There are normal size retroperitoneal and mesenteric lymph nodes. No ascites is seen. No CT evidence of acute appendicitis is seen. Pelvic sidewalls are symmetric bilaterally. Bladder is well distended without wall thickening. IMPRESSION: 1. No acute findings. CT was performed with one or more following dose reduction techniques: automated exposure control, adjustment of the mA and kv according to patient's size, or use of a iterative reconstruction technique.
--- NOTE | 2025-01-13 11:04 | HMCIMG ---
CT ABDOMEN/PELVIS W/CONTRAST HISTORY: Lower pelvic pain COMPARISON: None TECHNIQUE: Multiple sequential axial images of the abdomen and pelvis were obtained from the dome of the diaphragm through symphysis pubis. Patient was not given contrast through intravenous route. Oral contrast was given. FINDINGS: No pleural effusion is seen bilaterally. There is no evidence of parenchymal disease or pulmonary nodule of the visualized lower lungs. Degenerative changes of the thoracolumbar spine are present. The heart is not enlarged. Liver is enlarged with fatty changes measuring 21 cm. No bowel obstruction is seen. Gallstone is seen in the gallbladder. The liver, spleen, adrenal glands and pancreas are unremarkable. There is no evidence of hydronephrosis bilaterally. No evidence of renal stone is seen. Fecal material is seen in the colon. There are normal size retroperitoneal and mesenteric lymph nodes. No ascites is seen. Atherosclerotic changes are present. Pelvic sidewalls are symmetric bilaterally. Bladder is poorly distended. IMPRESSION: 1. Fatty liver. No bowel obstruction. Gallstone in the gallbladder. CT was performed with one or more following dose reduction techniques: automated exposure control, adjustment of the mA and kv according to patient's size, or use of a iterative reconstruction technique.
[2025-01-13 11:06] VITALS: BP 118/56; PULSE 81; RESP 16; O2SAT 98
[2025-01-13] MEDS ORDERED: DICY20TA2 PO (11:12)
[2025-01-13] MEDS ORDERED: LOPE2 PO (11:12)
== END 2025-01-13 11:20 | disposition home or self-care (01) ==
LOC: EDH 00:49
DX: R19.7 Diarrhea, unspecified (principal); R10.30 Lower abdominal pain, unspecified; E11.9 Type 2 diabetes mellitus without complications; I10 Essential (primary) hypertension; F41.9 Anxiety disorder, unspecified; F31.9 Bipolar disorder, unspecified; J45.909 Unspecified asthma, uncomplicated; Z88.1 Allergy status to other antibiotic agents; Z79.899 Other long term (current) drug therapy; Z79.85 Long-term (current) use of injectable non-insulin antidiabetic drugs
CPT/HCPCS: 99285; 74176; 96374; 80076; 80048; 83690; 85025; 81001; 81025; 36415; 74177; Q9963; J2405; Q9967 ×2

== ENCOUNTER 2025-01-23 18:47 | Emergency (ER) | payer BC, MEDICAID ==
[~2025-01-23] VITALS: Ht 180.3 cm; Wt 176.4 kg
[~2025-01-23 18:47] MED LIST changes: +DICY20TA2 PO; +LOPE2 PO
--- NOTE | 2025-01-23 19:08 | ERN ---
General Chief Complaint: Sore Throat Stated Complaint: SORE THROAT ONSE TODAY Time Seen by MD: 19:07 Source: patient History of Present Illness Initial Comments Patient is a 39-year-old female who has a sore throat starting today. It is not improved. No other associated symptoms no fever no chills no nausea no vomiting no diarrhea. No chest pain no shortness of breath. Allergies: Coded Allergies: ceftriaxone (Verified Adverse Reaction, Mild, Nausea, vomiting , 03/12/24) Home Meds Active Scripts Dicyclomine HCl (Bentyl) 20 Mg Tab, 1 TAB PO BID for irritable bowel symptoms for 10 Days, #20 TAB 0 Refills Prov:ANALISA LOPEZ DO 01/13/25 Loperamide HCl (Imodium) 2 Mg Cap, 2 CAP PO Q6H for loose stool for 5 Days, #40 CAP 0 Refills Prov:ANALISA LOPEZ DO 01/13/25 Acetaminophen (Tylenol) 500 Mg Tab, 1 TAB PO Q6HPRN PRN for pain or fever for 5 Days, #20 TAB 0 Refills Prov:WALTER CHERY MD 09/22/24 Ibuprofen (Ibuprofen) 400 Mg Tablet, 1 TAB PO Q6HPRN PRN for pain or fever for 5 Days, #20 TAB 0 Refills Prov:WALTER CHERY MD 09/22/24 Sulfamethoxazole/Trimethoprim (Bactrim Ds Tablet) 800 Mg-160 Mg Tablet, 1 TAB PO BID for 7 Days, #14 TAB 0 Refills Prov:CHRISTIANO PURCELL 09/19/24 Diphenhydramine HCl (Benadryl) 50 Mg Cap, 50 MG PO Q6H for itching/rash, #20 CAP 0 Refills Prov:VERÓNICA TOBIAS NP 09/15/24 Ivermectin (Ivermectin) 3 Mg Tablet, 5 TAB PO ONCE for 1 Day, #5 TAB 0 Refills Prov:VERÓNICA TOBIAS NP 09/15/24 Amoxicillin/Potassium Clav (Amox Tr-K Clv 875-125 mg Tab) 875 Mg-125 Mg Tablet, 1 TAB PO BID for 10 Days, #20 TAB 0 Refills Prov:GERALDINE MARK MD 09/06/24 Pantoprazole Sodium (Protonix) 40 Mg Tablet.dr, 1 TAB PO DAILY for 30 Days, #30 TAB 0 Refills Prov:SONYA RODRÍGUEZ AGPCNP 07/20/24 Levofloxacin (Levofloxacin) 500 Mg Tablet, 1 TAB PO DAILY for 7 Days, #7 TAB 0 Refills Prov:SONYA RODRÍGUEZ AGNP 07/20/24 Reported Medications Gabapentin (Gabapentin) 100 Mg Capsule, 3 CAP PO TID for 30 Days, #90 CAP 0 Refills 07/20/24 Cariprazine Hydrochloride (Vraylar) 3 Mg Capsule, 1 CAP PO DAILY for 30 Days, #30 CAP 0 Refills 07/20/24 Semaglutide (Ozempic) 1 Mg/0.75 Ml (4 Mg/3 Ml) Pen.injctr, 1 MG SQ QWEEK 03/12/24 Lisinopril (Lisinopril) 10 Mg Tablet, 1 TAB PO DAILY for blood pressure 03/12/24 Ziprasidone HCl (Ziprasidone HCl) 40 Mg Capsule, 1 CAP PO BID 03/12/24 Venlafaxine HCl (Venlafaxine HCl ER) 150 Mg Cap.er.24h, 1 CAP PO DAILY 03/12/24 Past Medical History Past Medical History: Anxiety, Asthma, Bipolar, Depression, Diabetes-Type II, Diverticulitis, Hypertension, Other Medical History Other: PCOS Past Surgical History: Unknown Surgical History Other: R ANKLE SX Family History Family History: Negative Social History Social History: Drugs, Negative, Lives with family, Other Female( History) History: Not Applicable ROS Dictation Review of systems is negative except for what is in the HPI. Patient has no hypoxia no shortness of breath no chest pain no cardiac arrhythmias no visual changes no lightheadedness no abdominal pain no diarrhea no nausea no vomiting normal sensation in all extremities. Physical Exam General Appearance: (+) no apparent distress Orientation: (+) alert Head/Face Trauma: No Eye: bilateral eye normal inspection, bilateral eye PERRL, bilateral eye EOMI Ear, Nose, Throat: (+) hearing grossly normal, (+) normal ENT inspection, (+) moist mucous membraine Neck: (+) normal inspection Respiratory: (+) chest non-tender, (+) lungs clear, (+) well ventilated Heart: (+) regular, (+) no gallop Vascular: (+) no edema Gastrointestinal: (+) soft, (+) non-tender, (+) bowel sound present Results Laboratory and Microbiology Lab and Micro Result Laboratory Tests Test 01/23/25 19:44 Influenza Type A Antigen Negative For Type A Influenza Type B Antigen Negative For Type B SARS-CoV-2 Antigen (Rapid) PRESUMPTIVE NEGATIVE Group A Streptococcus Rapid negative (NEGATIVE) MDM I will do the standard viral swabs and get a procalcitonin. Throat swabs were all negative no flu no strep no COVID I told her all of this and she was happy and I discharged her from the ED. ED Course Orders Procedure Category Date Status Time Rapid (Group A Strep) LAB 01/23/25 Complete 19:23 Influenza Type A & B, LAB 01/23/25 Complete Rapid 19:23 Covid19 (Sars Antigen LAB 01/23/25 Complete Rapid) 19:23 Procalcitonin LAB 01/23/25 In Process 19:23 Vital Signs Date Time Temp Pulse Resp B/P (MAP) Pulse Ox O2 Delivery O2 Flow Rate FiO2 01/23/25 19:24 98.8 84 20 128/65 98 Room Air* 0 21 01/23/25 18:48 99.0 100 18 136/86 95 Room Air 0 DX & DISP Disposition: Discharge Departure Impression: Primary Impression: URTI (infection of the upper respiratory tract) Condition: Stable Additional Instructions: Tylenol for fever. Robitussin for symptom relief. Please return if cold does not improve in a week or two or high fever or increased sputum or difficulty breathing. Referrals: RUBY ROWLAND MD (PCP) OCTAVIO GUERRERO MD Jan 23, 2025 19:08
[2025-01-23 20:01] LABS: RAPID GROUP A STREP negative (NEGATIVE)
[2025-01-23 20:12] LABS: COVID19 (SARS ANTIGEN RAPID) PRESUMPTIVE NEGATIVE (NEGATIVE); INFLUENZA TYPE A Negative For Type A (NEGATIVE); INFLUENZA TYPE B Negative For Type B (NEGATIVE)
[2025-01-23 21:14] VITALS: BP 124/61; PULSE 81; RESP 18; TEMP 98.1; O2SAT 98
== END 2025-01-23 21:16 | disposition home or self-care (01) ==
LOC: EDH 18:47
DX: J06.9 Acute upper respiratory infection, unspecified (principal); E11.9 Type 2 diabetes mellitus without complications; F41.9 Anxiety disorder, unspecified; I10 Essential (primary) hypertension; J45.909 Unspecified asthma, uncomplicated; Z79.85 Long-term (current) use of injectable non-insulin antidiabetic drugs; Z79.899 Other long term (current) drug therapy; Z88.1 Allergy status to other antibiotic agents; Z20.822 Contact with and (suspected) exposure to COVID-19
CPT/HCPCS: 36415; 84145; 87426; 87804; 87880; 99283

== ENCOUNTER 2025-02-28 03:04 | Emergency (ER) | payer BC, MEDICAID ==
[~2025-02-28] VITALS: Ht 180.3 cm; Wt 168.3 kg
--- NOTE | 2025-02-28 03:19 | ERN ---
General Chief Complaint: Rectal Bleed Stated Complaint: RECTAL BLEEDING Time Seen by MD: 03:13 History of Present Illness Initial Comments Patient 39-year-old female with a history of diverticulosis and diverticulitis. She comes in with a concern of diarrhea today with a few flecks of blood in it. She has been taking dicyclomine to help regulate her bowels. She is otherwise asymptomatic. Allergies: Coded Allergies: ceftriaxone (Verified Adverse Reaction, Mild, Nausea, vomiting , 03/12/24) Home Meds Active Scripts Dicyclomine HCl (Bentyl) 20 Mg Tab, 1 TAB PO BID for irritable bowel symptoms for 10 Days, #20 TAB 0 Refills Prov:ANALISA LOPEZ DO 01/13/25 Loperamide HCl (Imodium) 2 Mg Cap, 2 CAP PO Q6H for loose stool for 5 Days, #40 CAP 0 Refills Prov:ANALISA LOPEZ DO 01/13/25 Acetaminophen (Tylenol) 500 Mg Tab, 1 TAB PO Q6HPRN PRN for pain or fever for 5 Days, #20 TAB 0 Refills Prov:WALTER CHERY MD 09/22/24 Ibuprofen (Ibuprofen) 400 Mg Tablet, 1 TAB PO Q6HPRN PRN for pain or fever for 5 Days, #20 TAB 0 Refills Prov:WALTER CHERY MD 09/22/24 Sulfamethoxazole/Trimethoprim (Bactrim Ds Tablet) 800 Mg-160 Mg Tablet, 1 TAB PO BID for 7 Days, #14 TAB 0 Refills Prov:CHRISTIANO PURCELL 09/19/24 Diphenhydramine HCl (Benadryl) 50 Mg Cap, 50 MG PO Q6H for itching/rash, #20 CAP 0 Refills Prov:VERÓNICA TOBIAS NP 09/15/24 Ivermectin (Ivermectin) 3 Mg Tablet, 5 TAB PO ONCE for 1 Day, #5 TAB 0 Refills Prov:VERÓNICA TOBIAS NP 09/15/24 Amoxicillin/Potassium Clav (Amox Tr-K Clv 875-125 mg Tab) 875 Mg-125 Mg Tablet, 1 TAB PO BID for 10 Days, #20 TAB 0 Refills Prov:GERALDINE MARK MD 09/06/24 Pantoprazole Sodium (Protonix) 40 Mg Tablet.dr, 1 TAB PO DAILY for 30 Days, #30 TAB 0 Refills Prov:SONYA RODRÍGUEZ AGNP 07/20/24 Levofloxacin (Levofloxacin) 500 Mg Tablet, 1 TAB PO DAILY for 7 Days, #7 TAB 0 Refills Prov:SONYA RODRÍGUEZ AGNP 07/20/24 Reported Medications Gabapentin (Gabapentin) 100 Mg Capsule, 3 CAP PO TID for 30 Days, #90 CAP 0 Refills 07/20/24 Cariprazine Hydrochloride (Vraylar) 3 Mg Capsule, 1 CAP PO DAILY for 30 Days, #30 CAP 0 Refills 07/20/24 Semaglutide (Ozempic) 1 Mg/0.75 Ml (4 Mg/3 Ml) Pen.injctr, 1 MG SQ QWEEK 03/12/24 Lisinopril (Lisinopril) 10 Mg Tablet, 1 TAB PO DAILY for blood pressure 03/12/24 Ziprasidone HCl (Ziprasidone HCl) 40 Mg Capsule, 1 CAP PO BID 03/12/24 Venlafaxine HCl (Venlafaxine HCl ER) 150 Mg Cap.er.24h, 1 CAP PO DAILY 03/12/24 Past Medical History Past Medical History: Anxiety, Asthma, Bipolar, Depression, Diabetes-Type II, Diverticulitis, Hypertension, Other Medical History Other: PCOS, IBS Past Surgical History: Unknown Surgical History Other: R ANKLE SX Family History Family History: Negative Social History Social History: Drugs, Negative, Lives with family, Other Female( History) History: Not Applicable Constitutional: (-) chills, (-) diaphoresis, (-) fever, (-) malaise, (-) weakness, (-) other documentation EENTM: (-) eye pain, (-) blurred vision, (-) tearing, (-) double vision, (-) ear pain, (-) ear discharge, (-) nose pain, (-) nose congestion, (-) throat pain, (-) Throat swelling, (-) mouth pain, (-) tooth pain, (-) mouth swelling, (-) other documentation Respiratory: (-) cough, (-) orthopnea, (-) short of breath, (-) stridor, (-) wheezing, (-) other documentation Cardiovascular: (-) chest pain, (-) edema, (-) palpitations, (-) syncope, (-) dyspnea on exertion, (-) other documentation Gastrointestinal/Abdominal: (+) diarrhea; (-) nausea, (-) vomiting, (-) abdominal pain, (-) abdominal distention, (-) constipation, (-) rectal bleeding, (-) dark stool/melena, (-) other documentation Genitourinary: (-) vaginal discharge, (-) vaginal bleeding, (-) dysuria, (-) frequency, (-) hematuria, (-) pain, (-) other documentation Musculoskeletal: (-) Neck pain, (-) back pain, (-) Flank Pain, (-) joint pain, (-) joint swelling, (-) muscle pain, (-) muscle stiffness, (-) gout, (-) other documentation Skin: (-) laceration, (-) contusion, (-) abrasion, (-) abscess, (-) rash, (-) change in color, (-) change in hair, (-) change in nails, (-) diaphoresis, (-) dryness, (-) other documentation Physical Exam General Appearance: (+) no apparent distress Orientation: (+) alert Head/Face Trauma: No Eye: bilateral eye normal inspection, bilateral eye PERRL, bilateral eye EOMI Ear, Nose, Throat: (+) hearing grossly normal, (+) normal ENT inspection, (+) moist mucous membraine Neck: (+) normal inspection, (+) supple, (+) full range of motion Respiratory: (+) chest non-tender, (+) lungs clear, (+) well ventilated Heart: (+) regular, (+) no gallop Vascular: (+) no edema Gastrointestinal: (+) soft, (+) non-tender, (+) bowel sound present Results Laboratory and Microbiology Lab and Micro Result Laboratory Tests Test 02/28/25 03:31 White Blood Count 8.9 K/uL (4.8-10.8) Red Blood Count 4.87 MIL/uL (4.00-5.50) Hemoglobin 14.2 g/dL (12.0-16.0) Hematocrit 42.0 % (36-48) Mean Corpuscular Volume 86.2 fL (79-99) Mean Corpuscular Hemoglobin 29.2 pg (27.0-33.0) Mean Corpuscular Hemoglobin Concent 33.8 g/dL (32.0-36.0) Red Cell Distribution Width 13.6 % (11.0-15.5) Platelet Count 224 K/uL (130-400) Mean Platelet Volume 10.4 fL (7.5-10.5) Immature Granulocyte % (Auto) 0.2 % (0-1) Neutrophils (%) (Auto) 58.5 % (40.0-77.0) Lymphocytes (%) (Auto) 33.6 % (21.0-51.0) Monocytes (%) (Auto) 4.7 % (3.0-13.0) Eosinophils (%) (Auto) 2.4 % (0.0-8.0) Basophils (%) (Auto) 0.6 % (0.0-5.0) Neutrophils # (Auto) 5.2 K/uL (1.8-7.7) Lymphocytes # (Auto) 3.0 K/uL (1.0-4.8) Monocytes # (Auto) 0.4 K/uL (0.1-1.0) Eosinophils # (Auto) 0.21 K/uL (0.00-0.70) Basophils # (Auto) 0.05 K/uL (0.00-0.20) Absolute Immature Granulocyte (auto 0.02 K/uL (0-1) Nucleated Red Blood Cells 0.0 % (0.0-0.19) Sodium Level 138 mmol/L (136-145) Potassium Level 4.0 mmol/L (3.5-5.1) Chloride Level 103 mmol/L (101-111) Carbon Dioxide Level 29 mmol/L (21-32) Blood Urea Nitrogen 18 mg/dL (7-18) Creatinine 0.9 mg/dL (0.5-1.0) Glomerular Filtration Rate Calc 84 mL/min (>90) Random Glucose 114 mg/dL (70-105) H Total Calcium 9.5 mg/dL (8.5-10.1) MDM Diarrhea with small spots of blood is not a medical emergency. I will give the patient a L of fluid. I will check a CBC and a chemistry panel to make sure th ere are no gross abnormalities and then discharge her from the hospital. The patient's labs are normal. While discussing them with her she mentioned that she has recently restarted Ozempic. The Ozempic could be causing her diarrhea. ED Course Orders Procedure Category Date Status Time Cbc With Differential LAB 02/28/25 Complete 03:13 Basic Metabolic Panel LAB 02/28/25 Complete 03:13 Lactated Ringers PHA 02/28/25 Complete 1000ml (Lactated 03:14 Current Medications Medications (Trade) Dose Ordered Sig/Radha Route PRN Reason Start Time Stop Time Status Last Admin Dose Admin Lactated Ringer's (Lactated Ringers 1000ml) 1,000 ml BOLUS STAT IV 02/28/25 03:14 02/28/25 03:17 DC 02/28/25 03:34 Vital Signs Date Time Temp Pulse Resp B/P (MAP) Pulse Ox O2 Delivery O2 Flow Rate FiO2 02/28/25 03:40 98.1 86 18 124/53 99 Room Air* 0 21 02/28/25 03:07 98.4 100 18 132/86 97 Room Air 0 DX & DISP Disposition: Discharge Departure Impression: Primary Impression: Acute diarrhea Condition: Stable Additional Instructions: Please talk to your please talk to your doctor about your diarrhea. It maybe a self-limiting episode from food poisoning or a viral infection. It maybe due to the Ozempic. Changing your diet may help. Please stay hydrated. Referrals: RUBY ROWLAND MD (PCP) OCTAVIO GUERREOR MD February 28, 2025 03:19
[2025-02-28] MEDS: LACTATED RINGERS 1000ML IV STA (03:34)
[2025-02-28 03:36] LABS: BASOPHILS # (AUTO) 0.05 K/uL (0.00-0.20); BASOPHILS % (AUTO) 0.6 % (0.0-5.0); EOSINOPHILS # (AUTO) 0.21 K/uL (0.00-0.70); EOSINOPHILS % (AUTO) 2.4 % (0.0-8.0); IMMATURE GRANULOCYTE ABSOLUTE 0.02 K/uL (0-1); LYMPHOCYTES % (AUTO) 33.6 % (21.0-51.0); MEAN CORPUSCULAR HEMOGLOBIN 29.2 pg (27.0-33.0); MEAN CORPUSCULAR HGB CONC 33.8 g/dL (32.0-36.0); MEAN CORPUSCULAR VOLUME 86.2 fL (79-99); MONOCYTES # (AUTO) 0.4 K/uL (0.1-1.0); MONOCYTES % (AUTO) 4.7 % (3.0-13.0); NEUTROPHILS # (AUTO) 5.2 K/uL (1.8-7.7); NEUTROPHILS % (AUTO) 58.5 % (40.0-77.0); PLATELET COUNT (AUTO) 224 K/uL (130-400); RED BLOOD CELL COUNT(AUTO) 4.87 MIL/uL (4.00-5.50); RED CELL DISTRIBUTION WIDTH 13.6 % (11.0-15.5); WHITE BLOOD COUNT (AUTO) 8.9 K/uL (4.8-10.8)
[2025-02-28 03:44] LABS: CREATININE 0.9 mg/dL (0.5-1.0)
[2025-02-28 04:47] VITALS: BP 112/54; PULSE 82; RESP 16; TEMP 98.3; O2SAT 98
== END 2025-02-28 04:52 | disposition home or self-care (01) ==
LOC: EDH 03:04
DX: R19.7 Diarrhea, unspecified (principal); F41.9 Anxiety disorder, unspecified; E11.9 Type 2 diabetes mellitus without complications; I10 Essential (primary) hypertension; J45.909 Unspecified asthma, uncomplicated; Z79.85 Long-term (current) use of injectable non-insulin antidiabetic drugs; Z79.899 Other long term (current) drug therapy; Z88.1 Allergy status to other antibiotic agents
CPT/HCPCS: 99283; 96360; 80048; 85025; 36415; J7120

== ENCOUNTER 2025-04-10 21:38 | Emergency (ER) | payer BC, MEDICAID ==
[~2025-04-10] VITALS: Ht 180.3 cm; Wt 167.8 kg
--- NOTE | 2025-04-10 21:48 | ERN ---
General Chief Complaint: Other Problems Stated Complaint: RECTAL PAIN Time Seen by MD: 21:40 Source: patient History of Present Illness Initial Comments Patient is a 31-year-old female coming in to be evaluated for rectal pain. Per patient she feels as if she has something stuck in her rectum. She also states that she feels as if somebody flare-up something up her rectum. Patient states that she was has a for one month was evaluated by PCP but has not felt any better. Allergies: Coded Allergies: ceftriaxone (Verified Adverse Reaction, Mild, Nausea, vomiting , 03/12/24) Home Meds Active Scripts Dicyclomine HCl (Bentyl) 20 Mg Tab, 1 TAB PO BID for irritable bowel symptoms for 10 Days, #20 TAB 0 Refills Prov:ANALISA LOPEZ DO 01/13/25 Loperamide HCl (Imodium) 2 Mg Cap, 2 CAP PO Q6H for loose stool for 5 Days, #40 CAP 0 Refills Prov:ANALISA LOPEZ DO 01/13/25 Acetaminophen (Tylenol) 500 Mg Tab, 1 TAB PO Q6HPRN PRN for pain or fever for 5 Days, #20 TAB 0 Refills Prov:WALTER CHERY MD 09/22/24 Ibuprofen (Ibuprofen) 400 Mg Tablet, 1 TAB PO Q6HPRN PRN for pain or fever for 5 Days, #20 TAB 0 Refills Prov:WALTER CHERY MD 09/22/24 Sulfamethoxazole/Trimethoprim (Bactrim Ds Tablet) 800 Mg-160 Mg Tablet, 1 TAB PO BID for 7 Days, #14 TAB 0 Refills Prov:CHRISTIANO PURCELL 09/19/24 Diphenhydramine HCl (Benadryl) 50 Mg Cap, 50 MG PO Q6H for itching/rash, #20 CAP 0 Refills Prov:VERÓNICA TOBIAS NP 09/15/24 Ivermectin (Ivermectin) 3 Mg Tablet, 5 TAB PO ONCE for 1 Day, #5 TAB 0 Refills Prov:VERÓNICA TOBIAS NP 09/15/24 Amoxicillin/Potassium Clav (Amox Tr-K Clv 875-125 mg Tab) 875 Mg-125 Mg Tablet, 1 TAB PO BID for 10 Days, #20 TAB 0 Refills Prov:GERALDINE MARK MD 09/06/24 Pantoprazole Sodium (Protonix) 40 Mg Tablet.dr, 1 TAB PO DAILY for 30 Days, #30 TAB 0 Refills Prov:SONYA RODRÍGUEZ AGPCNP 07/20/24 Levofloxacin (Levofloxacin) 500 Mg Tablet, 1 TAB PO DAILY for 7 Days, #7 TAB 0 Refills Prov:SONYA RODRÍGUEZ AGPCNP 07/20/24 Reported Medications Gabapentin (Gabapentin) 100 Mg Capsule, 3 CAP PO TID for 30 Days, #90 CAP 0 Refills 07/20/24 Cariprazine Hydrochloride (Vraylar) 3 Mg Capsule, 1 CAP PO DAILY for 30 Days, #30 CAP 0 Refills 07/20/24 Semaglutide (Ozempic) 1 Mg/0.75 Ml (4 Mg/3 Ml) Pen.injctr, 1 MG SQ QWEEK 03/12/24 Lisinopril (Lisinopril) 10 Mg Tablet, 1 TAB PO DAILY for blood pressure 03/12/24 Ziprasidone HCl (Ziprasidone HCl) 40 Mg Capsule, 1 CAP PO BID 03/12/24 Venlafaxine HCl (Venlafaxine HCl ER) 150 Mg Cap.er.24h, 1 CAP PO DAILY 03/12/24 Past Medical History Past Medical History: Anxiety, Asthma, Bipolar, Depression, Diabetes-Type II, Diverticulitis, Hypertension, Other Medical History Other: PCOS, IBS Past Surgical History: Unknown Surgical History Other: R ANKLE SX Family History Family History: Negative Social History Social History: Drugs, Negative, Lives with family, Other Female( History) History: Not Applicable ROS Dictation CONSTITUTIONAL: No chills, no fever, no weakness, no diaphoresis, no malaise. HEAD/FACE: No signs of trauma. EENT: No eye pain, no blurred vision, no tearing, no double vision, no ear p ain, no ear discharge, no nose pain, no nasal congestion, no throat pain, no throat swelling, no mouth pain. RESPIRATORY: No cough, no orthopnea, no SOB, no stridor, no wheezing. CARDIOVASCULAR: No chest pain, no edema, no palpitations, no syncope. GASTROINTESTINAL/ABDOMINAL: No abdominal pain, no constipation, no diarrhea, no nausea, no vomiting. GENITOURINARY: No abnormal discharge, no dysuria, no frequent urination, no hematuria. No complaints of pain in the genitals. MUSCULOSKELETAL: No back pain, no gout, no joint pain, no joint swelling, no muscle pain, no muscle stiffness, no neck pain. INTEGUMENTARY: No change in color, no change in hair/nails, no dryness, no lesion, no lumps, no rash. NEUROLOGICAL/PSYCH: No anxiety, not depressed, no emotional problem, no headache, no numbness, no pre-existing deficit, no history of seizures, no tremors, no weakness. HEMATOLOGIC/LYMPHATIC: Not anemic, no history of blood clots, no apparent bleeding, no bruising, glands not swollen. All Systems Negative, Except as Noted. Physical Exam Physical Exam Dictation VITAL SIGNS: Reviewed. GENERAL APPEARANCE: Alert, oriented x3, no acute distress, obese. HEAD AND FACE: Non-traumatic. EYES: PERRL, pink conjunctivas, eyelid no trauma, anterior chamber clear. EARS: Pinnas intact and no signs of trauma or erythema. Ear canals clear and no discharge. TMs no erythema. NOSE: No discharge, no bleeding. OROPHARYNX: Mouth normal, teeth no caries, tongue pink. Pharynx clear, no erythema. Tonsils no exudates, no abscesses noted. Mucous membrane moist. NECK: Supple, non-tender, no thyromegaly, no masses, no JVD, no bruits. BREAST: Deferred. CHEST: No tenderness, no crepitus, no paradoxical movement, no retractions. LUNGS: Clear, well-ventilated, symmetric, no rales, no wheezing, no rhonchi, no stridor, good breath sounds bilaterally. HEART: Regular rate, regular rhythm, no murmur, no gallops. VASCULAR: No peripheral edema. ABDOMEN: Soft, positive bowel sounds, nondistended, no guarding, nontender, no rebound, no masses no hepatomegaly, no splenomegaly, no Dixon's sign, no hernias. RECTAL: Deferred. GENITAL: Deferred. NEUROLOGICAL: Normal speech, gross motor function intact, gross sensory function intact. MUSCULOSKELETAL: Neck nontender, full range of motion, back nontender, full range of motion. EXTREMITIES: Nontender, full range of motion. SKIN: Color pink, dry, no turgor, no rash, no lacerations, no abrasions, no contusions. LYMPHATICS: Deferred. Results Laboratory and Microbiology Lab and Micro Result Laboratory Tests Test 04/10/25 21:58 White Blood Count 9.7 K/uL (4.8-10.8) Red Blood Count 4.85 MIL/uL (4.00-5.50) Hemoglobin 14.2 g/dL (12.0-16.0) Hematocrit 40.6 % (36-48) Mean Corpuscular Volume 83.7 fL (79-99) Mean Corpuscular Hemoglobin 29.3 pg (27.0-33.0) Mean Corpuscular Hemoglobin Concent 35.0 g/dL (32.0-36.0) Red Cell Distribution Width 13.6 % (11.0-15.5) Platelet Count 266 K/uL (130-400) Mean Platelet Volume 10.1 fL (7.5-10.5) Immature Granulocyte % (Auto) 0.2 % (0-1) Neutrophils (%) (Auto) 51.6 % (40.0-77.0) Lymphocytes (%) (Auto) 38.7 % (21.0-51.0) Monocytes (%) (Auto) 5.6 % (3.0-13.0) Eosinophils (%) (Auto) 3.4 % (0.0-8.0) Basophils (%) (Auto) 0.5 % (0.0-5.0) Neutrophils # (Auto) 5.0 K/uL (1.8-7.7) Lymphocytes # (Auto) 3.8 K/uL (1.0-4.8) Monocytes # (Auto) 0.5 K/uL (0.1-1.0) Eosinophils # (Auto) 0.33 K/uL (0.00-0.70) Basophils # (Auto) 0.05 K/uL (0.00-0.20) Absolute Immature Granulocyte (auto 0.02 K/uL (0-1) Nucleated Red Blood Cells 0.0 % (0.0-0.19) Sodium Level 139 mmol/L (136-145) Potassium Level 3.5 mmol/L (3.5-5.1) Chloride Level 101 mmol/L (101-111) Carbon Dioxide Level 28 mmol/L (21-32) Blood Urea Nitrogen 20 mg/dL (7-18) H Creatinine 0.9 mg/dL (0.5-1.0) Glomerular Filtration Rate Calc 84 mL/min (>90) Random Glucose 128 mg/dL (70-105) H Total Calcium 9.6 mg/dL (8.5-10.1) Labs Reviewed?: Yes EKG/XRAY/US/CT/MRI CT Scan Comment [facility] [address] [place] [address] IMAGING REPORT Signed PATIENT: BRENDEN ESTRADA MR#: [id number] : 1985 SEX: F AGE: 39 LOCATION: [facility] ORDER 43 STATUS: [facility] REPORT#: [id number] SERVICE 42 REASON: perirectal pain ORDERING PHYSICIAN: IGNACIO HARTMANN MD PROCEDURE: ABD PEL WO - CT ABDOMEN/PELVIS W/O CONTRAST EXAM: CT Abdomen and Pelvis without IV contrast CLINICAL HISTORY: Perirectal pain. TECHNIQUE: Thin collimated axial CT images of the abdomen and pelvis were obtained, with sagittal and coronal reformatted images also submitted. A CT scan is done according to ALARA (As Low As Reasonably Achievable). CONTRAST: None. COMPARISON: None. FINDINGS: Unremarkable visualized lung parenchyma. Mild fatty liver. There is no focal abnormality appreciated within the gallbladder, pancreas, spleen, or adrenals. There is a 10 mm cortical exophytic cyst in the lower pole of the left kidney anteriorly. There is a 2 cm splenunculus. There is no obvious bowel wall thickening. Bowel loops are normal in caliber without evidence of obstruction or ileus. The appendix is unremarkable. There is no abnormality within the urinary bladder. Unremarkable reproductive organs. No lymphadenopathy. No free fluid. No pneumoperitoneum. No gross abnormality in the abdominal vessels. There is no acute osseous abnormality. IMPRESSIONS: No acute process in the abdomen or pelvis. Left renal cyst. Mild fatty liver. /[place] DICTATED BY: TI YBARRA Jr., MD DATE: 04/11/25104 ELECTRONICALLY SIGNED BY: TI YBARRA Jr., MD DATE: 04/11/25104 MDM MDM: Differential diagnosis: Constipation, abdominal pain, rectal pain, Rationale: Tests considered and ordered secondary to shared decision making include: Previous outside records reviewed: Old ER visits. Risk of complication and/or morbidity or mortality of patient management: None Medications-Per medication reconciliation Patient is a 31-year-old female coming in complaining of per rectal pain. CT did not disclose acute findings. Patient states that she has had this pain for one month has been evaluated by PCP CT did not disclose acute findings. Patient also states that he struggles to go to the restroom. Patient will be discharged in stable condition with a diagnosis of constipation ED Course Orders Procedure Category Date Status Time Cbc With Differential LAB 04/10/25 Complete 21:43 Basic Metabolic Panel LAB 04/10/25 Complete 21:43 Ct Abdomen/Pelvis W/O CT 04/10/25 Resulted Contrast 21:43 Vital Signs Date Time Temp Pulse Resp B/P (MAP) Pulse Ox O2 Delivery O2 Flow Rate FiO2 04/10/25 21:41 98.4 114 20 127/80 97 Room Air* 0 21 04/10/25 21:41 98.4 114 20 127/80 97 Room Air 0 DX & DISP Disposition: Discharge Departure Impression: Primary Impression: Constipation Condition: Stable Additional Instructions: FOLLOW-UP WITH PRIMARY CARE PROVIDER IN 1 TO 2 DAYS. TAKE MEDICATIONS DIRECTED HERE IN THE EMERGENCY ROOM. OKAY TO CONTINUE HOME MEDICATIONS UNLESS OTHERWISE DISCUSSED DURING YOUR VISIT IN THE EMERGENCY ROOM TODAY. RETURN TO YOUR NEAREST EMERGENCY ROOM IF SYMPTOMS WORSEN OR IF THERE IS NO IMPROVEMENT. CALL 911 IF YOU NEED IMMEDIATE ASSISTANCE. TAKE TYLENOL [id number] NEEDED AND IF NO CONTRAINDICATIONS ARE PRESENT. INCREASE ORAL HYDRATION. A WOUND CULTURE OR URINE CULTURE WAS ORDERED HERE IN THE EMERGENCY ROOM DEPARTMENT PLEASE FOLLOW-UP WITH PRIMARY CARE PROVIDER AND ADVISE THEM TO GET REPORTS FROM OUR FACILITY. IF YOU HAD ANY ALEKSANDR WRAP/SPLINTS THAT WERE APPLIED HERE, PLEASE DO NOT REMOVE THEM UNTIL YOU SEE YOUR PRIMARY CARE OR SPECIALTY. Referrals: Referrals: RUBY ROWLAND MD (PCP) Time of Disposition: 01:24 IGNACIO HARTMANN MD Apr 10, 2025 21:48
[2025-04-10 22:04] LABS: BASOPHILS # (AUTO) 0.05 K/uL (0.00-0.20); BASOPHILS % (AUTO) 0.5 % (0.0-5.0); EOSINOPHILS # (AUTO) 0.33 K/uL (0.00-0.70); EOSINOPHILS % (AUTO) 3.4 % (0.0-8.0); HEMATOCRIT 40.6 % (36-48); IMMATURE GRANULOCYTE ABSOLUTE 0.02 K/uL (0-1); LYMPHOCYTES # (AUTO) 3.8 K/uL (1.0-4.8); LYMPHOCYTES % (AUTO) 38.7 % (21.0-51.0); MEAN CORPUSCULAR HEMOGLOBIN 29.3 pg (27.0-33.0); MEAN CORPUSCULAR VOLUME 83.7 fL (79-99); MONOCYTES # (AUTO) 0.5 K/uL (0.1-1.0); MONOCYTES % (AUTO) 5.6 % (3.0-13.0); NEUTROPHILS % (AUTO) 51.6 % (40.0-77.0); PLATELET COUNT (AUTO) 266 K/uL (130-400); RED BLOOD CELL COUNT(AUTO) 4.85 MIL/uL (4.00-5.50); RED CELL DISTRIBUTION WIDTH 13.6 % (11.0-15.5); WHITE BLOOD COUNT (AUTO) 9.7 K/uL (4.8-10.8)
[2025-04-10 22:12] LABS: CREATININE 0.9 mg/dL (0.5-1.0); POTASSIUM 3.5 mmol/L (3.5-5.1)
--- NOTE | 2025-04-11 00:06 | HMCIMG ---
EXAM: CT Abdomen and Pelvis without IV contrast CLINICAL HISTORY: Perirectal pain. TECHNIQUE: Thin collimated axial CT images of the abdomen and pelvis were obtained, with sagittal and coronal reformatted images also submitted. A CT scan is done according to ALARA (As Low As Reasonably Achievable). CONTRAST: None. COMPARISON: None. FINDINGS: Unremarkable visualized lung parenchyma. Mild fatty liver. There is no focal abnormality appreciated within the gallbladder, pancreas, spleen, or adrenals. There is a 10 mm cortical exophytic cyst in the lower pole of the left kidney anteriorly. There is a 2 cm splenunculus. There is no obvious bowel wall thickening. Bowel loops are normal in caliber without evidence of obstruction or ileus. The appendix is unremarkable. There is no abnormality within the urinary bladder. Unremarkable reproductive organs. No lymphadenopathy. No free fluid. No pneumoperitoneum. No gross abnormality in the abdominal vessels. There is no acute osseous abnormality. IMPRESSIONS: No acute process in the abdomen or pelvis. Left renal cyst. Mild fatty liver. /Crystal
[2025-04-11 01:33] VITALS: BP 124/75; PULSE 98; RESP 18; TEMP 98.5; O2SAT 98
== END 2025-04-11 01:33 | disposition home or self-care (01) ==
LOC: EDH 21:38
DX: K59.00 Constipation, unspecified (principal); J45.909 Unspecified asthma, uncomplicated; E11.9 Type 2 diabetes mellitus without complications; F41.9 Anxiety disorder, unspecified; I10 Essential (primary) hypertension; Z79.85 Long-term (current) use of injectable non-insulin antidiabetic drugs; Z79.899 Other long term (current) drug therapy; Z88.1 Allergy status to other antibiotic agents
CPT/HCPCS: 36415; 74176; 80048; 85025; 99284

== ENCOUNTER 2025-04-14 01:56 | Emergency (ER) | payer BC, MEDICAID ==
[~2025-04-14] VITALS: Ht 180.3 cm; Wt 167.8 kg
[2025-04-14 02:32] LABS: APPEARANCE,URINE CLEAR (CLEAR); GLUCOSE, URINE (UA) NEGATIVE (NEGATIVE); LEUKOCYTE ESTERASE ,URINE NEGATIVE Leu/uL (NEGATIVE); NITRATE,URINE NEGATIVE (NEGATIVE); OCCULT BLOOD,URINE NEGATIVE (NEGATIVE)
[2025-04-14 02:33] LABS: ADD UA MICROSCOPIC NO
[2025-04-14 02:34] LABS: HCG,QUALITATIVE URINE NEGATIVE (NEGATIVE)
[2025-04-14 02:38] LABS: IMMATURE GRANULOCYTE ABSOLUTE 0.01 K/uL (0-1); NUCLEATED RED BLOOD CELLS 0.0 % (0.0-0.19); PLATELET COUNT (AUTO) 214 K/uL (130-400); RED BLOOD CELL COUNT(AUTO) 4.35 MIL/uL (4.00-5.50); RED CELL DISTRIBUTION WIDTH 13.4 % (11.0-15.5); WHITE BLOOD COUNT (AUTO) 7.8 K/uL (4.8-10.8)
[2025-04-14 02:57] LABS: CREATININE 0.8 mg/dL (0.5-1.0); GLOMERULAR FILTR. RATE CALC 97 mL/min (>90); GLUCOSE,RANDOM 118 mg/dL (70-105); SODIUM SERUM 137 mmol/L (136-145); UREA NITROGEN, BLOOD 19 mg/dL (7-18)
--- NOTE | 2025-04-14 03:03 | NUR ---
PATIENT ON STREACHER CALM, COOPERATIVE, ON PHONE WATCHING VIDEOS.
[2025-04-14 03:12] LABS: ALCOHOL, BLOOD < 3 mg/dL (0-10)
--- NOTE | 2025-04-14 03:23 | NUR ---
[place] TR[facility] SCREENER CALLED AT THIS TIME.
[2025-04-14 03:36] LABS: AMPHET/METH SCREEN,URINE NEGATIVE (NEGATIVE); BARBITURATE SCREEN, URINE NEGATIVE (NEGATIVE); CANNABINOID SCREEN,URINE NEGATIVE (NEGATIVE); COCAINE SCREEN,URINE NEGATIVE (NEGATIVE)
--- NOTE | 2025-04-14 04:40 | NUR ---
[place] TR[facility] SCREENER CALLED STATES AT ANOTHER CASE THEN WILL BE OVER FOR THIS CASE.
--- NOTE | 2025-04-14 04:59 | ERN ---
General Chief Complaint: Psych Evaluation Stated Complaint: SUICIDAL IDEATION Time Seen by MD: 03:05 History of Present Illness Initial Comments Patient is a 39-year-old female with Angst over not being present at her father's in September. These feelings of guilt overwhelmed her and she is feeling suicidal. She comes into the emergency room for help. Her past medical history includes bipolar disease depression and anxiety. She also has a history of polycystic ovarian disease infected diverticulitis requiring hospitalization, type 2 diabetes and hypertension +morbid obesity Allergies: Coded Allergies: ceftriaxone (Verified Adverse Reaction, Mild, Nausea, vomiting , 03/12/24) Home Meds Active Scripts Dicyclomine HCl (Bentyl) 20 Mg Tab, 1 TAB PO BID for irritable bowel symptoms for 10 Days, #20 TAB 0 Refills Prov:ANALISA LOPEZ DO 01/13/25 Loperamide HCl (Imodium) 2 Mg Cap, 2 CAP PO Q6H for loose stool for 5 Days, #40 CAP 0 Refills Prov:ANALISA LOPEZ DO 01/13/25 Acetaminophen (Tylenol) 500 Mg Tab, 1 TAB PO Q6HPRN PRN for pain or fever for 5 Days, #20 TAB 0 Refills Prov:WALTER CHERY MD 09/22/24 Ibuprofen (Ibuprofen) 400 Mg Tablet, 1 TAB PO Q6HPRN PRN for pain or fever for 5 Days, #20 TAB 0 Refills Prov:WALTER CHERY MD 09/22/24 Sulfamethoxazole/Trimethoprim (Bactrim Ds Tablet) 800 Mg-160 Mg Tablet, 1 TAB PO BID for 7 Days, #14 TAB 0 Refills Prov:CHRISTIANO PURCELL 09/19/24 Diphenhydramine HCl (Benadryl) 50 Mg Cap, 50 MG PO Q6H for itching/rash, #20 CAP 0 Refills Prov:VERÓNICA TOBIAS NP 09/15/24 Ivermectin (Ivermectin) 3 Mg Tablet, 5 TAB PO ONCE for 1 Day, #5 TAB 0 Refills Prov:VERÓNICA TOBIAS NP 09/15/24 Amoxicillin/Potassium Clav (Amox Tr-K Clv 875-125 mg Tab) 875 Mg-125 Mg Tablet, 1 TAB PO BID for 10 Days, #20 TAB 0 Refills Prov:GERALDINE MARK MD 09/06/24 Pantoprazole Sodium (Protonix) 40 Mg Tablet.dr, 1 TAB PO DAILY for 30 Days, #30 TAB 0 Refills Prov:SONYA RODRÍGUEZ BANNERNELIDA 07/20/24 Levofloxacin (Levofloxacin) 500 Mg Tablet, 1 TAB PO DAILY for 7 Days, #7 TAB 0 Refills Prov:SONYA RODRÍGUEZ BANNERNELIDA 07/20/24 Reported Medications Gabapentin (Gabapentin) 100 Mg Capsule, 3 CAP PO TID for 30 Days, #90 CAP 0 R efills 07/20/24 Cariprazine Hydrochloride (Vraylar) 3 Mg Capsule, 1 CAP PO DAILY for 30 Days, #30 CAP 0 Refills 07/20/24 Semaglutide (Ozempic) 1 Mg/0.75 Ml (4 Mg/3 Ml) Pen.injctr, 1 MG SQ QWEEK 03/12/24 Lisinopril (Lisinopril) 10 Mg Tablet, 1 TAB PO DAILY for blood pressure 03/12/24 Ziprasidone HCl (Ziprasidone HCl) 40 Mg Capsule, 1 CAP PO BID 03/12/24 Venlafaxine HCl (Venlafaxine HCl ER) 150 Mg Cap.er.24h, 1 CAP PO DAILY 03/12/24 Past Medical History Past Medical History: Anxiety, Asthma, Bipolar, Depression, Diabetes-Type II, Diverticulitis, Hypertension, Other Medical History Other: PCOS, IBS Past Surgical History: Unknown Surgical History Other: R ANKLE SX Family History Family History: Negative Social History Social History: Drugs, Negative, Lives with family, Other Female( History) History: Not Applicable Constitutional: (-) chills, (-) diaphoresis, (-) fever, (-) malaise, (-) weakness, (-) other documentation EENTM: (-) eye pain, (-) blurred vision, (-) tearing, (-) double vision, (-) ear pain, (-) ear discharge, (-) nose pain, (-) nose congestion, (-) throat pain, (-) Throat swelling, (-) mouth pain, (-) tooth pain, (-) mouth swelling, (-) other documentation Respiratory: (-) cough, (-) orthopnea, (-) short of breath, (-) stridor, (-) wheezing, (-) other documentation Cardiovascular: (-) chest pain, (-) edema, (-) palpitations, (-) syncope, (-) dyspnea on exertion, (-) other documentation Gastrointestinal/Abdominal: (-) nausea, (-) vomiting, (-) diarrhea, (-) abdominal pain, (-) abdominal distention, (-) constipation, (-) rectal bleeding, (-) dark stool/melena, (-) other documentation Genitourinary: (-) vaginal discharge, (-) vaginal bleeding, (-) dysuria, (-) frequency, (-) hematuria, (-) pain, (-) other documentation Musculoskeletal: (-) Neck pain, (-) back pain, (-) Flank Pain, (-) joint pain, (-) joint swelling, (-) muscle pain, (-) muscle stiffness, (-) gout, (-) other documentation Skin: (-) laceration, (-) contusion, (-) abrasion, (-) abscess, (-) rash, (-) change in color, (-) change in hair, (-) change in nails, (-) diaphoresis, (-) dryness, (-) other documentation Physical Exam General Appearance: (+) mild distress Orientation: (+) alert, (+) oriented x 3 Head/Face Trauma: No Eye: bilateral eye normal inspection, bilateral eye PERRL, bilateral eye EOMI Ear, Nose, Throat: (+) hearing grossly normal, (+) normal ENT inspection, (+) moist mucous membraine Neck: (+) normal inspection, (+) supple Respiratory: (+) chest non-tender, (+) lungs clear Heart: (+) regular, (+) no gallop Vascular: (+) no edema Gastrointestinal: (+) soft, (+) non-tender, (+) no organomegaly Results Laboratory and Microbiology Lab and Micro Result Laboratory Tests Test 04/14/25 02:19 04/14/25 02:32 Urine Color COLORLESS (YELLOW) Urine Appearance CLEAR (CLEAR) Urine pH 5.5 (5.0-8.0) Urine Specific [place] 1.005 (1.001-1.031) Urine Protein NEGATIVE mg/dL (NEGATIVE) Urine Glucose (UA) NEGATIVE mg/dL (NEGATIVE) Urine Ketones NEGATIVE mg/dL (NEGATIVE) Urine Occult Blood NEGATIVE (NEGATIVE) Urine Nitrate NEGATIVE (NEGATIVE) Urine Bilirubin NEGATIVE mg/dL (NEGATIVE) Urine Urobilinogen 0.2 mg/dL (0.2-1.0) Urine Leukocyte Esterase NEGATIVE Eliecer/uL Urine HCG, Qualitative NEGATIVE (NEGATIVE) Urine Opiates Screen NEGATIVE (NEGATIVE) Urine Barbiturates Screen NEGATIVE (NEGATIVE) Urine Phencyclidine Screen NEGATIVE (NEGATIVE) Urine Amphetamines Screen NEGATIVE (NEGATIVE) Urine Benzodiazepines Screen NEGATIVE (NEGATIVE) Urine Cocaine Screen NEGATIVE (NEGATIVE) Urine Marijuana (THC) Screen NEGATIVE (NEGATIVE) White Blood Count 7.8 K/uL (4.8-10.8) Red Blood Count 4.35 MIL/uL (4.00-5.50) Hemoglobin 12.8 g/dL (12.0-16.0) Hematocrit 36.8 % (36-48) Mean Corpuscular Volume 84.6 fL (79-99) Mean Corpuscular Hemoglobin 29.4 pg (27.0-33.0) Mean Corpuscular Hemoglobin Concent 34.8 g/dL (32.0-36.0) Red Cell Distribution Width 13.4 % (11.0-15.5) Platelet Count 214 K/uL (130-400) Mean Platelet Volume 10.5 fL (7.5-10.5) Immature Granulocyte % (Auto) 0.1 % (0-1) Neutrophils (%) (Auto) 50.2 % (40.0-77.0) Lymphocytes (%) (Auto) 40.9 % (21.0-51.0) Monocytes (%) (Auto) 5.4 % (3.0-13.0) Eosinophils (%) (Auto) 2.9 % (0.0-8.0) Basophils (%) (Auto) 0.5 % (0.0-5.0) Neutrophils # (Auto) 3.9 K/uL (1.8-7.7) Lymphocytes # (Auto) 3.2 K/uL (1.0-4.8) Monocytes # (Auto) 0.4 K/uL (0.1-1.0) Eosinophils # (Auto) 0.23 K/uL (0.00-0.70) Basophils # (Auto) 0.04 K/uL (0.00-0.20) Absolute Immature Granulocyte (auto 0.01 K/uL (0-1) Nucleated Red Blood Cells 0.0 % (0.0-0.19) Sodium Level 137 mmol/L (136-145) Potassium Level 3.2 mmol/L (3.5-5.1) L Chloride Level 101 mmol/L (101-111) Carbon Dioxide Level 29 mmol/L (21-32) Blood Urea Nitrogen 19 mg/dL (7-18) H Creatinine 0.8 mg/dL (0.5-1.0) Glomerular Filtration Rate Calc 97 mL/min (>90) Random Glucose 118 mg/dL (70-105) H Total Calcium 8.9 mg/dL (8.5-10.1) Salicylates Level < 2.8 mg/dL (2.8-20.0) L Acetaminophen Level < 1 mcg/mL (10-30) L Serum Alcohol < 3 mg/dL (0-10) MDM We have ordered standard labs for medical clearance. They have all come back normal, except for mild hypo kalemia which we have replaced with oral potassium. [facility] been called and they will come to evaluate the patient. The team from [facility] has evaluated the patient and deemed her not needing admission. They will go to her house today and help her with some counseling. They have no new recommendations for medications or changes to her current medications. I have discussed this with the patient in she is content to go home. ED Course Orders Procedure Category Date Status Time Vital Signs Per CPOE 04/14/25 Transmitted Routine 02:19 Suicide Precautions CPOE 04/14/25 Transmitted 02:19 Cbc With Differential LAB 04/14/25 Complete 02:19 Alcohol, Blood LAB 04/14/25 Complete 02:19 Salicylate LAB 04/14/25 Complete 02:19 Acetaminophen LAB 04/14/25 Complete 02:19 Basic Metabolic Panel LAB 04/14/25 Complete 02:19 ,Urine Test LAB 04/14/25 Complete 02:19 Urinalysis Profile LAB 04/14/25 Complete 02:19 Drug Screen Urine LAB 04/14/25 Complete 03:21 Potassium Bicarb/Cit PHA 04/14/25 Complete Ac 25meq (K-Lyte Ta 03:30 Current Medications Medications (Trade) Dose Ordered Sig/Radha Route PRN Reason Start Time Stop Time Status Last Admin Dose Admin Potassium Bicarbonate (K-Lyte Tablet Eff 25 Meq Tablet.eff) 25 meq ONCE ONCE PO 04/14/25 03:30 04/14/25 03:31 DC 04/14/25 03:39 Vital Signs Date Time Temp Pulse Resp B/P (MAP) Pulse Ox O2 Delivery O2 Flow Rate FiO2 04/14/25 02:00 98.2 105 16 132/93 96 Room Air 0 DX & DISP Disposition: Discharge Departure Impression: Primary Impression: Depression Additional Impression: Depression with suicidal ideation Condition: Stable Additional Instructions: Please return to the emergency room if you do feel like you are unable to control your symptoms. I wish you the best of luck with your meetings with the staff today and your scheduled appointments this week. Referrals: SELF,REFERRAL (PCP) OCTAVIO GUERRERO MD Apr 14, 2025 04:59
--- NOTE | 2025-04-14 05:50 | NUR ---
[place] TROPICAL SCREENER PRESENT TO SEE PATIENT.
[2025-04-14 06:52] VITALS: BP 130/79; PULSE 78; RESP 18; TEMP 98.3; O2SAT 98
== END 2025-04-14 06:51 | disposition home or self-care (01) ==
LOC: EDH 01:56
DX: F32.A Depression, unspecified (principal); F41.9 Anxiety disorder, unspecified; R45.851 Suicidal ideations; J45.909 Unspecified asthma, uncomplicated; E11.9 Type 2 diabetes mellitus without complications; E66.01 Morbid (severe) obesity due to excess calories; I10 Essential (primary) hypertension; Z79.85 Long-term (current) use of injectable non-insulin antidiabetic drugs; Z79.899 Other long term (current) drug therapy; Z88.1 Allergy status to other antibiotic agents
CPT/HCPCS: 99283; 80048; 80305; 85025; 81025; 36415; 81003; G0481

== ENCOUNTER 2025-05-12 15:10 | Emergency (ER) | payer BC, MEDICAID ==
[~2025-05-12] VITALS: Ht 180.3 cm; Wt 170.1 kg
[2025-05-12 16:13] LABS: INFLUENZA TYPE A Negative For Type A (NEGATIVE); INFLUENZA TYPE B Negative For Type B (NEGATIVE)
[2025-05-12 16:20] VITALS: BP 152/62; PULSE 91; RESP 16; TEMP 98.7; O2SAT 98
[2025-05-12 16:36] LABS: COVID19 (SARS ANTIGEN RAPID) POSITIVE FOR SARS AG (NEGATIVE)
[2025-05-12] MEDS ORDERED: NIRM1TAB9 PO (16:41)
--- NOTE | 2025-05-12 16:43 | ERN ---
General Chief Complaint: Flu Symptoms Stated Complaint: FLU Time Seen by MD: 15:11 History of Present Illness Initial Comments 39F BIB EMS from home for flu like symptoms. Patient reports 24 hours of fevers, sore throat, unproductive cough, and body aches. No n/v/d. No abd pain, no urinary symptoms. Allergies: Coded Allergies: ceftriaxone (Verified Adverse Reaction, Mild, Nausea, vomiting , 03/12/24) Home Meds Active Scripts Dicyclomine HCl (Bentyl) 20 Mg Tab, 1 TAB PO BID for irritable bowel symptoms for 10 Days, #20 TAB 0 Refills Prov:ANALISA LOPEZ DO 01/13/25 Loperamide HCl (Imodium) 2 Mg Cap, 2 CAP PO Q6H for loose stool for 5 Days, #40 CAP 0 Refills Prov:ANALISA LOPEZ DO 01/13/25 Acetaminophen (Tylenol) 500 Mg Tab, 1 TAB PO Q6HPRN PRN for pain or fever for 5 Days, #20 TAB 0 Refills Prov:WALTER CHERY MD 09/22/24 Ibuprofen (Ibuprofen) 400 Mg Tablet, 1 TAB PO Q6HPRN PRN for pain or fever for 5 Days, #20 TAB 0 Refills Prov:WALTER CHERY MD 09/22/24 Sulfamethoxazole/Trimethoprim (Bactrim Ds Tablet) 800 Mg-160 Mg Tablet, 1 TAB PO BID for 7 Days, #14 TAB 0 Refills Prov:CHRISTIANO PURCELL 09/19/24 Diphenhydramine HCl (Benadryl) 50 Mg Cap, 50 MG PO Q6H for itching/rash, #20 CAP 0 Refills Prov:VERÓNICA TOBIAS NP 09/15/24 Ivermectin (Ivermectin) 3 Mg Tablet, 5 TAB PO ONCE for 1 Day, #5 TAB 0 Refills Prov:VERÓNICA TOBIAS NP 09/15/24 Amoxicillin/Potassium Clav (Amox Tr-K Clv 875-125 mg Tab) 875 Mg-125 Mg Tablet, 1 TAB PO BID for 10 Days, #20 TAB 0 Refills Prov:GERALDINE MARK MD 09/06/24 Pantoprazole Sodium (Protonix) 40 Mg Tablet.dr, 1 TAB PO DAILY for 30 Days, #30 TAB 0 Refills Prov:SONYA RODRÍGUEZ AGPCNP 07/20/24 Levofloxacin (Levofloxacin) 500 Mg Tablet, 1 TAB PO DAILY for 7 Days, #7 TAB 0 Refills Prov:SONYA RODRÍGUEZ AGPCNP 07/20/24 Reported Medications Gabapentin (Gabapentin) 100 Mg Capsule, 3 CAP PO TID for 30 Days, #90 CAP 0 Refills 07/20/24 Cariprazine Hydrochloride (Vraylar) 3 Mg Capsule, 1 CAP PO DAILY for 30 Days, #30 CAP 0 Refills 07/20/24 Semaglutide (Ozempic) 1 Mg/0.75 Ml (4 Mg/3 Ml) Pen.injctr, 1 MG SQ QWEEK 03/12/24 Lisinopril (Lisinopril) 10 Mg Tablet, 1 TAB PO DAILY for blood pressure 03/12/24 Ziprasidone HCl (Ziprasidone HCl) 40 Mg Capsule, 1 CAP PO BID 03/12/24 Venlafaxine HCl (Venlafaxine HCl ER) 150 Mg Cap.er.24h, 1 CAP PO DAILY 03/12/24 Past Medical History Past Medical History: Anxiety, Asthma, Bipolar, Diabetes-Type II, Hypertension Medical History Other: PCOS, IBS Past Surgical History: Tonsillectomy, Other Surgical History Other: ANKLE Family History Family History: Negative Social History Social History: Drugs, Negative, Lives with family, Other Female( History) History: Not Applicable ROS Dictation CONSTITUTIONAL: Fevers sore throat. HEAD/FACE: No signs of trauma. EENT: No eye pain, no blurred vision, no tearing, no double vision, no ear pain, no ear discharge, no nose pain, no nasal congestion, no throat pain, no throat swelling, no mouth pain. RESPIRATORY: No cough, no orthopnea, no SOB, no stridor, no wheezing. CARDIOVASCULAR: No chest pain, no edema, no palpitations, no syncope. GASTROINTESTINAL/ABDOMINAL: No abdominal pain, no constipation, no diarrhea, no nausea, no vomiting. GENITOURINARY: No abnormal discharge, no dysuria, no frequent urination, no hematuria. No complaints of pain in the genitals. MUSCULOSKELETAL: No back pain, no gout, no joint pain, no joint swelling, no muscle pain, no muscle stiffness, no neck pain. INTEGUMENTARY: No change in color, no change in hair/nails, no dryness, no lesion, no lumps, no rash. NEUROLOGICAL/PSYCH: No anxiety, not depressed, no emotional problem, no headache, no numbness, no pre-existing deficit, no history of seizures, no tremors, no weakness. HEMATOLOGIC/LYMPHATIC: Not anemic, no history of blood clots, no apparent bleeding, no bruising, glands not swollen. All Systems Negative, Except as Noted. Physical Exam Physical Exam Dictation VITAL SIGNS: Reviewed. GENERAL APPEARANCE: Alert, oriented x3, no acute distress, obese. HEAD AND FACE: Non-traumatic. EYES: PERRL, pink conjunctivas, eyelid no trauma, anterior chamber clear. EARS: Pinnas intact and no signs of trauma or erythema. Ear canals clear and no discharge. TMs no erythema. NOSE: No discharge, no bleeding. OROPHARYNX: Mouth normal, teeth no caries, tongue pink. Pharynx clear, no erythema. Tonsils no exudates, no abscesses noted. Mucous membrane moist. NECK: Supple, non-tender, no thyromegaly, no masses, no JVD, no bruits. BREAST: Deferred. CHEST: No tenderness, no crepitus, no paradoxical movement, no retractions. LUNGS: Clear, well-ventilated, symmetric, no rales, no wheezing, no rhonchi, no stridor, good breath sounds bilaterally. HEART: Regular rate, regular rhythm, no murmur, no gallops. VASCULAR: No peripheral edema. ABDOMEN: Soft, positive bowel sounds, nondistended, no guarding, nontender, no rebound, no masses no hepatomegaly, no splenomegaly, no Dixon's sign, no hernias. RECTAL: Deferred. GENITAL: Deferred. NEUROLOGICAL: Normal speech, gross motor function intact, gross sensory function intact. MUSCULOSKELETAL: Neck nontender, full range of motion, back nontender, full range of motion. EXTREMITIES: Nontender, full range of motion. SKIN: Color pink, dry, no turgor, no rash, no lacerations, no abrasions, no contusions. LYMPHATICS: Deferred. Results Laboratory and Microbiology Lab and Micro Result Laboratory Tests Test 05/12/25 15:28 Influenza Type A Antigen Negative For Type A Influenza Type B Antigen Negative For Type B MDM CC: Flu like symptoms Historian: Patient Comorbidities: Bipolar disorder Limitations by social determinants of health: None Vital signs stable Clinical exam is unremarkable COVID positive consistent with the symptoms We will DC with the Paxlovid she does have risk factors including obesity hypertension. ED Course Orders Procedure Category Date Status Time Covid19 (Sars Antigen LAB 05/12/25 In Process Rapid) 15:12 Influenza Type A & B, LAB 05/12/25 In Process Rapid 15:12 Acetaminophen 500mg PHA 05/12/25 Complete Tab (Tylenol 500mg T 15:30 Ibuprofen 600 Mg PHA 05/12/25 Complete Tablet (Motrin) 15:30 Rapid (Group A Strep) LAB 05/12/25 In Process 15:44 Current Medications Medications (Trade) Dose Ordered Sig/Radha Route PRN Reason Start Time Stop Time Status Last Admin Dose Admin Acetaminophen (TYLenol 500MG TAB) 1,000 mg ONCE ONCE PO 05/12/25 15:30 05/12/25 15:49 DC 05/12/25 15:54 Ibuprofen (moTRIN) 600 mg ONCE ONCE PO 05/12/25 15:30 05/12/25 15:50 DC 05/12/25 15:54 Vital Signs Date Time Temp Pulse Resp B/P (MAP) Pulse Ox O2 Delivery O2 Flow Rate FiO2 05/12/25 16:20 98.8 91 16 152/62 98 Room Air* 0 21 05/12/25 15:11 99.9 117 16 126/68 98 Room Air 0 DX & DISP Disposition: Discharge Departure Impression: Primary Impression: COVID Condition: Stable Scripts Nirmatrelvir/Ritonavir (Paxlovid 300-100 mg Dose Pack) 300 Mg (150 Mg X 2)-100 Mg Tab.ds.pk 1 EACH PO BID, #1 PACK Prov: ANALISA LOPEZ DO 05/12/25 Additional Instructions: You tested positive for COVID. I have prescribed Paxlovid, which is an antiviral medication for COVID. Please take as prescribed. You can take [id number] cough and cold medications such as DayQuil and NyQuil as needed. Please return to the emergency department as needed. Referrals: RUBY ROWLAND MD (PCP) ANALISA LOPEZ DO May 12, 2025 16:43
== END 2025-05-12 16:55 | disposition home or self-care (01) ==
LOC: EDH 15:10
DX: U07.1 COVID-19 (principal); E11.9 Type 2 diabetes mellitus without complications; E66.9 Obesity, unspecified; F31.9 Bipolar disorder, unspecified; F41.9 Anxiety disorder, unspecified; I10 Essential (primary) hypertension; J45.909 Unspecified asthma, uncomplicated; Z79.85 Long-term (current) use of injectable non-insulin antidiabetic drugs; Z79.899 Other long term (current) drug therapy; Z88.1 Allergy status to other antibiotic agents; Z90.89 Acquired absence of other organs
CPT/HCPCS: 87426; 87804; 87880; 99283

== ENCOUNTER 2025-06-19 19:20 | Emergency (ER) | payer BC, MEDICAID ==
[~2025-06-19] VITALS: Ht 177.8 cm; Wt 163.3 kg
[~2025-06-19 19:20] MED LIST changes: -DIPH50 PO; +DIPH50CA38 PO; +NIRM1TAB12 PO
[2025-06-19 19:37] VITALS: BP 144/90; PULSE 94; RESP 16; TEMP 99; O2SAT 97
[2025-06-19] MEDS ORDERED: CIPOTIC OTIC (19:45)
[2025-06-19] MEDS ORDERED: IBUP-2077 PO (19:45)
--- NOTE | 2025-06-19 19:46 | ERN ---
ED Note History of Present Illness Stated Complaint: L EAR PAIN Chief Complaint: Earache Time Seen by MD: 19:24 Dictation: PATIENT IS A 39-YEAR-OLD FEMALE COMING IN TODAY WITH COMPLAINTS OF LEFT EAR PAIN SHE HAS HAD FOR THE LAST 2-3 DAYS. SHE STATES SHE THOUGHT SHE HAD SOME BLOCKAGE IN HER LEFT EAR TWO DAYS AGO AND USED HYDROGEN PEROXIDE TO RINSE IT OUT. SHE HAS BEEN HAVING PAIN SINCE NO FEVER NO CHILLS NO NAUSEA VOMITING NO HEARING LOSS. SHE DENIES MASTOID TENDERNESS BILATERALLY. Allergies: Coded Allergies: ceftriaxone (Verified Adverse Reaction, Mild, Nausea, vomiting , 03/12/24) Home Meds Active Scripts Nirmatrelvir/Ritonavir (Paxlovid 300-100 mg Dose Pack) 300 Mg (150 Mg X 2)-100 Mg Tab.ds.pk, 1 EACH PO BID, #1 PACK Prov:ANALISA LOPEZ DO 05/12/25 Dicyclomine HCl (Bentyl) 20 Mg Tab, 1 TAB PO BID for irritable bowel symptoms for 10 Days, #20 TAB 0 Refills Prov:ANALISA LOPEZ DO 01/13/25 Loperamide HCl (Imodium) 2 Mg Cap, 2 CAP PO Q6H for loose stool for 5 Days, #40 CAP 0 Refills Prov:ANALISA LOPEZ DO 01/13/25 Acetaminophen (Tylenol) 500 Mg Tab, 1 TAB PO Q6HPRN PRN for pain or fever for 5 Days, #20 TAB 0 Refills Prov:WALTER CHEYR MD 09/22/24 Ibuprofen (Ibuprofen) 400 Mg Tablet, 1 TAB PO Q6HPRN PRN for pain or fever for 5 Days, #20 TAB 0 Refills Prov:WALTER CHERY MD 09/22/24 Sulfamethoxazole/Trimethoprim (Bactrim Ds Tablet) 800 Mg-160 Mg Tablet, 1 TAB PO BID for 7 Days, #14 TAB 0 Refills Prov:CHRISTIANO PURCELL 09/19/24 Diphenhydramine HCl (Benadryl) 50 Mg Cap, 50 MG PO Q6H for itching/rash, #20 CAP 0 Refills Prov:VERÓINCA TOBIAS NP 09/15/24 Ivermectin (Ivermectin) 3 Mg Tablet, 5 TAB PO ONCE for 1 Day, #5 TAB 0 Refills Prov:VERÓNICA TOBIAS NP 09/15/24 Amoxicillin/Potassium Clav (Amox Tr-K Clv 875-125 mg Tab) 875 Mg-125 Mg Tablet, 1 TAB PO BID for 10 Days, #20 TAB 0 Refills Prov:GERALDINE MARK MD 09/06/24 Pantoprazole Sodium (Protonix) 40 Mg Tablet.dr, 1 TAB PO DAILY for 30 Days, #30 TAB 0 Refills Prov:SONYA RODRÍGUEZ AGPCNP 07/20/24 Levofloxacin (Levofloxacin) 500 Mg Tablet, 1 TAB PO DAILY for 7 Days, #7 TAB 0 Refills Prov:SONYA RODRÍGUEZ AGPCNP 07/20/24 Reported Medications Gabapentin (Gabapentin) 100 Mg Capsule, 3 CAP PO TID for 30 Days, #90 CAP 0 Refills 07/20/24 Cariprazine Hydrochloride (Vraylar) 3 Mg Capsule, 1 CAP PO DAILY for 30 Days, #30 CAP 0 Refills 07/20/24 Semaglutide (Ozempic) 1 Mg/0.75 Ml (4 Mg/3 Ml) Pen.injctr, 1 MG SQ QWEEK 03/12/24 Lisinopril (Lisinopril) 10 Mg Tablet, 1 TAB PO DAILY for blood pressure 03/12/24 Ziprasidone HCl (Ziprasidone HCl) 40 Mg Capsule, 1 CAP PO BID 03/12/24 Venlafaxine HCl (Venlafaxine HCl ER) 150 Mg Cap.er.24h, 1 CAP PO DAILY 03/12/24 Past Medical History Past Medical History: Anxiety, Asthma, Bipolar, Diabetes-Type II, Hypertension Additional Past Medical Hx: PCOS, IBS Surgical History: Tonsillectomy, Other Surgical History Other: ANKLE Family History: Negative Social History: Drugs, Negative, Lives with family, Other History: Not Applicable RN Note Reviewed/Agreed w/PFSH: Yes Review of System Dictation CONSTITUTIONAL: NEGATIVE EXCEPT FOR HPI HEAD/FACE: NEGATIVE EXCEPT FOR HPI EENT: NEGATIVE EXCEPT FOR HPI LEFT EAR PAIN RESPIRATORY: NEGATIVE EXCEPT FOR HPI GASTROINTESTINAL/ABDOMINAL: NEGATIVE EXCEPT FOR HPI GENITOURINARY: NEGATIVE EXCEPT FOR HPI MUSCULOSKELETAL: NEGATIVE EXCEPT FOR HPI INTEGUMENTARY: NEGATIVE EXCEPT FOR HPI NEUROLOGICAL/PSYCH: NEGATIVE EXCEPT FOR HPI HEMATOLOGIC/LYMPHATIC: NEGATIVE EXCEPT FOR HPI ALL SYSTEMS NEGATIVE, EXCEPT NOTED ABOVE. 13 POINT REVIEW OF SYSTEMS ASSESSED AND ALL NEGATIVE EXCEPT FOR ABOVE. Initial Vital Sign VS Vital Signs Date Time Temp Pulse Resp B/P (MAP) Pulse Ox O2 Delivery O2 Flow Rate FiO2 06/19/25 19:21 99.0 94 16 144/90 97 Room Air 0 06/19/25 19:37 21 Physical Exam Dictation VITAL SIGNS REVIEWED GENERAL APPEARANCE: ALERT, ORIENTED X 3, MILD ACUTE DISTRESS, WELL DEVELOPED, NOURISHED. HEAD AND FACE: NON-TRAUMATIC. EYES: PERRL, PINK CONJUNCTIVAS, EYELID NO TRAUMA, ANTERIOR CHAMBER WITH ARCUS SENILIS. EARS: PINNAS INTACT AND NO SIGNS OF TRAUMA BILATERAL TYMPANIC MEMBRANES INTACT. MILD LEFT OTIC CANAL SWELLING TENDERNESS. DISCHARGE NOSE: NO DISCHARGE, NO BLEEDING. OROPHARYNX: MOUTH NORMAL, TONGUE PINK, PHARYNX CLEAR,NO ERYTHEMA, TONSILS NO EXUDATES, NO ABSCESSES NOTED, MUCOUS MEMBRANE MOIST NECK: SUPPLE, NON-TENDER, NO THYROMEGALY, NO MASSES, NO JVD, NO BRUITS BREAST:DEFERRED CHEST:NO TENDERNESS, NO CREPITUS, NO PARADOXICAL MOVEMENT, NO RETRACTIONS LUNGS:CLEAR, WELL-VENTILATED, SYMMETRIC, NO RALES, NO WHEEZING, NO RHONCHI, NO STRIDOR, GOOD BREATH SOUNDS BILATERALLY HEART: REGULAR RATE, REGULAR RHYTHM, NO MURMUR, NO GALLOPS VASCULAR: NO PERIPHERAL EDEMA, ABDOMEN: SOFT, POSITIVE BOWEL SOUNDS, NONDISTENDED, NO GUARDING, NONTENDER, NO REBOUND, NO MASSES NO HEPATOMEGALY, NO SPLENOMEGALY, NO STERN'S SIGN, NO HERNIAS. RECTAL: DEFERRED GENITAL: DEFERRED NEUROLOGICAL: NORMAL SPEECH, MOTOR FUNCTION INTACT, SENSORY FUNCTION INTACT MUSCULOSKELETAL: NECK NONTENDER, FULL RANGE OF MOTION, BACK NONTENDER, FULL RANGE OF MOTION, EXTREMITIES: NONTENDER, FULL RANGE OF MOTION SKIN: COLOR PINK, DRY, NO TURGOR, NO RASH, NO LACERATIONS, NO ABRASIONS, NO CONTUSIONS. LYMPHATIC: DEFERRED Results (Laboratory/Radiology) Labs Reviewed?: Yes ED Course ED Course Orders Procedure Category Date Status Time Ibuprofen 800 Mg Tab PHA 06/19/25 Transmitted (Motrin) 20:00 Vital Signs Date Time Temp Pulse Resp B/P (MAP) Pulse Ox O2 Delivery O2 Flow Rate FiO2 06/19/25 19:37 99.0 94 16 144/90 97 Room Air* 0 21 06/19/25 19:21 99.0 94 16 144/90 97 Room Air 0 1940/NO LABS OR IMAGING INDICATED. WE WILL TREAT PATIENT EMPIRICALLY FOR OTITIS EXTERNA WITH ANALGESIA HERE. SHE WILL BE DISCHARGED HOME WITH [facility] AND TOLD TO SEE HER PRIMARY CARE DOCTOR IN TWO DAYS. Medical Decision Making MDM MEDICAL DISCHARGE MAKING BASED ON PHYSICAL EXAMINATION AND EMPIRIC TREATMENT FOR EAR PAIN. BILATERAL TYMPANIC MEMBRANES INTACT NO MASTOID TENDERNESS DIAGNOSIS IS MILD OTITIS EXTERNA LEFT DX & DISP Disposition: Discharge Departure Impression: Primary Impression: Left otitis externa Condition: Stable Scripts Ibuprofen (Ibuprofen 800 mg Tab) 800 Mg Tab 800 MG PO Q8H PRN for fever or pain, #30 TAB 0 Refills Prov: VERÓNICA TOBIAS NP 06/19/25 Ciprofloxacin HCl/Hc (Cipro Hc Otic Susp) 0.2 %-1 % Otsus 3 DROP OTIC BID for 7 Days, #10 ML 0 Refills THREE DROPS LEFT EAR WITH COTTON B.I.D. FOR SEVEN DAYS. Prov: VERÓNICA TOBIAS NP 06/19/25 Additional Instructions: FOLLOW-UP WITH PRIMARY CARE PROVIDER IN 1 TO 2 DAYS. TAKE MEDICATIONS DIRECTED HERE IN THE EMERGENCY ROOM. OKAY TO CONTINUE HOME MEDICATIONS UNLESS OTHERWISE DISCUSSED DURING YOUR VISIT IN THE EMERGENCY ROOM TODAY. RETURN TO YOUR NEAREST EMERGENCY ROOM IF SYMPTOMS WORSEN OR IF THERE IS NO IMPROVEMENT. CALL 911 IF YOU NEED IMMEDIATE ASSISTANCE. TAKE TYLENOL OR MOTRIN [id number] NEEDED AND IF NO CONTRAINDICATIONS ARE PRESENT. INCREASE ORAL HYDRATION. A WOUND CULTURE OR URINE CULTURE WAS ORDERED HERE IN THE EMERGENCY ROOM DEPARTMENT PLEASE FOLLOW-UP WITH PRIMARY CARE PROVIDER AND ADVISE THEM TO GET REPEAT PORTS FROM OUR FACILITY. IF YOU HAD ANY ALEKSANDR WRAP/SPLINTS THAT WERE APPLIED HERE, PLEASE DO NOT REMOVE THEM UNTIL YOU SEE YOUR PRIMARY CARE OR SPECIALTY. USE CIPRO HC DROPS TO YOUR LEFT EAR WITH COTTON TWICE A DAY DIRECTED. TAKE IBUPROFEN WITH FOOD NEEDED FOR PAIN. SEE YOUR PRIMARY CARE DOCTOR ON FRIDAY OR FRIDAY FOR MANAGEMENT AND REFERRAL TO ENT IF NOT BETTER. Referrals: RUBY ROWLAND MD (PCP) Time of Disposition: 19:44 I have reviewed the case, and I agree with, Diagnosis and Plan VERÓNICA TOBIAS NP Jun 19, 2025 19:46
== END 2025-06-19 20:06 | disposition home or self-care (01) ==
LOC: EDH 19:20
DX: H60.92 Unspecified otitis externa, left ear (principal); E11.9 Type 2 diabetes mellitus without complications; F31.9 Bipolar disorder, unspecified; F41.9 Anxiety disorder, unspecified; I10 Essential (primary) hypertension; J45.909 Unspecified asthma, uncomplicated; Z79.85 Long-term (current) use of injectable non-insulin antidiabetic drugs; Z79.899 Other long term (current) drug therapy; Z88.1 Allergy status to other antibiotic agents; Z90.89 Acquired absence of other organs
CPT/HCPCS: 99283

== ENCOUNTER 2025-07-10 00:31 | Emergency (ER) | payer BC, MEDICAID ==
[~2025-07-10] VITALS: Ht 180.3 cm; Wt 163.3 kg
[~2025-07-10 00:31] MED LIST changes: +CIPOTIC OTIC; +IBUP-2077 PO
--- NOTE | 2025-07-10 00:56 | ERN ---
ED Note History of Present Illness Stated Complaint: HEADACHE Chief Complaint: Headache Time Seen by MD: 00:33 Time Seen by Midlevel: 00:33 Dictation: The patient is a 39-year-old female with a history of diabetes, CHF who presents to the emergency department with complaints of left sided headache associated with some nausea onset this morning. Patient denies any vomiting, denies any fevers, denies any head trauma, denies any upper respiratory symptoms Allergies: Coded Allergies: ceftriaxone (Verified Adverse Reaction, Mild, Nausea, vomiting , 03/12/24) Home Meds Active Scripts Ibuprofen (Ibuprofen 800 mg Tab) 800 Mg Tab, 800 MG PO Q8H PRN for fever or pain, #30 TAB 0 Refills Prov:VERÓNICA TOBIAS NP 06/19/25 Ciprofloxacin HCl/Hc (Cipro Hc Otic Susp) 0.2 %-1 % Otsus, 3 DROP OTIC BID for 7 Days, #10 ML 0 Refills THREE DROPS LEFT EAR WITH COTTON B.I.D. FOR SEVEN DAYS. Prov:VERÓNICA TOBIAS NP 06/19/25 Nirmatrelvir/Ritonavir (Paxlovid 300-100 mg Dose Pack) 300 Mg (150 Mg X 2)-100 Mg Tab.ds.pk, 1 EACH PO BID, #1 PACK Prov:ANALISA LOPEZ DO 05/12/25 Dicyclomine HCl (Bentyl) 20 Mg Tab, 1 TAB PO BID for irritable bowel symptoms for 10 Days, #20 TAB 0 Refills Prov:ANALISA LOPEZ DO 01/13/25 Loperamide HCl (Imodium) 2 Mg Cap, 2 CAP PO Q6H for loose stool for 5 Days, #40 CAP 0 Refills Prov:ANALISA LOPEZ DO 01/13/25 Acetaminophen (Tylenol) 500 Mg Tab, 1 TAB PO Q6HPRN PRN for pain or fever for 5 Days, #20 TAB 0 Refills Prov:WALTER CHERY MD 09/22/24 Ibuprofen (Ibuprofen) 400 Mg Tablet, 1 TAB PO Q6HPRN PRN for pain or fever for 5 Days, #20 TAB 0 Refills Prov:WALTER CHERY MD 09/22/24 Sulfamethoxazole/Trimethoprim (Bactrim Ds Tablet) 800 Mg-160 Mg Tablet, 1 TAB PO BID for 7 Days, #14 TAB 0 Refills Prov:CHRISTIANO PURCELL 09/19/24 Diphenhydramine HCl (Benadryl) 50 Mg Cap, 50 MG PO Q6H for itching/rash, #20 CAP 0 Refills Prov:VERÓNICA TOBIAS TRAFFIC CONTROL OPERATOR 09/15/24 Ivermectin (Ivermectin) 3 Mg Tablet, 5 TAB PO ONCE for 1 Day, #5 TAB 0 Refills Prov:VERÓNICA TOBIAS NP 09/15/24 Amoxicillin/Potassium Clav (Amox Tr-K Clv 875-125 mg Tab) 875 Mg-125 Mg Tablet, 1 TAB PO BID for 10 Days, #20 TAB 0 Refills Prov:GERALDINE MARK MD 09/06/24 Pantoprazole Sodium (Protonix) 40 Mg Tablet.dr, 1 TAB PO DAILY for 30 Days, #30 TAB 0 Refills Prov:SONYA RODRÍGUEZ 07/20/24 Levofloxacin (Levofloxacin) 500 Mg Tablet, 1 TAB PO DAILY for 7 Days, #7 TAB 0 Refills Prov:SONYA RODRÍGUEZNP 07/20/24 Reported Medications Gabapentin (Gabapentin) 100 Mg Capsule, 3 CAP PO TID for 30 Days, #90 CAP 0 Refills 07/20/24 Cariprazine Hydrochloride (Vraylar) 3 Mg Capsule, 1 CAP PO DAILY for 30 Days, #30 CAP 0 Refills 07/20/24 Semaglutide (Ozempic) 1 Mg/0.75 Ml (4 Mg/3 Ml) Pen.injctr, 1 MG SQ QWEEK 03/12/24 Lisinopril (Lisinopril) 10 Mg Tablet, 1 TAB PO DAILY for blood pressure 03/12/24 Ziprasidone HCl (Ziprasidone HCl) 40 Mg Capsule, 1 CAP PO BID 03/12/24 Venlafaxine HCl (Venlafaxine HCl ER) 150 Mg Cap.er.24h, 1 CAP PO DAILY 03/12/24 Past Medical History Past Medical History: Asthma, CHF, Diabetes-Type II, Hypertension Additional Past Medical Hx: PCOS, IBS Surgical History: Tonsillectomy Surgical History Other: ANKLE Family History: Negative Social History: Drugs, Negative, Lives with family, Other History: Not Applicable RN Note Reviewed/Agreed w/PFSH: Yes Review of System Dictation Constitutional: Negative for fever,chills, and weight loss Eyes: Negative for injury, pain,redness, and discharge ENT: Negative for injury,pain or swelling Cardiovascular: Negative for chest pain, palpitations, and edema Respiratory: Negative for shortness of breath, cough, and wheezing, Abdomen/GI: Negative for abdominal pain, nausea, vomiting, diarrhea, and con stipation Back: Negative for injury and pain : Negative for injury, bleeding and discharge MS/Extremity: Negative for injury and deformity Skin: Negative for rash, and discoloration Neuro: Negative for weakness, numbness, tingling, and seizure positive for headache Psych: Negative for suicide ideation, homicidal ideation, and hallucinations Initial Vital Sign VS Vital Signs Date Time Temp Pulse Resp B/P (MAP) Pulse Ox O2 Delivery O2 Flow Rate FiO2 07/10/25 00:33 98.4 82 18 126/86 97 Room Air 0 Physical Exam Dictation Vital Signs reviewed General Appearance: Alert, oriented x 3, no acute distress, well developed, nourished. Head and Face: non-traumatic. Eyes: PERRL, pink conjunctivas, eyelid no trauma, anterior chamber with arcus senilis. Ears: Pinnas intact and no signs of trauma or erythema ear canals clear and no discharge TM no erythema Nose: No discharge, no bleeding. Oropharynx: Mouth normal, tongue pink. pharynx clear,no erythema, tonsils no exudates, no abscesses noted, mucous membrane moist Neck: Supple, non-tender, no thyromegaly, no masses, no JVD, no bruits Breast:Deferred Chest:No tenderness, no crepitus, no paradoxical movement, no retractions Lungs:Clear, well-ventilated, symmetric, no rales, no wheezing, no rhonchi, no stridor, good breath sounds bilaterally Heart: Regular rate, regular rhythm, no murmur, no gallops Vascular: no peripheral edema, Abdomen: Soft, positive bowel sounds, nondistended, no guarding, nontender, no rebound, no masses no hepatomegaly, no splenomegaly, no Dixon's sign, no hernias. Rectal: Deferred Genital: Deferred Neurological: Normal speech, motor function intact, sensory function intact , upper extremities equal in strength, lower extremities equal in strength Musculoskeletal: Neck nontender, full range of motion, back nontender, full range of motion, Extremities: nontender, full range of motion Skin: Color pink, dry, no turgor, no rash, no lacerations, no abrasions, no contusions. Lymphatic: Deferred Results (Laboratory/Radiology) Laboratory/Radiology Laboratory Tests Test 07/10/25 01:00 White Blood Count 7.7 K/uL (4.8-10.8) Red Blood Count 4.66 MIL/uL (4.00-5.50) Hemoglobin 13.7 g/dL (12.0-16.0) Hematocrit 39.1 % (36-48) Mean Corpuscular Volume 83.9 fL (79-99) Mean Corpuscular Hemoglobin 29.4 pg (27.0-33.0) Mean Corpuscular Hemoglobin Concent 35.0 g/dL (32.0-36.0) Red Cell Distribution Width 13.1 % (11.0-15.5) Platelet Count 249 K/uL (130-400) Mean Platelet Volume 10.7 fL (7.5-10.5) H Immature Granulocyte % (Auto) 0.3 % (0-1) Neutrophils (%) (Auto) 58.1 % (40.0-77.0) Lymphocytes (%) (Auto) 35.0 % (21.0-51.0) Monocytes (%) (Auto) 4.3 % (3.0-13.0) Eosinophils (%) (Auto) 1.9 % (0.0-8.0) Basophils (%) (Auto) 0.4 % (0.0-5.0) Neutrophils # (Auto) 4.5 K/uL (1.8-7.7) Lymphocytes # (Auto) 2.7 K/uL (1.0-4.8) Monocytes # (Auto) 0.3 K/uL (0.1-1.0) Eosinophils # (Auto) 0.15 K/uL (0.00-0.70) Basophils # (Auto) 0.03 K/uL (0.00-0.20) Absolute Immature Granulocyte (auto 0.02 K/uL (0-1) Nucleated Red Blood Cells 0.0 % (0.0-0.19) Sodium Level 137 mmol/L (136-145) Potassium Level 3.3 mmol/L (3.5-5.1) L Chloride Level 100 mmol/L (101-111) L Carbon Dioxide Level 27 mmol/L (21-32) Blood Urea Nitrogen 16 mg/dL (7-18) Creatinine 1.0 mg/dL (0.5-1.0) Glomerular Filtration Rate Calc 74 mL/min (>90) Random Glucose 131 mg/dL (70-105) H Total Calcium 8.9 mg/dL (8.5-10.1) Serum Test, Qualitative NEGATIVE (NEGATIVE) Labs Reviewed?: Yes ED Course ED Course Orders Procedure Category Date Status Time Cbc With Differential LAB 07/10/25 Complete 00:52 Basic Metabolic Panel LAB 07/10/25 Complete 00:52 Acetaminophen 500mg PHA 07/10/25 Complete Tab (Tylenol 500mg T 01:00 Testing, LAB 07/10/25 Complete Serum Hcg 00:52 0.9% Nacl 500ml PHA 07/10/25 Complete Iv.Soln (Ns 500ml 01:00 Potassium Bicarb/Cit PHA 07/10/25 Complete Ac 25meq (K-Lyte Ta 01:30 Urinalysis Profile LAB 07/10/25 Logged 01:41 Current Medications Medications (Trade) Dose Ordered Sig/Radha Route PRN Reason Start Time Stop Time Status Last Admin Dose Admin Acetaminophen (TYLenol 500MG TAB) 1,000 mg ONCE ONCE PO 07/10/25 01:00 07/10/25 01:01 DC 07/10/25 01:02 Potassium Bicarbonate (K-Lyte Tablet Eff 25 Meq Tablet.eff) 25 meq ONCE ONCE PO 07/10/25 01:30 07/10/25 01:33 DC 07/10/25 01:42 Sodium Chloride 500 ml @ 0 mls/hr ONCE ONCE IV 07/10/25 01:00 07/10/25 01:01 DC 07/10/25 01:03 Vital Signs Date Time Temp Pulse Resp B/P (MAP) Pulse Ox O2 Delivery O2 Flow Rate FiO2 07/10/25 00:33 98.4 82 18 126/86 97 Room Air 0 Medical Decision Making MDM The patient is a 39-year-old female with a history of diabetes, CHF who presents to the emergency department with complaints of left sided headache associated with some nausea onset this morning. Patient denies any vomiting, denies any fevers, denies any head trauma, denies any upper respiratory symptoms. Patient reports light sensitivity but denies any visual deficits. CBC showed no leukocytosis, no anemia, chemistry showed mild hypokalemia, hypo chloremia. Patient's electrolytes was replaced and patient giving some fluids. On physical exam patient is in no acute distress, nontoxic appearance patient is neurologically intact, steady ambulatory gait. Stable vital signs. No further imaging needed at this time. Patient with no neuro deficits. We will discharge patient to follow up with PCP. Differential diagnosis: Migraine headache, dehydration, tension headache Need for hospitalization: Patient does not meet criteria for hospitalization. There are no social concerns with this patient. DX & DISP Disposition: Discharge Departure Impression: Primary Impression: Headache Additional Impressions: Mild dehydration, Hypokalemia Condition: Stable Additional Instructions: Your labs show your potassium was slightly low which was replaced. The rest of your labs were unremarkable. Please follow up with your primary doctor in 1-2 days. If anything worsens please return to ER. FOLLOW-UP WITH PRIMARY CARE PROVIDER IN 1 TO 2 DAYS. TAKE MEDICATIONS DIRECTED HERE IN THE EMERGENCY ROOM. OKAY TO CONTINUE HOME MEDICATIONS UNLESS OTHERWISE DISCUSSED DURING YOUR VISIT IN THE EMERGENCY ROOM TODAY. RETURN TO YOUR NEAREST EMERGENCY ROOM IF SYMPTOMS WORSEN OR IF THERE IS NO IMPROVEMENT. CALL 911 IF YOU NEED IMMEDIATE ASSISTANCE. TAKE TYLENOL [id number] NEEDED AND IF NO CONTRAINDICATIONS ARE PRESENT. INCREASE ORAL HYDRATION. A WOUND CULTURE OR URINE CULTURE WAS ORDERED HERE IN THE EMERGENCY ROOM DEPARTMENT PLEASE FOLLOW-UP WITH PRIMARY CARE PROVIDER AND ADVISE THEM TO GET REPEAT PORTS FROM OUR FACILITY. IF YOU HAD ANY ALEKSANDR WRAP/SPLINTS THAT WERE APPLIED HERE, PLEASE DO NOT REMOVE THEM UNTIL YOU SEE YOUR PRIMARY CARE OR SPECIALTY. Referrals: RUBY ROWLAND MD (PCP) Time of Disposition: 01:54 I have reviewed the case, and I agree with, Diagnosis and Plan ELIEL MASTERS Jul 10, 2025 00:56
[2025-07-10] MEDS: 0.9% NACL 500ML IV.SOLN 500 ML IV ONE (01:03)
[2025-07-10 01:07] LABS: IMMATURE GRANULOCYTE ABSOLUTE 0.02 K/uL (0-1); NUCLEATED RED BLOOD CELLS 0.0 % (0.0-0.19); PLATELET COUNT (AUTO) 249 K/uL (130-400); RED BLOOD CELL COUNT(AUTO) 4.66 MIL/uL (4.00-5.50); RED CELL DISTRIBUTION WIDTH 13.1 % (11.0-15.5); WHITE BLOOD COUNT (AUTO) 7.7 K/uL (4.8-10.8)
[2025-07-10 01:15] LABS: CREATININE 1.0 mg/dL (0.5-1.0); GLOMERULAR FILTR. RATE CALC 74.0 mL/min (>90); GLUCOSE,RANDOM 131.0 mg/dL (70-105); SODIUM SERUM 137.0 mmol/L (136-145); UREA NITROGEN, BLOOD 16.0 mg/dL (7-18)
[2025-07-10 01:50] VITALS: BP 119/64; PULSE 89; RESP 16; TEMP 99; O2SAT 96
[2025-07-10 01:59] LABS: ADD UA MICROSCOPIC NO; APPEARANCE,URINE CLEAR (CLEAR); GLUCOSE, URINE (UA) NEGATIVE (NEGATIVE); LEUKOCYTE ESTERASE ,URINE NEGATIVE Leu/uL (NEGATIVE); NITRATE,URINE NEGATIVE (NEGATIVE); OCCULT BLOOD,URINE NEGATIVE (NEGATIVE)
== END 2025-07-10 02:15 | disposition home or self-care (01) ==
LOC: EDH 00:31
DX: R51.9 Headache, unspecified (principal); E86.0 Dehydration; E87.6 Hypokalemia; E11.9 Type 2 diabetes mellitus without complications; I11.0 Hypertensive heart disease with heart failure; I50.9 Heart failure, unspecified; J45.909 Unspecified asthma, uncomplicated; Z79.85 Long-term (current) use of injectable non-insulin antidiabetic drugs; Z79.899 Other long term (current) drug therapy; Z88.1 Allergy status to other antibiotic agents; Z90.89 Acquired absence of other organs
CPT/HCPCS: 36415; 80048; 81003; 84703; 85025; 99283

== ENCOUNTER 2025-07-24 07:29 | Emergency (ER) | payer MEDICAID ==
[~2025-07-24] VITALS: Ht 180.3 cm; Wt 163.3 kg
[2025-07-24 07:30] VITALS: TEMP 97.6
[2025-07-24 08:11] LABS: APPEARANCE,URINE CLEAR (CLEAR); GLUCOSE, URINE (UA) NEGATIVE (NEGATIVE); LEUKOCYTE ESTERASE ,URINE NEGATIVE Leu/uL (NEGATIVE); NITRATE,URINE NEGATIVE (NEGATIVE); OCCULT BLOOD,URINE +- (TRACE) (NEGATIVE)
[2025-07-24] MEDS: MAG/ALUM/SIMETH 30 ML UDCUP PO ONE (08:11)
[2025-07-24] MEDS: 0.9%NACL 1000ML 1,000 ML IV ONE (08:11)
[2025-07-24] MEDS: LIDOCAINE HCL 2% VISCOUS 15 ML UDCUP PO ONE (08:11)
[2025-07-24 08:14] VITALS: BP 124/67; PULSE 91; RESP 18; O2SAT 98
[2025-07-24 08:14] LABS: ADD UA MICROSCOPIC YES; HCG,QUALITATIVE URINE NEGATIVE (NEGATIVE)
[2025-07-24 08:15] LABS: SQUAMOUS EPITHELIAL CELL,UR FEW /HPF (0-2)
[2025-07-24 08:16] LABS: IMMATURE GRANULOCYTE ABSOLUTE 0.03 K/uL (0-1); NUCLEATED RED BLOOD CELLS 0.0 % (0.0-0.19); PLATELET COUNT (AUTO) 223 K/uL (130-400); RED BLOOD CELL COUNT(AUTO) 4.53 MIL/uL (4.00-5.50); RED CELL DISTRIBUTION WIDTH 13.9 % (11.0-15.5); WHITE BLOOD COUNT (AUTO) 9.0 K/uL (4.8-10.8)
[2025-07-24 08:19] LABS: AMPHET/METH SCREEN,URINE NEGATIVE (NEGATIVE); BARBITURATE SCREEN, URINE NEGATIVE (NEGATIVE); CANNABINOID SCREEN,URINE POSITIVE (NEGATIVE); COCAINE SCREEN,URINE NEGATIVE (NEGATIVE)
[2025-07-24 08:38] LABS: ASPARTATE AMINOTRANSFERASE 17.0 U/L (10-37); CREATININE 0.9 mg/dL (0.5-1.0); GLOMERULAR FILTR. RATE CALC 84.0 mL/min (>90); GLUCOSE,RANDOM 118.0 mg/dL (70-105); SODIUM SERUM 139.0 mmol/L (136-145); TOTAL PROTEIN, SERUM 7.2 g/dL (6.0-8.3); UREA NITROGEN, BLOOD 10.0 mg/dL (7-18)
--- NOTE | 2025-07-24 08:50 | ERN ---
General Chief Complaint: Abdominal Pain Stated Complaint: ABD PAIN Time Seen by MD: 07:34 Source: patient History of Present Illness Initial Comments Patient is a 39-year-old female coming in to be evaluated for chronic abdominal pain. Per patient she has a flare-up of her abdominal pain in the last couple of days. No fever no chills no nausea no vomiting. Allergies: Coded Allergies: ceftriaxone (Verified Adverse Reaction, Mild, Nausea, vomiting , 03/12/24) Home Meds Active Scripts Ibuprofen (Ibuprofen 800 mg Tab) 800 Mg Tab, 800 MG PO Q8H PRN for fever or pain, #30 TAB 0 Refills Prov:VERÓNICA TOBIAS NEUROLOGY TECH 06/19/25 Ciprofloxacin HCl/Hc (Cipro Hc Otic Susp) 0.2 %-1 % Otsus, 3 DROP OTIC BID for 7 Days, #10 ML 0 Refills THREE DROPS LEFT EAR WITH COTTON B.I.D. FOR SEVEN DAYS. Prov:VERÓNICA TOBIAS NEUROLOGY TECH 06/19/25 Nirmatrelvir/Ritonavir (Paxlovid 300-100 mg Dose Pack) 300 Mg (150 Mg X 2)-100 Mg Tab.ds.pk, 1 EACH PO BID, #1 PACK Prov:ANALISA LOPEZ DO 05/12/25 Dicyclomine HCl (Bentyl) 20 Mg Tab, 1 TAB PO BID for irritable bowel symptoms for 10 Days, #20 TAB 0 Refills Prov:ANALISA LOPEZ DO 01/13/25 Loperamide HCl (Imodium) 2 Mg Cap, 2 CAP PO Q6H for loose stool for 5 Days, #40 CAP 0 Refills Prov:ANALISA LOPEZ DO 01/13/25 Acetaminophen (Tylenol) 500 Mg Tab, 1 TAB PO Q6HPRN PRN for pain or fever for 5 Days, #20 TAB 0 Refills Prov:WALTER CHERY MD 09/22/24 Ibuprofen (Ibuprofen) 400 Mg Tablet, 1 TAB PO Q6HPRN PRN for pain or fever for 5 Days, #20 TAB 0 Refills Prov:WALTER CHERY MD 09/22/24 Sulfamethoxazole/Trimethoprim (Bactrim Ds Tablet) 800 Mg-160 Mg Tablet, 1 TAB PO BID for 7 Days, #14 TAB 0 Refills Prov:CHRISTIANO PURCELL 09/19/24 Diphenhydramine HCl (Benadryl) 50 Mg Cap, 50 MG PO Q6H for itching/rash, #20 CAP 0 Refills Prov:VERÓNICA TOBIAS Michael NEUROLOGY TECH 09/15/24 Ivermectin (Ivermectin) 3 Mg Tablet, 5 TAB PO ONCE for 1 Day, #5 TAB 0 Refills Prov:VERÓNICA TOBIAS Michael NEUROLOGY TECH 09/15/24 Amoxicillin/Potassium Clav (Amox Tr-K Clv 875-125 mg Tab) 875 Mg-125 Mg Tablet, 1 TAB PO BID for 10 Days, #20 TAB 0 Refills Prov:GERALDINE MARK MD 09/06/24 Pantoprazole Sodium (Protonix) 40 Mg Tablet.dr, 1 TAB PO DAILY for 30 Days, #30 TAB 0 Refills Prov:[facility]GUEZ [facility] 07/20/24 Levofloxacin (Levofloxacin) 500 Mg Tablet, 1 TAB PO DAILY for 7 Days, #7 TAB 0 Refills Prov:SONYA RODRÍGUEZ [facility] 07/20/24 Reported Medications Gabapentin (Gabapentin) 100 Mg Capsule, 3 CAP PO TID for 30 Days, #90 CAP 0 Refills 07/20/24 Cariprazine Hydrochloride (Vraylar) 3 Mg Capsule, 1 CAP PO DAILY for 30 Days, #30 CAP 0 Refills 07/20/24 Semaglutide (Ozempic) 1 Mg/0.75 Ml (4 Mg/3 Ml) Pen.injctr, 1 MG SQ QWEEK 03/12/24 Lisinopril (Lisinopril) 10 Mg Tablet, 1 TAB PO DAILY for blood pressure 03/12/24 Ziprasidone HCl (Ziprasidone HCl) 40 Mg Capsule, 1 CAP PO BID 03/12/24 Venlafaxine HCl (Venlafaxine HCl ER) 150 Mg Cap.er.24h, 1 CAP PO DAILY 03/12/24 Past Medical History Past Medical History: Anxiety, Asthma, Depression, Diabetes-Type II, Hypertension Medical History Other: PCOS, IBS Past Surgical History: Tonsillectomy, Other Surgical History Other: RT ANKLE SX Family History Family History: Negative Social History Social History: Drugs, Negative, Lives with family, Other Female( History) History: Not Applicable : 0 Para: 0 Aborts: 0 ROS Dictation CONSTITUTIONAL: No chills, no fever, no weakness, no diaphoresis, no malaise. HEAD/FACE: No signs of trauma. EENT: No eye pain, no blurred vision, no tearing, no double vision, no ear pain, no ear discharge, no nose pain, no nasal congestion, no throat pain, no throat swelling, no mouth pain. RESPIRATORY: No cough, no orthopnea, no SOB, no stridor, no wheezing. CARDIOVASCULAR: No chest pain, no edema, no palpitations, no syncope. GASTROINTESTINAL/ABDOMINAL: abdominal pain, no constipation, no diarrhea, no nausea, no vomiting. GENITOURINARY: No abnormal discharge, no dysuria, no frequent urination, no hematuria. No complaints of pain in the genitals. MUSCULOSKELETAL: No back pain, no gout, no joint pain, no joint swelling, no muscle pain, no muscle stiffness, no neck pain. INTEGUMENTARY: No change in color, no change in hair/nails, no dryness, no lesion, no lumps, no rash. NEUROLOGICAL/PSYCH: No anxiety, not depressed, no emotional problem, no headache, no numbness, no pre-existing deficit, no history of seizures, no tremors, no weakness. HEMATOLOGIC/LYMPHATIC: Not anemic, no history of blood clots, no apparent bleeding, no bruising, glands not swollen. All Systems Negative, Except as Noted. Physical Exam Physical Exam Dictation VITAL SIGNS: Reviewed. GENERAL APPEARANCE: Alert, oriented x3, no acute distress, obese. HEAD AND FACE: Non-traumatic. EYES: PERRL, pink conjunctivas, eyelid no trauma, anterior chamber clear. EARS: Pinnas intact and no signs of trauma or erythema. Ear canals clear and no discharge. TMs no erythema. NOSE: No discharge, no bleeding. OROPHARYNX: Mouth normal, teeth no caries, tongue pink. Pharynx clear, no erythema. Tonsils no exudates, no abscesses noted. Mucous membrane moist. NECK: Supple, non-tender, no thyromegaly, no masses, no JVD, no bruits. BREAST: Deferred. CHEST: No tenderness, no crepitus, no paradoxical movement, no retractions. LUNGS: Clear, well-ventilated, symmetric, no rales, no wheezing, no rhonchi, no stridor, good breath sounds bilaterally. HEART: Regular rate, regular rhythm, no murmur, no gallops. VASCULAR: No peripheral edema. ABDOMEN: Soft, positive bowel sounds, nondistended, no guarding, generalized abdominal tender, no rebound, no masses no hepatomegaly, no splenomegaly, no Dixon's sign, no hernias. RECTAL: Deferred. GENITAL: Deferred. NEUROLOGICAL: Normal speech, gross motor function intact, gross sensory function intact. MUSCULOSKELETAL: Neck nontender, full range of motion, back nontender, full range of motion. EXTREMITIES: Nontender, full range of motion. SKIN: Color pink, dry, no turgor, no rash, no lacerations, no abrasions, no contusions. LYMPHATICS: Deferred. Results Laboratory and Microbiology Lab and Micro Result Laboratory Tests Test 07/24/25 07:52 07/24/25 08:00 Urine Color YELLOW (YELLOW) Urine Appearance CLEAR (CLEAR) Urine pH 5.5 (5.0-8.0) Urine Specific [place] 1.022 (1.001-1.031) Urine Protein NEGATIVE mg/dL (NEGATIVE) Urine Glucose (UA) NEGATIVE mg/dL (NEGATIVE) Urine Ketones NEGATIVE mg/dL (NEGATIVE) Urine Occult Blood +- (TRACE) (NEGATIVE) H Urine Nitrate NEGATIVE (NEGATIVE) Urine Bilirubin NEGATIVE mg/dL (NEGATIVE) Urine Urobilinogen 0.2 mg/dL (0.2-1.0) Urine Leukocyte Esterase NEGATIVE [place]ie[place]/uL Urine RBC 2-5 /HPF (0-1) H Urine WBC 2-5 /HPF (0-1) H Urine Squamous Epithelial Cells FEW /HPF (0-2) Urine Bacteria RARE /HPF (None Seen) Urine HCG, Qualitative NEGATIVE (NEGATIVE) Urine Opiates Screen NEGATIVE (NEGATIVE) Urine Barbiturates Screen NEGATIVE (NEGATIVE) Urine Phencyclidine Screen NEGATIVE (NEGATIVE) Urine Amphetamines Screen NEGATIVE (NEGATIVE) Urine Benzodiazepines Screen NEGATIVE (NEGATIVE) Urine Cocaine Screen NEGATIVE (NEGATIVE) Urine Marijuana (THC) Screen POSITIVE (NEGATIVE) H White Blood Count 9.0 K/uL (4.8-10.8) Red Blood Count 4.53 MIL/uL (4.00-5.50) Hemoglobin 13.4 g/dL (12.0-16.0) Hematocrit 39.2 % (36-48) Mean Corpuscular Volume 86.5 fL (79-99) Mean Corpuscular Hemoglobin 29.6 pg (27.0-33.0) Mean Corpuscular Hemoglobin Concent 34.2 g/dL (32.0-36.0) Red Cell Distribution Width 13.9 % (11.0-15.5) Platelet Count 223 K/uL (130-400) Mean Platelet Volume 10.3 fL (7.5-10.5) Immature Granulocyte % (Auto) 0.3 % (0-1) Neutrophils (%) (Auto) 71.3 % (40.0-77.0) Lymphocytes (%) (Auto) 20.9 % (21.0-51.0) L Monocytes (%) (Auto) 4.8 % (3.0-13.0) Eosinophils (%) (Auto) 2.3 % (0.0-8.0) Basophils (%) (Auto) 0.4 % (0.0-5.0) Neutrophils # (Auto) 6.4 K/uL (1.8-7.7) Lymphocytes # (Auto) 1.9 K/uL (1.0-4.8) Monocytes # (Auto) 0.4 K/uL (0.1-1.0) Eosinophils # (Auto) 0.21 K/uL (0.00-0.70) Basophils # (Auto) 0.04 K/uL (0.00-0.20) Absolute Immature Granulocyte (auto 0.03 K/uL (0-1) Nucleated Red Blood Cells 0.0 % (0.0-0.19) Sodium Level 139 mmol/L (136-145) Potassium Level 3.8 mmol/L (3.5-5.1) Chloride Level 103 mmol/L (101-111) Carbon Dioxide Level 28 mmol/L (21-32) Blood Urea Nitrogen 10 mg/dL (7-18) Creatinine 0.9 mg/dL (0.5-1.0) Glomerular Filtration Rate Calc 84 mL/min (>90) Random Glucose 118 mg/dL (70-105) H Total Calcium 9.3 mg/dL (8.5-10.1) Total Bilirubin 0.3 mg/dL (0.2-1.0) Aspartate Amino Transf (AST/SGOT) 17 U/L (10-37) Alanine Aminotransferase (ALT/SGPT) 40 U/L (12-78) Alkaline Phosphatase 72 U/L (50-136) Total Protein 7.2 g/dL (6.0-8.3) Albumin 3.3 g/dL (3.5-5.0) L Lipase 27 U/L (16-77) Labs Reviewed?: Yes MDM MDM: Differential diagnosis: Abuse, GERD, gastritis, Rationale: Tests considered and ordered secondary to shared decision making include: Previous outside records reviewed: Old ER visits. Risk of complication and/or morbidity or mortality of patient management: None Medications-Per medication reconciliation Need for hospitalization: Patient does not meet criteria for hospitalization. Need for emergency major/minor surgery: No Patient is a 39-year-old female coming in to be evaluated for abdominal discomfort. Laboratory workup positive for cannabis on urine drug screen. Patient received a GI cocktail as well as IV Protonix her symptoms improved significantly patient will be discharged in stable condition with a diagnosis of gastritis and cannabis abuse. Medication will be provided for symptomatic relief. I also advised her appropriate follow up with PCP for long-term management. While pending to receive medication for pain was informed by nursing staff the patient refused medication and he eloped from the ER. ED Course Orders Procedure Category Date Status Time Cbc With Differential LAB 07/24/25 Complete 07:34 Comprehensive LAB 07/24/25 Complete Metabolic Panel 07:34 ,Urine Test LAB 07/24/25 Complete 07:34 Urinalysis Profile LAB 07/24/25 Complete 07:34 0.9%Nacl 1000ml (Ns PHA 07/24/25 Complete 1000ml) 08:00 Lidocaine Hcl 2% PHA 07/24/25 Complete Viscous (Lidocaine Hcl 08:00 Mag/Alum/Simeth 30ml PHA 07/24/25 Complete (Maalox Plus 30ml) 08:00 Pantoprazole 40mg Inj PHA 07/24/25 Complete (Protonix 40mg Inj 08:00 Lipase LAB 07/24/25 Complete 07:34 Drug Screen Urine LAB 07/24/25 Complete 07:34 Ketorolac PHA 07/24/25 Complete Tromethamine 30mg/Ml 09:00 Current Medications Medications (Trade) Dose Ordered Sig/Radha Route PRN Reason Start Time Stop Time Status Last Admin Dose Admin Al Hydroxide/Mg Hydroxide (MAALox PLUS 30ML) 30 ml ONCE ONCE PO 07/24/25 08:00 07/24/25 08:01 DC 07/24/25 08:11 Ketorolac Tromethamine (toRADol) 30 mg ONCE ONCE IM 07/24/25 09:00 07/24/25 09:02 DC Lidocaine HCl (Lidocaine HCl 2% Viscous) 10 ml ONCE ONCE PO 07/24/25 08:00 07/24/25 08:01 DC 07/24/25 08:11 Pantoprazole Sodium (PROTonix 40MG INJ) 40 mg ONCE ONCE IVP 07/24/25 08:00 07/24/25 08:01 DC 07/24/25 08:11 Sodium Chloride 1,000 ml @ 0 mls/hr ONCE ONCE IV 07/24/25 08:00 07/24/25 08:01 DC 07/24/25 08:11 Vital Signs Date Time Temp Pulse Resp B/P (MAP) Pulse Ox O2 Delivery O2 Flow Rate FiO2 07/24/25 08:14 91 18 124/67 98 Room Air* 0 21 07/24/25 07:30 97.5 98 18 147/85 97 Room Air 0 DX & DISP Disposition: AMA Departure Impression: Primary Impression: Gastroenteritis Additional Impression: Cannabis abuse Condition: Against Medical Advice Additional Instructions: Pain to receive pain medication was informed by nursing staff the patient eloped from ER. She refused to sign any paperwork and left. Referrals: SELF,REFERRAL (PCP) CHRISTIANO HAGAN MD Time of Disposition: 08:53 IGNACIO HARTMANN MD Jul 24, 2025 08:50
--- NOTE | 2025-07-24 09:17 | NUR ---
PATIENT CAME UP TO THE NURSES STATION STATING, "I'M GONNA LEAVE SINCE Y'ALL ARE NOT DOING ANYTHING FOR ME!" INFORMED PATIENT THAT THE DR HAD ORDERED SOME PAIN MEDICATION AND THE PRIMARY NURSE WAS GATHERING THE MEDICATION. PATIENT THEN STATED, "NO FUCK THAT I'M NOT GONNA WAIT FOR THE MEDICATION I'M LEAVING." QUESTIONED PATIENT IF SHE IS WANTING TO LEAVE AGAINST MEDICAL ADVICE AND ARVIND VOICED, "YES I'M LEAVING AGAINST MEDICAL ADVICE, AND I'M NOT SIGNING THAT FUCKING PAPER." PATIENT PROCEEDED TO WALK OUT OF THE ER THROUGH THE DISCHARGE DOOR, FOLLOWED PATIENT TO THE LOBBY TO QUESTION IF SHE HAD A PIV IN PLACE AND SHE STATED, "I DON'T GIVE A FUCK, I WANTED A CT SCAN." INFORMED PATIENT THAT THIS RN WOULD SPEAK WITH THE DOCTOER BUT PATIENT CONTINUED TO SCREAM AND YELL PROFRANITIES AT THIS RN. QUESTIONED PATIENT ONCE MORE IF SHE HAD A PIV PLACED AND PATIENT YELLED, "NO I DON'T HAVE ONE, SEE I'M NOT BLEEDING." INFORMED PATIENT THAT THE RISKS OF LEAVING AGAINST MEDICAL ADVICE INCLUDE AND IF SHE MUST SEEK MEDICAL ATTENTION AGAIN TO PLEASE SEEK IT AT THE NEAREST MEDICAL FACILITY. PATIENT IGNORED INSTRUCTIONS AND PROCEEDED TO USE HER PERSONAL CELLPHONE. ED MD AND PRIMARY RN MADE AWARE./MAIK
== END 2025-07-24 09:30 | disposition left against medical advice (07) ==
LOC: EDH 07:29
DX: K52.9 Noninfective gastroenteritis and colitis, unspecified (principal); F12.10 Cannabis abuse, uncomplicated; F41.9 Anxiety disorder, unspecified; J45.909 Unspecified asthma, uncomplicated; F32.A Depression, unspecified; I10 Essential (primary) hypertension; E11.9 Type 2 diabetes mellitus without complications; Z88.1 Allergy status to other antibiotic agents; Z79.899 Other long term (current) drug therapy; Z79.85 Long-term (current) use of injectable non-insulin antidiabetic drugs; Z90.89 Acquired absence of other organs; Z87.442 Personal history of urinary calculi; Z98.890 Other specified postprocedural states
CPT/HCPCS: 99283; 96374; 96361; 80053; 80305; 83690; 85025; 81025; 36415; 81001; J7030; J2470; 99284

== ENCOUNTER 2025-09-19 01:15 | Emergency (ER) | payer MEDICAID ==
[~2025-09-19] VITALS: Ht 180.3 cm; Wt 172.4 kg
[2025-09-19 01:53] LABS: COVID19 (SARS ANTIGEN RAPID) PRESUMPTIVE NEGATIVE (NEGATIVE); INFLUENZA TYPE A Negative For Type A (NEGATIVE); INFLUENZA TYPE B Negative For Type B (NEGATIVE)
--- NOTE | 2025-09-19 02:36 | ERN ---
General Chief Complaint: Flu Symptoms Stated Complaint: COUGH, CONGESTION, SORE THROAT, H/A Time Seen by MD: 01:21 History of Present Illness Initial Comments 40-year-old female with a extensive past medical history here for evaluation of flu-like symptoms. She states that she has been having cough congestion sore throat and headache with the associated body aches with the past 48 hours. She has been using salt water gargles with a minimal relief of symptoms. She has not taken any medications prior to arrival. Allergies: Coded Allergies: ceftriaxone (Verified Adverse Reaction, Mild, Nausea, vomiting , 03/12/24) Home Meds Active Scripts Ibuprofen (Ibuprofen 800 mg Tab) 800 Mg Tab, 800 MG PO Q8H PRN for fever or pain, #30 TAB 0 Refills Prov:VERÓNICA TOBIASP 06/19/25 Ciprofloxacin HCl/Hc (Cipro Hc Otic Susp) 0.2 %-1 % Otsus, 3 DROP OTIC BID for 7 Days, #10 ML 0 Refills THREE DROPS LEFT EAR WITH COTTON B.I.D. FOR SEVEN DAYS. Prov:VERÓNICA TOBIAS 06/19/25 Nirmatrelvir/Ritonavir (Paxlovid 300-100 mg Dose Pack) 300 Mg (150 Mg X 2)-100 Mg Tab.ds.pk, 1 EACH PO BID, #1 PACK Prov:ANALISA LOPEZ DO 05/12/25 Dicyclomine HCl (Bentyl) 20 Mg Tab, 1 TAB PO BID for irritable bowel symptoms for 10 Days, #20 TAB 0 Refills Prov:ANALISA LOPEZ DO 01/13/25 Loperamide HCl (Imodium) 2 Mg Cap, 2 CAP PO Q6H for loose stool for 5 Days, #40 CAP 0 Refills Prov:ANALISA LOPEZ DO 01/13/25 Acetaminophen (Tylenol) 500 Mg Tab, 1 TAB PO Q6HPRN PRN for pain or fever for 5 Days, #20 TAB 0 Refills Prov:WALTER CHERY MD 09/22/24 Ibuprofen (Ibuprofen) 400 Mg Tablet, 1 TAB PO Q6HPRN PRN for pain or fever for 5 Days, #20 TAB 0 Refills Prov:WALTER CHERY MD 09/22/24 Sulfamethoxazole/Trimethoprim (Bactrim Ds Tablet) 800 Mg-160 Mg Tablet, 1 TAB PO BID for 7 Days, #14 TAB 0 Refills Prov:CHRISTIANO PURCELL 09/19/24 Diphenhydramine HCl (Benadryl) 50 Mg Cap, 50 MG PO Q6H for itching/rash, #20 CAP 0 Refills Prov:VERÓNICA TOBIAS ENGINEERING LEADER 09/15/24 Ivermectin (Ivermectin) 3 Mg Tablet, 5 TAB PO ONCE for 1 Day, #5 TAB 0 Refills Prov:VERÓNICA TOBIAS ENGINEERING LEADER 09/15/24 Amoxicillin/Potassium Clav (Amox Tr-K Clv 875-125 mg Tab) 875 Mg-125 Mg Tablet, 1 TAB PO BID for 10 Days, #20 TAB 0 Refills Prov:GERALDINE MARK MD 09/06/24 Pantoprazole Sodium (Protonix) 40 Mg Tablet.dr, 1 TAB PO DAILY for 30 Days, #30 TAB 0 Refills Prov:SONYA RODRÍGUEZ [facility] 07/20/24 Levofloxacin (Levofloxacin) 500 Mg Tablet, 1 TAB PO DAILY for 7 Days, #7 TAB 0 Refills Prov:SONYA RODRÍGUEZ [facility] 07/20/24 Reported Medications Gabapentin (Gabapentin) 100 Mg Capsule, 3 CAP PO TID for 30 Days, #90 CAP 0 Refills 07/20/24 Cariprazine Hydrochloride (Vraylar) 3 Mg Capsule, 1 CAP PO DAILY for 30 Days, #30 CAP 0 Refills 07/20/24 Semaglutide (Ozempic) 1 Mg/0.75 Ml (4 Mg/3 Ml) Pen.injctr, 1 MG SQ QWEEK 03/12/24 Lisinopril (Lisinopril) 10 Mg Tablet, 1 TAB PO DAILY for blood pressure 03/12/24 Ziprasidone HCl (Ziprasidone HCl) 40 Mg Capsule, 1 CAP PO BID 03/12/24 Venlafaxine HCl (Venlafaxine HCl ER) 150 Mg Cap.er.24h, 1 CAP PO DAILY 03/12/24 Past Medical History Past Medical History: Anxiety, Asthma, Depression, Diabetes-Type II, Hypertension Medical History Other: PCOS, IBS Past Surgical History: Tonsillectomy, Other Surgical History Other: RT ANKLE SX Family History Family History: Negative Social History Social History: Drugs, Negative, Lives with family, Other Female( History) History: Not Applicable Constitutional: (+) chills, (+) fever, (+) malaise Musculoskeletal: (+) muscle pain Review of Systems: was completed, & the rest were negative. Physical Exam Physical Exam Dictation GENERAL APPEARANCE NAD, activity normal for age, well developed/ well nourished, no cyanosis, pallor, or diaphoresis. Morbidly obese EYES lids/conjunctiva normal. EARS/NOSE/THROAT Mucous membranes moist, nares normal, lips/teeth normal uvula midline without oral pharyngeal erythema, exudate or swelling TMs normal bilaterally. No lymphangitis/lymphedema. HEAD/NECK normocephalic atraumatic, no facial trauma, neck is supple. RESPIRATORY respiratory effort normal, speaks in full sentences, no tripod position, no accessory muscle use. Lungs clear to auscultation without rhonchi, wheezes, rales CARDIAC Regular rate and rhythm, no edema. ABDOMINAL Soft, ND/NT. No evidence of fluid wave. No pulsatile masses on exam, rebound tenderness, Dixon sign or pain over Mcburney's point. MUSCLES/EXTREMITIES No abnormal range of motion, no swelling. SKIN Warm, pink and dry. No rashes, dermatoses, petechiae or lesions. NEUROLOGICAL Speech is clear and appropriate. Normal level of consciousness. Results Laboratory and Microbiology Lab and Micro Result Laboratory Tests Test 09/19/25 01:27 Influenza Type A Antigen Negative For Type A Influenza Type B Antigen Negative For Type B SARS-CoV-2 Antigen (Rapid) PRESUMPTIVE NEGATIVE Group A Streptococcus Rapid negative (NEGATIVE) MDM 40-year-old female here for evaluation of flu-like symptoms. Flu, COVID, strep negative. We will discharge home with a URI diagnosis. Discharge MDM Patient's prior external medical records from other ER visits were reviewed by me as indicated. Prior testing and results from previous visits were reviewed. Prior tests were taken into account with medical decision making and resource utilization, independent historian/historians were used to obtain complete medical history. I independently interpreted the test that were performed, results were reviewed by me and considered findings on radiology if ordered. Medical management and examination interpretation discussions were had by me with other qualified healthcare professionals as indicated for the patient's care. Labs and imaging reviewed with patient. All questions answered at this time. Patient advised to follow up with primary care physician in the next few days. Patient well-appearing, no acute distress. Vital signs stable. Will discharge at this time. ED Course Orders Procedure Category Date Status Time Covid19 (Sars Antigen LAB 09/19/25 Complete Rapid) 01:22 Influenza Type A & B, LAB 09/19/25 Complete Rapid 01:22 Rapid (Group A Strep) LAB 09/19/25 Complete 01:26 Acetaminophen 500mg PHA 09/19/25 Complete Tab (Tylenol 500mg T 01:30 Current Medications Medications (Trade) Dose Ordered Sig/Radha Route PRN Reason Start Time Stop Time Status Last Admin Dose Admin Acetaminophen (TYLenol 500MG TAB) 1,000 mg ONCE ONCE PO 09/19/25 01:30 09/19/25 01:36 DC 09/19/25 01:52 Vital Signs Date Time Temp Pulse Resp B/P (MAP) Pulse Ox O2 Delivery O2 Flow Rate FiO2 09/19/25 01:18 97.3 92 16 140/88 97 Room Air 0 DX & DISP Disposition: Discharge Departure Impression: Primary Impression: URTI (infection of the upper respiratory tract) Condition: Stable Scripts Guaifenesin (Mucinex) 1,200 Mg Tbmp.12hr 1 TAB PO BID for cough for 10 Days, #20 TAB 0 Refills Prov: GRACIE AUSTIN MD 09/19/25 Oxymetazoline HCl (Afrin) 0.05 % [place] 1 SPRAY NS BID for 3 Days, #15 ML 0 Refills Prov: GRACIE AUSTIN MD 09/19/25 Referrals: SELF,REFERRAL (PCP) GRACIE AUSTIN MD Sep 19, 2025 02:36
[2025-09-19 03:04] VITALS: BP 124/66; PULSE 66; RESP 17; TEMP 97.6; O2SAT 98
== END 2025-09-19 03:06 | disposition home or self-care (01) ==
LOC: EDH 01:15
DX: J06.9 Acute upper respiratory infection, unspecified (principal); E11.9 Type 2 diabetes mellitus without complications; F32.A Depression, unspecified; I10 Essential (primary) hypertension; J45.909 Unspecified asthma, uncomplicated; F41.9 Anxiety disorder, unspecified; Z20.822 Contact with and (suspected) exposure to COVID-19; Z87.42 Personal history of other diseases of the female genital tract; Z90.89 Acquired absence of other organs; Z88.1 Allergy status to other antibiotic agents; Z79.85 Long-term (current) use of injectable non-insulin antidiabetic drugs; Z79.899 Other long term (current) drug therapy
CPT/HCPCS: 87426; 87804; 87880; 99283

== ENCOUNTER 2025-09-22 12:56 | Emergency (ER) | payer MEDICAID ==
[~2025-09-22] VITALS: Ht 180.3 cm; Wt 172.4 kg
[~2025-09-22 12:56] MED LIST changes: +GUAI120015 PO; +OXYM30SP27 NS
--- NOTE | 2025-09-22 14:12 | HMCIMG ---
EXAM: CR Chest, 1 View. CLINICAL HISTORY: cough COMPARISON: None provided. FINDINGS: LUNGS: There is no mass, infiltrate, or acute pulmonary abnormality. PLEURAL SPACES: No evidence of pleural effusion or pneumothorax. MEDIASTINUM: Cardiac size and mediastinal contours within normal limits. BONES: No aggressive appearing osseous lesion seen. IMPRESSION: No acute cardiopulmonary pathology is evident. /[place]
[2025-09-22 14:43] LABS: COVID19 (SARS ANTIGEN RAPID) PRESUMPTIVE NEGATIVE (NEGATIVE); INFLUENZA TYPE A Negative For Type A (NEGATIVE); INFLUENZA TYPE B Negative For Type B (NEGATIVE)
[2025-09-22 15:03] LABS: RAPID GROUP A STREP positive (NEGATIVE)
[2025-09-22] MEDS ORDERED: ALBUHFA IH (16:02)
[2025-09-22] MEDS ORDERED: AZIT250T9 PO (16:02)
--- NOTE | 2025-09-22 16:02 | ERN ---
ED Note History of Present Illness Stated Complaint: COUGH Chief Complaint: Cough Time Seen by MD: 13:15 Dictation: 40-year-old female with cough cold congestion over the past few days patient reports she came into the hospital for similar symptoms and swabs were negative but the cough continues. Allergies: Coded Allergies: ceftriaxone (Verified Adverse Reaction, Mild, Nausea, vomiting , 03/12/24) Home Meds Active Scripts Guaifenesin (Mucinex) 1,200 Mg Tbmp.12hr, 1 TAB PO BID for cough for 10 Days, #20 TAB 0 Refills Prov:GRACIE AUSTIN MD 09/19/25 Oxymetazoline HCl (Afrin) 0.05 % [place], 1 SPRAY NS BID for 3 Days, #15 ML 0 Refills Prov:GRACIE AUSTIN MD 09/19/25 Ibuprofen (Ibuprofen 800 mg Tab) 800 Mg Tab, 800 MG PO Q8H PRN for fever or pain, #30 TAB 0 Refills Prov:VERÓNICA TOBIASP 06/19/25 Ciprofloxacin HCl/Hc (Cipro Hc Otic Susp) 0.2 %-1 % [place], 3 DROP OTIC BID for 7 Days, #10 ML 0 Refills THREE DROPS LEFT EAR WITH COTTON B.I.D. FOR SEVEN DAYS. Prov:VREÓNICA TOBIAS [employer] 06/19/25 Nirmatrelvir/Ritonavir (Paxlovid 300-100 mg Dose Pack) 300 Mg (150 Mg X 2)-100 Mg Tab.ds.pk, 1 EACH PO BID, #1 PACK Prov:ANALISA LOPEZ DO 05/12/25 Dicyclomine HCl (Bentyl) 20 Mg Tab, 1 TAB PO BID for irritable bowel symptoms for 10 Days, #20 TAB 0 Refills Prov:ANALISA LOPEZ DO 01/13/25 Loperamide HCl (Imodium) 2 Mg Cap, 2 CAP PO Q6H for loose stool for 5 Days, #40 CAP 0 Refills Prov:ANALISA LOPEZ DO 01/13/25 Acetaminophen (Tylenol) 500 Mg Tab, 1 TAB PO Q6HPRN PRN for pain or fever for 5 Days, #20 TAB 0 Refills Prov:WALTER CHERY MD 09/22/24 Ibuprofen (Ibuprofen) 400 Mg Tablet, 1 TAB PO Q6HPRN PRN for pain or fever for 5 Days, #20 TAB 0 Refills Prov:WALTER CHERY MD 09/22/24 Sulfamethoxazole/Trimethoprim (Bactrim Ds Tablet) 800 Mg-160 Mg Tablet, 1 TAB PO BID for 7 Days, #14 TAB 0 Refills Prov:CHRISTIANO PURCELL 09/19/24 Diphenhydramine HCl (Benadryl) 50 Mg Cap, 50 MG PO Q6H for itching/rash, #20 CAP 0 Refills Prov:VERÓNICA TOBIAS [employer] 09/15/24 Ivermectin (Ivermectin) 3 Mg Tablet, 5 TAB PO ONCE for 1 Day, #5 TAB 0 Refills Prov:VERÓNICA TOBIAS [employer] 09/15/24 Amoxicillin/Potassium Clav (Amox Tr-K Clv 875-125 mg Tab) 875 Mg-125 Mg Tablet, 1 TAB PO BID for 10 Days, #20 TAB 0 Refills Prov:GERALDINE MARK MD 09/06/24 Pantoprazole Sodium (Protonix) 40 Mg Tablet.dr, 1 TAB PO DAILY for 30 Days, #30 TAB 0 Refills Prov:SONYA RODRÍGUEZ AGAP 07/20/24 Levofloxacin (Levofloxacin) 500 Mg Tablet, 1 TAB PO DAILY for 7 Days, #7 TAB 0 Refills Prov:SON[facility]ÍGUEZ [facility] 07/20/24 Reported Medications Gabapentin (Gabapentin) 100 Mg Capsule, 3 CAP PO TID for 30 Days, #90 CAP 0 Refills 07/20/24 Cariprazine Hydrochloride (Vraylar) 3 Mg Capsule, 1 CAP PO DAILY for 30 Days, #30 CAP 0 Refills 07/20/24 Semaglutide (Ozempic) 1 Mg/0.75 Ml (4 Mg/3 Ml) Pen.injctr, 1 MG SQ QWEEK 03/12/24 Lisinopril (Lisinopril) 10 Mg Tablet, 1 TAB PO DAILY for blood pressure 03/12/24 Ziprasidone HCl (Ziprasidone HCl) 40 Mg Capsule, 1 CAP PO BID 03/12/24 Venlafaxine HCl (Venlafaxine HCl ER) 150 Mg Cap.er.24h, 1 CAP PO DAILY 03/12/24 Past Medical History Past Medical History: Anxiety, Asthma, Depression, Diabetes-Type II, Hypertension, Other Additional Past Medical Hx: PCOS, IBS. Surgical History: Tonsillectomy, Other Surgical History Other: ANKLE SX. Family History: Negative Social History: Drugs, Negative, Lives with family, Other History: Not Applicable Review of System Dictation Constitutional: Per HPI Eyes: Negative for injury, pain,redness, and discharge ENT: Negative for injury,pain or swelling Cardiovascular: Negative for chest pain, palpitations, and edema Respiratory: Per HPI Abdomen/GI: Negative for abdominal pain, nausea, vomiting, diarrhea, and constipation Back: Negative for injury and pain : Negative for injury, bleeding and discharge MS/Extremity: Negative for injury and deformity Skin: Negative for rash, and discoloration Neuro: Negative for headache, weakness, numbness, tingling, and seizure Psych: Negative for suicide ideation, homicidal ideation, and hallucinations Initial Vital Sign VS Vital Signs Date Time Temp Pulse Resp B/P (MAP) Pulse Ox O2 Delivery O2 Flow Rate FiO2 09/22/25 12:59 98.2 70 16 153/85 98 Room Air 0 09/22/25 14:09 21 Physical Exam Dictation General: awake, alert, NAD Head/Face: Normocephalic, atraumatic Eyes: PERRL, EOMI, vision at baseline ENT: oral cavity clear, TMs clear, no signs of infection Neck: Trachea midline, supple, no nuchal rigidity Cardiovascular: RRR, normal S1/S2, No MRGs, no JVD Respiratory: CTAB, no respiratory distress, No rales or wheezes Abdomen: Soft, non-tender, non-distended, normal bowel sounds, no guarding or rebound. Skin: Warm, dry, normal turgor, no rash MS/Extremity: Pulses equal, no cyanosis, neurovascular intact, FROM Neuro: COAx4, GCS 15, strength 5/5, CN 2-12 intact, normal cerebellar exam, normal gait, Psych: Normal behavior, mood, and affect normal Results (Laboratory/Radiology) Laboratory/Radiology Laboratory Tests Test 09/22/25 13:40 Influenza Type A Antigen Negative For Type A Influenza Type B Antigen Negative For Type B SARS-CoV-2 Antigen (Rapid) PRESUMPTIVE NEGATIVE Group A Streptococcus Rapid positive (NEGATIVE) *A Labs Reviewed?: Yes X-RAY Comment: Chest x-ray clear no infiltrates noted ED Course ED Course Orders Procedure Category Date Status Time Influenza Type A & B, LAB 09/22/25 Complete Rapid 13:17 Rapid (Group A Strep) LAB 09/22/25 Complete 13:17 Covid19 (Sars Antigen LAB 09/22/25 Complete Rapid) 13:17 Chest 1vw RAD 09/22/25 Resulted 13:17 Dexamethasone 4mg/Ml PHA 09/22/25 Complete 1ml Vial (Dexametha 13:51 Current Medications Medications (Trade) Dose Ordered Sig/Radha Route PRN Reason Start Time Stop Time Status Last Admin Dose Admin Dexamethasone Sodium Phosphate (dexaMETHasone 4MG/ML 1ML VIAL) 10 mg ONCE STAT IARTIC 09/22/25 13:51 09/22/25 13:55 DC 09/22/25 14:36 Vital Signs Date Time Temp Pulse Resp B/P (MAP) Pulse Ox O2 Delivery O2 Flow Rate FiO2 09/22/25 15:06 98.2 72 16 139/73 98 Room Air* 0 21 09/22/25 14:09 98.2 70 16 141/79 99 Room Air* 0 21 09/22/25 12:59 98.2 70 16 153/85 98 Room Air 0 Medical Decision Making MDM MDM: Differential diagnosis: Rationale: Tests considered and ordered secondary to shared decision making include: Previous outside records reviewed: Old ER visits. Risk of complication and/or morbidity or mortality of patient management: None Medications-Per medication reconciliation Need for hospitalization: Patient does not meet criteria for hospitalization. Need for emergency major/minor surgery: No There are no social concerns with this patient. Prescription drug management Prescriptions will include symptomatic care Patient's prior external medical records from other ER visits were reviewed by me as indicated. Prior testing and results from previous visits were reviewed. Prior tests were taken into account with medical decision making and resource utilization, independent historian/historians were used to obtain complete medical history. I independently interpreted the test that were performed, results were reviewed by me and considered findings on radiology if ordered. Medical management and examination interpretation discussions were had by me with other qualified healthcare professionals as indicated for the patient's care. 40-year-old female with strep throat, stable exam no respiratory distress given steroids and antibiotics due to asthma history prescriptions given. DX & DISP Disposition: Discharge Departure Impression: Primary Impression: Strep throat Additional Impression: Asthma Condition: Stable Scripts Albuterol Sulfate (Ventolin Hfa/Proventil Hfa/Proair Hfa) 90 Mcg Puff 1 PUFF IH Q4H PRN for SHORTNESS OF BREATH for 5 Days, #1 INH 0 Refills PHARMACY TO DISPENSE 1 INHALER FOR USE Prov: LESLEY DIXON MD 09/22/25 Azithromycin (Azithromycin) 250 Mg Tablet 250 MG PO AD for cough for 5 Days, #6 TAB Prov: LESLEY DIXON MD 09/22/25 LESLEY DIXON MD Sep 22, 2025 16:02
[2025-09-22 16:06] VITALS: BP 129/73; PULSE 70; RESP 16; TEMP 98.2; O2SAT 98
== END 2025-09-22 16:08 | disposition home or self-care (01) ==
LOC: EDH 12:56
DX: J02.0 Streptococcal pharyngitis (principal); J45.909 Unspecified asthma, uncomplicated; I10 Essential (primary) hypertension; E11.9 Type 2 diabetes mellitus without complications; F32.A Depression, unspecified; F41.9 Anxiety disorder, unspecified; Z88.1 Allergy status to other antibiotic agents; Z79.899 Other long term (current) drug therapy; Z79.85 Long-term (current) use of injectable non-insulin antidiabetic drugs; Z90.89 Acquired absence of other organs; Z20.822 Contact with and (suspected) exposure to COVID-19
CPT/HCPCS: 99284; 71045; 87426; 87880; 87804 ×2; 96372; J1100; 99283

== ENCOUNTER 2025-10-09 14:22 | Emergency (ER) | payer MEDICAID ==
[~2025-10-09] VITALS: Ht 180.3 cm; Wt 172.4 kg
[~2025-10-09 14:22] MED LIST changes: +ALBUHFA IH; +AZIT250T9 PO
--- NOTE | 2025-10-09 14:33 | ERN ---
ED Note History of Present Illness Stated Complaint: RT EYE CLOUDY VISION. DENIES INJURY Chief Complaint: Eye Problems Time Seen by MD: 14:26 Dictation: PATIENT IS A 40-YEAR-OLD FEMALE COMING IN TODAY WITH COMPLAINTS OF BLURRED VISION TO HER RIGHT EYE ONSET WAS THIS MORNING. SHE HAS NO HEADACHE NO NAUSEA VOMITING. SHE STATES SHE WEARS CONTACT LENSES HOWEVER HER PRESCRIPTION IS OLD AND SHE HAS NOT BEEN BACK TO SEE HER DOCTOR. SHE DENIES ANY DOUBLE VISION NO HEADACHE. [facility] IS INTACT Allergies: Coded Allergies: ceftriaxone (Verified Adverse Reaction, Mild, Nausea, vomiting , 03/12/24) Home Meds Active Scripts Albuterol Sulfate (Ventolin Hfa/Proventil Hfa/Proair Hfa) 90 Mcg Puff, 1 PUFF IH Q4H PRN for SHORTNESS OF BREATH for 5 Days, #1 INH 0 Refills PHARMACY TO DISPENSE 1 INHALER FOR USE Prov:LESLEY DIXON MD 09/22/25 Azithromycin (Azithromycin) 250 Mg Tablet, 250 MG PO AD for cough for 5 Days, #6 TAB Prov:LESLEY DIXON MD 09/22/25 Guaifenesin (Mucinex) 1,200 Mg Tbmp.12hr, 1 TAB PO BID for cough for 10 Days, #20 TAB 0 Refills Prov:GRACIE AUSTIN MD 09/19/25 Oxymetazoline HCl (Afrin) 0.05 % [place], 1 SPRAY NS BID for 3 Days, #15 ML 0 Refills Prov:GRACIE AUSTIN MD 09/19/25 Ibuprofen (Ibuprofen 800 mg Tab) 800 Mg Tab, 800 MG PO Q8H PRN for fever or pain, #30 TAB 0 Refills Prov:VERÓNICA TOBIAS 06/19/25 Ciprofloxacin HCl/Hc (Cipro Hc Otic Susp) 0.2 %-1 % [place], 3 DROP OTIC BID for 7 Days, #10 ML 0 Refills THREE DROPS LEFT EAR WITH COTTON B.I.D. FOR SEVEN DAYS. Prov:VERÓNICA TOBIAS 06/19/25 Nirmatrelvir/Ritonavir (Paxlovid 300-100 mg Dose Pack) 300 Mg (150 Mg X 2)-100 Mg Tab.ds.pk, 1 EACH PO BID, #1 PACK Prov:ANALISA LOPEZ DO 05/12/25 Dicyclomine HCl (Bentyl) 20 Mg Tab, 1 TAB PO BID for irritable bowel symptoms for 10 Days, #20 TAB 0 Refills Prov:ANALISA LOPEZ DO 01/13/25 Loperamide HCl (Imodium) 2 Mg Cap, 2 CAP PO Q6H for loose stool for 5 Days, #40 CAP 0 Refills Prov:ANALISA LOPEZ DO 01/13/25 Acetaminophen (Tylenol) 500 Mg Tab, 1 TAB PO Q6HPRN PRN for pain or fever for 5 Days, #20 TAB 0 Refills Prov:WALTER CHERY MD 09/22/24 Ibuprofen (Ibuprofen) 400 Mg Tablet, 1 TAB PO Q6HPRN PRN for pain or fever for 5 Days, #20 TAB 0 Refills Prov:WALTER CHERY MD 09/22/24 Sulfamethoxazole/Trimethoprim (Bactrim Ds Tablet) 800 Mg-160 Mg Tablet, 1 TAB PO BID for 7 Days, #14 TAB 0 Refills Prov:CHRISTIANO PURCELL 09/19/24 Diphenhydramine HCl (Benadryl) 50 Mg Cap, 50 MG PO Q6H for itching/rash, #20 CAP 0 Refills Prov:VERÓNICA TOBIASP 09/15/24 Ivermectin (Ivermectin) 3 Mg Tablet, 5 TAB PO ONCE for 1 Day, #5 TAB 0 Refills Prov:VERÓNICA TOBIASP 09/15/24 Amoxicillin/Potassium Clav (Amox Tr-K Clv 875-125 mg Tab) 875 Mg-125 Mg Tablet, 1 TAB PO BID for 10 Days, #20 TAB 0 Refills Prov:GERALDINE MARK MD 09/06/24 Pantoprazole Sodium (Protonix) 40 Mg Tablet.dr, 1 TAB PO DAILY for 30 Days, #30 TAB 0 Refills Prov:SONYA RODRÍGUEZ 07/20/24 Levofloxacin (Levofloxacin) 500 Mg Tablet, 1 TAB PO DAILY for 7 Days, #7 TAB 0 Refills Prov:SONYA RODRÍGUEZ 07/20/24 Reported Medications Gabapentin (Gabapentin) 100 Mg Capsule, 3 CAP PO TID for 30 Days, #90 CAP 0 Refills 07/20/24 Cariprazine Hydrochloride (Vraylar) 3 Mg Capsule, 1 CAP PO DAILY for 30 Days, #30 CAP 0 Refills 07/20/24 Semaglutide (Ozempic) 1 Mg/0.75 Ml (4 Mg/3 Ml) Pen.injctr, 1 MG SQ QWEEK 03/12/24 Lisinopril (Lisinopril) 10 Mg Tablet, 1 TAB PO DAILY for blood pressure 03/12/24 Ziprasidone HCl (Ziprasidone HCl) 40 Mg Capsule, 1 CAP PO BID 03/12/24 Venlafaxine HCl (Venlafaxine HCl ER) 150 Mg Cap.er.24h, 1 CAP PO DAILY 03/12/24 Past Medical History Past Medical History: Anxiety, Asthma, Depression, Diabetes-Type II, Hypertension, Other Additional Past Medical Hx: PCOS, IBS. Surgical History: Tonsillectomy, Other Surgical History Other: ANKLE SX. Family History: Negative Social History: Drugs, Negative, Lives with family, Other History: Not Applicable RN Note Reviewed/Agreed w/PFSH: Yes Review of System Dictation CONSTITUTIONAL: NEGATIVE EXCEPT FOR HPI HEAD/FACE: NEGATIVE EXCEPT FOR HPI EENT: NEGATIVE EXCEPT FOR HPI BLURRED VISION RIGHT EYE RESPIRATORY: NEGATIVE EXCEPT FOR HPI GASTROINTESTINAL/ABDOMINAL: NEGATIVE EXCEPT FOR HPI GENITOURINARY: NEGATIVE EXCEPT FOR HPI MUSCULOSKELETAL: NEGATIVE EXCEPT FOR HPI INTEGUMENTARY: NEGATIVE EXCEPT FOR HPI NEUROLOGICAL/PSYCH: NEGATIVE EXCEPT FOR HPI HEMATOLOGIC/LYMPHATIC: NEGATIVE EXCEPT FOR HPI ALL SYSTEMS NEGATIVE, EXCEPT NOTED ABOVE. 13 POINT REVIEW OF SYSTEMS ASSESSED AND ALL NEGATIVE EXCEPT FOR ABOVE. Initial Vital Sign VS Vital Signs Date Time Temp Pulse Resp B/P (MAP) Pulse Ox O2 Delivery O2 Flow Rate FiO2 10/09/25 14:23 98.1 77 16 177/100 99 Room Air 0 10/09/25 15:40 21 Physical Exam Dictation VITAL SIGNS REVIEWED GENERAL APPEARANCE: ALERT, ORIENTED X 3, NO ACUTE DISTRESS, WELL DEVELOPED, NOURISHED. HEAD AND FACE: NON-TRAUMATIC. EYES: PERRL, PINK CONJUNCTIVAS, EYELID NO TRAUMA, ANTERIOR CHAMBER WITH ARCUS SENILIS. EOMS INTACT PERRLA EARS: PINNAS INTACT AND NO SIGNS OF TRAUMA OR ERYTHEMA EAR CANALS CLEAR AND NO DISCHARGE TM NO ERYTHEMA NOSE: NO DISCHARGE, NO BLEEDING. OROPHARYNX: MOUTH NORMAL, TONGUE PINK, PHARYNX CLEAR,NO ERYTHEMA, TONSILS NO EXUDATES, NO ABSCESSES NOTED, MUCOUS MEMBRANE MOIST NECK: SUPPLE, NON-TENDER, NO THYROMEGALY, NO MASSES, NO JVD, NO BRUITS BREAST:DEFERRED CHEST:NO TENDERNESS, NO CREPITUS, NO PARADOXICAL MOVEMENT, NO RETRACTIONS LUNGS:CLEAR, WELL-VENTILATED, SYMMETRIC, NO RALES, NO WHEEZING, NO RHONCHI, NO STRIDOR, GOOD BREATH SOUNDS BILATERALLY HEART: REGULAR RATE, REGULAR RHYTHM, NO MURMUR, NO GALLOPS VASCULAR: NO PERIPHERAL EDEMA, ABDOMEN: SOFT, POSITIVE BOWEL SOUNDS, NONDISTENDED, NO GUARDING, NONTENDER, NO REBOUND, NO MASSES NO HEPATOMEGALY, NO SPLENOMEGALY, NO STERN'S SIGN, NO HERNIAS. RECTAL: DEFERRED GENITAL: DEFERRED NEUROLOGICAL: NORMAL SPEECH, MOTOR FUNCTION INTACT, SENSORY FUNCTION INTACT MUSCULOSKELETAL: NECK NONTENDER, FULL RANGE OF MOTION, BACK NONTENDER, FULL RANGE OF MOTION, EXTREMITIES: NONTENDER, FULL RANGE OF MOTION SKIN: COLOR PINK, DRY, NO TURGOR, NO RASH, NO LACERATIONS, NO ABRASIONS, NO CONTUSIONS. LYMPHATIC: DEFERRED Results (Laboratory/Radiology) Labs Reviewed?: Yes ED Course ED Course Orders Procedure Category Date Status Time Visual Acuity Test CPOE 10/09/25 Transmitted (Er) 14:30 Tetracaine Hcl PHA 10/09/25 In Process (Pontocaine 0.5% 14:30 Fluorescein Sodium PHA 10/09/25 In Process (Lhkoz-G-Sxals At) 14:30 Current Medications Medications (Trade) Dose Ordered Sig/Radha Route PRN Reason Start Time Stop Time Status Last Admin Dose Admin Fluorescein Sodium (Tfxom-F-Ebboq At) 1 strip ONCE OP 10/09/25 14:30 11/08/25 14:29 10/09/25 15:46 Tetracaine HCl (Pontocaine 0.5% Ophth Soln) 2 drop ONCE OP 10/09/25 14:30 11/08/25 14:29 10/09/25 15:46 Vital Signs Date Time Temp Pulse Resp B/P (MAP) Pulse Ox O2 Delivery O2 Flow Rate FiO2 10/09/25 15:40 98.1 74 16 162/88 99 Room Air* 0 21 10/09/25 14:23 98.1 77 16 177/100 99 Room Air 0 Medical Decision Making MDM SIXTEEN 30/MEDICAL DECISION-MAKING BASED ON HPI AND PHYSICAL EXAMINATION. NO LABS OR IMAGING INDICATED. PERRLA AND EOMS INTACT TO RIGHT EYE PATIENT STATES SHE WAS SUPPOSED TO BE WEARING CONTACTS HOWEVER HER PRESCRIPTIONS OLD HAS NOT BEEN BACK TO SEE YOUR DOCTOR. DISCHARGED HOME TO FOLLOW UP WITH [facility] TOMORROW HER PRIMARY CARE Procedure Procedure Dictation: 1630/PROCEDURE EXPLAINED TO PATIENT SHE AGREED TO PROCEED TWO DROPS TETRACAINE RIGHT EYE FLUORESCEIN STRIPS APPLIED TO RIGHT EYE RIGHT EYE WAS EXAMINED WITH WOOD'S LAMP TO INCLUDE EVERSION OF UPPER LID NO FOREIGN BODY NO ABRASIONS NO LACERATIONS. DX & DISP Disposition: Discharge Departure Impression: Primary Impression: Blurred vision, right eye Condition: Stable Additional Instructions: FOLLOW-UP WITH PRIMARY CARE PROVIDER IN 1 TO 2 DAYS. TAKE MEDICATIONS DIRECTED HERE IN THE EMERGENCY ROOM. OKAY TO CONTINUE HOME MEDICATIONS UNLESS OTHERWISE DISCUSSED DURING YOUR VISIT IN THE EMERGENCY ROOM TODAY. RETURN TO YOUR NEAREST EMERGENCY ROOM IF SYMPTOMS WORSEN OR IF THERE IS NO IMPROVEMENT. CALL 911 IF YOU NEED IMMEDIATE ASSISTANCE. TAKE TYLENOL OR MOTRIN [id number] NEEDED AND IF NO CONTRAINDICATIONS ARE PRESENT. INCREASE ORAL HYDRATION. A WOUND CULTURE OR URINE CULTURE WAS ORDERED HERE IN THE EMERGENCY ROOM DEPARTMENT PLEASE FOLLOW-UP WITH PRIMARY CARE PROVIDER AND ADVISE THEM TO GET REPEAT PORTS FROM OUR FACILITY. IF YOU HAD ANY ALEKSANDR WRAP/SPLINTS THAT WERE APPLIED HERE, PLEASE DO NOT REMOVE THEM UNTIL YOU SEE YOUR PRIMARY CARE OR SPECIALTY. LOOKING THE YELLOW PAGES FOR PHONE NUMBER FOR [facility] IN [facility] AND FOLLOW UP WITH THEM TOMORROW. IF UNABLE TO GET IN, SEE YOUR DECISION SUPPORT ANALYST FOR EVALUATION OF YOUR VISION AND NEW CONTACT PRESCRIPTION Referrals: SELF,REFERRAL (PCP) Time of Disposition: 16:30 I have reviewed the case, and I agree with, Diagnosis and Plan VERÓNICA TOBIAS Oct 09, 2025 14:32
[2025-10-09 15:40] VITALS: BP 162/88; PULSE 74; RESP 16; TEMP 98; O2SAT 99
[2025-10-09] MEDS: FLUORESCEIN SODIUM 1 STRIP STRIP OP SCH (15:46)
[2025-10-09] MEDS: TETRACAINE HCL 0.5% 4 ML OPHTH SOLN OP SCH (15:46)
== END 2025-10-09 16:37 | disposition home or self-care (01) ==
LOC: EDH 14:22
DX: H57.89 Other specified disorders of eye and adnexa (principal); E11.9 Type 2 diabetes mellitus without complications; F32.A Depression, unspecified; F41.9 Anxiety disorder, unspecified; J45.909 Unspecified asthma, uncomplicated; I10 Essential (primary) hypertension; Z88.1 Allergy status to other antibiotic agents; Z79.899 Other long term (current) drug therapy; Z79.85 Long-term (current) use of injectable non-insulin antidiabetic drugs; Z90.89 Acquired absence of other organs
CPT/HCPCS: 99283